=== PATIENT | male | born 1975 | race African-American/Black ===

== ENCOUNTER 2018-09-02 03:40 | Inpatient (IN) | payer MEDICAID ==
[~2018-09-02] VITALS: Ht 170.2 cm; Wt 60.8 kg
[2018-09-02] VITALS (8 sets, daily range): BP systolic 121–135; BP diastolic 69–80
[2018-09-02] MEDS ORDERED: HYDROXYUREA500 M1 PO (03:45)
[2018-09-02] MEDS ORDERED: FOLIC ACID1 MG ORAL (03:45)
[2018-09-02] MEDS ORDERED: DILAUDID 44 MG/1 M3 IJ (03:45)
[2018-09-02] MEDS ORDERED: DiphenhydrAMINE 50mg/ml Inj IVP ONE (04:00)
[2018-09-02] MEDS ORDERED: Morphine Sulfate 4mg/ml Inj (IV/IM USE ONLY) IVP ONE ×2 (04:00→05:00)
[2018-09-02 04:06] LABS: HEMATOCRIT 26.7 % (42.0-52.0); MEAN CORPUSCULAR VOLUME 84 FL (80-99); PLATELET COUNT 412 K/UL (150-450); RED BLOOD COUNT 3.18 M/UL (4.70-6.10); RED CELL DISTRIBUTION WIDTH 26.8 % (11.6-14.8); WHITE BLOOD COUNT 19.4 K/UL (4.8-10.8)
[2018-09-02 04:16] LABS: ANION GAP 10 mmol/L (5-15); BLOOD UREA NITROGEN 8 mg/dL (7-18); CALCIUM 8.8 MG/DL (8.5-10.1); CARBON DIOXIDE 24 MMOL/L (21-32); CHLORIDE 107 MMOL/L (98-107); CREATININE 0.7 MG/DL (0.55-1.30); SODIUM 141 MMOL/L (136-145)
[2018-09-02 04:18] LABS: INR 1.1 (0.9-1.1)
[2018-09-02 04:29] LABS: ALANINE AMINOTRANSFERASE 44 U/L (12-78); ALBUMIN 4.3 G/DL (3.4-5.0); ALKALINE PHOSPHATASE 100 U/L (46-116); ASPARTATE AMINO TRANSFERASE 35 U/L (15-37); BILIRUBIN,TOTAL 3.4 MG/DL (0.2-1.0)
--- NOTE | 2018-09-02 04:41 | Emergency Room Report ---
History of Present Illness General Chief Complaint: Pain Source: Patient Present Illness HPI Patient is a 42-year-old male who presented after increased back pain. Patient had recent onset of symptoms. He reports having increased sharp pain. Patient states that he had prior history of sickle cell disease. Taking hydroxyurea as well as. The patient reports being followed by hematology [facility]. Allergies: Coded Allergies: MORPHINE (Verified Allergy, Unknown, 09/02/18) Patient History Past Medical History: see triage record Reviewed Nursing Documentation: PMH: Agreed; PSxH: Agreed Nursing Documentation-PMH Past Medical History: No History, Except For Review of Systems All Other Systems: negative except mentioned in HPI Physical Exam Vital Signs Date Time Temp Pulse Resp B/P (MAP) Pulse Ox O2 Delivery O2 Flow Rate FiO2 09/02/18 03:39 98.4 87 16 128/71 100 Room Air Sp02 EP Interpretation: reviewed, normal General Appearance: normal inspection, well appearing, no apparent distress, alert, GCS 15 Head: atraumatic ENT: normal ENT inspection, hearing grossly normal, normal voice Neck: normal inspection, full range of motion, supple, no bony tend Respiratory: normal inspection, lungs clear, normal breath sounds, no respiratory distress, no retraction, no wheezing Cardiovascular #1: regular rate, rhythm, no edema Gastrointestinal: normal inspection, normal bowel sounds, non tender, soft, no guarding, no hernia Genitourinary: no CVA tenderness Musculoskeletal: normal inspection, back normal, normal range of motion Neurologic: normal inspection, alert, oriented x3, responsive, 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 Differential diagnosis included but was not limited to have sickle cell pain crisis, aplastic crisis, sequestration , osteomyelitis, acute chest syndrome among others. Because of complexity of patient's case laboratory testing and imaging studies were ordered.The patient was noted to have severe pain. The patient was given multiple IV pain medications as well as IV fluids. The patient was noted to have adequate hemoglobin as well as elevated white blood count.Dr. Angelito Dahl was contacted for inpatient management due to panel physician Last Vital Signs Date Time Temp Pulse Resp B/P (MAP) Pulse Ox O2 Delivery O2 Flow Rate FiO2 09/02/18 03:40 98.3 79 20 135/80 100 Room Air Status: improved Disposition: ADMITTED INPATIENT Condition: Stable Referrals: NON PHYSICIAN (PCP) Gamal Cheung MD Sep 02, 2018 04:41
[2018-09-02 04:44] LABS: BILIRUBIN,DIRECT 0.3 MG/DL (0.0-0.3)
[2018-09-02] MEDS ORDERED: Ketorolac 30mg Inj IV ONE ×2 (05:00)
[2018-09-02 05:41] LABS: BILIRUBIN, URINE NEGATIVE (NEGATIVE); GLUCOSE, URINE (UA) NEGATIVE (NEGATIVE); KETONES,URINE NEGATIVE (NEGATIVE); LEUKOCYTE ESTERASE ,URINE NEGATIVE (NEGATIVE); NITRITE,URINE NEGATIVE (NEGATIVE); PH,URINE 7 (4.5-8.0); PROTEIN,URINE NEGATIVE (NEGATIVE); UROBILINOGEN,URINE NORMAL MG/DL (0.0-1.0)
[2018-09-02 05:42] LABS: APPEARANCE,URINE CLEAR; COLOR,URINE YELLOW
--- NOTE | 2018-09-02 07:51 | Consultation ---
History of Present Illness General Chief Complaint: Pain Present Illness Allergies: Coded Allergies: MORPHINE (Verified Allergy, Unknown, 09/02/18) Medication History Scheduled Folic Acid* (Folic Acid*), 1 MG ORAL DAILY, (Reported) Miscellaneous Medications Hydromorphone HCl/Pf (Dilaudid 4 mg/ml Syringe), 4 MG IJ, (Reported) Hydroxyurea (Hydroxyurea), 500 MG PO, (Reported) Patient History Healthcare decision maker Resuscitation status Advanced Directive on File Physical Exam Last 24 Hour Vital Signs Date Time Temp Pulse Resp B/P (MAP) Pulse Ox O2 Delivery O2 Flow Rate FiO2 09/02/18 07:06 98.2 81 20 130/75 97 Room Air 09/02/18 07:04 98.2 81 20 130/75 97 Room Air 09/02/18 05:44 98.0 72 20 128/77 96 Room Air 09/02/18 03:40 98.3 79 20 135/80 100 Room Air 09/02/18 03:39 98.4 87 16 128/71 100 Room Air Laboratory Tests Test 09/02/18 03:55 09/02/18 04:50 White Blood Count 19.4 K/UL (4.8-10.8) H Red Blood Count 3.18 M/UL (4.70-6.10) L Hemoglobin 9.0 G/DL (14.2-18.0) L Hematocrit 26.7 % (42.0-52.0) L Mean Corpuscular Volume 84 FL (80-99) Mean Corpuscular Hemoglobin 28.3 PG (27.0-31.0) Mean Corpuscular Hemoglobin Concent 33.7 G/DL (32.0-36.0) Red Cell Distribution Width 26.8 % (11.6-14.8) H Platelet Count 412 K/UL (150-450) Mean Platelet Volume 6.6 FL (6.5-10.1) Neutrophils (%) (Auto) % (45.0-75.0) Lymphocytes (%) (Auto) % (20.0-45.0) Monocytes (%) (Auto) % (1.0-10.0) Eosinophils (%) (Auto) % (0.0-3.0) Basophils (%) (Auto) % (0.0-2.0) Reticulocyte Count 2.2 % (0.0-2.0) H Prothrombin Time 11.2 SEC (9.30-11.50) Prothromb Time International Ratio 1.1 (0.9-1.1) Activated Partial Thromboplast Time 19 SEC (23-33) L Sodium Level 141 MMOL/L (136-145) Potassium Level 4.0 MMOL/L (3.5-5.1) Chloride Level 107 MMOL/L (98-107) Carbon Dioxide Level 24 MMOL/L (21-32) Anion Gap 10 mmol/L (5-15) Blood Urea Nitrogen 8 mg/dL (7-18) Creatinine 0.7 MG/DL (0.55-1.30) Estimat Glomerular Filtration Rate > 60 mL/min (>60) Glucose Level 122 MG/DL (74-106) H Calcium Level 8.8 MG/DL (8.5-10.1) Total Bilirubin 3.4 MG/DL (0.2-1.0) H Direct Bilirubin 0.3 MG/DL (0.0-0.3) Aspartate Amino Transf (AST/SGOT) 35 U/L (15-37) Alanine Aminotransferase (ALT/SGPT) 44 U/L (12-78) Alkaline Phosphatase 100 U/L (46-116) Troponin I 0.007 ng/mL (0.000-0.056) Total Protein 8.7 G/DL (6.4-8.2) H Albumin 4.3 G/DL (3.4-5.0) Globulin 4.4 g/dL Albumin/Globulin Ratio 1.0 (1.0-2.7) Urine Color Yellow Urine Appearance Clear Urine pH 7 (4.5-8.0) Urine Specific [place] 1.005 (1.005-1.035) Urine Protein Negative (NEGATIVE) Urine Glucose (UA) Negative (NEGATIVE) Urine Ketones Negative (NEGATIVE) Urine Blood Negative (NEGATIVE) Urine Nitrite Negative (NEGATIVE) Urine Bilirubin Negative (NEGATIVE) Urine Urobilinogen Normal MG/DL (0.0-1.0) Urine Leukocyte Esterase Negative (NEGATIVE) Urine RBC 0 /HPF (0 - 0) Urine WBC 0 /HPF (0 - 0) Urine Squamous Epithelial Cells None /LPF (NONE/OCC) Urine Bacteria None /HPF (NONE) Urine Opiates Screen Positive (NEGATIVE) H Urine Barbiturates Screen Negative (NEGATIVE) Phencyclidine (PCP) Screen Negative (NEGATIVE) Urine Amphetamines Screen Negative (NEGATIVE) Urine Benzodiazepines Screen Negative (NEGATIVE) Urine Cocaine Screen Negative (NEGATIVE) Urine Marijuana (THC) Screen Positive (NEGATIVE) H Height (Feet): 5 Height (Inches): 7.00 Weight (Pounds): 155 Assessment/Plan Assessment/Plan Hematology Consultation REQ : Jody RFC: SS crisis DOS: 09/02/18 HPI Patient is a 42-year-old male who presented after increased back pain. Patient had recent onset of symptoms. He reports having increased sharp pain. Patient states that he had prior history of sickle cell disease. Taking hydroxyurea as well as. The patient reports being followed by hematology [facility]. Coded Allergies: morphine Past Medical History: see triage record Reviewed Nursing Documentation: PMH: Agreed; PSxH: Agreed Past Medical History: No History, Except For Review of Systems All Other Systems: negative except mentioned in HPI Physical Exam VS as per emr Sp02 EP Interpretation: reviewed, normal General Appearance: normal inspection, well appearing, no apparent distress, alert, GCS 15 Head: atraumatic ENT: normal ENT inspection, hearing grossly normal, normal voice Neck: normal inspection, full range of motion, supple, no bony tend Respiratory: normal inspection, lungs clear, normal breath sounds, no respiratory distress, no retraction, no wheezing Cardiovascular #1: regular rate, rhythm, no edema Gastrointestinal: normal inspection, normal bowel sounds Genitourinary: no CVA tenderness Musculoskeletal: normal inspection, back normal Neurologic: normal inspection, alert, oriented x3, responsive Psychiatric: normal inspection, judgement/insight normal, mood/affect normal Skin: normal inspection, normal color, no rash Imaging reviewed Assessment and Recs # SIckle cell crisis -- Patient presented for sickle cell pain. Differential diagnosis included but was not limited to have sickle cell pain crisis, aplastic crisis, sequestration, osteomyelitis, acute chest syndrome among others. Because of complexity of patient's case laboratory testing and imaging studies were ordered. --> bc first time here, obtain sickle cell screen --> obtain hgb electrophoresis --> pain manamgent as per pain team --> retic and ldh pending --> incentive maksim --> hydroxyurea continue --> [facility] f/u # Anemia of sickle cell disease --> obtain anemia eval # Hyperbili- likely related to sickle cell disease --> trend as needed, should improve # Leukocytosis likely elevated due to ss and stress reaction # Dehydration -- administer fluids Greatly appreciate consultation! Zackery Perez MD Sep 02, 2018 07:51
[2018-09-02] MEDS ORDERED: DiphenhydrAMINE 50mg/ml Inj IVP PRN (08:30)
[2018-09-02] MEDS ORDERED: Morphine Sulfate 2mg/ml Inj IVP PRN (08:30)
[2018-09-02 09:37] LABS: % IRON SATURATION 32 % (15-50); IRON 81 ug/dL (50-175); TOTAL IRON BINDING CAPACITY 254 ug/dL (250-450)
[2018-09-02 09:59] LABS: FERRITIN 1834 NG/ML (8-388)
[2018-09-02] MEDS ORDERED: Morphine Sulfate 4mg/ml Inj (IV/IM USE ONLY) IVP PRN (10:45)
--- NOTE | 2018-09-02 11:12 | Consultation ---
Consult Note Consult Note Patient is a 42-year-old male who presented after increased back pain. Patient had recent onset of symptoms. He reports having increased sharp pain. Patient states that he had prior history of sickle cell disease. Taking hydroxyurea as well as. The patient reports being followed by hematology [facility]. Allergies: MORPHINE (Verified Allergy, Unknown, 09/02/18) data reviewed patient seen Assessment/Plan sickle cell crisis hydrate per hematology Kapil Franklin MD Sep 02, 2018 11:12
[2018-09-02] MEDS: D5 1/2NS 1,000 ML IV SCH ×2 (11:46→23:46)
[2018-09-02] MEDS ORDERED: Morphine Sulfate 4mg/ml Inj (IV/IM USE ONLY) IVP SCH (12:30)
--- NOTE | 2018-09-02 13:01 | Diagnostic Imaging Report ---
Indication: Shortness of breath Technique: One view of the chest Comparison: none Findings: The lungs and pleural space are clear. The heart is enlarged. The bones are diffusely sclerotic Impression: Cardiomegaly No acute process Diffuse osteosclerosis, likely on the basis of metabolic abnormality such as sickle cell disease
[2018-09-02] MEDS: Hydroxyurea 500mg cap ORAL SCH (14:15)
[2018-09-02] MEDS: HYDROmorphone 1mg/ml Carpuject IVP PRN ×2 (16:23→20:23)
[2018-09-02] MEDS ORDERED: D5 1/2NS 1000ml IV ONE (16:45)
--- NOTE | 2018-09-02 18:25 | Consultation ---
History of Present Illness General Date patient seen: Sep 02, 2018 Chief Complaint: Present Illness Allergies: Coded Allergies: MORPHINE (Verified Allergy, Unknown, 09/02/18) Medication History Scheduled Folic Acid* (Folic Acid*), 1 MG ORAL DAILY, (Reported) Miscellaneous Medications Hydromorphone HCl/Pf (Dilaudid 4 mg/ml Syringe), 4 MG IJ, (Reported) Hydroxyurea (Hydroxyurea), 500 MG PO, (Reported) Patient History Healthcare decision maker Resuscitation status Full Code Advanced Directive on File No Physical Exam Last 24 Hour Vital Signs Date Time Temp Pulse Resp B/P (MAP) Pulse Ox O2 Delivery O2 Flow Rate FiO2 09/02/18 16:53 99.0 09/02/18 16:00 98.7 95 20 122/78 (93) 95 09/02/18 13:28 99.0 82 19 128/75 (92) 98 09/02/18 13:06 98.6 09/02/18 12:00 99.0 82 19 128/75 (92) 98 09/02/18 09:52 98.6 09/02/18 09:00 Room Air 09/02/18 08:15 98.6 92 19 130/76 (94) 96 09/02/18 08:12 Room Air 09/02/18 07:06 98.2 81 20 130/75 97 Room Air 09/02/18 07:04 98.2 81 20 130/75 97 Room Air 09/02/18 05:44 98.0 72 20 128/77 96 Room Air 09/02/18 03:40 98.3 79 20 135/80 100 Room Air 09/02/18 03:39 98.4 87 16 128/71 100 Room Air Intake and Output 09/01/18 09/02/18 19:00 07:00 # Voids 1 Laboratory Tests Test 09/02/18 03:55 09/02/18 04:50 White Blood Count 19.4 K/UL (4.8-10.8) H Red Blood Count 3.18 M/UL (4.70-6.10) L Hemoglobin 9.0 G/DL (14.2-18.0) L Hematocrit 26.7 % (42.0-52.0) L Mean Corpuscular Volume 84 FL (80-99) Mean Corpuscular Hemoglobin 28.3 PG (27.0-31.0) Mean Corpuscular Hemoglobin Concent 33.7 G/DL (32.0-36.0) Red Cell Distribution Width 26.8 % (11.6-14.8) H Platelet Count 412 K/UL (150-450) Mean Platelet Volume 6.6 FL (6.5-10.1) Neutrophils (%) (Auto) % (45.0-75.0) Lymphocytes (%) (Auto) % (20.0-45.0) Monocytes (%) (Auto) % (1.0-10.0) Eosinophils (%) (Auto) % (0.0-3.0) Basophils (%) (Auto) % (0.0-2.0) Reticulocyte Count 2.2 % (0.0-2.0) H Sickle Cell Screen Pending Hemoglobin A Pending Hemoglobin A2 Pending Hemoglobin C Pending Hemoglobin F () Pending Hemoglobin S Pending Variant Hemoglobin Pending Hemoglobin Electrophoresis Interp Pending Hemoglobin Interpretation Pending Hemoglobin Solubility Pending Prothrombin Time 11.2 SEC (9.30-11.50) Prothromb Time International Ratio 1.1 (0.9-1.1) Activated Partial Thromboplast Time 19 SEC (23-33) L Sodium Level 141 MMOL/L (136-145) Potassium Level 4.0 MMOL/L (3.5-5.1) Chloride Level 107 MMOL/L (98-107) Carbon Dioxide Level 24 MMOL/L (21-32) Anion Gap 10 mmol/L (5-15) Blood Urea Nitrogen 8 mg/dL (7-18) Creatinine 0.7 MG/DL (0.55-1.30) Estimat Glomerular Filtration Rate > 60 mL/min (>60) Glucose Level 122 MG/DL (74-106) H Calcium Level 8.8 MG/DL (8.5-10.1) Iron Level 81 ug/dL (50-175) Total Iron Binding Capacity 254 ug/dL (250-450) Percent Iron Saturation 32 % (15-50) Unsaturated Iron Binding 173 ug/dL (112-346) Ferritin 1834 NG/ML (8-388) H Total Bilirubin 3.4 MG/DL (0.2-1.0) H Direct Bilirubin 0.3 MG/DL (0.0-0.3) Aspartate Amino Transf (AST/SGOT) 35 U/L (15-37) Alanine Aminotransferase (ALT/SGPT) 44 U/L (12-78) Alkaline Phosphatase 100 U/L (46-116) Troponin I 0.007 ng/mL (0.000-0.056) Total Protein 8.7 G/DL (6.4-8.2) H Albumin 4.3 G/DL (3.4-5.0) Globulin 4.4 g/dL Albumin/Globulin Ratio 1.0 (1.0-2.7) Urine Color Yellow Urine Appearance Clear Urine pH 7 (4.5-8.0) Urine Specific [place] 1.005 (1.005-1.035) Urine Protein Negative (NEGATIVE) Urine Glucose (UA) Negative (NEGATIVE) Urine Ketones Negative (NEGATIVE) Urine Blood Negative (NEGATIVE) Urine Nitrite Negative (NEGATIVE) Urine Bilirubin Negative (NEGATIVE) Urine Urobilinogen Normal MG/DL (0.0-1.0) Urine Leukocyte Esterase Negative (NEGATIVE) Urine RBC 0 /HPF (0 - 0) Urine WBC 0 /HPF (0 - 0) Urine Squamous Epithelial Cells None /LPF (NONE/OCC) Urine Bacteria None /HPF (NONE) Urine Opiates Screen Positive (NEGATIVE) H Urine Barbiturates Screen Negative (NEGATIVE) Phencyclidine (PCP) Screen Negative (NEGATIVE) Urine Amphetamines Screen Negative (NEGATIVE) Urine Benzodiazepines Screen Negative (NEGATIVE) Urine Cocaine Screen Negative (NEGATIVE) Urine Marijuana (THC) Screen Positive (NEGATIVE) H Height (Feet): 5 Height (Inches): 7.00 Weight (Pounds): 134 Medications Current Medications Medications (Trade) Dose Ordered Sig/Christina Route PRN Reason Start Time Stop Time Status Last Admin Dose Admin Dextrose/Sodium Chloride 1,000 ml @ 75 mls/hr [id number] IV 09/02/18 11:45 10/02/18 11:44 09/02/18 11:46 Diphenhydramine HCl (Benadryl) 25 mg Q4H PRN IVP Itching 09/02/18 08:30 10/02/18 08:29 09/02/18 09:22 Folic Acid (Folate) 2 mg DAILY ORAL 09/03/18 09:00 10/02/18 08:59 Hydromorphone HCl (Dilaudid) 1 mg Q4H PRN IVP For Pain 09/02/18 15:00 09/09/18 14:59 09/02/18 16:23 Hydroxyurea (Hydrea) 500 mg DAILY ORAL 09/02/18 14:15 09/07/18 14:14 Assessment/Plan Assessment/Plan (1) Sickle cell disease (2) Sickle cell crisis (3) Intractable pain seen dictated Nathanael Sheridan Sep 02, 2018 18:25
[2018-09-02] MEDS ORDERED: Methocarbamol 500mg tab ORAL PRN (18:45)
[2018-09-02] MEDS: HYDROcodone/Acetamin 10/325 tab ORAL PRN (19:03)
--- NOTE | 2018-09-02 21:00 | Consultation ---
DATE OF CONSULTATION: 09/02/2018 INFECTIOUS DISEASE CONSULT: CONSULTING PHYSICIAN: Stuart Vora M.D. PRIMARY ATTENDING: Angelito Vera M.D. REASON FOR CONSULT: Leukocytosis. HISTORY OF PRESENT ILLNESS: The patient is a 42-year-old male admitted today because of back pain. The patient has a history of sickle cell disease on treatment with hydroxyurea. Had leukocytosis, but no fever. PAST MEDICAL HISTORY: Significant for sickle cell disease and anemia. ALLERGIES: Allergic to morphine. MEDICATIONS: Folic acid, morphine sulfate, diphenhydramine, and got a dose of ketorolac. SOCIAL HISTORY: Single. Denies alcohol, drug abuse, and smoking. REVIEW OF SYSTEMS: No chest pain. No fever. No chills. No coughing. No shortness of breath. No nausea. No vomiting. No problem in urination. PHYSICAL EXAMINATION: VITAL SIGNS: Temperature 98.6, pulse 92, and blood pressure 130/76. GENERAL APPEARANCE: No acute distress. Seems to be thin. HEAD AND NECK: [place] conjunctivae. HEART: S1-S2 regular. LUNGS: Clear. ABDOMEN: Soft and nontender. EXTREMITIES: Has no edema. LABORATORY DATA: Sodium 141, potassium 4, chloride 107, bicarbonate 24, BUN 8, creatinine 0.7, and glucose 122. Ferritin is 1834. WBC 19.4, hemoglobin 9, hematocrit 26.7, and platelets 412. Urine toxicology was positive for marijuana and opiates. UA was negative. Chest x-ray was done, report is pending. IMPRESSION: Leukocytosis, likely reactive to sickle cell crisis. The patient has anemia. RECOMMENDATION: Observe off antibiotic. We will follow up the chest x-ray. At the end of my exam, I thank Dr. Vera for involving me in the care of this patient. Stuart Vora M.D. DR: KIMMY JOB#: [id number] CC:
[2018-09-03] VITALS (7 sets, daily range): BP systolic 118–177; BP diastolic 68–78
[2018-09-03] MEDS: HYDROmorphone 1mg/ml Carpuject IVP PRN ×6 (00:23→21:22)
--- NOTE | 2018-09-03 02:45 | History and Physical Report ---
DATE OF ADMISSION: 09/02/2018 HISTORY OF PRESENT ILLNESS: The patient is admitted for sickle cell crisis. The patient has also leukocytosis and increased pain from sickle cell disease mainly in the back and both knees are hurting. The patient denies nausea, vomiting, or diarrhea. Does have some itching as well. Denies shortness of breath. Denies cough. PAST MEDICAL HISTORY: Sickle cell and history of gallstones. PAST SURGERY HISTORY: Cholecystectomy. ALLERGIES: Morphine. MEDICATION: Hydroxyurea and Dilaudid and folic acid. FAMILY HISTORY: Noncontributory. SOCIAL HISTORY: Denies history of smoking. Denies alcohol or illicit drugs. REVIEW OF SYSTEMS: HEENT: Denies headaches. RESPIRATORY: Denies shortness of breath. Denies cough. CARDIOVASCULAR: Denies chest pain. No orthopnea. GASTROINTESTINAL: Denies nausea, vomiting, or diarrhea. EXTREMITY: Reports back pain and bilateral knee pain. CENTRAL NERVOUS SYSTEM: No change in vision or speech pattern. PHYSICAL EXAMINATION: VITAL SIGNS: Temperature 99, pulse 83, and blood pressure 128/75. HEENT: PERRLA. NECK: Supple. No lymphadenopathy. CHEST: Clear to auscultation. CARDIOVASCULAR: Regular rate and rhythm. GASTROINTESTINAL: Soft, nontender, and nondistended. No organomegaly. EXTREMITIES: No edema. Reflexes are equal on both sides. Moves all four extremities. LABORATORY DATA: WBC of 19.4, hemoglobin 9, and platelets of 412,000. Sodium 141, potassium 4, BUN of 8, creatinine 0.7, and glucose of 122. Total bilirubin of 3.4. ASSESSMENT AND PLAN: Sickle cell crisis. The patient will need intravenous fluids and pain management. I have asked Dr. Riojas, Dr. Franklin, Dr. Stuart Vora, and Dr. Zackery Perez to see the patient for the leukocytosis as well as for the treatment of sickle cell crisis as well as for fluid management and pain control. Angelito Vera M.D. DR: BRIDGET JOB#: [id number] CC:
--- NOTE | 2018-09-03 03:00 | Consultation ---
DATE OF CONSULTATION: 09/02/2018 PAIN MANAGEMENT CONSULTATION CONSULTING PHYSICIAN: Lauryn Riojas M.D. REFERRING PHYSICIAN: Angelito Vera M.D. PHYSICIAN AVP: LINDA Boone. CHIEF COMPLAINT: Generalized body pain. HISTORY OF PRESENT ILLNESS: This is a 42-year-old male who is being seen on the Med/Surg floor of [facility] for initial pain management consultation. The patient is admitted under Dr. Vera due to sickle cell crisis and severe pain. He was started on morphine 2 mg IV every four hours with minimal relief, was increased to 4 mg with minimal relief and has been started on Dilaudid 1 mg IV every 4 hours as needed for severe pain , which he reports has helped to reduce his pain. We were consulted so that the patient would have adequate pain control while here in the hospital. PAST MEDICAL HISTORY: Sickle cell disease. PAST SURGICAL HISTORY: Gallbladder removal. SOCIAL HISTORY: Denies smoking tobacco, drinking alcohol, or drug abuse. ALLERGIES: No known drug allergies. MEDICATIONS: . REVIEW OF SYSTEMS: Denies rash, fever, chills, sweating, dizziness, drowsiness, blurred vision, sore throat, or change in weight. No shortness of breath or chest pain. No nausea, vomiting, diarrhea, or blood in the stool or urine. No bowel or bladder incontinence. No dysuria. He is complaining of generalized body pain. PHYSICAL EXAMINATION: GENERAL: Alert, awake, and oriented. VITAL SIGNS: Blood pressure 132/78, heart rate 95, oxygen saturation 95%, respirations 18, and temperature 98.6 degrees Fahrenheit. HEENT: PERRLA. NECK: Range of motion is full in all directions. No tenderness to paracervical muscles. No adenopathy. LUNGS: Decreased breath sounds bilaterally. HEART: Regular. ABDOMEN: Benign. BACK: Range of motion is decreased in flexion and extension. EXTREMITIES: Upper and lower extremities range of motion is decreased due to the patient's clinical condition. No cyanosis. No clubbing. No edema. Sensory is intact. Reflexes are not obtainable. No adenopathy. ASSESSMENT AND PLAN: This is a 42-year-old male with sickle cell disease, sickle cell crisis, and intractable pain. At this time, the patient has been seen by transcript clerk to rule out sickle cell disease. Started on Dilaudid 1 mg IV every 4 hours as needed for severe pain, [place] 10/325mg PO 1 tab Q4H as needed for moderate pain, and Robaxin 500 mg tablets every 8 hours as needed for muscle spasm. The patient was discussed with Dr. Riojas and Dr. Riojas concurred. Thank you very much for the courtesy of this consultation. Lauryn Riojas M.D. LINDA Lezama DR: SAULO JOB#: [id number] CC: DONALD
[2018-09-03] MEDS: HYDROcodone/Acetamin 10/325 tab ORAL PRN ×2 (06:50→20:04)
--- NOTE | 2018-09-03 06:55 | General Progress Note ---
Assessment/Plan Assessment/Plan # SIckle cell crisis -- Patient presented for sickle cell pain. Differential diagnosis included but was not limited to have sickle cell pain crisis, aplastic crisis, sequestration, osteomyelitis, acute chest syndrome among others. Because of complexity of patient's case laboratory testing and imaging studies were ordered. --> bc first time here, obtain sickle cell screen as well as electrophoresis of hgb --> pain manamgent as per pain team, currently pain better controlled --> retic and ldh pending (TREND) --> incentive spirometry --> outpatient Januvia for iron overload --> hydroxyurea continue as per home dose --> [facility] f/u once o/p # Anemia of sickle cell disease --> shows ferritin >1000, otherwise indices are wnl # Hyperbili- likely related to sickle cell disease --> trend as needed, should improve # Leukocytosis likely elevated due to ss and stress reaction --> off abx # Dehydration -- administer fluids Greatly appreciate consultation! Subjective Constitutional: Denies: no symptoms, chills, diaphoresis, fever, malaise, weakness, other HEENT: Denies: no symptoms, eye pain, blurred vision, tearing, double vision, ear pain, ear discharge, nose pain, nose congestion, throat pain, throat swelling, mouth pain, mouth swelling, other Cardiovascular: Denies: no symptoms, chest pain, edema, irregular heart rate, lightheadedness, palpitations, syncope, other Respiratory: Denies: no symptoms, cough, orthopnea, shortness of breath, SOB with excertion, SOB at rest, sputum, stridor, wheezing, other Gastrointestinal/Abdominal: Denies: no symptoms, abdomen distended, abdominal pain, black stools, tarry stools, blood in stool, constipated, diarrhea, difficulty swallowing, nausea, poor appetite, poor fluid intake, rectal bleeding , vomiting, other Genitourinary: Denies: no symptoms, burning, discharge, frequency, flank pain, hematuria, incontinence, pain, urgency, other Neurologic/Psychiatric: Denies: no symptoms, anxiety, depressed, emotional problems, headache, numbness, paresthesia, pre-existing deficit, seizure, tingling, tremors, weakness, other Endocrine: Denies: no symptoms, excessive sweating, flushing, intolerance to cold, intolerance to heat, increased hunger, increased thirst, increased urine, unexplained weight gain, unexplained weight loss, other Hematologic/Lymphatic: Denies: no symptoms, anemia, easy bleeding, easy bruising, other Allergies: Coded Allergies: MORPHINE (Verified Allergy, Unknown, 09/02/18) Subjective less pain this am, retic and ldh being checked, seen by pain management Objective Last 24 Hour Vital Signs Date Time Temp Pulse Resp B/P (MAP) Pulse Ox O2 Delivery O2 Flow Rate FiO2 09/03/18 04:00 99.0 78 18 125/69 (87) 97 09/03/18 00:00 98.9 81 19 119/68 (85) 95 09/02/18 21:00 Room Air 09/02/18 20:00 99.4 74 18 121/69 (86) 98 09/02/18 16:53 99.0 09/02/18 16:00 98.7 95 20 122/78 (93) 95 09/02/18 13:28 99.0 82 19 128/75 (92) 98 09/02/18 13:06 98.6 09/02/18 12:00 99.0 82 19 128/75 (92) 98 09/02/18 09:52 98.6 09/02/18 09:00 Room Air 09/02/18 08:15 98.6 92 19 130/76 (94) 96 09/02/18 08:12 Room Air 09/02/18 07:06 98.2 81 20 130/75 97 Room Air 09/02/18 07:04 98.2 81 20 130/75 97 Room Air Intake and Output 09/02/18 09/03/18 18:59 06:59 Intake Total 1975 ml Output Total 1850 ml Balance 125 ml Intake Oral 1600 ml IV Total 375 ml Output Urine Total 1850 ml # Voids 4 Height (Feet): 5 Height (Inches): 7.00 Weight (Pounds): 134 General Appearance: alert Cardiovascular: normal peripheral pulses Respiratory/Chest: lungs clear Abdomen: soft Extremities: non-tender Edema: 1+ Leg (L), 1+ Leg (R), 1+ Pedal (L), 1+ Pedal (R) Edema: mild edema Neurologic: alert Skin: normal pigmentation Zackery Perez MD Sep 03, 2018 06:55
[2018-09-03] MEDS: Hydroxyurea 500mg cap ORAL SCH (08:57)
--- NOTE | 2018-09-03 09:01 | General Progress Note ---
Assessment/Plan Assessment/Plan (1) Sickle cell disease (2) Sickle cell crisis (3) Intractable pain Patient to be continued on Max and Dilaudid. D/w Dr. Riojas and he concurred. Subjective Date patient seen: Sep 03, 2018 Time patient seen: 07:15 - am Allergies: Coded Allergies: MORPHINE (Verified Allergy, Unknown, 09/02/18) Subjective REVIEW OF SYSTEMS: Denies rash, fever, chills, sweating, dizziness, drowsiness, blurred vision, sore throat, or change in weight. No shortness of breath or chest pain. No nausea, vomiting, diarrhea, or blood in the stool or urine. No bowel or bladder incontinence. No dysuria. He is complaining of generalized body pain. SUBJECTIVE: Patient is in bed and shows no signs of pain or distress. He reports that the pain continues to be severe and is reduced on the Dilaudid and Max. He has no new complaints. Objective Last 24 Hour Vital Signs Date Time Temp Pulse Resp B/P (MAP) Pulse Ox O2 Delivery O2 Flow Rate FiO2 09/03/18 08:00 99.1 95 19 118/78 (91) 97 09/03/18 04:00 99.0 78 18 125/69 (87) 97 09/03/18 00:00 98.9 81 19 119/68 (85) 95 09/02/18 21:00 Room Air 09/02/18 20:00 99.4 74 18 121/69 (86) 98 09/02/18 16:53 99.0 09/02/18 16:00 98.7 95 20 122/78 (93) 95 09/02/18 13:28 99.0 82 19 128/75 (92) 98 09/02/18 13:06 98.6 09/02/18 12:00 99.0 82 19 128/75 (92) 98 09/02/18 09:52 98.6 Intake and Output 09/02/18 09/03/18 19:00 07:00 Intake Total 1975 ml 480 ml Output Total 1850 ml 1475 ml Balance 125 ml -995 ml Intake Oral 1600 ml 480 ml IV Total 375 ml Output Urine Total 1850 ml 1475 ml # Voids 4 Laboratory Tests 09/03/18 07:45: Reticulocyte Count [Pending], Lactate Dehydrogenase 556H Height (Feet): 5 Height (Inches): 7.00 Weight (Pounds): 134 Objective GENERAL: Alert, awake, and oriented. LUNGS: Decreased breath sounds bilaterally. HEART: Regular. ABDOMEN: Benign. EXTREMITIES: No cyanosis. No clubbing. No edema. NEURO: No changes. Nathanael Sheridan Sep 03, 2018 09:01
--- NOTE | 2018-09-03 10:22 | General Progress Note ---
Subjective Allergies: Coded Allergies: MORPHINE (Verified Allergy, Unknown, 09/02/18) Subjective pain in mutiple places sickle cell crisis pain mangement and needs iv fluids Objective Last 24 Hour Vital Signs Date Time Temp Pulse Resp B/P (MAP) Pulse Ox O2 Delivery O2 Flow Rate FiO2 09/03/18 09:34 99.1 09/03/18 08:00 99.1 95 19 118/78 (91) 97 09/03/18 04:00 99.0 78 18 125/69 (87) 97 09/03/18 00:00 98.9 81 19 119/68 (85) 95 09/02/18 21:00 Room Air 09/02/18 20:00 99.4 74 18 121/69 (86) 98 09/02/18 16:00 98.7 95 20 122/78 (93) 95 09/02/18 13:28 99.0 82 19 128/75 (92) 98 09/02/18 13:06 98.6 09/02/18 12:00 99.0 82 19 128/75 (92) 98 Intake and Output 09/02/18 09/03/18 19:00 07:00 Intake Total 1975 ml 480 ml Output Total 1850 ml 1475 ml Balance 125 ml -995 ml Intake Oral 1600 ml 480 ml IV Total 375 ml Output Urine Total 1850 ml 1475 ml # Voids 4 Laboratory Tests 09/03/18 07:45: Reticulocyte Count [Pending], Lactate Dehydrogenase 556H Height (Feet): 5 Height (Inches): 7.00 Weight (Pounds): 134 Angelito Vera MD Sep 03, 2018 10:22
--- NOTE | 2018-09-03 13:01 | Nephrology Progress Note ---
Assessment/Plan Problem List: (1) Sickle cell crisis (2) Dehydration Assessment sickle cell crisis dehydration Plan hydrate per hematology Subjective ROS Limited/Unobtainable: No Constitutional: Reports: malaise Objective Objective Last 24 Hour Vital Signs Date Time Temp Pulse Resp B/P (MAP) Pulse Ox O2 Delivery O2 Flow Rate FiO2 09/03/18 09:34 99.1 09/03/18 09:00 Room Air 09/03/18 08:00 99.1 95 19 118/78 (91) 97 09/03/18 04:00 99.0 78 18 125/69 (87) 97 09/03/18 00:00 98.9 81 19 119/68 (85) 95 09/02/18 21:00 Room Air 09/02/18 20:00 99.4 74 18 121/69 (86) 98 09/02/18 16:00 98.7 95 20 122/78 (93) 95 09/02/18 13:28 99.0 82 19 128/75 (92) 98 09/02/18 13:06 98.6 Intake and Output 09/02/18 09/03/18 19:00 07:00 Intake Total 1975 ml 480 ml Output Total 1850 ml 1475 ml Balance 125 ml -995 ml Intake Oral 1600 ml 480 ml IV Total 375 ml Output Urine Total 1850 ml 1475 ml # Voids 4 Laboratory Tests 09/03/18 07:45: Reticulocyte Count 14.6H, Lactate Dehydrogenase 556H Height (Feet): 5 Height (Inches): 7.00 Weight (Pounds): 134 General Appearance: no apparent distress Objective no change Kapil Franklin MD Sep 03, 2018 13:01
--- NOTE | 2018-09-03 13:37 | Infectious Diseases Prog Note ---
Assessment/Plan Assessment/Plan A; Leukocytosis Sickle cell crisis Anemia Osteosclerosis P; Observe off antibiotics f/u [facility] Subjective ROS Limited/Unobtainable: No Constitutional: Reports: other - malaise Respiratory: Reports: no symptoms Cardiovascular: Reports: no symptoms Gastrointestinal/Abdominal: Reports: no symptoms Genitourinary: Reports: no symptoms Musculoskeletal: Reports: pain, other - back & legs Allergies: Coded Allergies: MORPHINE (Verified Allergy, Unknown, 09/02/18) Objective Vital Signs Last 24 Hour Vital Signs Date Time Temp Pulse Resp B/P (MAP) Pulse Ox O2 Delivery O2 Flow Rate FiO2 09/03/18 12:00 98.9 93 18 120/77 (91) 98 09/03/18 09:34 99.1 09/03/18 09:00 Room Air 09/03/18 08:00 99.1 95 19 118/78 (91) 97 09/03/18 04:00 99.0 78 18 125/69 (87) 97 09/03/18 00:00 98.9 81 19 119/68 (85) 95 09/02/18 21:00 Room Air 09/02/18 20:00 99.4 74 18 121/69 (86) 98 09/02/18 16:00 98.7 95 20 122/78 (93) 95 Height (Feet): 5 Height (Inches): 7.00 Weight (Pounds): 134 General Appearance: no acute distress HEENT: mucous membranes moist Respiratory/Chest: lungs clear Cardiovascular: normal rate Abdomen: soft, non tender Extremities: no edema Neurologic/Psychiatric: alert, oriented x 3, responsive Laboratory Tests Test 09/03/18 07:45 Reticulocyte Count 14.6 % (0.0-2.0) H Lactate Dehydrogenase 556 U/L (81-234) H Current Medications Medications (Trade) Dose Ordered Sig/Christina Route PRN Reason Start Time Stop Time Status Last Admin Dose Admin Acetaminophen/ Hydrocodone Bitart ([place]line 10/325) 1 tab Q6H PRN ORAL severe breakthrough pain 09/02/18 18:45 09/09/18 18:44 09/03/18 06:50 Dextrose/Sodium Chloride 1,000 ml @ 75 mls/hr [id number] IV 09/02/18 11:45 10/02/18 11:44 09/02/18 23:46 Diphenhydramine HCl (Benadryl) 25 mg Q4H PRN IVP Itching 09/02/18 08:30 10/02/18 08:29 09/02/18 09:22 Folic Acid (Folate) 2 mg DAILY ORAL 09/03/18 09:00 10/02/18 08:59 09/03/18 09:03 Hydromorphone HCl (Dilaudid) 1 mg Q4H PRN IVP For Pain 09/02/18 15:00 09/09/18 14:59 09/03/18 13:12 Hydroxyurea (Hydrea) 500 mg DAILY ORAL 09/02/18 14:15 09/07/18 14:14 Methocarbamol (Robaxin) 500 mg Q8H PRN ORAL muscle spasm 09/02/18 18:45 10/02/18 18:44 Stuart Vora MD Sep 03, 2018 13:37
--- NOTE | 2018-09-03 14:56 | Cardiology Report ---
APPROVED REPORT EKG Measurement Heart [id number] Normal sinus rhythm Possible Left atrial enlargement Left ventricular hypertrophy Abnormal ECG
[2018-09-03] MEDS: D5 1/2NS 1,000 ML IV SCH (16:05)
[2018-09-04] VITALS: BP 121/80
[2018-09-04] MEDS: HYDROmorphone 1mg/ml Carpuject IVP PRN ×7 (01:48→22:56)
[2018-09-04 04:00] VITALS: BP 108/77
[2018-09-04] MEDS: D5 1/2NS 1,000 ML IV SCH ×2 (05:25→17:33)
[2018-09-04 08:28] VITALS: BP 103/71
[2018-09-04] MEDS: Hydroxyurea 500mg cap ORAL SCH (09:00)
--- NOTE | 2018-09-04 09:31 | General Progress Note ---
Assessment/Plan Assessment/Plan (1) Sickle cell disease (2) Sickle cell crisis (3) Intractable pain Patient to be discontinued off [place] and Dilaudid will be changed to Q3H PRN. We will start Percocet 10/325mg Q4h PRN moderate pain. D/w Dr. Riojas and he concurred. Subjective Date patient seen: Sep 04, 2018 Time patient seen: 07:15 - am Allergies: Coded Allergies: MORPHINE (Verified Allergy, Unknown, 09/02/18) Subjective REVIEW OF SYSTEMS: Denies rash, fever, chills, sweating, dizziness, drowsiness, blurred vision, sore throat, or change in weight. No shortness of breath or chest pain. No nausea, vomiting, diarrhea, or blood in the stool or urine. No bowel or bladder incontinence. No dysuria. He is complaining of generalized body pain. SUBJECTIVE: Patient continues to c/o severe pain and reports that the Dilaudid has stopped working within three hours of the getting it and the norco causes no relief. Objective Last 24 Hour Vital Signs Date Time Temp Pulse Resp B/P (MAP) Pulse Ox O2 Delivery O2 Flow Rate FiO2 09/04/18 08:28 100.4 89 18 103/71 (82) 94 09/04/18 06:24 99.3 09/04/18 04:00 99.3 86 18 108/77 (87) 96 09/04/18 00:00 98.0 98 18 121/80 (94) 95 09/03/18 21:00 Room Air 09/03/18 20:00 100.2 96 18 124/75 (91) 96 09/03/18 18:00 122/72 (89) 09/03/18 16:00 97.7 54 18 177/75 (109) 99 09/03/18 12:00 98.9 93 18 120/77 (91) 98 09/03/18 12:00 98.9 93 18 120/77 (91) 98 Intake and Output 09/03/18 09/04/18 18:59 06:59 Intake Total 2320 ml 900 ml Output Total 500 ml Balance 1820 ml 900 ml Intake Oral 1420 ml IV Total 900 ml 900 ml Output Urine Total 500 ml # Voids 7 Height (Feet): 5 Height (Inches): 7.00 Weight (Pounds): 134 Objective GENERAL: Alert, awake, and oriented. LUNGS: Decreased breath sounds bilaterally. HEART: Regular. ABDOMEN: Benign. EXTREMITIES: No cyanosis. No clubbing. No edema. NEURO: No changes. Nathanael Sheridan Sep 04, 2018 09:31
[2018-09-04 10:21] LABS: HEMATOCRIT 29.9 % (42.0-52.0); HEMOGLOBIN 9.9 G/DL (14.2-18.0); MEAN CORPUSCULAR VOLUME 84 FL (80-99); PLATELET COUNT 405 K/UL (150-450); RED BLOOD COUNT 3.58 M/UL (4.70-6.10); RED CELL DISTRIBUTION WIDTH 23.5 % (11.6-14.8); WHITE BLOOD COUNT 19.9 K/UL (4.8-10.8)
[2018-09-04 10:43] LABS: ALANINE AMINOTRANSFERASE 42 U/L (12-78); ALBUMIN/GLOBULIN RATIO 0.8 (1.0-2.7); ALKALINE PHOSPHATASE 112 U/L (46-116); ANION GAP 7 mmol/L (5-15); ASPARTATE AMINO TRANSFERASE 49 U/L (15-37); BILIRUBIN,TOTAL 5.7 MG/DL (0.2-1.0); BLOOD UREA NITROGEN 10 mg/dL (7-18); CALCIUM 9.2 MG/DL (8.5-10.1); CARBON DIOXIDE 30 MMOL/L (21-32); CHLORIDE 101 MMOL/L (98-107); CREATININE 0.6 MG/DL (0.55-1.30); PHOSPHORUS 3.8 MG/DL (2.5-4.9); POTASSIUM 4.2 MMOL/L (3.5-5.1); SODIUM 137 MMOL/L (136-145)
[2018-09-04 10:44] LABS: BILIRUBIN,DIRECT 0.5 MG/DL (0.0-0.3)
[2018-09-04 12:28] VITALS: BP 120/74
--- NOTE | 2018-09-04 13:18 | Infectious Diseases Prog Note ---
Assessment/Plan Assessment/Plan A; Leukocytosis & Fever likely SIRS Sickle cell crisis Anemia Osteosclerosis P; Observe off antibiotics Blood cultures if fever>101 f/u [facility] Subjective ROS Limited/Unobtainable: No Constitutional: Reports: fever, other - Low grade, malaise HEENT: Reports: no symptoms Respiratory: Reports: no symptoms Cardiovascular: Reports: no symptoms Gastrointestinal/Abdominal: Reports: no symptoms Genitourinary: Reports: no symptoms Musculoskeletal: Reports: pain, other - in back & legs Allergies: Coded Allergies: MORPHINE (Verified Allergy, Unknown, 09/02/18) Objective Vital Signs Last 24 Hour Vital Signs Date Time Temp Pulse Resp B/P (MAP) Pulse Ox O2 Delivery O2 Flow Rate FiO2 09/04/18 12:28 100.5 90 17 120/74 (89) 96 09/04/18 12:00 100.4 09/04/18 10:16 100.4 09/04/18 09:00 Room Air 09/04/18 08:28 100.4 89 18 103/71 (82) 94 09/04/18 06:24 99.3 09/04/18 04:00 99.3 86 18 108/77 (87) 96 09/04/18 00:00 98.0 98 18 121/80 (94) 95 09/03/18 21:00 Room Air 09/03/18 20:00 100.2 96 18 124/75 (91) 96 09/03/18 18:00 122/72 (89) 09/03/18 16:00 97.7 54 18 177/75 (109) 99 Height (Feet): 5 Height (Inches): 7.00 Weight (Pounds): 134 General Appearance: no acute distress HEENT: mucous membranes moist Respiratory/Chest: lungs clear Cardiovascular: normal rate Abdomen: soft, non tender Extremities: no edema Skin: ulcers, other - left ankle superficial Neurologic/Psychiatric: alert, responsive Laboratory Tests Test 09/04/18 09:50 09/04/18 09:58 White Blood Count 19.9 K/UL (4.8-10.8) H Red Blood Count 3.58 M/UL (4.70-6.10) L Hemoglobin 9.9 G/DL (14.2-18.0) L Hematocrit 29.9 % (42.0-52.0) L Mean Corpuscular Volume 84 FL (80-99) Mean Corpuscular Hemoglobin 27.6 PG (27.0-31.0) Mean Corpuscular Hemoglobin Concent 33.0 G/DL (32.0-36.0) Red Cell Distribution Width 23.5 % (11.6-14.8) H Platelet Count 405 K/UL (150-450) Mean Platelet Volume 6.5 FL (6.5-10.1) Neutrophils (%) (Auto) % (45.0-75.0) Lymphocytes (%) (Auto) % (20.0-45.0) Monocytes (%) (Auto) % (1.0-10.0) Eosinophils (%) (Auto) % (0.0-3.0) Basophils (%) (Auto) % (0.0-2.0) Differential Total Cells Counted 100 Neutrophils % (Manual) 75 % (45-75) Lymphocytes % (Manual) 13 % (20-45) L Monocytes % (Manual) 12 % (1-10) H Eosinophils % (Manual) 0 % (0-3) Basophils % (Manual) 0 % (0-2) Band Neutrophils 0 % (0-8) Nucleated Red Blood Cells 4 /100 WBC Platelet Estimate Adequate Platelet Morphology Normal Hypochromasia 2+ Anisocytosis 3+ Spherocytes 2+ Sodium Level 137 MMOL/L (136-145) Potassium Level 4.2 MMOL/L (3.5-5.1) Chloride Level 101 MMOL/L (98-107) Carbon Dioxide Level 30 MMOL/L (21-32) Anion Gap 7 mmol/L (5-15) Blood Urea Nitrogen 10 mg/dL (7-18) Creatinine 0.6 MG/DL (0.55-1.30) Estimat Glomerular Filtration Rate > 60 mL/min (>60) Glucose Level 95 MG/DL (74-106) Calcium Level 9.2 MG/DL (8.5-10.1) Phosphorus Level 3.8 MG/DL (2.5-4.9) Magnesium Level 2.1 MG/DL (1.8-2.4) Total Bilirubin 5.7 MG/DL (0.2-1.0) H Direct Bilirubin 0.5 MG/DL (0.0-0.3) H Aspartate Amino Transf (AST/SGOT) 49 U/L (15-37) H Alanine Aminotransferase (ALT/SGPT) 42 U/L (12-78) Alkaline Phosphatase 112 U/L (46-116) Total Protein 8.8 G/DL (6.4-8.2) H Albumin 4.0 G/DL (3.4-5.0) Globulin 4.8 g/dL Albumin/Globulin Ratio 0.8 (1.0-2.7) L Reticulocyte Count 10.9 % (0.0-2.0) H Lactate Dehydrogenase 741 U/L (81-234) H Current Medications Medications (Trade) Dose Ordered Sig/Christina Route PRN Reason Start Time Stop Time Status Last Admin Dose Admin Dextrose/Sodium Chloride 1,000 ml @ 75 mls/hr [id number] IV 09/02/18 11:45 10/02/18 11:44 09/04/18 05:25 Diphenhydramine HCl (Benadryl) 25 mg Q4H PRN IVP Itching 09/02/18 08:30 10/02/18 08:29 09/02/18 09:22 Folic Acid (Folate) 2 mg DAILY ORAL 09/03/18 09:00 10/02/18 08:59 09/04/18 09:58 Hydromorphone HCl (Dilaudid) 1 mg Q3H PRN IVP severe pain 09/04/18 09:30 09/09/18 14:59 09/04/18 12:48 Hydroxyurea (Hydrea) 500 mg DAILY ORAL 09/02/18 14:15 09/07/18 14:14 Methocarbamol (Robaxin) 500 mg Q8H PRN ORAL muscle spasm 09/02/18 18:45 10/02/18 18:44 Oxycodone/ Acetaminophen (Percocet 10/325) 1 tab Q4H PRN ORAL moderate pain 09/04/18 09:30 09/11/18 09:29 09/04/18 11:30 Stuart Vora MD Sep 04, 2018 13:18
--- NOTE | 2018-09-04 13:56 | General Progress Note ---
Assessment/Plan Status: stable Assessment/Plan # SIckle cell crisis -- Patient presented for sickle cell pain. Differential diagnosis included but was not limited to have sickle cell pain crisis, aplastic crisis, sequestration, osteomyelitis, acute chest syndrome among others. Because of complexity of patient's case laboratory testing and imaging studies were ordered. --> bc first time here, obtain sickle cell screen as well as electrophoresis of hgb --> pain manamgent as per pain team, currently pain better controlled --> retic elevated at 10.9 and ldh elevated at 741(TREND) --> incentive spirometry --> outpatient Januvia for iron overload --> hydroxyurea continue as per home dose --> [facility] f/u once o/p # Anemia of sickle cell disease --> shows ferritin >1000, otherwise indices are wnl # Hyperbili- likely related to sickle cell disease --> trend as needed, should improve # Leukocytosis likely elevated due to ss and stress reaction --> Monitor and trend wbc for improvement --> off abx # Dehydration -- administer fluids --> Improved Greatly appreciate consultation! Subjective Date patient seen: Sep 04, 2018 Hematologic/Lymphatic: Reports: anemia Allergies: Coded Allergies: MORPHINE (Verified Allergy, Unknown, 09/02/18) All Systems: reviewed and negative except above Subjective Pt awake and alert. No acute events. Pt c/o pain. H/H stable. Objective Last 24 Hour Vital Signs Date Time Temp Pulse Resp B/P (MAP) Pulse Ox O2 Delivery O2 Flow Rate FiO2 09/04/18 12:28 100.5 90 17 120/74 (89) 96 09/04/18 12:00 100.4 09/04/18 10:16 100.4 09/04/18 09:00 Room Air 09/04/18 08:28 100.4 89 18 103/71 (82) 94 09/04/18 06:24 99.3 09/04/18 04:00 99.3 86 18 108/77 (87) 96 09/04/18 00:00 98.0 98 18 121/80 (94) 95 09/03/18 21:00 Room Air 09/03/18 20:00 100.2 96 18 124/75 (91) 96 09/03/18 18:00 122/72 (89) 09/03/18 16:00 97.7 54 18 177/75 (109) 99 Intake and Output 09/03/18 09/04/18 19:00 07:00 Intake Total 2320 ml 825 ml Output Total 500 ml Balance 1820 ml 825 ml Intake Oral 1420 ml IV Total 900 ml 825 ml Output Urine Total 500 ml # Voids 7 Laboratory Tests 09/04/18 09:50: White Blood Count 19.9H, Red Blood Count 3.58L, Hemoglobin 9.9L, Hematocrit 29.9L, Mean Corpuscular Volume 84, Mean Corpuscular Hemoglobin 27.6, Mean Corpuscular Hemoglobin Concent 33.0, Red Cell Distribution Width 23.5H, Platelet Count 405, Mean Platelet Volume 6.5, Neutrophils (%) (Auto) , Lymphocytes (%) (Auto) , Monocytes (%) (Auto) , Eosinophils (%) (Auto) , Basophils (%) (Auto) , Differential Total Cells Counted 100, Neutrophils % ( Manual) 75, Lymphocytes % (Manual) 13L, Monocytes % (Manual) 12H, Eosinophils % (Manual) 0, Basophils % (Manual) 0, Band Neutrophils 0, Nucleated Red Blood Cells 4, Platelet Estimate Adequate, Platelet Morphology Normal, Hypochromasia 2 +, Anisocytosis 3+, Spherocytes 2+, Sodium Level 137, Potassium Level 4.2, Chloride Level 101, Carbon Dioxide Level 30, Anion Gap 7, Blood Urea Nitrogen 10 , Creatinine 0.6, Estimat Glomerular Filtration Rate > 60, Glucose Level 95, Calcium Level 9.2, Phosphorus Level 3.8, Magnesium Level 2.1, Total Bilirubin 5.7H, Direct Bilirubin 0.5H, Aspartate Amino Transf (AST/SGOT) 49H, Alanine Aminotransferase (ALT/SGPT) 42, Alkaline Phosphatase 112, Total Protein 8.8H, Albumin 4.0, Globulin 4.8, Albumin/Globulin Ratio 0.8L 09/04/18 09:58: Reticulocyte Count 10.9H, Lactate Dehydrogenase 741H Height (Feet): 5 Height (Inches): 7.00 Weight (Pounds): 134 Zackery Perez MD Sep 04, 2018 13:56
--- NOTE | 2018-09-04 15:37 | Nephrology Progress Note ---
Assessment/Plan Problem List: (1) Sickle cell crisis (2) Dehydration Assessment sickle cell crisis dehydration Plan hydrate per hematology Subjective ROS Limited/Unobtainable: No Constitutional: Reports: malaise Objective Objective Last 24 Hour Vital Signs Date Time Temp Pulse Resp B/P (MAP) Pulse Ox O2 Delivery O2 Flow Rate FiO2 09/04/18 13:18 100.5 09/04/18 12:28 100.5 90 17 120/74 (89) 96 09/04/18 12:00 100.4 09/04/18 09:00 Room Air 09/04/18 08:28 100.4 89 18 103/71 (82) 94 09/04/18 06:24 99.3 09/04/18 04:00 99.3 86 18 108/77 (87) 96 09/04/18 00:00 98.0 98 18 121/80 (94) 95 09/03/18 21:00 Room Air 09/03/18 20:00 100.2 96 18 124/75 (91) 96 09/03/18 18:00 122/72 (89) 09/03/18 16:00 97.7 54 18 177/75 (109) 99 Intake and Output 09/03/18 09/04/18 19:00 07:00 Intake Total 2320 ml 825 ml Output Total 500 ml Balance 1820 ml 825 ml Intake Oral 1420 ml IV Total 900 ml 825 ml Output Urine Total 500 ml # Voids 7 Laboratory Tests 09/04/18 09:50: White Blood Count 19.9H, Red Blood Count 3.58L, Hemoglobin 9.9L, Hematocrit 29.9L, Mean Corpuscular Volume 84, Mean Corpuscular Hemoglobin 27.6, Mean Corpuscular Hemoglobin Concent 33.0, Red Cell Distribution Width 23.5H, Platelet Count 405, Mean Platelet Volume 6.5, Neutrophils (%) (Auto) , Lymphocytes (%) (Auto) , Monocytes (%) (Auto) , Eosinophils (%) (Auto) , Basophils (%) (Auto) , Differential Total Cells Counted 100, Neutrophils % ( Manual) 75, Lymphocytes % (Manual) 13L, Monocytes % (Manual) 12H, Eosinophils % (Manual) 0, Basophils % (Manual) 0, Band Neutrophils 0, Nucleated Red Blood Cells 4, Platelet Estimate Adequate, Platelet Morphology Normal, Hypochromasia 2 +, Anisocytosis 3+, Spherocytes 2+, Sodium Level 137, Potassium Level 4.2, Chloride Level 101, Carbon Dioxide Level 30, Anion Gap 7, Blood Urea Nitrogen 10 , Creatinine 0.6, Estimat Glomerular Filtration Rate > 60, Glucose Level 95, Calcium Level 9.2, Phosphorus Level 3.8, Magnesium Level 2.1, Total Bilirubin 5.7H, Direct Bilirubin 0.5H, Aspartate Amino Transf (AST/SGOT) 49H, Alanine Aminotransferase (ALT/SGPT) 42, Alkaline Phosphatase 112, Total Protein 8.8H, Albumin 4.0, Globulin 4.8, Albumin/Globulin Ratio 0.8L 09/04/18 09:58: Reticulocyte Count 10.9H, Lactate Dehydrogenase 741H Height (Feet): 5 Height (Inches): 7.00 Weight (Pounds): 134 General Appearance: no apparent distress Objective no change Kapil Franklin MD Sep 04, 2018 15:37
[2018-09-04 16:36] VITALS: BP 117/78
[2018-09-04 20:00] VITALS: BP 127/74
[2018-09-05] VITALS: BP 116/71
[2018-09-05] MEDS: HYDROmorphone 1mg/ml Carpuject IVP PRN ×8 (03:29→21:21)
[2018-09-05 04:00] VITALS: BP 119/76
[2018-09-05] MEDS: D5 1/2NS 1,000 ML IV SCH ×2 (06:43→20:59)
[2018-09-05 08:00] VITALS: BP 139/98
[2018-09-05] MEDS: Hydroxyurea 500mg cap ORAL SCH ×2 (08:53→09:00)
[2018-09-05] MEDS ORDERED: D5 1/2NS 1000ml IV ONE ×2 (10:10→15:27)
[2018-09-05 12:00] VITALS: BP 124/73
--- NOTE | 2018-09-05 12:11 | Nephrology Progress Note ---
Assessment/Plan Problem List: (1) Sickle cell crisis (2) Dehydration Assessment sickle cell crisis dehydration Plan hydrate per hematology Subjective ROS Limited/Unobtainable: No Objective Objective Last 24 Hour Vital Signs Date Time Temp Pulse Resp B/P (MAP) Pulse Ox O2 Delivery O2 Flow Rate FiO2 09/05/18 09:00 Room Air 09/05/18 08:00 99.0 101 18 139/98 (112) 99 09/05/18 04:00 99.4 83 18 119/76 (90) 99 09/05/18 00:00 99.1 78 18 116/71 (86) 96 09/04/18 21:00 Room Air 09/04/18 20:00 100.6 101 18 127/74 (91) 95 09/04/18 19:24 100.6 09/04/18 18:03 100.6 09/04/18 16:36 100.6 89 17 117/78 (91) 97 09/04/18 12:28 100.5 90 17 120/74 (89) 96 Intake and Output 09/04/18 09/05/18 18:59 06:59 Intake Total 1920 ml 1020 ml Output Total 400 ml 1000 ml Balance 1520 ml 20 ml Intake Oral 1020 ml 120 ml IV Total 900 ml 900 ml Output Urine Total 400 ml 1000 ml # Voids 2 Height (Feet): 5 Height (Inches): 7.00 Weight (Pounds): 134 General Appearance: no apparent distress Objective no change Kapil Franklin MD Sep 05, 2018 12:11
--- NOTE | 2018-09-05 15:03 | General Progress Note ---
Assessment/Plan Problem List: (1) Dehydration ICD Codes: E86.0 - Dehydration SNOMED: 20096732 (2) Sickle cell crisis ICD Codes: D57.00 - Hb-SS disease with crisis, unspecified SNOMED: 658636148 Status: progressing Assessment/Plan sickle cell crisis dehydration afebrile pain is improving needs fluids anemia Subjective Allergies: Coded Allergies: MORPHINE (Verified Allergy, Unknown, 09/02/18) Subjective pain in mutiple places sickle cell crisis pain mangement and needs iv fluids Objective Last 24 Hour Vital Signs Date Time Temp Pulse Resp B/P (MAP) Pulse Ox O2 Delivery O2 Flow Rate FiO2 09/05/18 12:00 100.2 96 18 124/73 (90) 99 09/05/18 09:00 Room Air 09/05/18 08:00 99.0 101 18 139/98 (112) 99 09/05/18 04:00 99.4 83 18 119/76 (90) 99 09/05/18 00:00 99.1 78 18 116/71 (86) 96 09/04/18 21:00 Room Air 09/04/18 20:00 100.6 101 18 127/74 (91) 95 09/04/18 19:24 100.6 09/04/18 18:03 100.6 09/04/18 16:36 100.6 89 17 117/78 (91) 97 Intake and Output 09/04/18 09/05/18 19:00 07:00 Intake Total 1920 ml 945 ml Output Total 400 ml 1000 ml Balance 1520 ml -55 ml Intake Oral 1020 ml 120 ml IV Total 900 ml 825 ml Output Urine Total 400 ml 1000 ml # Voids 2 Height (Feet): 5 Height (Inches): 7.00 Weight (Pounds): 134 Respiratory/Chest: lungs clear Abdomen: soft Angelito Vera MD Sep 05, 2018 15:03
[2018-09-05 16:00] VITALS: BP 133/73
[2018-09-05 20:00] VITALS: BP 104/74
[2018-09-06] VITALS: BP 116/68
[2018-09-06] MEDS: HYDROmorphone 1mg/ml Carpuject IVP PRN ×8 (00:20→21:13)
[2018-09-06 04:43] VITALS: BP 105/69
[2018-09-06 08:00] VITALS: BP 148/79
[2018-09-06] MEDS: Hydroxyurea 500mg cap ORAL SCH (08:42)
--- NOTE | 2018-09-06 09:24 | General Progress Note ---
Assessment/Plan Assessment/Plan # SIckle cell crisis -- Patient presented for sickle cell pain. Differential ddx included but was not limited to have sickle cell pain crisis, aplastic crisis, sequestration, osteomyelitis, acute chest syndrome among others. Because of complexity of patient's case laboratory testing and imaging studies were ordered. --> bc first time here, obtain sickle cell screen as well as electrophoresis of hgb --> pain management as per pain team, currently pain better controlled --> retic elevated at 10.9 and ldh elevated at 741 (TREND) --> incentive spirometry --> outpatient Januvia for iron overload --> hydroxyurea continue as per home dose --> [facility] f/u once o/p # Anemia of sickle cell disease --> shows ferritin >1000, otherwise indices are wnl # Hyperbilirubinemia - likely related to sickle cell disease --> trend as needed, should improve # Leukocytosis likely elevated due to ss and stress reaction --> Monitor and trend wbc for improvement --> off abx # Dehydration -- administer fluids/ivf --> Has improved Greatly appreciate consultation! Subjective Constitutional: Denies: no symptoms, chills, diaphoresis, fever, malaise, weakness, other HEENT: Denies: no symptoms, eye pain, blurred vision, tearing, double vision, ear pain, ear discharge, nose pain, nose congestion, throat pain, throat swelling, mouth pain, mouth swelling, other Cardiovascular: Denies: no symptoms, chest pain, edema, irregular heart rate, lightheadedness, palpitations, syncope, other Respiratory: Denies: no symptoms, cough, orthopnea, shortness of breath, SOB with excertion, SOB at rest, sputum, stridor, wheezing, other Gastrointestinal/Abdominal: Denies: no symptoms, abdomen distended, abdominal pain, black stools, tarry stools, blood in stool, constipated, diarrhea, difficulty swallowing, nausea, poor appetite, poor fluid intake, rectal bleeding , vomiting, other Genitourinary: Denies: no symptoms, burning, discharge, frequency, flank pain, hematuria, incontinence, pain, urgency, other Neurologic/Psychiatric: Denies: no symptoms, anxiety, depressed, emotional problems, headache, numbness, paresthesia, pre-existing deficit, seizure, tingling, tremors, weakness, other Endocrine: Denies: no symptoms, excessive sweating, flushing, intolerance to cold, intolerance to heat, increased hunger, increased thirst, increased urine, unexplained weight gain, unexplained weight loss, other Hematologic/Lymphatic: Denies: no symptoms, anemia, easy bleeding, easy bruising, other Allergies: Coded Allergies: MORPHINE (Verified Allergy, Unknown, 09/02/18) Subjective Pt awake and alert. No acute events. Pt c/o pain. H/H stable. No bleeding noted. Objective Last 24 Hour Vital Signs Date Time Temp Pulse Resp B/P (MAP) Pulse Ox O2 Delivery O2 Flow Rate FiO2 09/06/18 08:19 Room Air 09/06/18 04:43 99.0 75 18 105/69 (81) 96 09/06/18 00:00 100.0 93 18 116/68 (84) 98 09/05/18 21:00 Room Air 09/05/18 20:00 100.0 91 17 104/74 (84) 96 09/05/18 16:00 99.7 97 18 133/73 (93) 99 09/05/18 12:00 100.2 96 18 124/73 (90) 99 Intake and Output 09/05/18 09/06/18 19:00 07:00 Intake Total 75 ml 1025 ml Output Total 2450 ml Balance 75 ml -1425 ml Intake Oral 200 ml IV Total 75 ml 825 ml Output Urine Total 2450 ml Height (Feet): 5 Height (Inches): 7.00 Weight (Pounds): 134 General Appearance: alert EENT: TMs normal Neck: supple Cardiovascular: normal rate Abdomen: no mass Genitourinary/Rectal: heme negative stool Edema: mild edema Neurologic: oriented x 3 Skin: cyanotic Zackery Perez MD Sep 06, 2018 09:24
[2018-09-06] MEDS: D5 1/2NS 1,000 ML IV SCH ×2 (09:29→22:30)
--- NOTE | 2018-09-06 11:05 | Infectious Diseases Prog Note ---
Assessment/Plan Assessment/Plan A; Leukocytosis & Fever likely SIRS Sickle cell crisis Anemia Osteosclerosis P; Observe off antibiotics Blood cultures if fever>101 f/u [facility] Subjective ROS Limited/Unobtainable: No Constitutional: Reports: fever, other - low grade Respiratory: Reports: no symptoms Cardiovascular: Reports: no symptoms Gastrointestinal/Abdominal: Reports: no symptoms Musculoskeletal: Reports: pain Allergies: Coded Allergies: MORPHINE (Verified Allergy, Unknown, 09/02/18) Objective Vital Signs Last 24 Hour Vital Signs Date Time Temp Pulse Resp B/P (MAP) Pulse Ox O2 Delivery O2 Flow Rate FiO2 09/06/18 08:19 Room Air 09/06/18 08:00 98.4 59 19 148/79 (102) 97 09/06/18 04:43 99.0 75 18 105/69 (81) 96 09/06/18 00:00 100.0 93 18 116/68 (84) 98 09/05/18 21:00 Room Air 09/05/18 20:00 100.0 91 17 104/74 (84) 96 09/05/18 16:00 99.7 97 18 133/73 (93) 99 09/05/18 12:00 100.2 96 18 124/73 (90) 99 Height (Feet): 5 Height (Inches): 7.00 Weight (Pounds): 134 General Appearance: no acute distress HEENT: mucous membranes moist Respiratory/Chest: lungs clear Cardiovascular: normal rate, systolic murmur Abdomen: soft, non tender Extremities: no edema Skin: ulcers, other - superficial ankle Neurologic/Psychiatric: alert, oriented x 3, responsive Current Medications Medications (Trade) Dose Ordered Sig/Christina Route PRN Reason Start Time Stop Time Status Last Admin Dose Admin Dextrose/Sodium Chloride 1,000 ml @ 75 mls/hr [id number] IV 09/02/18 11:45 10/02/18 11:44 09/06/18 09:29 Diphenhydramine HCl (Benadryl) 25 mg Q4H PRN IVP Itching 09/02/18 08:30 10/02/18 08:29 09/02/18 09:22 Folic Acid (Folate) 2 mg DAILY ORAL 09/03/18 09:00 10/02/18 08:59 09/06/18 08:41 Hydromorphone HCl (Dilaudid) 1 mg Q3H PRN IVP severe pain 09/04/18 09:30 09/09/18 14:59 09/06/18 09:25 Hydroxyurea (Hydrea) 500 mg DAILY ORAL 09/02/18 14:15 09/07/18 14:14 Methocarbamol (Robaxin) 500 mg Q8H PRN ORAL muscle spasm 09/02/18 18:45 10/02/18 18:44 Oxycodone/ Acetaminophen (Percocet 10/325) 1 tab Q4H PRN ORAL moderate pain 09/04/18 09:30 09/11/18 09:29 09/05/18 01:37 Stuart Vora MD Sep 06, 2018 11:05
[2018-09-06 12:00] VITALS: BP 137/81
--- NOTE | 2018-09-06 12:49 | General Progress Note ---
Assessment/Plan Problem List: (1) Dehydration ICD Codes: E86.0 - Dehydration SNOMED: 89852503 (2) Sickle cell crisis ICD Codes: D57.00 - Hb-SS disease with crisis, unspecified SNOMED: 056526599 Status: progressing Assessment/Plan sickle cell crisis is improving dehydration afebrile dc planning Subjective Respiratory: Reports: no symptoms Gastrointestinal/Abdominal: Reports: no symptoms Allergies: Coded Allergies: MORPHINE (Verified Allergy, Unknown, 09/02/18) Subjective pain in mutiple places is improving sickle cell crisis Objective Last 24 Hour Vital Signs Date Time Temp Pulse Resp B/P (MAP) Pulse Ox O2 Delivery O2 Flow Rate FiO2 09/06/18 09:55 99.0 09/06/18 08:19 Room Air 09/06/18 08:00 98.4 59 19 148/79 (102) 97 09/06/18 04:43 99.0 75 18 105/69 (81) 96 09/06/18 00:00 100.0 93 18 116/68 (84) 98 09/05/18 21:00 Room Air 09/05/18 20:00 100.0 91 17 104/74 (84) 96 09/05/18 16:00 99.7 97 18 133/73 (93) 99 Intake and Output 09/05/18 09/06/18 18:59 06:59 Intake Total 1100 ml Output Total 2450 ml Balance -1350 ml Intake Oral 200 ml IV Total 900 ml Output Urine Total 2450 ml Height (Feet): 5 Height (Inches): 7.00 Weight (Pounds): 134 Neck: supple Cardiovascular: normal rate Respiratory/Chest: lungs clear Angelito Vera MD Sep 06, 2018 12:49
--- NOTE | 2018-09-06 13:32 | General Progress Note ---
Assessment/Plan Assessment/Plan (1) Sickle cell disease (2) Sickle cell crisis (3) Intractable pain Patient to be continue on Dilaudid and Percocet. D/w Dr. Riojas and he concurred. Subjective Date patient seen: Sep 06, 2018 Time patient seen: 11:45 - am Allergies: Coded Allergies: MORPHINE (Verified Allergy, Unknown, 09/02/18) Subjective REVIEW OF SYSTEMS: Denies rash, fever, chills, sweating, dizziness, drowsiness, blurred vision, sore throat, or change in weight. No shortness of breath or chest pain. No nausea, vomiting, diarrhea, or blood in the stool or urine. No bowel or bladder incontinence. No dysuria. He is complaining of generalized body pain. SUBJECTIVE: Patient is in bed and reports that his pain has been lessened and tolerated on the Dilaudid and Percocet. He has no new complaints at this time. Objective Last 24 Hour Vital Signs Date Time Temp Pulse Resp B/P (MAP) Pulse Ox O2 Delivery O2 Flow Rate FiO2 09/06/18 13:09 99.0 09/06/18 12:00 98.8 60 19 137/81 (99) 98 09/06/18 08:19 Room Air 09/06/18 08:00 98.4 59 19 148/79 (102) 97 09/06/18 04:43 99.0 75 18 105/69 (81) 96 09/06/18 00:00 100.0 93 18 116/68 (84) 98 09/05/18 21:00 Room Air 09/05/18 20:00 100.0 91 17 104/74 (84) 96 09/05/18 16:00 99.7 97 18 133/73 (93) 99 Intake and Output 09/05/18 09/06/18 18:59 06:59 Intake Total 1100 ml Output Total 2450 ml Balance -1350 ml Intake Oral 200 ml IV Total 900 ml Output Urine Total 2450 ml Height (Feet): 5 Height (Inches): 7.00 Weight (Pounds): 134 Objective GENERAL: Alert, awake, and oriented. LUNGS: Decreased breath sounds bilaterally. HEART: Regular. ABDOMEN: Benign. EXTREMITIES: No cyanosis. No clubbing. No edema. NEURO: No changes. Nathanael Sheridan Sep 06, 2018 13:32
--- NOTE | 2018-09-06 14:15 | Nephrology Progress Note ---
Assessment/Plan Problem List: (1) Sickle cell crisis (2) Dehydration Assessment sickle cell crisis dehydration Plan hydrate per hematology Subjective ROS Limited/Unobtainable: No Objective Objective Last 24 Hour Vital Signs Date Time Temp Pulse Resp B/P (MAP) Pulse Ox O2 Delivery O2 Flow Rate FiO2 09/06/18 13:09 99.0 09/06/18 12:00 98.8 60 19 137/81 (99) 98 09/06/18 08:19 Room Air 09/06/18 08:00 98.4 59 19 148/79 (102) 97 09/06/18 04:43 99.0 75 18 105/69 (81) 96 09/06/18 00:00 100.0 93 18 116/68 (84) 98 09/05/18 21:00 Room Air 09/05/18 20:00 100.0 91 17 104/74 (84) 96 09/05/18 16:00 99.7 97 18 133/73 (93) 99 Intake and Output 09/05/18 09/06/18 18:59 06:59 Intake Total 1100 ml Output Total 2450 ml Balance -1350 ml Intake Oral 200 ml IV Total 900 ml Output Urine Total 2450 ml Height (Feet): 5 Height (Inches): 7.00 Weight (Pounds): 134 General Appearance: no apparent distress Objective no change Kapil Franklin MD Sep 06, 2018 14:15
[2018-09-06] MEDS ORDERED: D5 1/2NS 1000ml IV ONE (15:46)
[2018-09-06 16:00] VITALS: BP 151/83
[2018-09-06 20:00] VITALS: BP 122/69
[2018-09-07] VITALS: BP 114/72
[2018-09-07] MEDS: HYDROmorphone 1mg/ml Carpuject IVP PRN ×3 (00:05→06:08)
[2018-09-07 04:00] VITALS: BP 118/71
[2018-09-07 08:00] VITALS: BP 109/65
--- NOTE | 2018-09-07 08:41 | General Progress Note ---
Assessment/Plan Assessment/Plan (1) Sickle cell disease (2) Sickle cell crisis (3) Intractable pain Patient to be continue on Dilaudid and Percocet. An Rx for Tramadol 50mg PO 1 tab Q6-8h 20 tabs was sent to patients pharmacy of choice. D/w Dr. Riojas and he concurred. Subjective Date patient seen: Sep 07, 2018 Time patient seen: 07:15 - am Allergies: Coded Allergies: MORPHINE (Verified Allergy, Unknown, 09/02/18) Subjective REVIEW OF SYSTEMS: Denies rash, fever, chills, sweating, dizziness, drowsiness, blurred vision, sore throat, or change in weight. No shortness of breath or chest pain. No nausea, vomiting, diarrhea, or blood in the stool or urine. No bowel or bladder incontinence. No dysuria. He is complaining of generalized body pain. SUBJECTIVE: Patient is in bed no signs of pain or distress. Looking forward to being discharged home later today. Objective Last 24 Hour Vital Signs Date Time Temp Pulse Resp B/P (MAP) Pulse Ox O2 Delivery O2 Flow Rate FiO2 09/07/18 04:00 99.0 75 17 118/71 (87) 100 09/07/18 00:00 99.7 81 17 114/72 (86) 97 09/06/18 21:00 Room Air 09/06/18 20:00 99.8 89 18 122/69 (86) 98 09/06/18 18:42 98.0 09/06/18 16:00 98.0 76 18 151/83 (105) 96 09/06/18 12:00 98.8 60 19 137/81 (99) 98 Intake and Output 09/06/18 09/07/18 19:00 07:00 Intake Total 1570.0 ml 1025 ml Output Total 1200 ml 1100 ml Balance 370.0 ml -75 ml Intake Oral 670 ml 200 ml IV Total 900.0 ml 825 ml Output Urine Total 1200 ml 1100 ml # Voids 2 Height (Feet): 5 Height (Inches): 7.00 Weight (Pounds): 134 Objective GENERAL: Alert, awake, and oriented. LUNGS: Decreased breath sounds bilaterally. HEART: Regular. ABDOMEN: Benign. EXTREMITIES: No cyanosis. No clubbing. No edema. NEURO: No changes. Nathanael Sheridan Sep 07, 2018 08:41
[2018-09-07] MEDS: Hydroxyurea 500mg cap ORAL SCH (09:43)
[2018-09-07] MEDS ORDERED: D5 1/2NS 1000ml IV ONE (11:01)
[2018-09-07] MEDS: D5 1/2NS 1,000 ML IV SCH (11:45)
[2018-09-07 12:00] VITALS: BP 111/82
--- NOTE | 2018-09-07 12:31 | Nephrology Progress Note ---
Assessment/Plan Problem List: (1) Sickle cell crisis (2) Dehydration Assessment sickle cell crisis dehydration Plan hydrate per hematology Subjective ROS Limited/Unobtainable: No Objective Objective Last 24 Hour Vital Signs Date Time Temp Pulse Resp B/P (MAP) Pulse Ox O2 Delivery O2 Flow Rate FiO2 09/07/18 09:59 99.3 09/07/18 08:00 99.3 77 20 109/65 (80) 100 09/07/18 04:00 99.0 75 17 118/71 (87) 100 09/07/18 00:00 99.7 81 17 114/72 (86) 97 09/06/18 21:00 Room Air 09/06/18 20:00 99.8 89 18 122/69 (86) 98 09/06/18 18:42 98.0 09/06/18 16:00 98.0 76 18 151/83 (105) 96 Intake and Output 09/06/18 09/07/18 19:00 07:00 Intake Total 1570.0 ml 1025 ml Output Total 1200 ml 1100 ml Balance 370.0 ml -75 ml Intake Oral 670 ml 200 ml IV Total 900.0 ml 825 ml Output Urine Total 1200 ml 1100 ml # Voids 2 Height (Feet): 5 Height (Inches): 7.00 Weight (Pounds): 134 General Appearance: no apparent distress Objective no change Kapil Franklin MD Sep 07, 2018 12:31
--- NOTE | 2018-09-07 18:51 | General Progress Note ---
Assessment/Plan Assessment/Plan # SIckle cell crisis -- Patient presented for sickle cell pain. Differential ddx included but was not limited to have sickle cell pain crisis, aplastic crisis, sequestration, osteomyelitis, acute chest syndrome among others. Because of complexity of patient's case laboratory testing and imaging studies were ordered. --> bc first time here, obtain sickle cell screen as well as electrophoresis of hgb --> pain management as per pain team, currently pain better controlled --> retic elevated at 10.9 and ldh elevated at 741 --> incentive spirometry --> outpatient Januvia for iron overload --> hydroxyurea continue as per home dose --> [facility] f/u once o/p # Anemia of sickle cell disease --> shows ferritin >1000, otherwise indices are wnl --> anemia panel has been reviewed # Hyperbilirubinemia - likely related to sickle cell disease --> trend as needed, should improve # Leukocytosis likely elevated due to ss and stress reaction --> Monitor and trend wbc for improvement --> off abx # Dehydration -- administer fluids/ivf --> Has improved Greatly appreciate consultation! Subjective Constitutional: Denies: no symptoms, chills, diaphoresis, fever, malaise, weakness, other HEENT: Denies: no symptoms, eye pain, blurred vision, tearing, double vision, ear pain, ear discharge, nose pain, nose congestion, throat pain, throat swelling, mouth pain, mouth swelling, other Cardiovascular: Denies: no symptoms, chest pain, edema, irregular heart rate, lightheadedness, palpitations, syncope, other Respiratory: Denies: no symptoms, cough, orthopnea, shortness of breath, SOB with excertion, SOB at rest, sputum, stridor, wheezing, other Gastrointestinal/Abdominal: Denies: no symptoms, abdomen distended, abdominal pain, black stools, tarry stools, blood in stool, constipated, diarrhea, difficulty swallowing, nausea, poor appetite, poor fluid intake, rectal bleeding , vomiting, other Genitourinary: Denies: no symptoms, burning, discharge, frequency, flank pain, hematuria, incontinence, pain, urgency, other Neurologic/Psychiatric: Denies: no symptoms, anxiety, depressed, emotional problems, headache, numbness, paresthesia, pre-existing deficit, seizure, tingling, tremors, weakness, other Endocrine: Denies: no symptoms, excessive sweating, flushing, intolerance to cold, intolerance to heat, increased hunger, increased thirst, increased urine, unexplained weight gain, unexplained weight loss, other Hematologic/Lymphatic: Denies: no symptoms, anemia, easy bleeding, easy bruising, other Allergies: Coded Allergies: MORPHINE (Verified Allergy, Unknown, 09/02/18) Subjective Awake and alert. No acute events. Pt c/o pain. H/H stable. No bleeding noted. Objective Last 24 Hour Vital Signs Date Time Temp Pulse Resp B/P (MAP) Pulse Ox O2 Delivery O2 Flow Rate FiO2 09/07/18 12:00 99.1 90 20 111/82 (92) 99 09/07/18 09:59 99.3 09/07/18 09:00 Room Air 09/07/18 08:00 99.3 77 20 109/65 (80) 100 09/07/18 04:00 99.0 75 17 118/71 (87) 100 09/07/18 00:00 99.7 81 17 114/72 (86) 97 09/06/18 21:00 Room Air 09/06/18 20:00 99.8 89 18 122/69 (86) 98 Intake and Output 09/06/18 09/07/18 18:59 06:59 Intake Total 1495.0 ml 1100 ml Output Total 1200 ml 1100 ml Balance 295.0 ml 0 ml Intake Oral 670 ml 200 ml IV Total 825.0 ml 900 ml Output Urine Total 1200 ml 1100 ml # Voids 2 Height (Feet): 5 Height (Inches): 7.00 Weight (Pounds): 134 General Appearance: alert EENT: TMs normal Neck: supple Cardiovascular: regular rhythm Respiratory/Chest: lungs clear Abdomen: soft Edema: 1+ Leg (L), 1+ Leg (R) Edema: mild edema Neurologic: alert Skin: warm/dry Zakcery Perez MD Sep 07, 2018 18:51
--- NOTE | 2018-09-08 12:05 | Discharge Summary ---
Discharge Summary Discharge Summary _ DATE OF ADMISSION: 09/02/2018 DATE OF DISCHARGE: 09/07/2018 DISCHARGED BY: REASON FOR ADMISSION: 41 years old male with past medical history of sickle cell disease presented with a complaint of back pain and generalized body pain. Vital gns are stable. Laboratory workup revealed leukocytosis WBC 19.4, hemoglobin 9.0 hematocrit 23.7. Stable electrolytes and renal parameters. Total bilirubin 3.4. Troponin negative. Chest X-ray revealed no acute cardiopulmonary pathology. It showed evidence of cardiomegaly and diffuse osteosclerosis, likely on the basis of metabolic abnormality such as sickle cell disease. Patient was admitted for sickle cell crisis CONSULTANTS: ID specialist Dr. Heller supervising producer Dr. Franklin pollution control chemist/oncologist Dr. Perez pain specialist Dr. Riojas HOSPITAL COURSE: Patient was admitted to medical surgical floor. Patient WAS started on generous IV hydration. Supplemental oxygen provided as needed to keep pulse oximetry above 92%. Incentive spirometry was encouraged while at the bed. Patient was continued on hydroxyurea and folic acid. [employer] closely followed. Sickle cell screen was highly positive for hemoglobin S . Reticulocyte count elevated 14.6, LDH elevated 741. Hyperbilirubinemia was likely related to sickle cell disease. Patient follows-up with [facility] hematology as outpatient. Ferritin level 1834. Patient was recommended outpatient Jadenu for management of iron overload. Leukocytosis and low grade fever were likely secondary to stress reaction / sickle cell crisis . Per ID specialist recommendations, patient was monitored off antibiotic. Low grade fevers resolved. Infectious disease specialist recommended blood culture only if it fever above 101. Pain management was provided as per pain specialist recommendations. Prescription upon discharge provided for Tramadol. Patient to follow-up with outpatient pollution control chemist provider for further management , including pain management at [facility]. Supportive care provided. Bowel regimen instituted. Patient was stabilized and ready for discharge home with outpatient follow-up with pollution control chemist. FINAL DIAGNOSES: Sickle cell crisis Anemia of sickle cell disease Dehydration Hyperbilirubinemia, likely related to sickle cell disease Osteosclerosis Leukocytosis and fever, likely SIRS DISCHARGE MEDICATIONS: See Medication Reconciliation list. DISCHARGE INSTRUCTIONS: Patient was discharged home Follow up with primary care provider in one week. I have been assigned to dictate discharge summary for this account. I was not involved in the patient's management. Henna Chery NP Sep 08, 2018 12:04
== END 2018-09-07 13:40 | disposition home or self-care (01) | DRG 662 ==
LOC: EDBD 03:40 → EMR 04:00 → 3E 05:35 → EDBEDREQ 07:47
DX: D57.00 Hb-SS disease with crisis, unspecified (principal); R65.10 Systemic inflammatory response syndrome (SIRS) of non-infectious origin without acute organ dysfunction; E80.6 Other disorders of bilirubin metabolism; E86.0 Dehydration; M85.80 Other specified disorders of bone density and structure, unspecified site; Z88.6 Allergy status to analgesic agent; Z90.49 Acquired absence of other specified parts of digestive tract
CPT/HCPCS: 36415; 71045; 80053; 80307; 81001; 82248; 82728; 83020; 83540; 83550; 83615; 83735; 84100; 84484; 85007; 85025; 85044; 85610; 85660; 85730; 86850; 86900; 86901; 93005; 96361; 96365; 96375; 96376; 99285

== ENCOUNTER 2019-06-09 23:26 | Inpatient (IN) | payer MEDICAID ==
[~2019-06-09] VITALS: Ht 175.3 cm; Wt 59.1 kg
[~2019-06-09 23:26] MED LIST: DILAUDID 44 MG/1 M3 IJ; FOLIC ACID1 MG ORAL; HYDROXYUREA500 M1 PO
--- NOTE | 2019-06-09 23:35 | NUR ---
ED Nurse Note: pt derek luna via nicanor. c/o pain due to sickle cell anemia. pt states he ran out of his dilaudid at home. pt is ambulatory. alert x4. VSS
[2019-06-09 23:36] VITALS: BP 116/70
--- NOTE | 2019-06-09 23:47 | NUR ---
ED Nurse Note: urine and blood sample sent down to lab
--- NOTE | 2019-06-09 23:54 | Emergency Room Report ---
History of Present Illness General Chief Complaint: Pain Source: Patient Present Illness HPI Disclaimer: Please note that this report is being documented using DRAGON technology. This can lead to erroneous entry secondary to incorrect interpretation by the dictating instrument. HPI: This a 43-year-old male with a history of sickle cell disease, SS type, following at [facility] presenting for evaluation of pain and fatigue. States fatigue symptoms began over the past 4 days however he began to experience acute pain in his upper thighs, hips, back and chest approximately 9 PM this evening. This is a typical presentation for sickle cell pain crisis. He is taking folic acid and hydroxyurea. He is using Dilaudid for control of pain at home but ran out 4 days ago. Denies any fall or injury. Denies cough or significant shortness of breath. Denies fevers, chills, dysuria, vomiting or diarrhea. PMH: Sickle cell SS type PSH: Cholecystectomy Allergies: Morphine Social Hx: Denies drugs, tobacco or alcohol abuse Allergies: Coded Allergies: MORPHINE (Verified Allergy, Unknown, 09/02/18) Nursing Documentation-PMH Hx Cardiac Problems: No - sickle cell crisis Hx Gastrointestinal Problems: No Hx Neurological Problems: No Review of Systems All Other Systems: negative except mentioned in HPI Physical Exam Vital Signs Date Time Temp Pulse Resp B/P (MAP) Pulse Ox O2 Delivery O2 Flow Rate FiO2 06/09/19 23:29 98.6 88 16 112/71 (85) 98 Room Air General: Awake and alert, appears fatigued, HEENT: NC/AT. EOMI. Chest Wall: Diffusely tender to palpation. No crepitus, no deformity Cardiovascular: RRR. S1 and S2 normal. No murmur appreciated Resp: Normal work of breathing. No cough, wheezing or crackles appreciated Abdomen: Abdomen is soft, nondistended. Nontender Skin: Intact. No abrasions, laceration or rash over the exposed skin MSK: Tender to palpation over most muscle groups in major joints. No obvious deformity. Moving all extremities. Neuro: Awake and alert. Mentating appropriately. Medical Decision Making Diagnostic Impression: Primary Impression: UTI (urinary tract infection) Additional Impressions: Sickle cell anemia Sickle cell pain crisis ER Course This a 43-year-old male with a history of sickle cell SS type presenting for evaluation of fatigue of 4 days duration as well as acute pain consistent with previous pain crises. We will start IV hydration and provide pain medication for the patient. Lab work including reticulocyte count and chest x-ray are ordered. Disposition depending on patient's improvement and lab results. He has required transfusion in the past but none recently according to patient Laboratory Tests Test 06/09/19 23:40 06/09/19 23:42 06/09/19 23:45 White Blood Count 17.3 K/UL (4.8-10.8) H Red Blood Count 2.66 M/UL (4.70-6.10) L Hemoglobin 8.2 G/DL (14.2-18.0) L Hematocrit 23.2 % (42.0-52.0) L Mean Corpuscular Volume 87 FL (80-99) Mean Corpuscular Hemoglobin 30.6 PG (27.0-31.0) Mean Corpuscular Hemoglobin Concent 35.3 G/DL (32.0-36.0) Red Cell Distribution Width 22.8 % (11.6-14.8) H Platelet Count 383 K/UL (150-450) Mean Platelet Volume 5.3 FL (6.5-10.1) L Neutrophils (%) (Auto) 54.8 % (45.0-75.0) Lymphocytes (%) (Auto) 38.3 % (20.0-45.0) Monocytes (%) (Auto) 5.9 % (1.0-10.0) Eosinophils (%) (Auto) 0.1 % (0.0-3.0) Basophils (%) (Auto) 0.8 % (0.0-2.0) Reticulocyte Count 1.9 % (0.5-2.0) Sodium Level 141 MMOL/L (136-145) Potassium Level 4.1 MMOL/L (3.5-5.1) Chloride Level 107 MMOL/L (98-107) Carbon Dioxide Level 25 MMOL/L (21-32) Anion Gap 9 mmol/L (5-15) Blood Urea Nitrogen 15 mg/dL (7-18) Creatinine 0.8 MG/DL (0.55-1.30) Estimate Glomerular Filtration Rate > 60 mL/min (>60) Glucose Level 120 MG/DL (74-106) H Calcium Level 8.7 MG/DL (8.5-10.1) Phosphorus Level 3.3 MG/DL (2.5-4.9) Magnesium Level 2.0 MG/DL (1.8-2.4) Total Bilirubin 4.8 MG/DL (0.2-1.0) H Direct Bilirubin 0.4 MG/DL (0.0-0.3) H Aspartate Amino Transferase (AST) 50 U/L (15-37) H Alanine Aminotransferase (ALT) 49 U/L (12-78) Alkaline Phosphatase 94 U/L (46-116) Total Protein 8.0 G/DL (6.4-8.2) Albumin 4.4 G/DL (3.4-5.0) Globulin 3.6 g/dL Albumin/Globulin Ratio 1.2 (1.0-2.7) Troponin I 0.000 ng/mL (0.000-0.056) Urine Color Yellow Urine Appearance Clear Urine pH 5 (4.5-8.0) Urine Specific [place] 1.010 (1.005-1.035) Urine Protein 2+ (NEGATIVE) H Urine Glucose (UA) Negative (NEGATIVE) Urine Ketones Negative (NEGATIVE) Urine Blood 2+ (NEGATIVE) H Urine Nitrite Negative (NEGATIVE) Urine Bilirubin Negative (NEGATIVE) Urine Urobilinogen 8 MG/DL (0.0-1.0) H Urine Leukocyte Esterase 3+ (NEGATIVE) H Urine RBC 5-10 /HPF (0 - 0) H Urine WBC 30-40 /HPF (0 - 0) H Urine Squamous Epithelial Cells Moderate /LPF (NONE/OCC) H Urine Bacteria Few /HPF (NONE) Urine Opiates Screen Negative (NEGATIVE) Urine Barbiturates Screen Negative (NEGATIVE) Phencyclidine (PCP) Screen Negative (NEGATIVE) Urine Amphetamines Screen Negative (NEGATIVE) Urine Benzodiazepines Screen Negative (NEGATIVE) Urine Cocaine Screen Negative (NEGATIVE) Urine Marijuana (THC) Screen Positive (NEGATIVE) H Chest X-Ray Diagnostic Results Chest X-Ray Diagnostic Results : # of Views/Limited/Complete: 1 View Indication: Chest Pain EP Interpretation: Yes PA Xray: Interpretation reviewed Interpretation: no consolidation, no effusion, no pneumothorax Impression: No acute disease Electronically Signed by: Electronically signed by Dr. Albert Magallanes Reevaluation Time: 03:42 Last Vital Signs Date Time Temp Pulse Resp B/P (MAP) Pulse Ox O2 Delivery O2 Flow Rate FiO2 06/09/19 23:36 98.4 80 18 116/70 98 Room Air Reevaluation Impression Labs show a normal reticulocyte count that the patient is anemic with a hemoglobin around 8. No indication for acute transfusion at this time. He appears to have a urinary tract infection was treated with ceftriaxone. He was given IV fluids, Dilaudid but continues to complain of significant pain in his joints and back consistent with his prior pain crisis. Will admit to the hospital for further management of pain crisis and urinary tract infection Disposition: ADMITTED INPATIENT Condition: Serious Scripts Nitrofurantoin Monohyd/M-Cryst (Nitrofurantoin [place]-Mcr 100 mg) 100 Mg Capsule 100 MG ORAL BID for 7 Days, #14 CAP Prov: Albert Magallanes MD 06/10/19 Albert Magallanes MD Jun 09, 2019 23:54
[2019-06-09 23:58] LABS: APPEARANCE,URINE CLEAR; BILIRUBIN, URINE NEGATIVE (NEGATIVE); GLUCOSE, URINE (UA) NEGATIVE (NEGATIVE); KETONES,URINE NEGATIVE (NEGATIVE); LEUKOCYTE ESTERASE ,URINE 3+ (NEGATIVE); NITRITE,URINE NEGATIVE (NEGATIVE); PH,URINE 5 (4.5-8.0); PROTEIN,URINE 2+ (NEGATIVE); UROBILINOGEN,URINE 8 MG/DL (0.0-1.0)
[2019-06-09 23:58] LABS: BASOPHILS % (AUTO) 0.8 % (0.0-2.0); EOSINOPHILS % (AUTO) 0.1 % (0.0-3.0); HEMATOCRIT 23.2 % (42.0-52.0); HEMOGLOBIN 8.2 G/DL (14.2-18.0); LYMPHOCYTES % (AUTO) 38.3 % (20.0-45.0); MEAN CORPUSCULAR VOLUME 87 FL (80-99); MONOCYTES % (AUTO) 5.9 % (1.0-10.0); NEUTROPHILS % (AUTO) 54.8 % (45.0-75.0); PLATELET COUNT 383 K/UL (150-450); RED BLOOD COUNT 2.66 M/UL (4.70-6.10); RED CELL DISTRIBUTION WIDTH 22.8 % (11.6-14.8); WHITE BLOOD COUNT 17.3 K/UL (4.8-10.8)
[2019-06-10] VITALS (7 sets, daily range): BP systolic 99–136; BP diastolic 57–70
[2019-06-10 00:11] LABS: ANION GAP 9 mmol/L (5-15); BLOOD UREA NITROGEN 15 mg/dL (7-18); CALCIUM 8.7 MG/DL (8.5-10.1); CARBON DIOXIDE 25 MMOL/L (21-32); CHLORIDE 107 MMOL/L (98-107); CREATININE 0.8 MG/DL (0.55-1.30); POTASSIUM 4.1 MMOL/L (3.5-5.1); SODIUM 141 MMOL/L (136-145)
[2019-06-10 00:17] LABS: COLOR,URINE YELLOW
[2019-06-10 00:28] LABS: ALANINE AMINOTRANSFERASE 49 U/L (12-78); ALBUMIN 4.4 G/DL (3.4-5.0); ALBUMIN/GLOBULIN RATIO 1.2 (1.0-2.7); ALKALINE PHOSPHATASE 94 U/L (46-116); ASPARTATE AMINO TRANSFERASE 50 U/L (15-37); BILIRUBIN,TOTAL 4.8 MG/DL (0.2-1.0); PHOSPHORUS 3.3 MG/DL (2.5-4.9)
[2019-06-10 00:45] LABS: BILIRUBIN,DIRECT 0.4 MG/DL (0.0-0.3)
[2019-06-10] MEDS ORDERED: HYDROmorphone 1mg/ml Carpuject ONE (01:35)
[2019-06-10] MEDS ORDERED: Hydromorphone 0.5mg/0.5ml inj IVP ONE ×3 (01:45→02:00)
--- NOTE | 2019-06-10 02:08 | NUR ---
ED Nurse Note: pt is in bed, VSS
[2019-06-10] MEDS ORDERED: HYDROmorphone 1mg/ml Carpuject IVP ONE ×2 (02:15→03:15)
[2019-06-10] MEDS ORDERED: MACROBID100 MG ORAL (02:30)
[2019-06-10] MEDS ORDERED: cefTRIAXone 1 GM in NS 55 ML IVPB ONE (03:00)
--- NOTE | 2019-06-10 04:40 | NUR ---
ED Nurse Note: pt was brought up to room 404 MS via gurney in stable condition. IV site remain to right AC and is intact. Report given to TITUS Marcus. belonging list signed off.
--- NOTE | 2019-06-10 05:00 | NUR ---
NURSE NOTES: RECEIVED REPORT FROM TITUS DIAZ. PT WAS SAFELY TRANSFERRED TO UNIT VIA GURNEY TO ROOM 405-2. REVIEWED AND SIGNED BELONGING LIST WITH PT. PT IS AWAKE, AAOX4, ON ROOM AIR, C/O 10/10 GENERALIZED PAIN. ORIENTED PT TO UNIT, BED IS LOCKED AND LOW, BED ALARMS ACTIVE, SIDE RAILS UP X2 AND CALL LIGHT WITHIN REACH. WILL CONTINUE TO MONITOR.
--- NOTE | 2019-06-10 05:20 | NUR ---
NURSE NOTES: RN CONTACTED DR. PORTER AND LEFT 2 VOICEMAIL. WAITING FOR CALL BACK. WILL FOLLOW UP WITH ADMISSION ORDERS.
[2019-06-10] MEDS ORDERED: HYDROmorphone 1mg/ml Carpuject IVP SCH (06:30)
--- NOTE | 2019-06-10 06:30 | NUR ---
NURSE NOTES: RECEIVED ADMISSION ORDERS FROM DR. PORTER AND ALSO LEFT MESSAGE TO DR. MEDINA CONSULT FOR PAIN. WILL CONTINUE TO MONITOR AND FOLLOW UP WITH THE PLAN OF CARE.
--- NOTE | 2019-06-10 07:23 | NUR ---
HAND-OFF: Report given to TITUS MEJÍA and RADHA FLORES RN.
--- NOTE | 2019-06-10 07:28 | NUR ---
NURSE NOTES: Received report from TITUS Marcus. Pt in bed, awake, talkative, complaining of pain, one time dose of pain medication given by TITUS Marcus. Discussed plan of care with pt, and pending evaluation by Dr. Riojas for pain medications, bed in lowest position, call light within reach, pt is A/Ox4, ambulatory, eating breakfast.
[2019-06-10 07:55] LABS: HEMATOCRIT 21.8 % (42.0-52.0); HEMOGLOBIN 7.8 G/DL (14.2-18.0); MEAN CORPUSCULAR VOLUME 86 FL (80-99); PLATELET COUNT 356 K/UL (150-450); RED BLOOD COUNT 2.54 M/UL (4.70-6.10); RED CELL DISTRIBUTION WIDTH 22.6 % (11.6-14.8); WHITE BLOOD COUNT 12.3 K/UL (4.8-10.8)
--- NOTE | 2019-06-10 09:05 | NUR ---
NURSE NOTES: Spoke with Dr. Perez about hgb 7.8, hct 21.8, no orders given. MD will review chart
[2019-06-10 09:34] LABS: ANION GAP 7 mmol/L (5-15); BLOOD UREA NITROGEN 7 mg/dL (7-18); CALCIUM 8.3 MG/DL (8.5-10.1); CARBON DIOXIDE 26 MMOL/L (21-32); CHLORIDE 108 MMOL/L (98-107); CREATININE 0.6 MG/DL (0.55-1.30); SODIUM 141 MMOL/L (136-145)
--- NOTE | 2019-06-10 09:54 | General Progress Note ---
Assessment/Plan Assessment/Plan: (1) Sickle cell disease (2) Sickle cell crisis (3) Intractable pain Patient to be started on Dilaudid 1mg IV Q4H PRN severe pain and Percocet 5/325mg PO 1 tab Q6H PRN Moderate pain D/w Dr. Riojas and he concurred. Subjective Date patient seen: Jun 10, 2019 Time patient seen: 09:00 - am Allergies: Coded Allergies: MORPHINE (Verified Allergy, Unknown, 09/02/18) Subjective REVIEW OF SYSTEMS: Denies rash, fever, chills, sweating, dizziness, drowsiness, blurred vision, sore throat, or change in weight. No shortness of breath or chest pain. No nausea, vomiting, diarrhea, or blood in the stool or urine. No bowel or bladder incontinence. No dysuria. He is complaining of generalized body pain. SUBJECTIVE: Patient is a known patient from prior admission and has been found to be in sickle cell crisis and is c/o severe pain. Was given Dilaudid in the ER and it relieved his pain. We were consulted so patient has adequate pain control while here in the hospital. Objective Last 24 Hour Vital Signs Date Time Temp Pulse Resp B/P (MAP) Pulse Ox O2 Delivery O2 Flow Rate FiO2 06/10/19 08:00 97.5 60 19 102/60 (74) 94 06/10/19 07:40 Room Air 06/10/19 05:52 97.8 87 18 109/70 (83) 99 06/10/19 05:32 Room Air 06/10/19 04:40 98.1 84 16 118/69 99 Room Air 06/10/19 03:41 98.4 06/10/19 02:03 98.4 73 16 120/70 99 Room Air 06/09/19 23:36 98.4 80 18 116/70 98 Room Air 06/09/19 23:29 98.6 88 16 112/71 (85) 98 Room Air Intake and Output 06/09/19 06/10/19 19:00 07:00 Intake Total 3295 ml Balance 3295 ml Intake Oral 240 ml IV Total 3055 ml # Voids 3 Laboratory Tests 06/09/19 23:40: White Blood Count 17.3H, Red Blood Count 2.66L, Hemoglobin 8.2L, Hematocrit 23.2L, Mean Corpuscular Volume 87, Mean Corpuscular Hemoglobin 30.6, Mean Corpuscular Hemoglobin Concent 35.3, Red Cell Distribution Width 22.8H, Platelet Count 383, Mean Platelet Volume 5.3L, Neutrophils (%) (Auto) 54.8, Lymphocytes (%) (Auto) 38.3, Monocytes (%) (Auto) 5.9, Eosinophils (%) (Auto) 0.1, Basophils (%) (Auto) 0.8, Reticulocyte Count 1.9, Sodium Level 141, Potassium Level 4.1, Chloride Level 107, Carbon Dioxide Level 25, Anion Gap 9, Blood Urea Nitrogen 15, Creatinine 0.8, Estimat Glomerular Filtration Rate > 60 , Glucose Level 120H, Calcium Level 8.7, Phosphorus Level 3.3, Magnesium Level 2.0, Total Bilirubin 4.8H, Direct Bilirubin 0.4H, Aspartate Amino Transf (AST/ SGOT) 50H, Alanine Aminotransferase (ALT/SGPT) 49, Alkaline Phosphatase 94, Total Protein 8.0, Albumin 4.4, Globulin 3.6, Albumin/Globulin Ratio 1.2 06/09/19 23:42: Troponin I 0.000 06/09/19 23:45: Urine Color Yellow, Urine Appearance Clear, Urine pH 5, Urine Specific [place] 1.010, Urine Protein 2+H, Urine Glucose (UA) Negative, Urine Ketones Negative, Urine Blood 2+H, Urine Nitrite Negative, Urine Bilirubin Negative, Urine Urobilinogen 8H, Urine Leukocyte Esterase 3+H, Urine RBC 5-10H, Urine WBC 30-40H , Urine Squamous Epithelial Cells ModerateH, Urine Bacteria Few, Urine Opiates Screen Negative, Urine Barbiturates Screen Negative, Phencyclidine (PCP) Screen Negative, Urine Amphetamines Screen Negative, Urine Benzodiazepines Screen Negative, Urine Cocaine Screen Negative, Urine Marijuana (THC) Screen PositiveH 06/10/19 07:35: White Blood Count 12.3H, Red Blood Count 2.54L, Hemoglobin 7.8L, Hematocrit 21.8L, Mean Corpuscular Volume 86, Mean Corpuscular Hemoglobin 30.8, Mean Corpuscular Hemoglobin Concent 35.7, Red Cell Distribution Width 22.6H, Platelet Count 356, Mean Platelet Volume 5.7L, Neutrophils (%) (Auto) , Lymphocytes (%) (Auto) , Monocytes (%) (Auto) , Eosinophils (%) (Auto) , Basophils (%) (Auto) , Sodium Level 141, Potassium Level 4.0, Chloride Level 108H, Carbon Dioxide Level 26, Anion Gap 7, Blood Urea Nitrogen 7, Creatinine 0.6, Estimat Glomerular Filtration Rate > 60, Glucose Level 78, Calcium Level 8.3L, Differential Total Cells Counted 100, Neutrophils % (Manual) 65, Lymphocytes % (Manual) 23, Monocytes % (Manual) 12H, Eosinophils % (Manual) 0, Basophils % (Manual) 0, Band Neutrophils 0, Nucleated Red Blood Cells 8, Platelet Estimate Adequate, Platelet Morphology Normal, Polychromasia 2+, Hypochromasia 1+, Anisocytosis 3+, Sickle Cells 2+H Height (Feet): 5 Height (Inches): 9.00 Weight (Pounds): 130 Objective GENERAL: Alert, awake, and oriented. LUNGS: Decreased breath sounds bilaterally. HEART: S1 S2 Regular. ABDOMEN: Benign. EXTREMITIES: No cyanosis. No clubbing. No edema. NEURO: No Focal defects. Nathanael Sheridan Jun 10, 2019 09:54
[2019-06-10] MEDS: HYDROmorphone 1mg/ml Carpuject IVP PRN ×4 (10:12→21:48)
--- NOTE | 2019-06-10 11:12 | Diagnostic Imaging Report ---
Indication: Dyspnea Comparison: 09/02/2018 A single view chest radiograph was obtained. Findings: Pulmonary vascular congestion suspected, mild in degree. The heart is mildly enlarged. Bones are osteopenic. IMPRESSION: Suspected mild pulmonary vascular congestion
--- NOTE | 2019-06-10 11:23 | NUR ---
*-* INSURANCE *-* ALL AVAILABLE CLINICALS HAVE BEEN FAXED TO: [employer] FAX CLINICALS TO [phone]
--- NOTE | 2019-06-10 14:34 | Consultation ---
History of Present Illness General Chief Complaint: Pain Present Illness Allergies: Coded Allergies: MORPHINE (Verified Allergy, Unknown, 09/02/18) Medication History Scheduled Folic Acid* (Folic Acid*), 1 MG ORAL DAILY, (Reported) Nitrofurantoin Monohyd/M-Cryst (Nitrofurantoin [place]-Mcr 100 mg), 100 MG ORAL BID Miscellaneous Medications Hydromorphone HCl/Pf (Dilaudid 4 mg/ml Syringe), 4 MG IJ, (Reported) Hydroxyurea (Hydroxyurea), 500 MG PO, (Reported) Patient History Healthcare decision maker Resuscitation status Full Code Advanced Directive on File Physical Exam Last 24 Hour Vital Signs Date Time Temp Pulse Resp B/P (MAP) Pulse Ox O2 Delivery O2 Flow Rate FiO2 06/10/19 12:00 98.9 57 19 101/57 (72) 93 06/10/19 08:00 97.5 60 19 102/60 (74) 94 06/10/19 07:40 Room Air 06/10/19 05:52 97.8 87 18 109/70 (83) 99 06/10/19 05:32 Room Air 06/10/19 04:40 98.1 84 16 118/69 99 Room Air 06/10/19 03:41 98.4 06/10/19 02:03 98.4 73 16 120/70 99 Room Air 06/09/19 23:36 98.4 80 18 116/70 98 Room Air 06/09/19 23:29 98.6 88 16 112/71 (85) 98 Room Air Intake and Output 06/09/19 06/10/19 19:00 07:00 Intake Total 3295 ml Balance 3295 ml Intake Oral 240 ml IV Total 3055 ml # Voids 3 Laboratory Tests Test 06/09/19 23:40 06/09/19 23:42 06/09/19 23:45 06/10/19 07:35 White Blood Count 17.3 K/UL (4.8-10.8) H 12.3 K/UL (4.8-10.8) H Red Blood Count 2.66 M/UL (4.70-6.10) L 2.54 M/UL (4.70-6.10) L Hemoglobin 8.2 G/DL (14.2-18.0) L 7.8 G/DL (14.2-18.0) L Hematocrit 23.2 % (42.0-52.0) L 21.8 % (42.0-52.0) L Mean Corpuscular Volume 87 FL (80-99) 86 FL (80-99) Mean Corpuscular Hemoglobin 30.6 PG (27.0-31.0) 30.8 PG (27.0-31.0) Mean Corpuscular Hemoglobin Concent 35.3 G/DL (32.0-36.0) 35.7 G/DL (32.0-36.0) Red Cell Distribution Width 22.8 % (11.6-14.8) H 22.6 % (11.6-14.8) H Platelet Count 383 K/UL (150-450) 356 K/UL (150-450) Mean Platelet Volume 5.3 FL (6.5-10.1) L 5.7 FL (6.5-10.1) L Neutrophils (%) (Auto) 54.8 % (45.0-75.0) % (45.0-75.0) Lymphocytes (%) (Auto) 38.3 % (20.0-45.0) % (20.0-45.0) Monocytes (%) (Auto) 5.9 % (1.0-10.0) % (1.0-10.0) Eosinophils (%) (Auto) 0.1 % (0.0-3.0) % (0.0-3.0) Basophils (%) (Auto) 0.8 % (0.0-2.0) % (0.0-2.0) Reticulocyte Count 1.9 % (0.5-2.0) Sodium Level 141 MMOL/L (136-145) 141 MMOL/L (136-145) Potassium Level 4.1 MMOL/L (3.5-5.1) 4.0 MMOL/L (3.5-5.1) Chloride Level 107 MMOL/L (98-107) 108 MMOL/L (98-107) H Carbon Dioxide Level 25 MMOL/L (21-32) 26 MMOL/L (21-32) Anion Gap 9 mmol/L (5-15) 7 mmol/L (5-15) Blood Urea Nitrogen 15 mg/dL (7-18) 7 mg/dL (7-18) Creatinine 0.8 MG/DL (0.55-1.30) 0.6 MG/DL (0.55-1.30) Estimat Glomerular Filtration Rate > 60 mL/min (>60) > 60 mL/min (>60) Glucose Level 120 MG/DL (74-106) H 78 MG/DL (74-106) Calcium Level 8.7 MG/DL (8.5-10.1) 8.3 MG/DL (8.5-10.1) L Phosphorus Level 3.3 MG/DL (2.5-4.9) Magnesium Level 2.0 MG/DL (1.8-2.4) Total Bilirubin 4.8 MG/DL (0.2-1.0) H Direct Bilirubin 0.4 MG/DL (0.0-0.3) H Aspartate Amino Transf (AST/SGOT) 50 U/L (15-37) H Alanine Aminotransferase (ALT/SGPT) 49 U/L (12-78) Alkaline Phosphatase 94 U/L (46-116) Total Protein 8.0 G/DL (6.4-8.2) Albumin 4.4 G/DL (3.4-5.0) Globulin 3.6 g/dL Albumin/Globulin Ratio 1.2 (1.0-2.7) Troponin I 0.000 ng/mL (0.000-0.056) Urine Color Yellow Urine Appearance Clear Urine pH 5 (4.5-8.0) Urine Specific [place] 1.010 (1.005-1.035) Urine Protein 2+ (NEGATIVE) H Urine Glucose (UA) Negative (NEGATIVE) Urine Ketones Negative (NEGATIVE) Urine Blood 2+ (NEGATIVE) H Urine Nitrite Negative (NEGATIVE) Urine Bilirubin Negative (NEGATIVE) Urine Urobilinogen 8 MG/DL (0.0-1.0) H Urine Leukocyte Esterase 3+ (NEGATIVE) H Urine RBC 5-10 /HPF (0 - 0) H Urine WBC 30-40 /HPF (0 - 0) H Urine Squamous Epithelial Cells Moderate /LPF (NONE/OCC) H Urine Bacteria Few /HPF (NONE) Urine Opiates Screen Negative (NEGATIVE) Urine Barbiturates Screen Negative (NEGATIVE) Phencyclidine (PCP) Screen Negative (NEGATIVE) Urine Amphetamines Screen Negative (NEGATIVE) Urine Benzodiazepines Screen Negative (NEGATIVE) Urine Cocaine Screen Negative (NEGATIVE) Urine Marijuana (THC) Screen Positive (NEGATIVE) H Differential Total Cells Counted 100 Neutrophils % (Manual) 65 % (45-75) Lymphocytes % (Manual) 23 % (20-45) Monocytes % (Manual) 12 % (1-10) H Eosinophils % (Manual) 0 % (0-3) Basophils % (Manual) 0 % (0-2) Band Neutrophils 0 % (0-8) Nucleated Red Blood Cells 8 /100 WBC Platelet Estimate Adequate Platelet Morphology Normal Polychromasia 2+ Hypochromasia 1+ Anisocytosis 3+ Sickle Cells 2+ H Height (Feet): 5 Height (Inches): 9.00 Weight (Pounds): 130 Medications Current Medications Medications (Trade) Dose Ordered Sig/Christina Route PRN Reason Start Time Stop Time Status Last Admin Dose Admin Acetaminophen (Tylenol) 650 mg Q4H PRN ORAL Mild Pain/Temp > 100.5 06/10/19 06:15 07/10/19 06:14 Ceftriaxone Sodium 1 gm/ Dextrose 55 ml @ 110 mls/hr DAILY IVPB 06/11/19 09:00 06/18/19 08:59 Hydromorphone HCl (Dilaudid) 1 mg Q4H PRN IVP Severe Pain (Pain Scale 7-10) 06/10/19 09:45 06/17/19 09:44 06/10/19 14:01 Oxycodone/ Acetaminophen (Percocet 5-325) 1 tab Q6H PRN ORAL Moderate Pain (Pain Scale 4-6) 06/10/19 09:45 06/17/19 09:44 Sodium Chloride 1,000 ml @ 80 mls/hr [id number] IV 06/10/19 07:00 07/10/19 06:59 06/10/19 06:22 Assessment/Plan Assessment/Plan: Hematology Consultation REJovon GRANDA: Jody RFC: SS crisis DOS: 06/10/19 HPI Patient is a 43-year-old male who presented after increased back pain. I saw him back in 2018 with a similar presentation. Patient had recent onset of symptoms. He reports having increased sharp pain. Patient states that he had prior history of sickle cell disease. Taking hydroxyurea as well as. The patient reports being followed by hematology [facility]. retic is pending at this time. Coded Allergies: morphine Past Medical History: see triage record Reviewed Nursing Documentation: PMH: Agreed; PSxH: Agreed Past Medical History: No History, Except For Review of Systems All Other Systems: negative except mentioned in HPI Physical Exam VS reviewed, normal Gen: normal inspection, well appearing, no apparent distress ENT: normal ENT inspection, hearing grossly normal, normal voice Pulm: normal inspection, lungs clear, normal breath sounds, no respiratory distress, no retraction, no wheezing CV: regular rate, rhythm, no edema GI: normal inspection, normal bowel sounds : no CVA tenderness MSK: normal inspection, back normal Neuro: normal inspection, alert, oriented x3, responsive Labs: noted Imaging reviewed Assessment and Recs # SIckle cell crisis, 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 - Patient presented for sickle cell pain/crisis last eval in 2017, is on hydroxyurea, and folic acid --> hgb electrophoresis showed SS homozygous back in 2018 --> pain manamgent as per pain team --> retic and ldh pending --> incentive maksim --> hydroxyurea continue --> [facility] f/u # Anemia of sickle cell disease --> trend as needed --> hgb goal >7 --> some hemolysis is noted # Hyperbili- likely related to sickle cell disease --> trend as needed, should improve # Leukocytosis likely elevated due to ss and stress reaction # Dehydration -- administer fluids # Dvt ppx ambulation The timing of this note does not necessarily reflect the time of the patient was seen. Greatly appreciate consultation. Zackery Perez MD Jun 10, 2019 14:34
--- NOTE | 2019-06-10 14:56 | NUR ---
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 98.6 HR 88 RR 16 B/P 112/71 WBC 17.3 AST 50 UA+ PROETIN, RBC,WBC, LEUKOCYTE ESTERASE,UROBILINOGEN,BLOOD URINE TOX+ THC CXR= VASCULAR CONGESTION IS: IV BOLUS NS X 2 LITERS ROCEPHIN IV DILAUDID IV ADMITTED TO MED/SURG @ 9400 MED/SURG STATUS DCP RETURN HOME
[2019-06-10] MEDS: oxyCODONE HCL/Acetaminophen 5/325mg ORAL PRN (15:22)
--- NOTE | 2019-06-10 19:32 | NUR ---
HAND-OFF: Report given to TITUS Hebert.
--- NOTE | 2019-06-10 19:44 | NUR ---
NURSE NOTES: Patient in bed, awake, alert and verbally responsive. Able to make needs known. Respiration is even and unlabored. NO complaint of pain or discomfort noted. Skin is warm and dry to touch. Abdomen is soft and non distended. IV site noted, intact. Call light is at bedside. Bed in low andl locked position. Provided safe environment. Will continue plan of care.
--- NOTE | 2019-06-10 20:00 | History and Physical Report ---
DATE OF ADMISSION: 06/10/2019 HISTORY OF PRESENT ILLNESS: The patient basically comes in with sickle cell crisis and pain, complains of pains in multiple sites and also for possible urinary tract infection. The patient also has a history of sickle cell. The patient also is weak. The patient's pain was constant in upper thighs, hips, back, chest for about a day. The patient is also on hydroxyurea and folic acid and is also using Dilaudid for pain control. Denies cold symptoms. Denies fever, chills. The patient admitted for sickle cell anemia crisis as well as possible urinary tract infection PAST MEDICAL HISTORY: Sickle cell. PAST SURGICAL HISTORY: Cholecystectomy. MEDICATIONS: He takes at home are folic acid, hydroxyurea, Dilaudid. ALLERGIES: To morphine. FAMILY HISTORY: Does have history of sickle cell. SOCIAL HISTORY: The patient basically denies history of drug or alcohol abuse. REVIEW OF SYSTEMS: HEENT: Denies headaches. RESPIRATORY: Denies shortness of breath. Denies cough. CARDIOVASCULAR: Does have chest pain. Denies orthopnea. GASTROINTESTINAL: Denies abdominal pain. Denies nausea or vomiting. EXTREMITIES: Reports generalized pain especially in the upper thighs and back and chest pain as well as hip. CENTRAL NERVOUS SYSTEM: Denies change in speech pattern. PHYSICAL EXAMINATION: VITAL SIGNS: Temperature is 98.1, pulse is 84, and blood pressure is 118/69. HEENT: PERRLA. NECK: Supple. No lymphadenopathy. CHEST: Clear to auscultation. CARDIOVASCULAR: Regular rate and rhythm. No murmurs or extra sounds. GASTROINTESTINAL: Soft, nontender. No organomegaly. Positive bowel sounds. EXTREMITIES: No edema. NEUROLOGIC: Reflexes equal on both sides. Moves all four extremities. Cranial nerves intact. Motor strength is intact. LABORATORY DATA: WBC of 17.3, hemoglobin of 8.2, platelets 383. Sodium 141, potassium 4.1, BUN of 15, creatinine 0.8, and glucose of 110. Urine shows possible urinary tract infection. ASSESSMENT AND PLAN: Sickle cell crisis and pain, anemia as well as leukocytosis, UTI, as well as patient is going to need hydration and IV fluids and for those reasons, I have consulted Dr. Stuart Vora, Dr. Zackery Perez, as well as Dr. Franklin. Ali Bryan Vera DR: Tyler JOB#: [id number] CC:
--- NOTE | 2019-06-10 21:52 | NUR ---
NURSE NOTES: Patient complained of back pain, scale 9/10. Given PRn pain medication as ordered. Will reassess. Call light is at bedside. Will continue plan of care.
--- NOTE | 2019-06-10 23:00 | Consultation ---
DATE OF CONSULTATION: 06/10/2019 INFECTIOUS DISEASE CONSULTATION CONSULTING PHYSICIAN: Stuart Vora M.D. PRIMARY ATTENDING PHYSICIAN: Angelito Vera M.D. REASON FOR CONSULT: Pyuria and UTI. HISTORY OF PRESENT ILLNESS: This is a 43-year-old male, admitted today from home complaining of generalized body pain. The patient has a history of sickle cell disease and almost every month has a sickle cell attack, usually go to the [facility]. The patient had leukocytosis and pyuria. PAST MEDICAL HISTORY: Sickle cell disease and anemia. PAST SURGICAL HISTORY: Has history of cholecystectomy. MEDICATIONS: Getting hydromorphone, Percocet, sodium chloride. Got a dose of ceftriaxone. Getting Tylenol. ALLERGIES: Allergic to morphine. SOCIAL HISTORY: Single. Denies smoking and alcohol abuse. Uses marijuana. REVIEW OF SYSTEMS: No fever. No chills. No chest pain. No coughing. Has back pain. No problem passing urine. PHYSICAL EXAMINATION: VITAL SIGNS: Temperature 98.5, pulse 57, and blood pressure 110/57. GENERAL APPEARANCE: Seems to be thin. HEAD AND NECK: [place] conjunctiva. HEART: Normal rate. LUNGS: Clear. ABDOMEN: Soft and nontender. EXTREMITY: No edema. NEUROLOGIC: Awake, alert, and oriented x3. LABORATORY AND DIAGNOSTIC DATA: WBC's coming down from 17.3 at the time of admission to 12.3, hemoglobin 7.8, hematocrit 21.8, and platelets is 356,000. UA showed wbc of 30 to 40, leukocyte esterase 2+, and blood 2+. Urine toxicology was positive for THC. IMPRESSION: 1. Pyuria, may have UTI. 2. Sickle cell crisis. 3. Anemia. RECOMMENDATIONS: We will follow up the urine culture and continue ceftriaxone. If culture remains negative, we will stop antibiotic. At the end of my exam, I thank Dr. Vera for involving me in the care of this patient. Stuart Vora M.D. DR: ALIRIO JOB#: [id number] CC: DONALD
[2019-06-11] MEDS: HYDROmorphone 1mg/ml Carpuject IVP PRN ×5 (01:46→20:23)
[2019-06-11 04:00] VITALS: BP 100/52
--- NOTE | 2019-06-11 05:43 | NUR ---
NURSE NOTES: Patient complained of generalized pain, given PRN pain medication as ordered. Patient is alert x 4 .Call light is at bedside. Will continue plan of care.
--- NOTE | 2019-06-11 07:27 | NUR ---
HAND-OFF: Report given to TITUS Chairez.
--- NOTE | 2019-06-11 07:35 | NUR ---
NURSE NOTES: Patient is stable condition, alert and oriented. Complaining of 6/10 pain on back. RN informed patient she will administer after reports are finished. Pt verbalized understanding. IV site patent and intact, fluids running. Call light placed within reach, will continue to monitor.
[2019-06-11 08:00] VITALS: BP 106/61
[2019-06-11] MEDS: cefTRIAXone 1 GM in D5W 55 ML IVPB SCH (08:39)
[2019-06-11] MEDS: oxyCODONE HCL/Acetaminophen 5/325mg ORAL PRN ×2 (08:42→17:59)
--- NOTE | 2019-06-11 09:00 | General Progress Note ---
Assessment/Plan Assessment/Plan: (1) Sickle cell disease (2) Sickle cell crisis (3) Intractable pain Patient to be continued on Dilaudid and Percocet. D/w Dr. Riojas and he concurred. Subjective Date patient seen: Jun 11, 2019 Time patient seen: 07:45 - am Allergies: Coded Allergies: MORPHINE (Verified Allergy, Unknown, 09/02/18) Subjective REVIEW OF SYSTEMS: Denies rash, fever, chills, sweating, dizziness, drowsiness, blurred vision, sore throat, or change in weight. No shortness of breath or chest pain. No nausea, vomiting, diarrhea, or blood in the stool or urine. No bowel or bladder incontinence. No dysuria. He is complaining of generalized body pain. SUBJECTIVE: Patient has been in pain which he says is severe however reports that the pain has been tolerated to a moderate level on the 5 Dilaudid and 2 Percocet he has taken in the last 24hrs. He has no new complaints at this time. Objective Last 24 Hour Vital Signs Date Time Temp Pulse Resp B/P (MAP) Pulse Ox O2 Delivery O2 Flow Rate FiO2 06/11/19 08:00 97.7 58 19 106/61 (76) 97 06/11/19 04:00 97.6 53 18 100/52 (68) 97 06/10/19 23:55 98.9 61 18 136/59 (84) 98 06/10/19 20:48 Room Air 06/10/19 20:00 97.7 51 18 114/62 (79) 96 06/10/19 16:00 97.8 59 19 99/60 (73) 93 06/10/19 12:00 98.9 57 19 101/57 (72) 93 Intake and Output 06/10/19 06/11/19 19:00 07:00 Intake Total 820 ml 880 ml Output Total 3115 ml 3100 ml Balance -2295 ml -2220 ml Intake Oral 740 ml IV Total 80 ml 880 ml Output Urine Total 3115 ml 3100 ml # Voids 4 Height (Feet): 5 Height (Inches): 9.00 Weight (Pounds): 130 Objective GENERAL: Alert, awake, and oriented. LUNGS: Decreased breath sounds bilaterally. HEART: S1 S2 Regular. ABDOMEN: Benign. EXTREMITIES: No cyanosis. No clubbing. No edema. NEURO: No Focal defects. Nathanael Sheridan Jun 11, 2019 09:00
--- NOTE | 2019-06-11 11:44 | Hematology/Onc Progress Note ---
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 - Patient presented for sickle cell pain/crisis last eval in 2018, is on hydroxyurea, and folic acid --> hgb electrophoresis showed SS homozygous back in 2018 --> pain manamgent as per pain team --> retic and ldh pending --> incentive maksim --> hydroxyurea continue --> [facility] f/u # Anemia of sickle cell disease --> trend as needed --> hgb goal >7 --> some hemolysis is noted # Hyperbili- likely related to sickle cell disease --> trend as needed, should improve # Leukocytosis likely elevated due to ss and stress reaction # Dehydration -- administer fluids # Dvt ppx ambulation The timing of this note does not necessarily reflect the time of the patient was seen. Greatly appreciate consultation. Subjective Hematologic/Lymphatic: Reports: anemia Allergies: Coded Allergies: MORPHINE (Verified Allergy, Unknown, 09/02/18) All Systems: reviewed and negative except above Subjective 06/11: awake and alert, no acute events, c/o gen pain, on ceftriaxone Objective Objective Current Medications Medications (Trade) Dose Ordered Sig/Christina Route PRN Reason Start Time Stop Time Status Last Admin Dose Admin Acetaminophen (Tylenol) 650 mg Q4H PRN ORAL Mild Pain/Temp > 100.5 06/10/19 06:15 07/10/19 06:14 Ceftriaxone Sodium 1 gm/ Dextrose 55 ml @ 110 mls/hr DAILY IVPB 06/11/19 09:00 06/18/19 08:59 06/11/19 08:39 Hydromorphone HCl (Dilaudid) 1 mg Q4H PRN IVP Severe Pain (Pain Scale 7-10) 06/10/19 09:45 06/17/19 09:44 06/11/19 10:41 Oxycodone/ Acetaminophen (Percocet 5-325) 1 tab Q6H PRN ORAL Moderate Pain (Pain Scale 4-6) 06/10/19 09:45 06/17/19 09:44 06/11/19 08:42 Sodium Chloride 1,000 ml @ 80 mls/hr [id number] IV 06/10/19 07:00 07/10/19 06:59 06/11/19 05:30 Last 24 Hour Vital Signs Date Time Temp Pulse Resp B/P (MAP) Pulse Ox O2 Delivery O2 Flow Rate FiO2 06/11/19 09:00 Room Air 06/11/19 08:00 97.7 58 19 106/61 (76) 97 06/11/19 04:00 97.6 53 18 100/52 (68) 97 06/10/19 23:55 98.9 61 18 136/59 (84) 98 06/10/19 20:48 Room Air 06/10/19 20:00 97.7 51 18 114/62 (79) 96 06/10/19 16:00 97.8 59 19 99/60 (73) 93 06/10/19 12:00 98.9 57 19 101/57 (72) 93 06/10/19 08:00 97.5 60 19 102/60 (74) 94 06/10/19 07:40 Room Air 06/10/19 05:52 97.8 87 18 109/70 (83) 99 06/10/19 05:32 Room Air 06/10/19 04:40 98.1 84 16 118/69 99 Room Air 06/10/19 03:41 98.4 06/10/19 02:03 98.4 73 16 120/70 99 Room Air 06/09/19 23:36 98.4 80 18 116/70 98 Room Air 06/09/19 23:29 98.6 88 16 112/71 (85) 98 Room Air Intake and Output 06/10/19 06/11/19 19:00 07:00 Intake Total 820 ml 880 ml Output Total 3115 ml 3100 ml Balance -2295 ml -2220 ml Intake Oral 740 ml IV Total 80 ml 880 ml Output Urine Total 3115 ml 3100 ml # Voids 4 Labs Test 06/09/19 23:40 06/09/19 23:42 06/09/19 23:45 06/10/19 07:35 White Blood Count 17.3 K/UL (4.8-10.8) 12.3 K/UL (4.8-10.8) Red Blood Count 2.66 M/UL (4.70-6.10) 2.54 M/UL (4.70-6.10) Hemoglobin 8.2 G/DL (14.2-18.0) 7.8 G/DL (14.2-18.0) Hematocrit 23.2 % (42.0-52.0) 21.8 % (42.0-52.0) Mean Corpuscular Volume 87 FL (80-99) 86 FL (80-99) Mean Corpuscular Hemoglobin 30.6 PG (27.0-31.0) 30.8 PG (27.0-31.0) Mean Corpuscular Hemoglobin Concent 35.3 G/DL (32.0-36.0) 35.7 G/DL (32.0-36.0) Red Cell Distribution Width 22.8 % (11.6-14.8) 22.6 % (11.6-14.8) Platelet Count 383 K/UL (150-450) 356 K/UL (150-450) Mean Platelet Volume 5.3 FL (6.5-10.1) 5.7 FL (6.5-10.1) Neutrophils (%) (Auto) 54.8 % (45.0-75.0) % (45.0-75.0) Lymphocytes (%) (Auto) 38.3 % (20.0-45.0) % (20.0-45.0) Monocytes (%) (Auto) 5.9 % (1.0-10.0) % (1.0-10.0) Eosinophils (%) (Auto) 0.1 % (0.0-3.0) % (0.0-3.0) Basophils (%) (Auto) 0.8 % (0.0-2.0) % (0.0-2.0) Reticulocyte Count 1.9 % (0.5-2.0) Sodium Level 141 MMOL/L (136-145) 141 MMOL/L (136-145) Potassium Level 4.1 MMOL/L (3.5-5.1) 4.0 MMOL/L (3.5-5.1) Chloride Level 107 MMOL/L (98-107) 108 MMOL/L (98-107) Carbon Dioxide Level 25 MMOL/L (21-32) 26 MMOL/L (21-32) Anion Gap 9 mmol/L (5-15) 7 mmol/L (5-15) Blood Urea Nitrogen 15 mg/dL (7-18) 7 mg/dL (7-18) Creatinine 0.8 MG/DL (0.55-1.30) 0.6 MG/DL (0.55-1.30) Estimat Glomerular Filtration Rate > 60 mL/min (>60) > 60 mL/min (>60) Glucose Level 120 MG/DL (74-106) 78 MG/DL (74-106) Calcium Level 8.7 MG/DL (8.5-10.1) 8.3 MG/DL (8.5-10.1) Phosphorus Level 3.3 MG/DL (2.5-4.9) Magnesium Level 2.0 MG/DL (1.8-2.4) Total Bilirubin 4.8 MG/DL (0.2-1.0) Direct Bilirubin 0.4 MG/DL (0.0-0.3) Aspartate Amino Transf (AST/SGOT) 50 U/L (15-37) Alanine Aminotransferase (ALT/SGPT) 49 U/L (12-78) Alkaline Phosphatase 94 U/L (46-116) Total Protein 8.0 G/DL (6.4-8.2) Albumin 4.4 G/DL (3.4-5.0) Globulin 3.6 g/dL Albumin/Globulin Ratio 1.2 (1.0-2.7) Troponin I 0.000 ng/mL (0.000-0.056) Urine Color Yellow Urine Appearance Clear Urine pH 5 (4.5-8.0) Urine Specific [place] 1.010 (1.005-1.035) Urine Protein 2+ (NEGATIVE) Urine Glucose (UA) Negative (NEGATIVE) Urine Ketones Negative (NEGATIVE) Urine Blood 2+ (NEGATIVE) Urine Nitrite Negative (NEGATIVE) Urine Bilirubin Negative (NEGATIVE) Urine Urobilinogen 8 MG/DL (0.0-1.0) Urine Leukocyte Esterase 3+ (NEGATIVE) Urine RBC 5-10 /HPF (0 - 0) Urine WBC 30-40 /HPF (0 - 0) Urine Squamous Epithelial Cells Moderate /LPF (NONE/OCC) Urine Bacteria Few /HPF (NONE) Urine Opiates Screen Negative (NEGATIVE) Urine Barbiturates Screen Negative (NEGATIVE) Phencyclidine (PCP) Screen Negative (NEGATIVE) Urine Amphetamines Screen Negative (NEGATIVE) Urine Benzodiazepines Screen Negative (NEGATIVE) Urine Cocaine Screen Negative (NEGATIVE) Urine Marijuana (THC) Screen Positive (NEGATIVE) Differential Total Cells Counted 100 Neutrophils % (Manual) 65 % (45-75) Lymphocytes % (Manual) 23 % (20-45) Monocytes % (Manual) 12 % (1-10) Eosinophils % (Manual) 0 % (0-3) Basophils % (Manual) 0 % (0-2) Band Neutrophils 0 % (0-8) Nucleated Red Blood Cells 8 /100 WBC Platelet Estimate Adequate Platelet Morphology Normal Polychromasia 2+ Hypochromasia 1+ Anisocytosis 3+ Sickle Cells 2+ Micro Microbiology Date/Time Source Procedure Growth Status 06/10/19 16:15 Urine,Clean Catch Urine Culture - Preliminary Resulted Height (Feet): 5 Height (Inches): 9.00 Weight (Pounds): 130 Objective Physical Exam VS reviewed, normal Gen: normal inspection, well appearing, no apparent distress ENT: normal ENT inspection, hearing grossly normal, normal voice Pulm: normal inspection, lungs clear, normal breath sounds, no respiratory distress, no retraction, no wheezing CV: regular rate, rhythm, no edema GI: normal inspection, normal bowel sounds : no CVA tenderness MSK: normal inspection, back normal Neuro: normal inspection, alert, oriented x3, responsive Zackery Perez MD Jun 11, 2019 11:44
[2019-06-11 12:00] VITALS: BP 105/60
--- NOTE | 2019-06-11 12:20 | Infectious Diseases Prog Note ---
Assessment/Plan Assessment/Plan IMPRESSION: 1. Pyuria, may have UTI. 2. Sickle cell crisis. 3. Anemia. RECOMMENDATIONS: Continue Rocephin X 1day Subjective ROS Limited/Unobtainable: No Constitutional: Reports: no symptoms Respiratory: Reports: no symptoms Gastrointestinal/Abdominal: Reports: no symptoms Genitourinary: Reports: no symptoms Musculoskeletal: Reports: pain, other - in back & knees Allergies: Coded Allergies: MORPHINE (Verified Allergy, Unknown, 09/02/18) Objective Vital Signs Last 24 Hour Vital Signs Date Time Temp Pulse Resp B/P (MAP) Pulse Ox O2 Delivery O2 Flow Rate FiO2 06/11/19 09:00 Room Air 06/11/19 08:00 97.7 58 19 106/61 (76) 97 06/11/19 04:00 97.6 53 18 100/52 (68) 97 06/10/19 23:55 98.9 61 18 136/59 (84) 98 06/10/19 20:48 Room Air 06/10/19 20:00 97.7 51 18 114/62 (79) 96 06/10/19 16:00 97.8 59 19 99/60 (73) 93 Height (Feet): 5 Height (Inches): 9.00 Weight (Pounds): 130 HEENT: mucous membranes moist Respiratory/Chest: normal breath sounds Cardiovascular: bradycardia Abdomen: soft, non tender Extremities: no edema Neurologic/Psychiatric: alert, oriented x 3, responsive Microbiology Date/Time Source Procedure Growth Status 06/10/19 16:15 Urine,Clean Catch Urine Culture - Preliminary Resulted 06/09/19 23:45 Urine,Clean Catch Urine Culture - Preliminary NO GROWTH AFTER 24 HOURS Resulted Current Medications Medications (Trade) Dose Ordered Sig/Christina Route PRN Reason Start Time Stop Time Status Last Admin Dose Admin Acetaminophen (Tylenol) 650 mg Q4H PRN ORAL Mild Pain/Temp > 100.5 06/10/19 06:15 07/10/19 06:14 Ceftriaxone Sodium 1 gm/ Dextrose 55 ml @ 110 mls/hr DAILY IVPB 06/11/19 09:00 06/18/19 08:59 06/11/19 08:39 Hydromorphone HCl (Dilaudid) 1 mg Q4H PRN IVP Severe Pain (Pain Scale 7-10) 06/10/19 09:45 06/17/19 09:44 06/11/19 10:41 Oxycodone/ Acetaminophen (Percocet 5-325) 1 tab Q6H PRN ORAL Moderate Pain (Pain Scale 4-6) 06/10/19 09:45 06/17/19 09:44 06/11/19 08:42 Sodium Chloride 1,000 ml @ 80 mls/hr [id number] IV 06/10/19 07:00 07/10/19 06:59 06/11/19 05:30 Stuart Vora MD Jun 11, 2019 12:20
--- NOTE | 2019-06-11 13:35 | NUR ---
*-* INSURANCE *-* UPDATED CLINICALS HAVE BEEN FAXED TO: [employer] FAX CLINICALS TO [phone]
[2019-06-11] MEDS ORDERED: 1/2 NS 1000ml IV ONE (14:52)
--- NOTE | 2019-06-11 14:52 | NUR ---
STRATEGIC PLANNING MANAGERCAREER COORDINATOR SI; SICKLE CELL CRISIS UTI T. 98.7 HR 53 RR 19 B/P 105/60 IS: [id number] IV IVF NS@ 80ML/HR DILAUDID IV STEP DOWN STATUS
[2019-06-11 16:00] VITALS: BP 122/55
--- NOTE | 2019-06-11 19:47 | NUR ---
HAND-OFF: Report given to Erika QURESHI.
[2019-06-11 20:00] VITALS: BP 119/70
--- NOTE | 2019-06-11 20:00 | NUR ---
NURSE NOTES: Pt alert in bed with IV fluids running, requesting pain medication, no signs of distress, able to make needs known, call light within reach, will continue to monitor.
--- NOTE | 2019-06-11 21:14 | General Progress Note ---
Assessment/Plan Problem List: (1) Sickle cell crisis ICD Codes: D57.00 - Hb-SS disease with crisis, unspecified SNOMED: 207373946 (2) Dehydration ICD Codes: E86.0 - Dehydration SNOMED: 29969283 (3) Sickle cell pain crisis ICD Codes: D57.00 - Hb-SS disease with crisis, unspecified SNOMED: 236887321 (4) Sickle cell anemia ICD Codes: D57.1 - Sickle-cell disease without crisis SNOMED: 736206195 Status: progressing Assessment/Plan: afebrile sickle cell crisis worsening generalized pain h/h stable afebrile uti dehydration Subjective ROS Limited/Unobtainable: Yes Allergies: Coded Allergies: MORPHINE (Verified Allergy, Unknown, 09/02/18) Objective Last 24 Hour Vital Signs Date Time Temp Pulse Resp B/P (MAP) Pulse Ox O2 Delivery O2 Flow Rate FiO2 06/11/19 16:00 98.2 60 19 122/55 (77) 93 06/11/19 12:00 98.7 53 19 105/60 (75) 94 06/11/19 09:00 Room Air 06/11/19 08:00 97.7 58 19 106/61 (76) 97 06/11/19 04:00 97.6 53 18 100/52 (68) 97 06/10/19 23:55 98.9 61 18 136/59 (84) 98 Intake and Output 06/10/19 06/11/19 19:00 07:00 Intake Total 820 ml 880 ml Output Total 3115 ml 3100 ml Balance -2295 ml -2220 ml Intake Oral 740 ml IV Total 80 ml 880 ml Output Urine Total 3115 ml 3100 ml # Voids 4 Height (Feet): 5 Height (Inches): 9.00 Weight (Pounds): 130 Cardiovascular: regular rhythm Respiratory/Chest: lungs clear Abdomen: soft Angelito Vera MD Jun 11, 2019 21:14
[2019-06-12] VITALS: BP 105/62
[2019-06-12] MEDS: HYDROmorphone 1mg/ml Carpuject IVP PRN ×6 (00:29→19:02)
[2019-06-12 04:00] VITALS: BP 106/69
--- NOTE | 2019-06-12 07:07 | NUR ---
HAND-OFF: Report given to TITUS Chairez..
--- NOTE | 2019-06-12 07:23 | NUR ---
NURSE NOTES: Patient received in stable condition, resting in bed. Denies SOB. Patient informed pain medication is due in an hour. Patient verbalized understanding and stated he can wait. IV fluids running. Urinal by the bedside. Bed locked in lowest position, call light placed within reach. Will continue to monitor.
[2019-06-12 08:00] VITALS: BP 102/63
[2019-06-12] MEDS: cefTRIAXone 1 GM in D5W 55 ML IVPB SCH (08:39)
[2019-06-12] MEDS: oxyCODONE HCL/Acetaminophen 5/325mg ORAL PRN (10:52)
[2019-06-12 12:00] VITALS: BP 131/68
[2019-06-12 12:30] LABS: HEMATOCRIT 25.2 % (42.0-52.0); MEAN CORPUSCULAR VOLUME 89 FL (80-99); PLATELET COUNT 401 K/UL (150-450); RED BLOOD COUNT 2.83 M/UL (4.70-6.10); RED CELL DISTRIBUTION WIDTH 25.6 % (11.6-14.8)
--- NOTE | 2019-06-12 12:41 | Hematology/Onc Progress Note ---
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 - Patient presented for sickle cell pain/crisis last eval in 2018, is on hydroxyurea, and folic acid --> hgb electrophoresis showed SS homozygous back in 2018 --> pain manamgent as per pain team --> retic and ldh pending --> incentive maksim --> hydroxyurea continue --> [facility] f/u --> hgb 7.8-->9 --> ferritin is 1834--> indicating iron overload, likely will need future chelation rx # Anemia of sickle cell disease --> trend as needed --> hgb goal >7 --> some hemolysis is noted # Hyperbili- likely related to sickle cell disease --> trend as needed, should improve # Leukocytosis likely elevated due to ss and stress reaction # Dehydration -- administer fluids # Dvt ppx ambulation The timing of this note does not necessarily reflect the time of the patient was seen. Greatly appreciate consultation. Subjective Constitutional: Denies: no symptoms, chills, fever, malaise, weakness, other HEENT: Denies: no symptoms, eye pain, blurred vision, tearing, double vision, ear pain, ear discharge, nose pain, nose congestion, throat pain, throat swelling, mouth pain, mouth swelling, other Cardiovascular: Denies: no symptoms, chest pain, edema, irregular heart rate, lightheadedness, palpitations, syncope, other Respiratory: Denies: no symptoms, cough, shortness of breath, SOB with excertion, SOB at rest, sputum, wheezing, other Gastrointestinal/Abdominal: Denies: no symptoms, abdomen distended, abdominal pain, black stools, tarry stools, blood in stool, constipated, diarrhea, difficulty swallowing, nausea, poor appetite, poor fluid intake, rectal bleeding , vomiting, other Genitourinary: Denies: no symptoms, burning, discharge, frequency, flank pain, hematuria, incontinence, pain, urgency, other Neurologic/Psychiatric: Denies: no symptoms, anxiety, depressed, emotional problems, headache, numbness, paresthesia, pre-existing deficit, seizure, tingling, tremors, weakness, other Endocrine: Denies: no symptoms, excessive sweating, flushing, intolerance to cold, intolerance to heat, increased hunger, increased thirst, increased urine, unexplained weight gain, unexplained weight loss, other Hematologic/Lymphatic: Denies: no symptoms, anemia, easy bleeding, easy bruising, adenopathy, other Allergies: Coded Allergies: MORPHINE (Verified Allergy, Unknown, 09/02/18) Subjective 06/11: awake and alert, no acute events, c/o gen pain, on ceftriaxone 06/12: hgb stable 9, no changes, on pain meds Objective Objective Current Medications Medications (Trade) Dose Ordered Sig/Christina Route PRN Reason Start Time Stop Time Status Last Admin Dose Admin Acetaminophen (Tylenol) 650 mg Q4H PRN ORAL Mild Pain/Temp > 100.5 06/10/19 06:15 07/10/19 06:14 Hydromorphone HCl (Dilaudid) 1 mg Q4H PRN IVP Severe Pain (Pain Scale 7-10) 06/10/19 09:45 06/17/19 09:44 06/12/19 08:39 Oxycodone/ Acetaminophen (Percocet 5-325) 1 tab Q6H PRN ORAL Moderate Pain (Pain Scale 4-6) 06/10/19 09:45 06/17/19 09:44 06/12/19 10:52 Sodium Chloride 1,000 ml @ 80 mls/hr [id number] IV 06/10/19 07:00 07/10/19 06:59 06/12/19 00:34 Last 24 Hour Vital Signs Date Time Temp Pulse Resp B/P (MAP) Pulse Ox O2 Delivery O2 Flow Rate FiO2 06/12/19 09:00 Room Air 06/12/19 08:00 97.7 71 23 102/63 (76) 96 06/12/19 04:00 96.8 66 18 106/69 (81) 96 06/12/19 00:00 97.0 68 19 105/62 (76) 98 06/11/19 21:00 Room Air 06/11/19 20:00 97.2 76 18 119/70 (86) 98 06/11/19 16:00 98.2 60 19 122/55 (77) 93 06/11/19 12:00 98.7 53 19 105/60 (75) 94 06/11/19 09:00 Room Air 06/11/19 08:00 97.7 58 19 106/61 (76) 97 06/11/19 04:00 97.6 53 18 100/52 (68) 97 06/10/19 23:55 98.9 61 18 136/59 (84) 98 06/10/19 20:48 Room Air 06/10/19 20:00 97.7 51 18 114/62 (79) 96 06/10/19 16:00 97.8 59 19 99/60 (73) 93 Intake and Output 06/11/19 06/12/19 19:00 07:00 Intake Total 800 ml 2040 ml Output Total 2500 ml 2500 ml Balance -1700 ml -460 ml Intake Oral 720 ml 240 ml IV Total 80 ml 1800 ml Output Urine Total 2500 ml 2500 ml # Voids 4 Labs Test 06/09/19 23:40 06/09/19 23:42 06/09/19 23:45 06/10/19 07:35 White Blood Count 17.3 K/UL (4.8-10.8) 12.3 K/UL (4.8-10.8) Red Blood Count 2.66 M/UL (4.70-6.10) 2.54 M/UL (4.70-6.10) Hemoglobin 8.2 G/DL (14.2-18.0) 7.8 G/DL (14.2-18.0) Hematocrit 23.2 % (42.0-52.0) 21.8 % (42.0-52.0) Mean Corpuscular Volume 87 FL (80-99) 86 FL (80-99) Mean Corpuscular Hemoglobin 30.6 PG (27.0-31.0) 30.8 PG (27.0-31.0) Mean Corpuscular Hemoglobin Concent 35.3 G/DL (32.0-36.0) 35.7 G/DL (32.0-36.0) Red Cell Distribution Width 22.8 % (11.6-14.8) 22.6 % (11.6-14.8) Platelet Count 383 K/UL (150-450) 356 K/UL (150-450) Mean Platelet Volume 5.3 FL (6.5-10.1) 5.7 FL (6.5-10.1) Neutrophils (%) (Auto) 54.8 % (45.0-75.0) % (45.0-75.0) Lymphocytes (%) (Auto) 38.3 % (20.0-45.0) % (20.0-45.0) Monocytes (%) (Auto) 5.9 % (1.0-10.0) % (1.0-10.0) Eosinophils (%) (Auto) 0.1 % (0.0-3.0) % (0.0-3.0) Basophils (%) (Auto) 0.8 % (0.0-2.0) % (0.0-2.0) Reticulocyte Count 1.9 % (0.5-2.0) Sodium Level 141 MMOL/L (136-145) 141 MMOL/L (136-145) Potassium Level 4.1 MMOL/L (3.5-5.1) 4.0 MMOL/L (3.5-5.1) Chloride Level 107 MMOL/L (98-107) 108 MMOL/L (98-107) Carbon Dioxide Level 25 MMOL/L (21-32) 26 MMOL/L (21-32) Anion Gap 9 mmol/L (5-15) 7 mmol/L (5-15) Blood Urea Nitrogen 15 mg/dL (7-18) 7 mg/dL (7-18) Creatinine 0.8 MG/DL (0.55-1.30) 0.6 MG/DL (0.55-1.30) Estimat Glomerular Filtration Rate > 60 mL/min (>60) > 60 mL/min (>60) Glucose Level 120 MG/DL (74-106) 78 MG/DL (74-106) Calcium Level 8.7 MG/DL (8.5-10.1) 8.3 MG/DL (8.5-10.1) Phosphorus Level 3.3 MG/DL (2.5-4.9) Magnesium Level 2.0 MG/DL (1.8-2.4) Total Bilirubin 4.8 MG/DL (0.2-1.0) Direct Bilirubin 0.4 MG/DL (0.0-0.3) Aspartate Amino Transf (AST/SGOT) 50 U/L (15-37) Alanine Aminotransferase (ALT/SGPT) 49 U/L (12-78) Alkaline Phosphatase 94 U/L (46-116) Total Protein 8.0 G/DL (6.4-8.2) Albumin 4.4 G/DL (3.4-5.0) Globulin 3.6 g/dL Albumin/Globulin Ratio 1.2 (1.0-2.7) Troponin I 0.000 ng/mL (0.000-0.056) Urine Color Yellow Urine Appearance Clear Urine pH 5 (4.5-8.0) Urine Specific [place] 1.010 (1.005-1.035) Urine Protein 2+ (NEGATIVE) Urine Glucose (UA) Negative (NEGATIVE) Urine Ketones Negative (NEGATIVE) Urine Blood 2+ (NEGATIVE) Urine Nitrite Negative (NEGATIVE) Urine Bilirubin Negative (NEGATIVE) Urine Urobilinogen 8 MG/DL (0.0-1.0) Urine Leukocyte Esterase 3+ (NEGATIVE) Urine RBC 5-10 /HPF (0 - 0) Urine WBC 30-40 /HPF (0 - 0) Urine Squamous Epithelial Cells Moderate /LPF (NONE/OCC) Urine Bacteria Few /HPF (NONE) Urine Opiates Screen Negative (NEGATIVE) Urine Barbiturates Screen Negative (NEGATIVE) Phencyclidine (PCP) Screen Negative (NEGATIVE) Urine Amphetamines Screen Negative (NEGATIVE) Urine Benzodiazepines Screen Negative (NEGATIVE) Urine Cocaine Screen Negative (NEGATIVE) Urine Marijuana (THC) Screen Positive (NEGATIVE) Differential Total Cells Counted 100 Neutrophils % (Manual) 65 % (45-75) Lymphocytes % (Manual) 23 % (20-45) Monocytes % (Manual) 12 % (1-10) Eosinophils % (Manual) 0 % (0-3) Basophils % (Manual) 0 % (0-2) Band Neutrophils 0 % (0-8) Nucleated Red Blood Cells 8 /100 WBC Platelet Estimate Adequate Platelet Morphology Normal Polychromasia 2+ Hypochromasia 1+ Anisocytosis 3+ Sickle Cells 2+ Test 06/12/19 12:15 White Blood Count 10.0 K/UL (4.8-10.8) Red Blood Count 2.83 M/UL (4.70-6.10) Hemoglobin 9.0 G/DL (14.2-18.0) Hematocrit 25.2 % (42.0-52.0) Mean Corpuscular Volume 89 FL (80-99) Mean Corpuscular Hemoglobin 32.0 PG (27.0-31.0) Mean Corpuscular Hemoglobin Concent 35.9 G/DL (32.0-36.0) Red Cell Distribution Width 25.6 % (11.6-14.8) Platelet Count 401 K/UL (150-450) Mean Platelet Volume 6.1 FL (6.5-10.1) Neutrophils (%) (Auto) % (45.0-75.0) Lymphocytes (%) (Auto) % (20.0-45.0) Monocytes (%) (Auto) % (1.0-10.0) Eosinophils (%) (Auto) % (0.0-3.0) Basophils (%) (Auto) % (0.0-2.0) Height (Feet): 5 Height (Inches): 9.00 Weight (Pounds): 130 Objective Physical Exam VS reviewed, normal Gen: normal inspection, well appearing, no apparent distress ENT: normal ENT inspection, hearing grossly normal, normal voice Pulm: normal inspection, lungs clear, normal breath sounds, no respiratory distress, no retraction, no wheezing CV: regular rate, rhythm, no edema GI: normal inspection, normal bowel sounds : no CVA tenderness MSK: normal inspection, back normal Neuro: normal inspection, alert, oriented x3 Zackery Perez MD Jun 12, 2019 12:41
[2019-06-12 16:00] VITALS: BP 151/87
[2019-06-12] MEDS ORDERED: NS 275ml ONE (16:40)
[2019-06-12] MEDS ORDERED: D5NS 1000ml IV ONE (16:40)
--- NOTE | 2019-06-12 16:44 | General Progress Note ---
Assessment/Plan Problem List: (1) Sickle cell crisis ICD Codes: D57.00 - Hb-SS disease with crisis, unspecified SNOMED: 414238173 (2) Dehydration ICD Codes: E86.0 - Dehydration SNOMED: 97510659 (3) Sickle cell pain crisis ICD Codes: D57.00 - Hb-SS disease with crisis, unspecified SNOMED: 474299585 (4) Sickle cell anemia ICD Codes: D57.1 - Sickle-cell disease without crisis SNOMED: 024949548 Status: progressing Assessment/Plan: afebrile sickle cell crisis still in generalized pain stronger pain med per dr og uti dehydration Subjective ROS Limited/Unobtainable: Yes Allergies: Coded Allergies: MORPHINE (Verified Allergy, Unknown, 09/02/18) Objective Last 24 Hour Vital Signs Date Time Temp Pulse Resp B/P (MAP) Pulse Ox O2 Delivery O2 Flow Rate FiO2 06/12/19 12:00 97.7 53 21 131/68 (89) 95 06/12/19 09:00 Room Air 06/12/19 08:00 97.7 71 23 102/63 (76) 96 06/12/19 04:00 96.8 66 18 106/69 (81) 96 06/12/19 00:00 97.0 68 19 105/62 (76) 98 06/11/19 21:00 Room Air 06/11/19 20:00 97.2 76 18 119/70 (86) 98 Intake and Output 06/11/19 06/12/19 19:00 07:00 Intake Total 800 ml 2040 ml Output Total 2500 ml 2500 ml Balance -1700 ml -460 ml Intake Oral 720 ml 240 ml IV Total 80 ml 1800 ml Output Urine Total 2500 ml 2500 ml # Voids 4 Laboratory Tests 06/12/19 12:15: White Blood Count 10.0, Red Blood Count 2.83L, Hemoglobin 9.0L, Hematocrit 25.2L , Mean Corpuscular Volume 89, Mean Corpuscular Hemoglobin 32.0H, Mean Corpuscular Hemoglobin Concent 35.9, Red Cell Distribution Width 25.6H, Platelet Count 401, Mean Platelet Volume 6.1L, Neutrophils (%) (Auto) , Lymphocytes (%) (Auto) , Monocytes (%) (Auto) , Eosinophils (%) (Auto) , Basophils (%) (Auto) , Differential Total Cells Counted 100, Neutrophils % ( Manual) 63, Lymphocytes % (Manual) 31, Monocytes % (Manual) 6, Eosinophils % ( Manual) 0, Basophils % (Manual) 0, Band Neutrophils 0, Nucleated Red Blood Cells 12, Platelet Estimate Adequate, Platelet Morphology Normal, Polychromasia 3+, Hypochromasia 1+, Anisocytosis 3+, Sickle Cells 1+H Height (Feet): 5 Height (Inches): 9.00 Weight (Pounds): 130 Cardiovascular: normal rate Respiratory/Chest: lungs clear Abdomen: soft Angelito Vera MD Jun 12, 2019 16:44
--- NOTE | 2019-06-12 19:05 | NUR ---
HAND-OFF: Report given to Erika QURESHI.
--- NOTE | 2019-06-12 19:15 | NUR ---
NURSE NOTES: Pt received in bed awake, received pain medication dilaudid, able to make needs known, call light within reach, will continue to monitor.
[2019-06-12 20:00] VITALS: BP 134/86
--- NOTE | 2019-06-12 20:50 | NUR ---
NURSE NOTES: MD Sheridan ordered Dilaudid 1.5mg q 3hrs and Percocet 10-325 q 4hrs.
[2019-06-12] MEDS: Hydroxyurea 500mg cap ORAL SCH (21:20)
[2019-06-13] VITALS: BP 125/81
[2019-06-13 04:00] VITALS: BP 115/75
--- NOTE | 2019-06-13 07:20 | NUR ---
HAND-OFF: Report given to [TITUS Wisdom].
[2019-06-13 08:00] VITALS: BP 125/73
--- NOTE | 2019-06-13 08:05 | NUR ---
NURSE NOTES: received pt in bed, with complaint of sharp pain 10/10 at his back. Given pain medication as ordered PRN. NATASHA IV access, receives IVF 1/2 NS @ 100cc/hr. Bed locked at the lowest position possible, call light within easy reach, siderails up x2. SCD's on patient's leg for DVT prophylaxis. Will continue to monitor patient and follow up with the plan of care.
--- NOTE | 2019-06-13 11:41 | General Progress Note ---
Assessment/Plan Assessment/Plan: (1) Sickle cell disease (2) Sickle cell crisis (3) Intractable pain Patient to be continued on Dilaudid and Percocet. We will start Neurontin 300mg PO 1 tab TID. D/w Dr. Riojas and he concurred. Subjective Date patient seen: Jun 13, 2019 Time patient seen: 11:30 - am Allergies: Coded Allergies: MORPHINE (Verified Allergy, Unknown, 09/02/18) Subjective REVIEW OF SYSTEMS: Denies rash, fever, chills, sweating, dizziness, drowsiness, blurred vision, sore throat, or change in weight. No shortness of breath or chest pain. No nausea, vomiting, diarrhea, or blood in the stool or urine. No bowel or bladder incontinence. No dysuria. He is complaining of generalized body pain. SUBJECTIVE: Patient is c/o pain and it has been severe, due to this the Dilaudid was changed to 1.5mg IV Q3H PRN and Percocet was changed to 10/325mg PO 1 tab Q4H PRN. D/w him about Neurontin he seems to understand. Objective Last 24 Hour Vital Signs Date Time Temp Pulse Resp B/P (MAP) Pulse Ox O2 Delivery O2 Flow Rate FiO2 06/13/19 09:00 Room Air 06/13/19 08:24 98.9 06/13/19 08:00 99.3 100 21 125/73 (90) 94 06/13/19 04:00 98.9 85 21 115/75 (88) 91 06/13/19 00:00 98.8 92 21 125/81 (96) 93 06/12/19 21:00 Room Air 06/12/19 20:00 99.1 81 20 134/86 (102) 96 06/12/19 16:00 98.7 82 20 151/87 (108) 96 06/12/19 12:00 97.7 53 21 131/68 (89) 95 Intake and Output 06/12/19 06/13/19 18:59 06:59 Intake Total 1500 ml 1000 ml Output Total 2600 ml 1690 ml Balance -1100 ml -690 ml Intake Oral 1500 ml 500 ml IV Total 500 ml Output Urine Total 2600 ml 1690 ml Laboratory Tests 06/12/19 12:15: White Blood Count 10.0, Red Blood Count 2.83L, Hemoglobin 9.0L, Hematocrit 25.2L , Mean Corpuscular Volume 89, Mean Corpuscular Hemoglobin 32.0H, Mean Corpuscular Hemoglobin Concent 35.9, Red Cell Distribution Width 25.6H, Platelet Count 401, Mean Platelet Volume 6.1L, Neutrophils (%) (Auto) , Lymphocytes (%) (Auto) , Monocytes (%) (Auto) , Eosinophils (%) (Auto) , Basophils (%) (Auto) , Differential Total Cells Counted 100, Neutrophils % ( Manual) 63, Lymphocytes % (Manual) 31, Monocytes % (Manual) 6, Eosinophils % ( Manual) 0, Basophils % (Manual) 0, Band Neutrophils 0, Nucleated Red Blood Cells 12, Platelet Estimate Adequate, Platelet Morphology Normal, Polychromasia 3+, Hypochromasia 1+, Anisocytosis 3+, Sickle Cells 1+H Height (Feet): 5 Height (Inches): 9.00 Weight (Pounds): 130 Objective GENERAL: Alert, awake, and oriented. LUNGS: Decreased breath sounds bilaterally. HEART: S1 S2 Regular. ABDOMEN: Benign. EXTREMITIES: No cyanosis. No clubbing. No edema. NEURO: No Focal defects. Nathanael Sheridan Jun 13, 2019 11:41
--- NOTE | 2019-06-13 11:42 | Infectious Diseases Prog Note ---
Assessment/Plan Assessment/Plan IMPRESSION: 1. Pyuria, may have UTI, treated 2. Sickle cell crisis. 3. Anemia. RECOMMENDATIONS: Observe off antibiotic Subjective ROS Limited/Unobtainable: No Constitutional: Reports: no symptoms Respiratory: Reports: no symptoms Cardiovascular: Reports: no symptoms Gastrointestinal/Abdominal: Reports: no symptoms Genitourinary: Reports: no symptoms Musculoskeletal: Reports: pain Allergies: Coded Allergies: MORPHINE (Verified Allergy, Unknown, 09/02/18) Objective Vital Signs Last 24 Hour Vital Signs Date Time Temp Pulse Resp B/P (MAP) Pulse Ox O2 Delivery O2 Flow Rate FiO2 06/13/19 09:00 Room Air 06/13/19 08:24 98.9 06/13/19 08:00 99.3 100 21 125/73 (90) 94 06/13/19 04:00 98.9 85 21 115/75 (88) 91 06/13/19 00:00 98.8 92 21 125/81 (96) 93 06/12/19 21:00 Room Air 06/12/19 20:00 99.1 81 20 134/86 (102) 96 06/12/19 16:00 98.7 82 20 151/87 (108) 96 06/12/19 12:00 97.7 53 21 131/68 (89) 95 Height (Feet): 5 Height (Inches): 9.00 Weight (Pounds): 130 General Appearance: no acute distress HEENT: mucous membranes moist Respiratory/Chest: lungs clear Cardiovascular: normal rate Abdomen: soft, non tender Extremities: no edema Neurologic/Psychiatric: alert, oriented x 3, responsive Musculoskeletal: atrophy Microbiology Date/Time Source Procedure Growth Status 06/10/19 16:15 Urine,Clean Catch Urine Culture - Final NO GROWTH AFTER 48 HOURS Complete Laboratory Tests Test 06/12/19 12:15 White Blood Count 10.0 K/UL (4.8-10.8) Red Blood Count 2.83 M/UL (4.70-6.10) L Hemoglobin 9.0 G/DL (14.2-18.0) L Hematocrit 25.2 % (42.0-52.0) L Mean Corpuscular Volume 89 FL (80-99) Mean Corpuscular Hemoglobin 32.0 PG (27.0-31.0) H Mean Corpuscular Hemoglobin Concent 35.9 G/DL (32.0-36.0) Red Cell Distribution Width 25.6 % (11.6-14.8) H Platelet Count 401 K/UL (150-450) Mean Platelet Volume 6.1 FL (6.5-10.1) L Neutrophils (%) (Auto) % (45.0-75.0) Lymphocytes (%) (Auto) % (20.0-45.0) Monocytes (%) (Auto) % (1.0-10.0) Eosinophils (%) (Auto) % (0.0-3.0) Basophils (%) (Auto) % (0.0-2.0) Differential Total Cells Counted 100 Neutrophils % (Manual) 63 % (45-75) Lymphocytes % (Manual) 31 % (20-45) Monocytes % (Manual) 6 % (1-10) Eosinophils % (Manual) 0 % (0-3) Basophils % (Manual) 0 % (0-2) Band Neutrophils 0 % (0-8) Nucleated Red Blood Cells 12 /100 WBC Platelet Estimate Adequate Platelet Morphology Normal Polychromasia 3+ Hypochromasia 1+ Anisocytosis 3+ Sickle Cells 1+ H Current Medications Medications (Trade) Dose Ordered Sig/Christina Route PRN Reason Start Time Stop Time Status Last Admin Dose Admin Acetaminophen (Tylenol) 650 mg Q4H PRN ORAL Mild Pain/Temp > 100.5 06/10/19 06:15 07/10/19 06:14 Hydromorphone HCl (Dilaudid) 1.5 mg Q3H PRN IVP severe pain(7-10) 06/12/19 21:01 06/19/19 21:00 06/13/19 10:59 Hydroxyurea (Hydrea) 500 mg DAILY@2100 ORAL 06/12/19 21:00 06/17/19 20:59 06/12/19 21:20 Oxycodone/ Acetaminophen (Percocet 10/325) 1 tab Q4H PRN ORAL moderate breakthrough pain 06/12/19 21:00 06/19/19 20:59 06/12/19 21:22 Sodium Chloride 1,000 ml @ 100 mls/hr Q10H IV 06/12/19 18:43 07/12/19 18:42 06/13/19 10:59 Stuart Vora MD Jun 13, 2019 11:42
[2019-06-13 12:00] VITALS: BP 155/87
[2019-06-13] MEDS ORDERED: 1/2 NS 1000ml IV ONE (15:51)
[2019-06-13 16:00] VITALS: BP 153/80
--- NOTE | 2019-06-13 17:55 | NUR ---
NURSE NOTES: left message to dr William Vora regarding T 100.5, HR 102, sat 89-93% in RA.
--- NOTE | 2019-06-13 19:25 | NUR ---
HAND-OFF: Report given to TITUS Taylor.
[2019-06-13 20:00] VITALS: BP 134/81
[2019-06-13] MEDS: Hydroxyurea 500mg cap ORAL SCH (20:00)
--- NOTE | 2019-06-13 20:46 | NUR ---
NURSE NOTES: Patient in bed, awake, alert and verbally responsive. Complained of pain 10/10, given PRN pain medication as ordered. Also patient was given tylenol for fever. Will reassess. Skin is intact, warm and dry to touch. Abdomen is soft and non distended. Bowel sounds noted. IV site noted, IV fluid is infusing as ordered. Respiration is even and unlabored. Call light is at bedside. Will continue plan of care.
--- NOTE | 2019-06-13 21:15 | General Progress Note ---
Assessment/Plan Problem List: (1) Sickle cell crisis ICD Codes: D57.00 - Hb-SS disease with crisis, unspecified SNOMED: 539586426 (2) Dehydration ICD Codes: E86.0 - Dehydration SNOMED: 79514438 (3) Sickle cell pain crisis ICD Codes: D57.00 - Hb-SS disease with crisis, unspecified SNOMED: 736389271 (4) Sickle cell anemia ICD Codes: D57.1 - Sickle-cell disease without crisis SNOMED: 199270504 Status: progressing Assessment/Plan: sickle cell crisis pain is improving afebrile stronger pain med per dr og uti dehydration Subjective ROS Limited/Unobtainable: Yes Allergies: Coded Allergies: MORPHINE (Verified Allergy, Unknown, 09/02/18) Objective Last 24 Hour Vital Signs Date Time Temp Pulse Resp B/P (MAP) Pulse Ox O2 Delivery O2 Flow Rate FiO2 06/13/19 20:48 Room Air 06/13/19 20:35 99.8 06/13/19 20:00 100.2 100 19 134/81 (98) 96 06/13/19 17:30 100.5 06/13/19 16:00 100.5 102 17 153/80 (104) 93 06/13/19 13:32 98.9 06/13/19 12:00 99.1 101 22 155/87 (109) 89 06/13/19 09:00 Room Air 06/13/19 08:00 99.3 100 21 125/73 (90) 94 06/13/19 04:00 98.9 85 21 115/75 (88) 91 06/13/19 00:00 98.8 92 21 125/81 (96) 93 Intake and Output 06/12/19 06/13/19 19:00 07:00 Intake Total 1500 ml 1000 ml Output Total 2600 ml 1690 ml Balance -1100 ml -690 ml Intake Oral 1500 ml 500 ml IV Total 500 ml Output Urine Total 2600 ml 1690 ml Height (Feet): 5 Height (Inches): 9.00 Weight (Pounds): 130 Cardiovascular: normal rate Respiratory/Chest: lungs clear Angelito Vera MD Jun 13, 2019 21:15
[2019-06-14] VITALS: BP 137/78
--- NOTE | 2019-06-14 01:58 | NUR ---
NURSE NOTES: Complained of pain scale 10/10, given PRN pain medication as ordered.
[2019-06-14 04:00] VITALS: BP 128/83
--- NOTE | 2019-06-14 06:59 | NUR ---
HAND-OFF: Report given to TITUS Wisdom.
--- NOTE | 2019-06-14 07:52 | NUR ---
NURSE NOTES: received pt in bed, with complaint of sharp pain at his back, nurse assured pt she will given pain medication at due time as ordered PRN. NATASHA IV access, receives IVF 1/2 NS @ 100cc/hr. Bed locked at the lowest position possible, call light within easy reach, siderails up x2. SCD's on patient's leg for DVT prophylaxis. Will continue to monitor patient and follow up with the plan of care.
[2019-06-14 08:00] VITALS: BP 127/82
--- NOTE | 2019-06-14 08:24 | General Progress Note ---
Assessment/Plan Assessment/Plan: (1) Sickle cell disease (2) Sickle cell crisis (3) Intractable pain Patient to be continued on Neurontin, Dilaudid and Percocet. D/w Dr. Riojas and he concurred. Subjective Date patient seen: Jun 14, 2019 Time patient seen: 08:00 - am Allergies: Coded Allergies: MORPHINE (Verified Allergy, Unknown, 09/02/18) Subjective REVIEW OF SYSTEMS: Denies rash, fever, chills, sweating, dizziness, drowsiness, blurred vision, sore throat, or change in weight. No shortness of breath or chest pain. No nausea, vomiting, diarrhea, or blood in the stool or urine. No bowel or bladder incontinence. No dysuria. He is complaining of generalized body pain. SUBJECTIVE: Patient is in bed and pain has been tolerated on the Dilaudid 8 doses and Percocet 1 dose. He has no new complaints at this time. Objective Last 24 Hour Vital Signs Date Time Temp Pulse Resp B/P (MAP) Pulse Ox O2 Delivery O2 Flow Rate FiO2 06/14/19 04:00 97.5 100 18 128/83 (98) 98 06/14/19 00:00 97.1 91 19 137/78 (97) 98 06/13/19 20:48 Room Air 06/13/19 20:35 99.8 06/13/19 20:00 100.2 100 19 134/81 (98) 96 06/13/19 17:30 100.5 06/13/19 16:00 100.5 102 17 153/80 (104) 93 06/13/19 13:32 98.9 06/13/19 12:00 99.1 101 22 155/87 (109) 89 06/13/19 09:00 Room Air Intake and Output 06/13/19 06/14/19 19:00 07:00 Intake Total 820 ml 2820 ml Output Total 1000 ml 1250 ml Balance -180 ml 1570 ml Intake Oral 720 ml 720 ml IV Total 100 ml 2100 ml Output Urine Total 1000 ml 1250 ml # Voids 4 Height (Feet): 5 Height (Inches): 9.00 Weight (Pounds): 130 Objective GENERAL: Alert, awake, and oriented. LUNGS: Decreased breath sounds bilaterally. HEART: S1 S2 Regular. ABDOMEN: Benign. EXTREMITIES: No cyanosis. No clubbing. No edema. NEURO: No changes. Nathanael Sheridan Jun 14, 2019 08:24
--- NOTE | 2019-06-14 09:23 | Hematology/Onc Progress Note ---
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 - Patient presented for sickle cell pain/crisis last eval in 2018, is on hydroxyurea, and folic acid --> hgb electrophoresis showed SS homozygous back in 2018 --> pain manamgent as per pain team --> retic and ldh pending --> incentive maksim --> hydroxyurea continue ( apparently at this time refusing ) --> [facility] f/u outpatient --> hgb 7.8-->9 --> ferritin is 1834--> indicating iron overload, likely will need future chelation rx # Anemia of sickle cell disease --> trend as needed --> hgb goal >7 --> some hemolysis is noted # Hyperbili- likely related to sickle cell disease --> trend as needed, should improve # Leukocytosis likely elevated due to ss and stress reaction # Dehydration -- administer fluids # Dvt ppx ambulation The timing of this note does not necessarily reflect the time of the patient was seen. Greatly appreciate consultation. Subjective Constitutional: Denies: no symptoms, chills, fever, malaise, weakness, other HEENT: Denies: no symptoms, eye pain, blurred vision, tearing, double vision, ear pain, ear discharge, nose pain, nose congestion, throat pain, throat swelling, mouth pain, mouth swelling, other Cardiovascular: Denies: no symptoms, chest pain, edema, irregular heart rate, lightheadedness, palpitations, syncope, other Respiratory: Denies: no symptoms, cough, shortness of breath, SOB with excertion, SOB at rest, sputum, wheezing, other Genitourinary: Denies: no symptoms, burning, discharge, frequency, flank pain, hematuria, incontinence, pain, urgency, other Allergies: Coded Allergies: MORPHINE (Verified Allergy, Unknown, 09/02/18) Subjective 06/11: awake and alert, no acute events, c/o gen pain, on ceftriaxone 06/12: hgb stable 9, no changes, on pain meds 06/14: back pain noted, with scds, no f/c, no bleeding Objective Objective Current Medications Medications (Trade) Dose Ordered Sig/Christina Route PRN Reason Start Time Stop Time Status Last Admin Dose Admin Acetaminophen (Tylenol) 650 mg Q4H PRN ORAL Mild Pain/Temp > 100.5 06/10/19 06:15 07/10/19 06:14 06/13/19 20:05 Gabapentin (Neurontin) 300 mg THREE TIMES A DAY ORAL 06/13/19 13:00 07/13/19 12:59 06/14/19 08:01 Hydromorphone HCl (Dilaudid) 1.5 mg Q3H PRN IVP severe pain(7-10) 06/12/19 21:01 06/19/19 21:00 06/14/19 08:01 Hydroxyurea (Hydrea) 500 mg DAILY@2100 ORAL 06/12/19 21:00 06/17/19 20:59 06/13/19 20:00 Oxycodone/ Acetaminophen (Percocet 10325) 1 tab Q4H PRN ORAL moderate breakthrough pain 06/12/19 21:00 06/19/19 20:59 06/13/19 13:02 Sodium Chloride 1,000 ml @ 100 mls/hr Q10H IV 06/12/19 18:43 07/12/19 18:42 06/14/19 08:06 Last 24 Hour Vital Signs Date Time Temp Pulse Resp B/P (MAP) Pulse Ox O2 Delivery O2 Flow Rate FiO2 06/14/19 08:31 97.5 06/14/19 08:00 99.0 109 19 127/82 (97) 95 06/14/19 04:00 97.5 100 18 128/83 (98) 98 06/14/19 00:00 97.1 91 19 137/78 (97) 98 06/13/19 20:48 Room Air 06/13/19 20:35 99.8 06/13/19 20:00 100.2 100 19 134/81 (98) 96 06/13/19 16:00 100.5 102 17 153/80 (104) 93 06/13/19 13:32 98.9 06/13/19 12:00 99.1 101 22 155/87 (109) 89 06/13/19 09:00 Room Air 06/13/19 08:00 99.3 100 21 125/73 (90) 94 06/13/19 04:00 98.9 85 21 115/75 (88) 91 06/13/19 00:00 98.8 92 21 125/81 (96) 93 06/12/19 21:00 Room Air 06/12/19 20:00 99.1 81 20 134/86 (102) 96 06/12/19 16:00 98.7 82 20 151/87 (108) 96 06/12/19 12:00 97.7 53 21 131/68 (89) 95 Intake and Output 06/13/19 06/14/19 19:00 07:00 Intake Total 820 ml 2820 ml Output Total 1000 ml 1250 ml Balance -180 ml 1570 ml Intake Oral 720 ml 720 ml IV Total 100 ml 2100 ml Output Urine Total 1000 ml 1250 ml # Voids 4 Labs Test 06/12/19 12:15 White Blood Count 10.0 K/UL (4.8-10.8) Red Blood Count 2.83 M/UL (4.70-6.10) Hemoglobin 9.0 G/DL (14.2-18.0) Hematocrit 25.2 % (42.0-52.0) Mean Corpuscular Volume 89 FL (80-99) Mean Corpuscular Hemoglobin 32.0 PG (27.0-31.0) Mean Corpuscular Hemoglobin Concent 35.9 G/DL (32.0-36.0) Red Cell Distribution Width 25.6 % (11.6-14.8) Platelet Count 401 K/UL (150-450) Mean Platelet Volume 6.1 FL (6.5-10.1) Neutrophils (%) (Auto) % (45.0-75.0) Lymphocytes (%) (Auto) % (20.0-45.0) Monocytes (%) (Auto) % (1.0-10.0) Eosinophils (%) (Auto) % (0.0-3.0) Basophils (%) (Auto) % (0.0-2.0) Differential Total Cells Counted 100 Neutrophils % (Manual) 63 % (45-75) Lymphocytes % (Manual) 31 % (20-45) Monocytes % (Manual) 6 % (1-10) Eosinophils % (Manual) 0 % (0-3) Basophils % (Manual) 0 % (0-2) Band Neutrophils 0 % (0-8) Nucleated Red Blood Cells 12 /100 WBC Platelet Estimate Adequate Platelet Morphology Normal Polychromasia 3+ Hypochromasia 1+ Anisocytosis 3+ Sickle Cells 1+ Height (Feet): 5 Height (Inches): 9.00 Weight (Pounds): 130 Objective Physical Exam VS reviewed, normal Gen: normal inspection, well appearing, no apparent distress ENT: normal ENT inspection, hearing grossly normal, normal voice Pulm: normal inspection, lungs clear, normal breath sounds, no respiratory distress, no retraction, no wheezing CV: regular rate, rhythm, no edema GI: normal inspection, normal bowel sounds : no CVA tenderness MSK: normal inspection, back normal Neuro: normal inspection, alert, oriented x3 Zackery Perez MD Jun 14, 2019 09:23
--- NOTE | 2019-06-14 11:46 | NUR ---
*-* INSURANCE *-* ALL AVAILABLE CLINICALS AD REVIEW HAVE BEEN FAXED TO: [employer] FAX CLINICALS TO [phone]
[2019-06-14 12:00] VITALS: BP 128/86
--- NOTE | 2019-06-14 14:05 | Infectious Diseases Prog Note ---
Assessment/Plan Assessment/Plan IMPRESSION: 1. Pyuria, may have UTI, treated 2. Sickle cell crisis. 3. Anemia. RECOMMENDATIONS: Observe off antibiotic Subjective ROS Limited/Unobtainable: No Respiratory: Reports: no symptoms Gastrointestinal/Abdominal: Reports: no symptoms Genitourinary: Reports: no symptoms Musculoskeletal: Reports: pain Allergies: Coded Allergies: MORPHINE (Verified Allergy, Unknown, 09/02/18) Objective Vital Signs Last 24 Hour Vital Signs Date Time Temp Pulse Resp B/P (MAP) Pulse Ox O2 Delivery O2 Flow Rate FiO2 06/14/19 11:40 97.5 06/14/19 08:00 99.0 109 19 127/82 (97) 95 06/14/19 04:00 97.5 100 18 128/83 (98) 98 06/14/19 00:00 97.1 91 19 137/78 (97) 98 06/13/19 20:48 Room Air 06/13/19 20:35 99.8 06/13/19 20:00 100.2 100 19 134/81 (98) 96 06/13/19 16:00 100.5 102 17 153/80 (104) 93 Height (Feet): 5 Height (Inches): 9.00 Weight (Pounds): 130 General Appearance: no acute distress HEENT: mucous membranes moist Respiratory/Chest: lungs clear Cardiovascular: normal rate Abdomen: soft, non tender Extremities: no edema Neurologic/Psychiatric: alert, oriented x 3, responsive Musculoskeletal: atrophy Current Medications Medications (Trade) Dose Ordered Sig/Christina Route PRN Reason Start Time Stop Time Status Last Admin Dose Admin Acetaminophen (Tylenol) 650 mg Q4H PRN ORAL Mild Pain/Temp > 100.5 06/10/19 06:15 07/10/19 06:14 06/13/19 20:05 Gabapentin (Neurontin) 300 mg THREE TIMES A DAY ORAL 06/13/19 13:00 07/13/19 12:59 06/14/19 13:55 Hydromorphone HCl (Dilaudid) 1.5 mg Q3H PRN IVP severe pain(7-10) 06/12/19 21:01 06/19/19 21:00 06/14/19 11:10 Hydroxyurea (Hydrea) 500 mg DAILY@2100 ORAL 06/12/19 21:00 06/17/19 20:59 06/13/19 20:00 Oxycodone/ Acetaminophen (Percocet 10/325) 1 tab Q4H PRN ORAL moderate breakthrough pain 06/12/19 21:00 06/19/19 20:59 06/13/19 13:02 Sodium Chloride 1,000 ml @ 100 mls/hr Q10H IV 06/12/19 18:43 07/12/19 18:42 06/14/19 08:06 Stuart Vora MD Jun 14, 2019 14:05
[2019-06-14 16:00] VITALS: BP 121/83
--- NOTE | 2019-06-14 19:25 | NUR ---
HAND-OFF: Report given to TITUS Taylor.
[2019-06-14 20:00] VITALS: BP 128/86
[2019-06-14] MEDS: Hydroxyurea 500mg cap ORAL SCH (20:32)
--- NOTE | 2019-06-14 20:37 | NUR ---
NURSE NOTES: Patient in bed, awake, alert able to make needs known. Respiration is even and unlabored. Complained of pain 10/10, was given PRN pain medication. Abdomen is soft and non distended. Skin is warm and dry to touch. Kept clean and comfortable. IV site noted, iv fluid is infusing as ordered. Call light is at bedside. Will continue plan of care.
--- NOTE | 2019-06-14 21:34 | General Progress Note ---
Assessment/Plan Problem List: (1) Sickle cell crisis ICD Codes: D57.00 - Hb-SS disease with crisis, unspecified SNOMED: 285577037 (2) Dehydration ICD Codes: E86.0 - Dehydration SNOMED: 67735483 (3) Sickle cell pain crisis ICD Codes: D57.00 - Hb-SS disease with crisis, unspecified SNOMED: 829350186 (4) Sickle cell anemia ICD Codes: D57.1 - Sickle-cell disease without crisis SNOMED: 789122789 Status: progressing Assessment/Plan: sickle cell crisis pain is improving anemia needs iv hydration stronger pain med per dr og uti dehydration Subjective ROS Limited/Unobtainable: Yes Allergies: Coded Allergies: MORPHINE (Verified Allergy, Unknown, 09/02/18) Objective Last 24 Hour Vital Signs Date Time Temp Pulse Resp B/P (MAP) Pulse Ox O2 Delivery O2 Flow Rate FiO2 06/14/19 20:48 Room Air 06/14/19 20:00 100.9 103 22 128/86 (100) 100 06/14/19 17:54 100.3 06/14/19 16:00 100.3 114 21 121/83 (96) 96 06/14/19 12:00 98.9 89 19 128/86 (100) 96 06/14/19 09:00 Room Air 06/14/19 08:00 99.0 109 19 127/82 (97) 95 06/14/19 04:00 97.5 100 18 128/83 (98) 98 06/14/19 00:00 97.1 91 19 137/78 (97) 98 Intake and Output 06/13/19 06/14/19 19:00 07:00 Intake Total 1820 ml 2820 ml Output Total 1000 ml 1250 ml Balance 820 ml 1570 ml Intake Oral 720 ml 720 ml IV Total 1100 ml 2100 ml Output Urine Total 1000 ml 1250 ml # Voids 4 Laboratory Tests 06/14/19 20:20: Urine Color [Pending], Urine Appearance [Pending], Urine pH [Pending], Urine Specific [place] [Pending], Urine Protein [Pending], Urine Glucose (UA) [Pending ], Urine Ketones [Pending], Urine Blood [Pending], Urine Nitrite [Pending], Urine Bilirubin [Pending], Urine Urobilinogen [Pending], Urine Leukocyte Esterase [Pending] Height (Feet): 5 Height (Inches): 9.00 Weight (Pounds): 130 EENT: PERRL/EOMI Cardiovascular: normal rate Abdomen: non tender Angelito Vera MD Jun 14, 2019 21:34
[2019-06-14 21:56] LABS: APPEARANCE,URINE CLEAR; BILIRUBIN, URINE NEGATIVE (NEGATIVE); GLUCOSE, URINE (UA) NEGATIVE (NEGATIVE); KETONES,URINE NEGATIVE (NEGATIVE); LEUKOCYTE ESTERASE ,URINE NEGATIVE (NEGATIVE); NITRITE,URINE NEGATIVE (NEGATIVE); PH,URINE 6.5 (4.5-8.0); PROTEIN,URINE NEGATIVE (NEGATIVE); UROBILINOGEN,URINE 1 MG/DL (0.0-1.0)
[2019-06-14 21:57] LABS: COLOR,URINE YELLOW
--- NOTE | 2019-06-14 23:32 | NUR ---
NURSE NOTES: Complained of pain generalized pain, given PRN pain medication as ordered. Call light is at bedside. Will reassess patient. Kept clean and comfortable. Will continue plan of care.
[2019-06-15] VITALS: BP 132/75
--- NOTE | 2019-06-15 02:32 | NUR ---
NURSE NOTES: Patient complained of generalized pain, given PRN pain medication with scale of 10/10. Will reassess. Call light is at bedside. Patient is alert x 4
[2019-06-15 04:00] VITALS: BP 120/80
--- NOTE | 2019-06-15 06:02 | Hematology/Onc Progress Note ---
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 - Patient presented for sickle cell pain/crisis last eval in 2018, is on hydroxyurea, and folic acid --> hgb electrophoresis showed SS homozygous back in 2018 --> pain management as per pain team --> retic is 1.9 --> incentive maksim --> hydroxyurea continue ( apparently at this time refusing ) --> [facility] f/u outpatient --> hgb 7.8-->9 --> ferritin is 1834--> indicating iron overload, likely will need future chelation rx # Anemia of sickle cell disease --> trend as needed --> hgb goal >7 --> some hemolysis is noted --> hgb trend 7.8-->9 # Hyperbili- likely related to sickle cell disease --> trend as needed, should improve # Leukocytosis likely elevated due to ss and stress reaction # Dehydration -- administer fluids # Dvt ppx ambulation The timing of this note does not necessarily reflect the time of the patient was seen. Greatly appreciate consultation. Subjective Constitutional: Denies: no symptoms, chills, fever, malaise, weakness, other HEENT: Denies: no symptoms, eye pain, blurred vision, tearing, double vision, ear pain, ear discharge, nose pain, nose congestion, throat pain, throat swelling, mouth pain, mouth swelling, other Cardiovascular: Denies: no symptoms, chest pain, edema, irregular heart rate, lightheadedness, palpitations, syncope, other Respiratory: Denies: no symptoms, cough, shortness of breath, SOB with excertion, SOB at rest, sputum, wheezing, other Gastrointestinal/Abdominal: Denies: no symptoms, abdomen distended, abdominal pain, black stools, tarry stools, blood in stool, constipated, diarrhea, difficulty swallowing, nausea, poor appetite, poor fluid intake, rectal bleeding , vomiting, other Genitourinary: Denies: no symptoms, burning, discharge, frequency, flank pain, hematuria, incontinence, pain, urgency, other Neurologic/Psychiatric: Denies: no symptoms, anxiety, depressed, emotional problems, headache, numbness, paresthesia, pre-existing deficit, seizure, tingling, tremors, weakness, other Allergies: Coded Allergies: MORPHINE (Verified Allergy, Unknown, 09/02/18) Subjective 06/11: awake and alert, no acute events, c/o gen pain, on ceftriaxone 06/12: hgb stable 9, no changes, on pain meds 06/14: back pain noted, with scds, no f/c, no bleeding 06/15: complaining of generalized pain, 10/10 total, no bleeding Objective Objective Current Medications Medications (Trade) Dose Ordered Sig/Christina Route PRN Reason Start Time Stop Time Status Last Admin Dose Admin Acetaminophen (Tylenol) 650 mg Q4H PRN ORAL Mild Pain/Temp > 100.5 06/10/19 06:15 07/10/19 06:14 06/13/19 20:05 Gabapentin (Neurontin) 300 mg THREE TIMES A DAY ORAL 06/13/19 13:00 07/13/19 12:59 06/14/19 17:23 Hydromorphone HCl (Dilaudid) 1.5 mg Q3H PRN IVP severe pain(7-10) 06/12/19 21:01 06/19/19 21:00 06/15/19 05:28 Hydroxyurea (Hydrea) 500 mg DAILY@2100 ORAL 06/12/19 21:00 06/17/19 20:59 06/14/19 20:32 Oxycodone/ Acetaminophen (Percocet 10/325) 1 tab Q4H PRN ORAL moderate breakthrough pain 06/12/19 21:00 06/19/19 20:59 06/14/19 19:49 Sodium Chloride 1,000 ml @ 100 mls/hr Q10H IV 06/12/19 18:43 07/12/19 18:42 06/14/19 23:29 Last 24 Hour Vital Signs Date Time Temp Pulse Resp B/P (MAP) Pulse Ox O2 Delivery O2 Flow Rate FiO2 06/15/19 04:00 99.6 100 20 120/80 (93) 94 06/15/19 00:00 99.3 105 20 132/75 (94) 98 06/14/19 20:48 Room Air 06/14/19 20:00 100.9 103 22 128/86 (100) 100 06/14/19 17:54 100.3 06/14/19 16:00 100.3 114 21 121/83 (96) 96 06/14/19 12:00 98.9 89 19 128/86 (100) 96 06/14/19 09:00 Room Air 06/14/19 08:00 99.0 109 19 127/82 (97) 95 06/14/19 04:00 97.5 100 18 128/83 (98) 98 06/14/19 00:00 97.1 91 19 137/78 (97) 98 06/13/19 20:48 Room Air 06/13/19 20:35 99.8 06/13/19 20:00 100.2 100 19 134/81 (98) 96 06/13/19 16:00 100.5 102 17 153/80 (104) 93 06/13/19 13:32 98.9 06/13/19 12:00 99.1 101 22 155/87 (109) 89 06/13/19 09:00 Room Air 06/13/19 08:00 99.3 100 21 125/73 (90) 94 Intake and Output 06/14/19 06/15/19 19:00 07:00 Intake Total 1900 ml 1100 ml Output Total 1000 ml Balance 1900 ml 100 ml Intake Oral 500 ml IV Total 1100 ml 600 ml Other 800 ml Output Urine Total 1000 ml Labs Test 06/12/19 12:15 06/14/19 20:20 White Blood Count 10.0 K/UL (4.8-10.8) Red Blood Count 2.83 M/UL (4.70-6.10) Hemoglobin 9.0 G/DL (14.2-18.0) Hematocrit 25.2 % (42.0-52.0) Mean Corpuscular Volume 89 FL (80-99) Mean Corpuscular Hemoglobin 32.0 PG (27.0-31.0) Mean Corpuscular Hemoglobin Concent 35.9 G/DL (32.0-36.0) Red Cell Distribution Width 25.6 % (11.6-14.8) Platelet Count 401 K/UL (150-450) Mean Platelet Volume 6.1 FL (6.5-10.1) Neutrophils (%) (Auto) % (45.0-75.0) Lymphocytes (%) (Auto) % (20.0-45.0) Monocytes (%) (Auto) % (1.0-10.0) Eosinophils (%) (Auto) % (0.0-3.0) Basophils (%) (Auto) % (0.0-2.0) Differential Total Cells Counted 100 Neutrophils % (Manual) 63 % (45-75) Lymphocytes % (Manual) 31 % (20-45) Monocytes % (Manual) 6 % (1-10) Eosinophils % (Manual) 0 % (0-3) Basophils % (Manual) 0 % (0-2) Band Neutrophils 0 % (0-8) Nucleated Red Blood Cells 12 /100 WBC Platelet Estimate Adequate Platelet Morphology Normal Polychromasia 3+ Hypochromasia 1+ Anisocytosis 3+ Sickle Cells 1+ Urine Color Yellow Urine Appearance Clear Urine pH 6.5 (4.5-8.0) Urine Specific [place] 1.005 (1.005-1.035) Urine Protein Negative (NEGATIVE) Urine Glucose (UA) Negative (NEGATIVE) Urine Ketones Negative (NEGATIVE) Urine Blood Negative (NEGATIVE) Urine Nitrite Negative (NEGATIVE) Urine Bilirubin Negative (NEGATIVE) Urine Urobilinogen 1 MG/DL (0.0-1.0) Urine Leukocyte Esterase Negative (NEGATIVE) Height (Feet): 5 Height (Inches): 9.00 Weight (Pounds): 130 Objective Physical Exam VS reviewed, normal Gen: normal inspection, well appearing, no apparent distress ENT: normal ENT inspection, hearing grossly normal, normal voice Pulm: normal inspection, lungs clear, normal breath sounds, no respiratory distress, no retraction, no wheezing CV: regular rate, rhythm, no edema GI: normal inspection, normal bowel sounds : no CVA tenderness MSK: normal inspection, back normal Neuro: normal inspection, alert, oriented x3 Zackery Perez MD Jun 15, 2019 06:02
--- NOTE | 2019-06-15 07:12 | NUR ---
HAND-OFF: Report given to Malou Lugo.
[2019-06-15 08:00] VITALS: BP 130/60
--- NOTE | 2019-06-15 08:18 | NUR ---
NURSE NOTES: Patient is asleep. No s/s of distress, IVF is infusing at 100ml/hr. Bed is locked, in lowest position, and call light is within reach. Will continue to monitor.
--- NOTE | 2019-06-15 08:36 | General Progress Note ---
Assessment/Plan Assessment/Plan: (1) Sickle cell disease (2) Sickle cell crisis (3) Intractable pain Patient to be continued on Neurontin, Dilaudid and Percocet. D/w Dr. Riojas and he concurred. Subjective Date patient seen: Jun 15, 2019 Time patient seen: 08:00 - am Allergies: Coded Allergies: MORPHINE (Verified Allergy, Unknown, 09/02/18) Subjective REVIEW OF SYSTEMS: Denies rash, fever, chills, sweating, dizziness, drowsiness, blurred vision, sore throat, or change in weight. No shortness of breath or chest pain. No nausea, vomiting, diarrhea, or blood in the stool or urine. No bowel or bladder incontinence. No dysuria. He is complaining of generalized body pain. SUBJECTIVE: Patient continues to c/o pain however reports that the pain has reduced with the Dilaudid 7 doses Percocet 1 dose in the last 24hrs. He has no new complaints at this time. Objective Last 24 Hour Vital Signs Date Time Temp Pulse Resp B/P (MAP) Pulse Ox O2 Delivery O2 Flow Rate FiO2 06/15/19 04:00 99.6 100 20 120/80 (93) 94 06/15/19 00:00 99.3 105 20 132/75 (94) 98 06/14/19 20:48 Room Air 06/14/19 20:00 100.9 103 22 128/86 (100) 100 06/14/19 17:54 100.3 06/14/19 16:00 100.3 114 21 121/83 (96) 96 06/14/19 12:00 98.9 89 19 128/86 (100) 96 06/14/19 09:00 Room Air Intake and Output 06/14/19 06/15/19 19:00 07:00 Intake Total 1900 ml 1700 ml Output Total 2200 ml Balance 1900 ml -500 ml Intake Oral 700 ml IV Total 1100 ml 1000 ml Other 800 ml Output Urine Total 2200 ml # Voids 4 Laboratory Tests 06/14/19 20:20: Urine Color Yellow, Urine Appearance Clear, Urine pH 6.5, Urine Specific [place] 1.005, Urine Protein Negative, Urine Glucose (UA) Negative, Urine Ketones Negative, Urine Blood Negative, Urine Nitrite Negative, Urine Bilirubin Negative, Urine Urobilinogen 1H, Urine Leukocyte Esterase Negative 06/15/19 08:03: White Blood Count [Pending], Red Blood Count [Pending], Hemoglobin [Pending], Hematocrit [Pending], Mean Corpuscular Volume [Pending], Mean Corpuscular Hemoglobin [Pending], Mean Corpuscular Hemoglobin Concent [Pending], Red Cell Distribution Width [Pending], Platelet Count [Pending], Mean Platelet Volume [ Pending], Neutrophils (%) (Auto) [Pending], Lymphocytes (%) (Auto) [Pending], Monocytes (%) (Auto) [Pending], Eosinophils (%) (Auto) [Pending], Basophils (%) (Auto) [Pending] Height (Feet): 5 Height (Inches): 9.00 Weight (Pounds): 130 Objective GENERAL: Alert, awake, and oriented. LUNGS: Decreased breath sounds bilaterally. HEART: S1 S2 Regular. ABDOMEN: Benign. EXTREMITIES: No cyanosis. No clubbing. No edema. NEURO: No changes. Nathanael Sheridan Jun 15, 2019 08:36
[2019-06-15 08:42] LABS: HEMATOCRIT 23.5 % (42.0-52.0); HEMOGLOBIN 7.9 G/DL (14.2-18.0); MEAN CORPUSCULAR VOLUME 89 FL (80-99); PLATELET COUNT 384 K/UL (150-450); RED BLOOD COUNT 2.65 M/UL (4.70-6.10); RED CELL DISTRIBUTION WIDTH 22.2 % (11.6-14.8); WHITE BLOOD COUNT 18.4 K/UL (4.8-10.8)
--- NOTE | 2019-06-15 11:54 | Infectious Diseases Prog Note ---
Assessment/Plan Assessment/Plan IMPRESSION: 1. Pyuria, may have UTI, treated 2. Sickle cell crisis. 3. Anemia 4. SIRS/Sepsis RECOMMENDATIONS: Observe off antibiotic Repeat CXR Will f/u cultures Subjective ROS Limited/Unobtainable: Yes Constitutional: Reports: fever, other - Egyi=143.9 Allergies: Coded Allergies: MORPHINE (Verified Allergy, Unknown, 09/02/18) Objective Vital Signs Last 24 Hour Vital Signs Date Time Temp Pulse Resp B/P (MAP) Pulse Ox O2 Delivery O2 Flow Rate FiO2 06/15/19 08:00 98.2 76 18 130/60 (83) 95 06/15/19 08:00 Room Air 06/15/19 04:00 99.6 100 20 120/80 (93) 94 06/15/19 00:00 99.3 105 20 132/75 (94) 98 06/14/19 20:48 Room Air 06/14/19 20:00 100.9 103 22 128/86 (100) 100 06/14/19 17:54 100.3 06/14/19 16:00 100.3 114 21 121/83 (96) 96 06/14/19 12:00 98.9 89 19 128/86 (100) 96 Height (Feet): 5 Height (Inches): 9.00 Weight (Pounds): 130 General Appearance: no acute distress HEENT: mucous membranes moist Respiratory/Chest: lungs clear Cardiovascular: normal rate Abdomen: soft, non tender Extremities: no edema Neurologic/Psychiatric: other - sleeping Laboratory Tests Test 06/14/19 20:20 06/15/19 08:03 Urine Color Yellow Urine Appearance Clear Urine pH 6.5 (4.5-8.0) Urine Specific [place] 1.005 (1.005-1.035) Urine Protein Negative (NEGATIVE) Urine Glucose (UA) Negative (NEGATIVE) Urine Ketones Negative (NEGATIVE) Urine Blood Negative (NEGATIVE) Urine Nitrite Negative (NEGATIVE) Urine Bilirubin Negative (NEGATIVE) Urine Urobilinogen 1 MG/DL (0.0-1.0) H Urine Leukocyte Esterase Negative (NEGATIVE) White Blood Count 18.4 K/UL (4.8-10.8) H Red Blood Count 2.65 M/UL (4.70-6.10) L Hemoglobin 7.9 G/DL (14.2-18.0) L Hematocrit 23.5 % (42.0-52.0) L Mean Corpuscular Volume 89 FL (80-99) Mean Corpuscular Hemoglobin 30.0 PG (27.0-31.0) Mean Corpuscular Hemoglobin Concent 33.8 G/DL (32.0-36.0) Red Cell Distribution Width 22.2 % (11.6-14.8) H Platelet Count 384 K/UL (150-450) Mean Platelet Volume 5.8 FL (6.5-10.1) L Neutrophils (%) (Auto) % (45.0-75.0) Lymphocytes (%) (Auto) % (20.0-45.0) Monocytes (%) (Auto) % (1.0-10.0) Eosinophils (%) (Auto) % (0.0-3.0) Basophils (%) (Auto) % (0.0-2.0) Differential Total Cells Counted 100 Neutrophils % (Manual) 74 % (45-75) Lymphocytes % (Manual) 19 % (20-45) L Monocytes % (Manual) 7 % (1-10) Eosinophils % (Manual) 0 % (0-3) Basophils % (Manual) 0 % (0-2) Band Neutrophils 0 % (0-8) Nucleated Red Blood Cells 5 /100 WBC Platelet Estimate Adequate Platelet Morphology Normal Hypochromasia 1+ Anisocytosis 2+ Target Cells 1+ Ovalocytes 1+ Current Medications Medications (Trade) Dose Ordered Sig/Christina Route PRN Reason Start Time Stop Time Status Last Admin Dose Admin Acetaminophen (Tylenol) 650 mg Q4H PRN ORAL Mild Pain/Temp > 100.5 06/10/19 06:15 07/10/19 06:14 06/13/19 20:05 Gabapentin (Neurontin) 300 mg THREE TIMES A DAY ORAL 06/13/19 13:00 07/13/19 12:59 06/15/19 08:29 Hydromorphone HCl (Dilaudid) 1.5 mg Q3H PRN IVP severe pain(7-10) 06/12/19 21:01 06/19/19 21:00 06/15/19 11:31 Hydroxyurea (Hydrea) 500 mg DAILY@2100 ORAL 06/12/19 21:00 06/17/19 20:59 06/14/19 20:32 Oxycodone/ Acetaminophen (Percocet 10/325) 1 tab Q4H PRN ORAL moderate breakthrough pain 06/12/19 21:00 06/19/19 20:59 06/14/19 19:49 Sodium Chloride 1,000 ml @ 100 mls/hr Q10H IV 06/12/19 18:43 07/12/19 18:42 06/14/19 23:29 Stuart Vora MD Jun 15, 2019 11:54
[2019-06-15 12:00] VITALS: BP 126/77
--- NOTE | 2019-06-15 14:05 | Diagnostic Imaging Report ---
Indication: Dyspnea Comparison: 06/10/2019 A single view chest radiograph was obtained. Findings: Pulmonary vascular congestion may be present given prominent central vessels and some prominence of the interstitium of the lungs. This is questionable. Correlate clinically. The heart is normal in size. Lung volumes are low. The bones are diffusely abnormal with mixed sclerotic/osteopenic regions, prominent trabecula, and dense vertebral endplates. IMPRESSION: Query mild pulmonary vascular congestion. Renal osteodystrophy
--- NOTE | 2019-06-15 14:52 | NUR ---
NURSE NOTES: Order for 1 unit PRBC noted. Patient having elevated temperature 100.1. Tylenol PRN given. Patient still has elevated temperature. Cooling measures initiated, removed extra covers and provided tepid bath. Dr. Perez notified. Per physician, hold blood transfusion until temperature decreases. New order received.
[2019-06-15 16:00] VITALS: BP 124/76
--- NOTE | 2019-06-15 19:35 | NUR ---
NURSE NOTES: Report received from TITUS Lugo. Patient a/a/o x 4 and breathing unlabored without distress, discomfort, or sob on room air. IV site noted on the NATASHA 20g running fluid as ordered. Bed placed at the lowest with brake on and siderails up for safety. Call light placed within reach. Will continue to monitor and provide care as ordered.
--- NOTE | 2019-06-15 19:42 | NUR ---
NURSE NOTES: Patient experiencing temperature of 100.8 after 2nd dose of tylenol given at 1825. Dr. Perez informed and made aware. No new orders given at this time. Will continue to monitor.
--- NOTE | 2019-06-15 19:50 | NUR ---
NURSE NOTES: Unable to administer PRBC. Patient has elevated temperature. Per Dr. Perez, hold transfusion until temperature stable. Endorsed to oncoming RN.
--- NOTE | 2019-06-15 19:51 | NUR ---
HAND-OFF: Report given to TITUS Lanier.
[2019-06-15 20:00] VITALS: BP 120/66
--- NOTE | 2019-06-15 20:00 | NUR ---
NURSE NOTES: Confirmed with Dr. Perez to hold the blood transfusion until patient's temperature decreases below 99 F.
[2019-06-15] MEDS: Hydroxyurea 500mg cap ORAL SCH (20:38)
--- NOTE | 2019-06-15 21:04 | General Progress Note ---
Assessment/Plan Problem List: (1) Sickle cell crisis ICD Codes: D57.00 - Hb-SS disease with crisis, unspecified SNOMED: 405327246 (2) Dehydration ICD Codes: E86.0 - Dehydration SNOMED: 62733532 (3) Sickle cell pain crisis ICD Codes: D57.00 - Hb-SS disease with crisis, unspecified SNOMED: 983387055 (4) Sickle cell anemia ICD Codes: D57.1 - Sickle-cell disease without crisis SNOMED: 831003181 Status: progressing Assessment/Plan: sickle cell crisis still anemic dc if cleared by dr alegria afebrile stronger pain med per dr lenka monroy dehydratio Subjective ROS Limited/Unobtainable: Yes Allergies: Coded Allergies: MORPHINE (Verified Allergy, Unknown, 09/02/18) Objective Last 24 Hour Vital Signs Date Time Temp Pulse Resp B/P (MAP) Pulse Ox O2 Delivery O2 Flow Rate FiO2 06/15/19 20:00 100.4 106 24 120/66 (84) 94 06/15/19 18:55 100.3 06/15/19 16:00 99.7 100 18 124/76 (92) 96 06/15/19 12:00 100.1 109 18 126/77 (93) 94 06/15/19 08:00 98.2 76 18 130/60 (83) 95 06/15/19 08:00 Room Air 06/15/19 04:00 99.6 100 20 120/80 (93) 94 06/15/19 00:00 99.3 105 20 132/75 (94) 98 Intake and Output 06/14/19 06/15/19 18:59 06:59 Intake Total 1900 ml 1700 ml Output Total 2200 ml Balance 1900 ml -500 ml Intake Oral 700 ml IV Total 1100 ml 1000 ml Other 800 ml Output Urine Total 2200 ml # Voids 4 Laboratory Tests 06/15/19 08:03: White Blood Count 18.4H, Red Blood Count 2.65L, Hemoglobin 7.9L, Hematocrit 23.5L, Mean Corpuscular Volume 89, Mean Corpuscular Hemoglobin 30.0, Mean Corpuscular Hemoglobin Concent 33.8, Red Cell Distribution Width 22.2H, Platelet Count 384, Mean Platelet Volume 5.8L, Neutrophils (%) (Auto) , Lymphocytes (%) (Auto) , Monocytes (%) (Auto) , Eosinophils (%) (Auto) , Basophils (%) (Auto) , Differential Total Cells Counted 100, Neutrophils % ( Manual) 74, Lymphocytes % (Manual) 19L, Monocytes % (Manual) 7, Eosinophils % ( Manual) 0, Basophils % (Manual) 0, Band Neutrophils 0, Nucleated Red Blood Cells 5, Platelet Estimate Adequate, Platelet Morphology Normal, Hypochromasia 1 +, Anisocytosis 2+, Target Cells 1+, Ovalocytes 1+ Height (Feet): 5 Height (Inches): 9.00 Weight (Pounds): 130 Neck: supple Cardiovascular: normal rate Respiratory/Chest: lungs clear Abdomen: soft Angelito Vera MD Jun 15, 2019 21:04
--- NOTE | 2019-06-15 22:39 | NUR ---
NURSE NOTES: Patient temperature reading 100.2 at this time. Patient feels asymptomatic. Patient refused taking another dose of Tylenol at this time and would like to hold the medication until next dose of PRN Dilaudid due. Cooling measures continuously applied. Will continue to monitor and provide care as ordered.
--- NOTE | 2019-06-15 23:42 | NUR ---
NURSE NOTES: Noted decrease in patient's temperature to 99.9. Will continue to provide cooling measures and encourage fluid intake.
[2019-06-16] VITALS: BP 128/77
--- NOTE | 2019-06-16 01:30 | NUR ---
NURSE NOTES: patient temperature reading 100.4. Cooling measure provided. Tylenol has parameter of greater than 100.5. Will continue to monitor.
--- NOTE | 2019-06-16 02:45 | NUR ---
NURSE NOTES: Patient temperature reading 101.7. Given PRN tylenol and given new ice pack, cooler room temperature, cup of ice chips, and encouraged fluid intake. Will continue to monitor.
[2019-06-16 04:00] VITALS: BP 105/68
--- NOTE | 2019-06-16 04:25 | NUR ---
NURSE NOTES: Patient temperature reading 99.9. Provided new ice pack, ice cheaps, and iced water. Will continue to monitor.
--- NOTE | 2019-06-16 05:45 | NUR ---
NURSE NOTES: Patient refused labs at this time. Patient explained reason for lab draw. Patient still refused at this time. Laboratory person suggested to come back later during the day and patient verbally agreed to lab draw later during the day.
--- NOTE | 2019-06-16 06:44 | NUR ---
NURSE NOTES: Rechecked three times consecutively within 15 minutes. Temperature reading 100.0 orally. Rechecked and read 99.0 orally. Rechecked again and read 98.8 orally again. Informed charge nurse regarding the decrease in temperature. Advised to endorse to AM RN to check stabilized temperature before the blood transfusion.
--- NOTE | 2019-06-16 07:45 | NUR ---
HAND-OFF: Report given to TITUS Ortega.
--- NOTE | 2019-06-16 07:51 | NUR ---
NURSE NOTES: Patient awake, alert x4, on room air, no sing of distress and shortness of breath; no sing of chest pain; IV Left-Upper Arm 20G 1/2NS running 100cc; Urinal within reach; side rails up x2, breaks engaged, bed at lowest position; will keep monitoring; will given pain medication as needed and as scheduled; will keep monitoring.
--- NOTE | 2019-06-16 07:54 | NUR ---
NURSE NOTES: There is active blood transfusion order, patient's temperature was high, the transfusion was on hold till patient's temperature is less than 99. Will keep monitoring.
[2019-06-16 08:00] VITALS: BP 125/65
--- NOTE | 2019-06-16 08:39 | General Progress Note ---
Assessment/Plan Assessment/Plan: (1) Sickle cell disease (2) Sickle cell crisis (3) Intractable pain Patient to be continued on Neurontin, Dilaudid and Percocet. D/w Dr. Riojas and he concurred. Subjective Date patient seen: Jun 16, 2019 Time patient seen: 07:30 - am Allergies: Coded Allergies: MORPHINE (Verified Allergy, Unknown, 09/02/18) Subjective REVIEW OF SYSTEMS: Denies rash, fever, chills, sweating, dizziness, drowsiness, blurred vision, sore throat, or change in weight. No shortness of breath or chest pain. No nausea, vomiting, diarrhea, or blood in the stool or urine. He is complaining of generalized body pain. SUBJECTIVE: Patient reports that he is doing better and pain has been reduced. He is using the Dilaudid and Percocet as needed. Was advised to continue therapy and he has no new complaints at this time. Objective Last 24 Hour Vital Signs Date Time Temp Pulse Resp B/P (MAP) Pulse Ox O2 Delivery O2 Flow Rate FiO2 06/16/19 08:00 97.8 74 17 125/65 (85) 96 06/16/19 04:00 99.9 99 20 105/68 (80) 94 06/16/19 03:08 100.0 06/16/19 00:00 99.4 100 20 128/77 (94) 96 06/15/19 21:00 Room Air 06/15/19 20:00 100.4 106 24 120/66 (84) 94 06/15/19 16:00 99.7 100 18 124/76 (92) 96 06/15/19 12:00 100.1 109 18 126/77 (93) 94 Intake and Output 06/15/19 06/16/19 19:00 07:00 Intake Total 850 ml 1000 ml Output Total 1600 ml 800 ml Balance -750 ml 200 ml Intake Oral 850 ml IV Total 1000 ml Output Urine Total 1600 ml 800 ml # Voids 2 Height (Feet): 5 Height (Inches): 9.00 Weight (Pounds): 130 Objective GENERAL: Alert, awake, and oriented. LUNGS: Decreased breath sounds bilaterally. HEART: S1 S2 Regular. ABDOMEN: Benign. EXTREMITIES: No cyanosis. No clubbing. No edema. NEURO: No changes. Nathanael Sheridan Jun 16, 2019 08:38
--- NOTE | 2019-06-16 09:08 | Hematology/Onc Progress Note ---
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 - Patient presented for sickle cell pain/crisis last eval in 2018, is on hydroxyurea, and folic acid --> hgb electrophoresis showed SS homozygous back in 2018 --> pain management as per pain team --> retic is 1.9 --> incentive maksim --> hydroxyurea continue ( apparently at this time refusing ) --> [facility] f/u outpatient --> hgb 7.8-->9 --> ferritin is 1834--> indicating iron overload, likely will need future chelation rx # Anemia of sickle cell disease --> trend as needed --> hgb goal >7 --> some hemolysis is noted --> hgb trend 7.8-->9 --> 06/16 blood tx on hold due to elevated temp # Hyperbili- likely related to sickle cell disease --> trend as needed, should improve # Leukocytosis likely elevated due to ss and stress reaction # Dehydration -- administer fluids # Dvt ppx ambulation The timing of this note does not necessarily reflect the time of the patient was seen. Greatly appreciate consultation. Subjective Allergies: Coded Allergies: MORPHINE (Verified Allergy, Unknown, 09/02/18) Subjective 06/11: awake and alert, no acute events, c/o gen pain, on ceftriaxone 06/12: hgb stable 9, no changes, on pain meds 06/14: back pain noted, with scds, no f/c, no bleeding 06/15: complaining of generalized pain, 10/10 total, no bleeding 925: awake and alert, refused am labs, blood tx on hold due to elevated temp, Objective Objective Current Medications Medications (Trade) Dose Ordered Sig/Christina Route PRN Reason Start Time Stop Time Status Last Admin Dose Admin Acetaminophen (Tylenol) 650 mg ONCE PRN ORAL medicate before bld transfusio 06/15/19 18:16 06/16/19 23:59 Acetaminophen (Tylenol) 650 mg Q4H PRN ORAL Mild Pain/Temp > 100.5 06/10/19 06:15 07/10/19 06:14 06/16/19 02:38 Diphenhydramine HCl (Benadryl) 25 mg ONCE PRN ORAL before blood transfusion 06/15/19 18:17 06/16/19 23:59 Gabapentin (Neurontin) 300 mg THREE TIMES A DAY ORAL 06/13/19 13:00 07/13/19 12:59 06/16/19 08:39 Hydromorphone HCl (Dilaudid) 1.5 mg Q3H PRN IVP severe pain(7-10) 06/12/19 21:01 06/19/19 21:00 06/16/19 08:43 Hydroxyurea (Hydrea) 500 mg DAILY@2100 ORAL 06/12/19 21:00 06/17/19 20:59 06/15/19 20:38 Oxycodone/ Acetaminophen (Percocet 10/325) 1 tab Q4H PRN ORAL moderate breakthrough pain 06/12/19 21:00 06/19/19 20:59 06/14/19 19:49 Sodium Chloride 1,000 ml @ 100 mls/hr Q10H IV 06/12/19 18:43 07/12/19 18:42 06/15/19 23:45 Last 24 Hour Vital Signs Date Time Temp Pulse Resp B/P (MAP) Pulse Ox O2 Delivery O2 Flow Rate FiO2 06/16/19 08:00 97.8 74 17 125/65 (85) 96 06/16/19 04:00 99.9 99 20 105/68 (80) 94 06/16/19 03:08 100.0 06/16/19 00:00 99.4 100 20 128/77 (94) 96 06/15/19 21:00 Room Air 06/15/19 20:00 100.4 106 24 120/66 (84) 94 06/15/19 16:00 99.7 100 18 124/76 (92) 96 06/15/19 12:00 100.1 109 18 126/77 (93) 94 06/15/19 08:00 98.2 76 18 130/60 (83) 95 06/15/19 08:00 Room Air 06/15/19 04:00 99.6 100 20 120/80 (93) 94 06/15/19 00:00 99.3 105 20 132/75 (94) 98 06/14/19 20:48 Room Air 06/14/19 20:00 100.9 103 22 128/86 (100) 100 06/14/19 17:54 100.3 06/14/19 16:00 100.3 114 21 121/83 (96) 96 06/14/19 12:00 98.9 89 19 128/86 (100) 96 Intake and Output 06/15/19 06/16/19 19:00 07:00 Intake Total 850 ml 1000 ml Output Total 1600 ml 800 ml Balance -750 ml 200 ml Intake Oral 850 ml IV Total 1000 ml Output Urine Total 1600 ml 800 ml # Voids 2 Labs Test 06/14/19 20:20 06/15/19 08:03 Urine Color Yellow Urine Appearance Clear Urine pH 6.5 (4.5-8.0) Urine Specific [place] 1.005 (1.005-1.035) Urine Protein Negative (NEGATIVE) Urine Glucose (UA) Negative (NEGATIVE) Urine Ketones Negative (NEGATIVE) Urine Blood Negative (NEGATIVE) Urine Nitrite Negative (NEGATIVE) Urine Bilirubin Negative (NEGATIVE) Urine Urobilinogen 1 MG/DL (0.0-1.0) Urine Leukocyte Esterase Negative (NEGATIVE) White Blood Count 18.4 K/UL (4.8-10.8) Red Blood Count 2.65 M/UL (4.70-6.10) Hemoglobin 7.9 G/DL (14.2-18.0) Hematocrit 23.5 % (42.0-52.0) Mean Corpuscular Volume 89 FL (80-99) Mean Corpuscular Hemoglobin 30.0 PG (27.0-31.0) Mean Corpuscular Hemoglobin Concent 33.8 G/DL (32.0-36.0) Red Cell Distribution Width 22.2 % (11.6-14.8) Platelet Count 384 K/UL (150-450) Mean Platelet Volume 5.8 FL (6.5-10.1) Neutrophils (%) (Auto) % (45.0-75.0) Lymphocytes (%) (Auto) % (20.0-45.0) Monocytes (%) (Auto) % (1.0-10.0) Eosinophils (%) (Auto) % (0.0-3.0) Basophils (%) (Auto) % (0.0-2.0) Differential Total Cells Counted 100 Neutrophils % (Manual) 74 % (45-75) Lymphocytes % (Manual) 19 % (20-45) Monocytes % (Manual) 7 % (1-10) Eosinophils % (Manual) 0 % (0-3) Basophils % (Manual) 0 % (0-2) Band Neutrophils 0 % (0-8) Nucleated Red Blood Cells 5 /100 WBC Platelet Estimate Adequate Platelet Morphology Normal Hypochromasia 1+ Anisocytosis 2+ Target Cells 1+ Ovalocytes 1+ Height (Feet): 5 Height (Inches): 9.00 Weight (Pounds): 130 Objective Physical Exam VS reviewed, normal Gen: normal inspection, well appearing, no apparent distress ENT: normal ENT inspection, hearing grossly normal, normal voice Pulm: normal inspection, lungs clear, normal breath sounds, no respiratory distress, no retraction, no wheezing CV: regular rate, rhythm, no edema GI: normal inspection, normal bowel sounds : no CVA tenderness MSK: normal inspection, back normal Neuro: normal inspection, alert, oriented x3 Zackery Perez MD Jun 16, 2019 09:07
--- NOTE | 2019-06-16 11:57 | General Progress Note ---
Assessment/Plan Problem List: (1) Sickle cell crisis ICD Codes: D57.00 - Hb-SS disease with crisis, unspecified SNOMED: 412367963 (2) Dehydration ICD Codes: E86.0 - Dehydration SNOMED: 73255027 (3) Sickle cell pain crisis ICD Codes: D57.00 - Hb-SS disease with crisis, unspecified SNOMED: 912063374 (4) Sickle cell anemia ICD Codes: D57.1 - Sickle-cell disease without crisis SNOMED: 660114084 Status: progressing Assessment/Plan: sickle cell crisis improving anemia chronic dc if cleared by dr alegria Subjective ROS Limited/Unobtainable: Yes Allergies: Coded Allergies: MORPHINE (Verified Allergy, Unknown, 09/02/18) Subjective generalized pain Objective Last 24 Hour Vital Signs Date Time Temp Pulse Resp B/P (MAP) Pulse Ox O2 Delivery O2 Flow Rate FiO2 06/16/19 09:14 97.8 06/16/19 09:00 Room Air 06/16/19 08:00 97.8 74 17 125/65 (85) 96 06/16/19 04:00 99.9 99 20 105/68 (80) 94 06/16/19 03:08 100.0 06/16/19 00:00 99.4 100 20 128/77 (94) 96 06/15/19 21:00 Room Air 06/15/19 20:00 100.4 106 24 120/66 (84) 94 06/15/19 16:00 99.7 100 18 124/76 (92) 96 06/15/19 12:00 100.1 109 18 126/77 (93) 94 Intake and Output 06/15/19 06/16/19 19:00 07:00 Intake Total 850 ml 1100 ml Output Total 1600 ml 800 ml Balance -750 ml 300 ml Intake Oral 850 ml IV Total 1100 ml Output Urine Total 1600 ml 800 ml # Voids 2 Height (Feet): 5 Height (Inches): 9.00 Weight (Pounds): 130 Cardiovascular: normal rate Respiratory/Chest: lungs clear Abdomen: soft Angelito Vera MD Jun 16, 2019 11:57
--- NOTE | 2019-06-16 12:14 | Infectious Diseases Prog Note ---
Assessment/Plan Assessment/Plan IMPRESSION: 1. Pyuria, may have UTI, treated 2. Sickle cell crisis. 3. Anemia 4. SIRS/Sepsis RECOMMENDATIONS: Observe off antibiotic f/u CBC Will f/u cultures Subjective ROS Limited/Unobtainable: No Constitutional: Reports: no symptoms Respiratory: Reports: no symptoms Cardiovascular: Reports: no symptoms Gastrointestinal/Abdominal: Reports: no symptoms Genitourinary: Reports: no symptoms Musculoskeletal: Reports: pain Allergies: Coded Allergies: MORPHINE (Verified Allergy, Unknown, 09/02/18) Objective Vital Signs Last 24 Hour Vital Signs Date Time Temp Pulse Resp B/P (MAP) Pulse Ox O2 Delivery O2 Flow Rate FiO2 06/16/19 09:14 97.8 06/16/19 09:00 Room Air 06/16/19 08:00 97.8 74 17 125/65 (85) 96 06/16/19 04:00 99.9 99 20 105/68 (80) 94 06/16/19 03:08 100.0 06/16/19 00:00 99.4 100 20 128/77 (94) 96 06/15/19 21:00 Room Air 06/15/19 20:00 100.4 106 24 120/66 (84) 94 06/15/19 16:00 99.7 100 18 124/76 (92) 96 Height (Feet): 5 Height (Inches): 9.00 Weight (Pounds): 130 General Appearance: no acute distress HEENT: mucous membranes moist Respiratory/Chest: lungs clear Cardiovascular: normal rate Abdomen: soft, non tender Extremities: no edema Neurologic/Psychiatric: alert, oriented x 3, responsive Microbiology Date/Time Source Procedure Growth Status 06/14/19 19:45 Blood Blood Culture - Preliminary NO GROWTH AFTER 24 HOURS Resulted 06/14/19 20:20 Urine,Clean Catch Urine Culture - Preliminary NO GROWTH Resulted Current Medications Medications (Trade) Dose Ordered Sig/Christina Route PRN Reason Start Time Stop Time Status Last Admin Dose Admin Acetaminophen (Tylenol) 650 mg ONCE PRN ORAL medicate before bld transfusio 06/15/19 18:16 06/16/19 23:59 Acetaminophen (Tylenol) 650 mg Q4H PRN ORAL Mild Pain/Temp > 100.5 06/10/19 06:15 07/10/19 06:14 06/16/19 02:38 Diphenhydramine HCl (Benadryl) 25 mg ONCE PRN ORAL before blood transfusion 06/15/19 18:17 06/16/19 23:59 Gabapentin (Neurontin) 300 mg THREE TIMES A DAY ORAL 06/13/19 13:00 07/13/19 12:59 06/16/19 11:56 Hydromorphone HCl (Dilaudid) 1.5 mg Q3H PRN IVP severe pain(7-10) 06/12/19 21:01 06/19/19 21:00 06/16/19 11:59 Hydroxyurea (Hydrea) 500 mg DAILY@2100 ORAL 06/12/19 21:00 06/17/19 20:59 06/15/19 20:38 Oxycodone/ Acetaminophen (Percocet 10/325) 1 tab Q4H PRN ORAL moderate breakthrough pain 06/12/19 21:00 06/19/19 20:59 06/14/19 19:49 Sodium Chloride 1,000 ml @ 100 mls/hr Q10H IV 06/12/19 18:43 07/12/19 18:42 06/16/19 11:25 Stuart Vora MD Jun 16, 2019 12:14
[2019-06-16] MEDS ORDERED: 1/2 NS 1000ml IV ONE (15:10)
--- NOTE | 2019-06-16 16:06 | NUR ---
*-* INSURANCE *-* ALL AVAILABLE CLINICALS AD REVIEW HAVE BEEN FAXED TO: [employer] FAX CLINICALS TO [phone]
--- NOTE | 2019-06-16 16:45 | NUR ---
NURSE NOTES: Patient discharged around 1530, left the floor by wheelchair accompanied by primary nurse; IV and name tag removed; belonging list signed by patient and primary nurse; printed material given to patient; patient teaching given when to seek medical help. patient was stable upon discharge.
--- NOTE | 2019-06-17 08:15 | Discharge Summary ---
Discharge Summary Discharge Summary _ DATE OF ADMISSION: 06/10/2019 DATE OF DISCHARGE: 06/16/2019 DISCHARGED BY: Dr. Vera REASON FOR ADMISSION: 43 years old male with past medical history of sickle cell disease, homozygous SS , following at [facility], presented due to generalized pain and fatigue. Symptoms started 4 days ago but became progressively worse. Patient experienced acute pain in his upper thighs, hips, back and chest from the last night. This was a typical presentation for patient when he is in crisis. Patient was taken hydroxyurea and folic acid as prescribed. He denied any fall or injury. He denied cough , shortness of breath. No fever, no chills. No dysuria. No vomiting , no diarrhea. Upon evaluation patient was afebrile . Vital signs were stable. Laboratory work-up revealed leukocytosis WBC 17.3, hemoglobin 8.2, hematocrit 43.2 , MCV 87. Reticulocyte count normal . Platelet count 383. Stable electrolytes and renal parameters. Glucose 120. Total bilirubin 4.8, direct bilirubin 0.4 . AST 50 ,ALT 49 . Troponin negative . Urinalysis revealed +2 protein, +3 leukocyte esterase, pyuria and few bacteria. Urine toxicology screen was positive for marijuana. Chest x-ray revealed no acute cardiopulmonary pathology. Patient received IV fluids , empiric ceftriaxone for possible urinary tract infection, analgesia and admitted for further management. CONSULTANTS: ID specialist Dr. Heller chief controller tower/oncologist Dr. Perez pain specialist Dr. Riojas HOSPITAL COURSE: Patient admitted to medical surgical floor. Patient started on IV fluids and empiric antibiotic . Pain management provided as per pain specialist. Ob/Gyn closely followed./ Folic acid and hydroxyurea continued. In 2018 his hemoglobin electrophoresis showed homozygous SS trait. Hemoglobin and hematocrit were closely monitored with goal to keep hemoglobin above 7. Peripheral smear revealed some evidence of hemolysis. Hyperbilirubinemia was likely related to sickle disease. Urine culture was negative. Blood cultures were negative. Pulse oximetry was stable on room air. Incentive spirometry encouraged while in the bed. Patient did have intermittent fevers, which resolved. ID specialist followed. Patient received treatment for possible UTI . ID specialist recommended to keep patient off antibiotics and observe closely. Patient clinically stabilized. Pain was controlled. Hemoglobin and hematocrit remained stable. No need for transfusion. Prior to discharge hemoglobin 7.9 hematocrit 23.5. Patient was stable for discharge home with outpatient follow-up At [facility]. FINAL DIAGNOSES: Sickle cell crisis Anemia of sickle cell disease Sickle cell disease with SS homozygous Hyperbilirubinemia, likely related to sickle cell disease Leukocytosis Pyuria, possible UTI, s/p treatment Dehydration DISCHARGE MEDICATIONS: See Medication Reconciliation list. DISCHARGE INSTRUCTIONS: Patient was discharged home . Follow up with primary care provider in one week. I have been assigned to dictate discharge summary for this account. I was not involved in the patient's management. Henna Chery NP Jun 17, 2019 08:15
== END 2019-06-16 15:11 | disposition home or self-care (01) | DRG 662 ==
LOC: EDBD 23:26 → EMR 23:59 → 4E 06-10 04:07 → EDBEDREQ 06-10 04:16
DX: D57.00 Hb-SS disease with crisis, unspecified (principal); E86.0 Dehydration; N39.0 Urinary tract infection, site not specified; Z88.6 Allergy status to analgesic agent; E80.6 Other disorders of bilirubin metabolism; Z90.49 Acquired absence of other specified parts of digestive tract
CPT/HCPCS: 36415; 71045; 80048; 80053; 80307; 81003; 82248; 83735; 84100; 84484; 85007; 85025; 85044; 86850; 86900; 86901; 86920; 87040; 87086; 96361; 96365; 96375; 96376; 99285

== ENCOUNTER 2019-11-01 01:28 | Emergency (ER) | payer SELFPAY ==
[~2019-11-01] VITALS: Ht 175.3 cm; Wt 61.2 kg
[~2019-11-01 01:28] MED LIST changes: +MACROBID100 MG ORAL
[2019-11-01 01:35] VITALS: BP 122/66
--- NOTE | 2019-11-01 01:35 | NUR ---
ED Nurse Note: Pt brought in by RA home c/o generaluize pain due to sickle cell crisis. Reports pain in abdomen and joints, /. Not in any distress. VSS.
[2019-11-01] MEDS ORDERED: HYDROmorphone 1mg/ml Carpuject ONE (01:41)
--- NOTE | 2019-11-01 01:44 | Emergency Room Report ---
History of Present Illness General Chief Complaint: Pain Source: Patient Present Illness HPI This a 44-year-old male who has a history of sickle cell, SS. He presents with chief complaint of sickle cell crisis. He said this been ongoing for couple days. He has diffuse body pain. He has abdominal pain. 10 out of 10. Has nausea but no vomiting. This is typical for him. No fever chills but known diarrhea. No trauma. He said that he is out of his pain medication. He said he normally get Dilaudid. He said he gets these crisis once a month. Last time was a month ago. He said he has not been anywhere for over a month. He normally lives in [place] but he said he visit his cousin in [place]. He said he took the bus here from [place]. Allergies: Coded Allergies: MORPHINE (Verified Allergy, Unknown, 09/02/18) Patient History Past Medical History: see triage record, old chart reviewed Past Surgical History: other Pertinent Family History: none Social History: Denies: smoking Immunizations: other Reviewed Nursing Documentation: PMH: Agreed; PSxH: Agreed Nursing Documentation-PMH Hx Cardiac Problems: No - sickle cell crisis Hx Cancer: No Hx Gastrointestinal Problems: No Hx Neurological Problems: No Review of Systems Eye: Denies: eye pain, blurred vision ENT: Denies: ear pain, nose congestion, throat swelling Respiratory: Denies: cough, shortness of breath Cardiovascular: Denies: chest pain, palpitations Gastrointestinal: Reports: abdominal pain; Denies: diarrhea, nausea, vomiting Musculoskeletal: Reports: back pain; Denies: joint pain Skin: Denies: rash Neurological: Denies: headache, numbness Endocrine: Denies: increased thirst, increased urine Hematologic/Lymphatic: Denies: easy bruising All Other Systems: negative except mentioned in HPI Physical Exam Vital Signs Date Time Temp Pulse Resp B/P (MAP) Pulse Ox O2 Delivery O2 Flow Rate FiO2 11/01/19 01:29 98.1 96 12 122/66 (84) 97 Room Air Vitals normal Sp02 EP Interpretation: reviewed, normal General Appearance: well appearing, no apparent distress, alert Head: normocephalic, atraumatic Eyes: bilateral eye PERRL, bilateral eye EOMI ENT: hearing grossly normal, normal pharynx Neck: full range of motion, supple, no meningismus Respiratory: chest non-tender, lungs clear, normal breath sounds Cardiovascular #1: regular rate, rhythm, no murmur Gastrointestinal: normal bowel sounds, non tender, no mass, no organomegaly, no bruit, non-distended Musculoskeletal: back normal, normal range of motion, gait/station normal, other - With IV orta on his arms. He said this was from a month ago. Psychiatric: mood/affect normal Medical Decision Making Diagnostic Impression: Primary Impression: Sickle cell crisis Additional Impression: Drug-seeking behavior ER Course Patient presents with sickle cell crisis. On the [facility] system, he has prescription from several doctors. There is no one particular doctor or pain management prescribing his medication. He said he has not been to the hospital over a month. His IV orta appear to be recent. I called [facility] ER. They said that he was just discharged from the emergency room a couple days ago. His history is incongruent with my findings. Last Vital Signs Date Time Temp Pulse Resp B/P (MAP) Pulse Ox O2 Delivery O2 Flow Rate FiO2 11/01/19 01:29 98.1 96 12 122/66 (84) 97 Room Air Status: improved Disposition: HOME, SELF-CARE Condition: Stable Additional Instructions: Follow-up with your doctor for refill on your pain medication. Return if symptoms worsen. Arturo Hameed MD Nov 01, 2019 01:44
[2019-11-01] MEDS ORDERED: HYDROmorphone 1mg/ml Carpuject IM ONE (01:45)
[2019-11-01 01:54] VITALS: BP 122/66
--- NOTE | 2019-11-01 01:54 | NUR ---
ED Nurse Note: Pt cleared by ERMD for discharge. DC instructions was given and explained to pt and verbalized understanding of teachings. All medical deviecs such as ID band removed. Pt is AAO x4, ambulatory and left with all personal belongings. Pt will take the bus going home.
== END 2019-11-01 01:45 | disposition home or self-care (01) ==
LOC: EDBD 01:28 → EDUNIT# 01:28 → EMR 01:41
DX: D57.00 Hb-SS disease with crisis, unspecified (principal); Z76.5 Malingerer [conscious simulation]; Z88.5 Allergy status to narcotic agent
CPT/HCPCS: 96372; 99283; J1170

== ENCOUNTER 2020-02-05 02:00 | Inpatient (IN) | payer SELFPAY ==
[~2020-02-05] VITALS: Ht 175.3 cm; Wt 59.0 kg
[2020-02-05] VITALS (7 sets, daily range): BP systolic 103–125; BP diastolic 59–84
--- NOTE | 2020-02-05 02:00 | NUR ---
ED Nurse Note: PT BROUGHT IN BY 95 FROM HOME C/O GENERALIZED BODYACHE FROM SICKLECELL WITH ONSET EARLIER TODAY. PER PATIENT, HE WAS TESTED FOR COVID [address] [facility] 1 WK AGO. VSS, NAD, NO COUGH OR FEVER. ERMD AT BEDSIDE
[2020-02-05] MEDS ORDERED: HYDROmorphone 1mg/ml Carpuject IVP ONE ×2 (02:30→04:00)
--- NOTE | 2020-02-05 02:30 | NUR ---
ED Nurse Note: BLOOD AND URINE COLLECTED AND SENT TO LAB
--- NOTE | 2020-02-05 03:12 | Emergency Room Report ---
History of Present Illness General Chief Complaint: Pain Source: Patient Present Illness HPI 44-year-old male presents the ED for evaluation of pain. Started yesterday. Brought in by EMS from home. History of sickle cell. States he is having a "crisis". Pain is a 10 out of 10, dull, nonradiating. Denies chest pain or shortness of breath. Denies fevers or chills. States he has been compliant with his hydroxyurea and folic acid but run out of pain meds. No other aggravating relieving factors. Denies any other associated symptoms Allergies: Coded Allergies: MORPHINE (Verified Allergy, Unknown, 09/02/18) COVID-19 Screening Contact w/high risk pt: No Recent Travel to affected area: No Experienced COVID-19 symptoms?: No COVID-19 Testing performed DIRECTOR OF SOCIAL MEDIA MARKETING: No Patient History Past Medical History: none Past Surgical History: none Pertinent Family History: none Social History: Denies: smoking, alcohol use, drug use Immunizations: UTD Reviewed Nursing Documentation: PMH: Agreed; PSxH: Agreed Nursing Documentation-PMH Past Medical History: No History, Except For Hx Cancer: No Hx Gastrointestinal Problems: No Hx Neurological Problems: No Review of Systems All Other Systems: negative except mentioned in HPI Physical Exam Vital Signs Date Time Temp Pulse Resp B/P (MAP) Pulse Ox O2 Delivery O2 Flow Rate FiO2 02/05/20 01:55 98.4 85 16 119/77 (91) 99 Room Air Sp02 EP Interpretation: reviewed, normal General Appearance: no apparent distress, alert, GCS 15, non-toxic Head: normocephalic, atraumatic Eyes: bilateral eye normal inspection, bilateral eye PERRL ENT: hearing grossly normal, normal pharynx, no angioedema, normal voice Neck: full range of motion, supple/symm/no masses Respiratory: chest non-tender, lungs clear, normal breath sounds, speaking full sentences Cardiovascular #1: regular rate, rhythm, no edema Cardiovascular #2: 2+ carotid (R), 2+ carotid (L), 2+ radial (R), 2+ radial (L) , 2+ dorsalis pedis (R), 2+ dorsalis pedis (L) Gastrointestinal: normal bowel sounds, non tender, soft, non-distended, no guarding, no rebound Rectal: deferred Genitourinary: normal inspection, no CVA tenderness Musculoskeletal: back normal, normal range of motion, gait/station normal, non- tender Neurologic: alert, motor strength/tone normal, oriented x3, sensory intact, responsive, speech normal Psychiatric: judgement/insight normal, memory normal, mood/affect normal, no suicidal/homicidal ideation Reflexes: 3+ bicep (R), 3+ bicep (L), 3+ tricep (R), 3+ tricep (L), 3+ knee (R) , 3+ knee (L) Lymphatic: no adenopathy Medical Decision Making Diagnostic Impression: Primary Impression: Sickle cell crisis ER Course Hospital Course 44-year-old M presents ED complaining of generalized body pain, h/o sickle cell Differential diagnoses include: DE/unstable angina, sickle cell crisis, sepsis, UTI, pneumonia Clinical course Patient placed on stretcher. on manager cardiac cath. After initial history and physical I ordered labs, IVFs, pain medications labs reviewed- WBC 15.9, Hb/Hct 9.8/27.1, electrolyes ok, LFTs elevated. retic count and LDH elevated Patient continues to have pain. given additonal medications and IVFs Case discussed with Dr. Vora and he agreed to accept the patient to his service for further care and support I. I feel this is a highly complex case requiring extensive working including EKG/Rhythm strip, Xray/CT/US, Blood/urine lab work, repeat exams while in ED, and administration of strong opiates/narcotics for pain control, admission to hospital or close patient follow up. Diagnosis - sickle cell crisis admitted to floor in serious condition Labs Test 02/05/20 02:20 White Blood Count 15.9 K/UL (4.8-10.8) Red Blood Count 3.10 M/UL (4.70-6.10) Hemoglobin 9.8 G/DL (14.2-18.0) Hematocrit 27.1 % (42.0-52.0) Mean Corpuscular Volume 88 FL (80-99) Mean Corpuscular Hemoglobin 31.6 PG (27.0-31.0) Mean Corpuscular Hemoglobin Concent 36.0 G/DL (32.0-36.0) Red Cell Distribution Width 25.4 % (11.6-14.8) Platelet Count 401 K/UL (150-450) Mean Platelet Volume 4.8 FL (6.5-10.1) Neutrophils (%) (Auto) 54.6 % (45.0-75.0) Lymphocytes (%) (Auto) 39.6 % (20.0-45.0) Monocytes (%) (Auto) 4.8 % (1.0-10.0) Eosinophils (%) (Auto) 0.1 % (0.0-3.0) Basophils (%) (Auto) 1.0 % (0.0-2.0) Reticulocyte Count 9.3 % (0.5-2.0) Prothrombin Time 12.0 SEC (9.30-11.50) Prothromb Time International Ratio 1.1 (0.9-1.1) Activated Partial Thromboplast Time 24 SEC (23-33) Sodium Level 137 MMOL/L (136-145) Potassium Level 3.9 MMOL/L (3.5-5.1) Chloride Level 101 MMOL/L (98-107) Carbon Dioxide Level 24 MMOL/L (21-32) Anion Gap 12 mmol/L (5-15) Blood Urea Nitrogen 12 mg/dL (7-18) Creatinine 0.8 MG/DL (0.55-1.30) Estimat Glomerular Filtration Rate > 60 mL/min (>60) Glucose Level 107 MG/DL (74-106) Calcium Level 8.8 MG/DL (8.5-10.1) Total Bilirubin 3.1 MG/DL (0.2-1.0) Direct Bilirubin 0.5 MG/DL (0.0-0.3) Aspartate Amino Transf (AST/SGOT) 38 U/L (15-37) Alanine Aminotransferase (ALT/SGPT) 72 U/L (12-78) Alkaline Phosphatase 131 U/L (46-116) Lactate Dehydrogenase 515 U/L (81-234) Total Protein 8.2 G/DL (6.4-8.2) Albumin 4.5 G/DL (3.4-5.0) Globulin 3.7 g/dL Albumin/Globulin Ratio 1.2 (1.0-2.7) Last Vital Signs Date Time Temp Pulse Resp B/P (MAP) Pulse Ox O2 Delivery O2 Flow Rate FiO2 02/05/20 03:07 98.4 02/05/20 01:55 85 16 119/77 (91) 99 Room Air Status: improved Disposition: ADMITTED INPATIENT Condition: Serious Referrals: NOT CHOSEN IPA/,REFERRING (PCP) Byron Wiggins MD February 05, 2020 03:12
[2020-02-05 03:14] LABS: EOSINOPHILS % (AUTO) 0.1 % (0.0-3.0); HEMATOCRIT 27.1 % (42.0-52.0); HEMOGLOBIN 9.8 G/DL (14.2-18.0); LYMPHOCYTES % (AUTO) 39.6 % (20.0-45.0); MEAN CORPUSCULAR VOLUME 88 FL (80-99); MONOCYTES % (AUTO) 4.8 % (1.0-10.0); NEUTROPHILS % (AUTO) 54.6 % (45.0-75.0); PLATELET COUNT 401 K/UL (150-450); RED CELL DISTRIBUTION WIDTH 25.4 % (11.6-14.8); WHITE BLOOD COUNT 15.9 K/UL (4.8-10.8)
[2020-02-05 03:23] LABS: ANION GAP 12 mmol/L (5-15); BLOOD UREA NITROGEN 12 mg/dL (7-18); CALCIUM 8.8 MG/DL (8.5-10.1); CARBON DIOXIDE 24 MMOL/L (21-32); CHLORIDE 101 MMOL/L (98-107); CREATININE 0.8 MG/DL (0.55-1.30); INR 1.1 (0.9-1.1); POTASSIUM 3.9 MMOL/L (3.5-5.1); SODIUM 137 MMOL/L (136-145)
[2020-02-05 03:34] LABS: ALANINE AMINOTRANSFERASE 72 U/L (12-78); ALBUMIN 4.5 G/DL (3.4-5.0); ALBUMIN/GLOBULIN RATIO 1.2 (1.0-2.7); ALKALINE PHOSPHATASE 131 U/L (46-116); ASPARTATE AMINO TRANSFERASE 38 U/L (15-37); BILIRUBIN,TOTAL 3.1 MG/DL (0.2-1.0)
[2020-02-05 03:39] LABS: BILIRUBIN,DIRECT 0.5 MG/DL (0.0-0.3)
[2020-02-05] MEDS ORDERED: Milk of Magnesia 30ml Ud ORAL PRN (05:15)
[2020-02-05] MEDS ORDERED: Zolpidem 5mg tab ORAL PRN (05:15)
[2020-02-05] MEDS ORDERED: HYDROmorphone 1mg/ml Carpuject IVP PRN (05:15)
--- NOTE | 2020-02-05 05:58 | NUR ---
ED Nurse Note: gave report to Angela QURESHI.
--- NOTE | 2020-02-05 06:00 | NUR ---
TRANSFER TO FLOOR: Patient transferred to [facility] via [facility] in stable condition as ordered, per Dr. Vora . Report given to Angela QURESHI. Belongings sent with patient.
--- NOTE | 2020-02-05 06:10 | NUR ---
NURSE NOTES: Patient received in room 312-2, came in via gurney. VS taken and stable. Patient complains of pain. IV saline lock in RAC. Patient alert and oriented. Provided call light and encouraged to call as needed. Bed in low position, locked, side rails up x2. Will start IV fluids per MD order.
[2020-02-05] MEDS: D5 1/2NS 1,000 ML IV SCH ×2 (06:31→17:43)
--- NOTE | 2020-02-05 07:30 | NUR ---
HAND-OFF: Report given to TITUS Tang.
--- NOTE | 2020-02-05 08:37 | NUR ---
NURSE NOTES: Received report from Alisha QURESHI. Patient is awake and oriented, no acute distress noted, reporting generalized pain rated 9/10, patient educated on schedule for pain medication and verbalized agreement. RAC IV removed d/t catheter not threaded in all the way, new IV started in LFA 22g, IVF running per order. Patient updated on plan of care for the day. Side rails upx2, bed low and locked, call light within reach.
[2020-02-05] MEDS ORDERED: Hydroxyurea 500mg cap ORAL SCH (09:00)
--- NOTE | 2020-02-05 13:50 | History & Physical ---
History and Physical History & Physicial dictated [id number] Heber Vora MD February 05, 2020 13:49
--- NOTE | 2020-02-05 18:56 | NUR ---
HAND-OFF: Report given to Na QURESHI.
--- NOTE | 2020-02-05 20:18 | NUR ---
NURSE NOTES: Received patient in bed, awake, alert, oriented x 4, on room air, able to make his needs known, IV site is clean dry and intact, no acute distress noted. Call light is within reach, bed is lowered, locked, alarm is on, will continue to monitor for comfort and safety.
[2020-02-06] VITALS: BP 119/74
--- NOTE | 2020-02-06 01:29 | History and Physical Report ---
DATE OF ADMISSION: 02/05/2020 CHIEF COMPLAINT: Generalized body aches. HISTORY OF PRESENT ILLNESS: This is a 44-year-old male with a history of sickle cell disease. He came to the emergency room for 1-day history of pain in his upper back and chest, which is typical for his sickle cell crisis. The patient was admitted for further care. PAST MEDICAL HISTORY: No history of heart problems or kidney disease, anemia from sickle cell. MEDICATIONS: Reviewed in the EMR. SOCIAL HISTORY: No history of smoking or alcohol abuse. The patient lives with cousin, used to consume weed, but he stopped doing it. ALLERGIES: No known drug allergies. REVIEW OF SYSTEMS: As above. PHYSICAL EXAMINATION: GENERAL: The patient is a 44-year-old male, in no acute distress. VITAL SIGNS: Blood pressure is 125/84, pulse is 74, temperature 98.2, respirations 19. HEENT: Pale conjunctivae. Anicteric sclerae. NECK: Supple. LUNGS: Clear to auscultation. HEART: S1 and S2 without murmurs or rubs. ABDOMEN: Soft and nontender. EXTREMITIES: No cyanosis or edema. LABORATORY FINDINGS: The CBC shows , hematocrit is 27.1, hemoglobin is 9.8, and platelets 401,000. The chemistry panel shows serum sodium 137, potassium 3.9, chloride 101, CO2 24, BUN 12, creatinine 0.8, glucose is 107, and total bilirubin is 3.1. ASSESSMENT: This is a 44-year-old male who was admitted with sickle cell crisis. PLAN: The patient will be hydrated with IV fluids. Pain medication will be prescribed. We will continue the patient's hydroxyurea. Case was discussed in detail with the patient and also with the RN. Heber Vora M.D. DR: Nelli JOB#: [id number] CC: DONALD
[2020-02-06 04:00] VITALS: BP 127/74
[2020-02-06] MEDS: D5 1/2NS 1,000 ML IV SCH ×3 (04:00→21:40)
--- NOTE | 2020-02-06 07:31 | NUR ---
HAND-OFF: Report given to Kitty QURESHI.
--- NOTE | 2020-02-06 07:45 | NUR ---
NURSE NOTES: Received report from Na QURESHI. Patient is awake and oriented, in no apparent distress, reporting back pain rated 8/10, medicated per order. IVF running per order. Patient updated on plan of care/pain management. Side rails upx2, bed low and locked, call light within reach.
[2020-02-06 08:00] VITALS: BP 121/69
[2020-02-06] MEDS: Hydroxyurea 500mg cap ORAL SCH (08:35)
[2020-02-06 12:00] VITALS: BP 108/61
--- NOTE | 2020-02-06 13:46 | General Progress Note ---
Assessment/Plan Problem List: (1) Sickle cell anemia ICD Codes: D57.1 - Sickle-cell disease without crisis SNOMED: 925537410 (2) Sickle cell crisis ICD Codes: D57.00 - Hb-SS disease with crisis, unspecified SNOMED: 473556037 (3) Dehydration ICD Codes: E86.0 - Dehydration SNOMED: 95214341 Assessment/Plan: IVF pain meds out of bed Subjective Allergies: Coded Allergies: MORPHINE (Verified Allergy, Unknown, 09/02/18) Subjective feels better Objective Last 24 Hour Vital Signs Date Time Temp Pulse Resp B/P (MAP) Pulse Ox O2 Delivery O2 Flow Rate FiO2 02/06/20 12:00 98.3 69 18 108/61 (77) 94 02/06/20 09:00 Room Air 02/06/20 08:00 98.1 72 18 121/69 (86) 94 02/06/20 04:57 98.7 02/06/20 04:00 98.0 74 18 127/74 (91) 98 02/06/20 00:00 98.7 76 18 119/74 (89) 98 02/05/20 21:00 Room Air 02/05/20 20:00 99.2 59 18 112/64 (80) 98 02/05/20 16:00 98.0 80 18 116/67 (83) 94 Intake and Output 02/05/20 02/06/20 19:00 07:00 Intake Total 1400 ml 100 ml Output Total 500 ml Balance 1400 ml -400 ml Intake Oral 400 ml IV Total 1000 ml 100 ml Output Urine Total 500 ml # Voids 2 Height (Feet): 5 Height (Inches): 9.00 Weight (Pounds): 130 Cardiovascular: normal rate Respiratory/Chest: lungs clear Edema: no edema noted Generalized Heber Vora MD February 06, 2020 13:46
[2020-02-06 16:00] VITALS: BP 115/67
--- NOTE | 2020-02-06 19:56 | NUR ---
HAND-OFF: Report given to Rosana QURESHI.
[2020-02-06 20:00] VITALS: BP 104/61
--- NOTE | 2020-02-06 20:15 | NUR ---
NURSE NOTES: Received report from Vidya RN, pt stable with no s/o of distress on RA, IVF on LT fore arm 22G patent asymptomatic , pt c/o of pain 03/31 will give medication as ordered , bed in low locked position, call light with in reach , will continue with plan of care
[2020-02-07] VITALS: BP 108/71
[2020-02-07 04:00] VITALS: BP 110/58
--- NOTE | 2020-02-07 07:55 | NUR ---
HAND-OFF: Report given to Carolyn RN, pt stable
[2020-02-07 08:00] VITALS: BP 101/60
--- NOTE | 2020-02-07 08:05 | NUR ---
NURSE NOTES: pt is AOx4 complaining of pain. Iv site is intact and patent. Pt is not on cardiac or respiratory distress at this moment. Call light within reach, bed is locked and in lowest position. Side rails up x2. Will continue to monitor pt
[2020-02-07] MEDS: Hydroxyurea 500mg cap ORAL SCH (08:43)
[2020-02-07] MEDS: D5 1/2NS 1,000 ML IV SCH ×2 (10:07→23:15)
--- NOTE | 2020-02-07 13:18 | NUR ---
DISCHARGE PLANNING: SPOKE TO PATIENT AT BEDSIDE PATIENT INSURANCE IS PENDING PATIENT WILL F/U AGAIN AFTER DISHCARGE PATIENT STATES HE HAS A [facility] LOCATION FOR DISCHARGE ~CM ASK DR VELEZ FOR DC ORDER TODAY DR. VELEZ STATED NOT READY FOR DC TODAY CM WILL F/U IN AM
--- NOTE | 2020-02-07 14:23 | General Progress Note ---
Assessment/Plan Problem List: (1) Sickle cell anemia ICD Codes: D57.1 - Sickle-cell disease without crisis SNOMED: 053485223 (2) Sickle cell crisis ICD Codes: D57.00 - Hb-SS disease with crisis, unspecified SNOMED: 033408833 (3) Dehydration ICD Codes: E86.0 - Dehydration SNOMED: 85614226 Assessment/Plan: IVF pain meds Discussed with CM Subjective Allergies: Coded Allergies: MORPHINE (Verified Allergy, Unknown, 09/02/18) Subjective more pain today Objective Last 24 Hour Vital Signs Date Time Temp Pulse Resp B/P (MAP) Pulse Ox O2 Delivery O2 Flow Rate FiO2 02/07/20 04:00 98.4 76 18 110/58 (75) 93 02/07/20 00:00 98.8 93 17 108/71 (83) 93 02/06/20 21:00 Room Air 02/06/20 20:00 98.6 82 17 104/61 (75) 92 02/06/20 16:00 97.8 67 16 115/67 (83) 94 Intake and Output 02/06/20 02/07/20 19:00 07:00 Intake Total 1800 ml 300 ml Balance 1800 ml 300 ml Intake Oral 700 ml 300 ml IV Total 1100 ml # Voids 7 Height (Feet): 5 Height (Inches): 9.00 Weight (Pounds): 130 Cardiovascular: normal rate Respiratory/Chest: lungs clear Edema: no edema noted Heber Pablo MD February 07, 2020 14:23
[2020-02-07 16:00] VITALS: BP 112/71
--- NOTE | 2020-02-07 19:30 | NUR ---
NURSE NOTES: Received report from Carolyn RN, pt stable with no s/o of distress on RA, IVF on LT fore arm 22G patent asymptomatic , pt c/o of pain 01/29 will give medication as ordered , bed in low locked position, call light with in reach , will continue with plan of care
--- NOTE | 2020-02-07 19:44 | NUR ---
HAND-OFF: Report given to Rosana/TITUS, pt in stable condition, endorsed plan of care.
[2020-02-07 20:00] VITALS: BP 110/66
[2020-02-08] VITALS: BP 110/67
[2020-02-08 04:00] VITALS: BP 112/64
[2020-02-08] MEDS: D5 1/2NS 1,000 ML IV SCH ×2 (06:00→16:00)
--- NOTE | 2020-02-08 07:20 | NUR ---
HAND-OFF: Report given to chang QURESHI pt stable.
--- NOTE | 2020-02-08 07:55 | NUR ---
NURSE NOTES: Pt in bed, pt complaining of pain 05/01, will medicate pt. Pt is not under any kind of cardiac or respiratory distress at this time. bed in lowest position and locked. Call light within reach, bed side rails up x2. Will continue to monitor.
[2020-02-08 08:26] VITALS: BP 96/56
[2020-02-08] MEDS: Hydroxyurea 500mg cap ORAL SCH (08:53)
[2020-02-08 12:00] VITALS: BP 108/64
--- NOTE | 2020-02-08 15:15 | NUR ---
NURSE NOTES: pt in stable condition, no complains of pain shortness of breath or cardiac distress was reported before DC. discharged via taxi. IV was discontinued. Dario Mahajan was notified of pt DC. pt was educated on keeping hydrated and staying stress free. Discharged paperwork was reviewed with pt. Pt Understands he needs to make follow up appt. within 1 wk of DC. Reviewed home medications with pt. Pt verbalized understanding and will go to primary physician for more pain medications.
--- NOTE | 2020-02-08 16:45 | NUR ---
NURSE NOTES: ok for pt to eat regular food once pt is DC home.
--- NOTE | 2020-02-10 11:09 | Discharge Summary ---
Discharge Summary Discharge Summary _ DATE OF ADMISSION: 02/05/2020 DATE OF DISCHARGE: 02/08/2020 DISCHARGED BY: Dr. Heber Vora REASON FOR ADMISSION: 44 years old male with past medical history of sickle cell disease ,presented for evaluation of generalized pain for 1 day. Pain reported as dull, nonradiating, 10 out of 10. He denied chest pain and shortness of breath. He denied fever or chills. Patient ran out of his pain medication. Upon evaluation patient was afebrile . Pulse oximetry was stable on room air. Laboratory work-up revealed leukocytosis WBC 15.9, hemoglobin 9.8 hematocrit 27.1 . Stable electrolytes and renal parameters. Glucose 107. AST 38, ALT 72. LDH 515. Reticulocyte 9.3. In emergency department patient received IV fluids, analgesic and admitted for further management. HOSPITAL COURSE: Patient admitted to medical surgical floor. Patient received IV fluids. Analgesic provided as needed. Supplemental oxygen provided to keep pulse oximetry above 92%. Patient was continued with Hydrea and folic acid. Patient remained afebrile. Supportive care provided. Patient clinically stabilized and was ready for discharge home. FINAL DIAGNOSES: Sickle cell crisis Sickle cell anemia Dehydration DISCHARGE MEDICATIONS: See Medication Reconciliation list. DISCHARGE INSTRUCTIONS: Patient was discharged home. Patient to follow-up with rare/endangered species specialist in 1 to 2 weeks. I have been assigned to dictate discharge summary for this account. I was not involved in the patient's management. Henna Chery NP February 10, 2020 11:09
--- NOTE | 2020-02-10 17:02 | NUR ---
CASE MANAGEMENT: INITIAL REVIEW 44YR OLD MALE BIBA FROM HOME CC: PAIN SI:SICKLE CELL CRISIS 98.4 16 119/77 99% ON RA WBC 15.9 H/H 9.8/27.1 T.SARITA 3.1 D. SARITA 0.5 AST 38 ALKP 131 LLDH 515 PT 12.0 IS: IVF NS BOLUS X2 IV DILAUDID X2 \: [facility] DCP: HOME WHEN STABLE CASE MANAGEMENT: REVIEW 02/06/20 SI:SICKLE CELL CRISIS 98.1 72 18 121/69 94% ON RA IS: HYDREA PO QD FOLATE PO QD PEPCID PO QD IV D5@ 100ML/HR \: [facility] UN[facility] DCP: HOME WHEN STABLE CASE MANAGEMENT: REVIEW 02/07/20 SI:SICKLE CELL CRISIS 98.5 75 20 101/60 92% ON RA IS: HYDREA PO QD FOLATE PO QD PEPCID PO QD IV D5@ 100ML/HR \: [facility] UN[facility] DCP: HOME WHEN STABLE PLAN: DC IN AM
== END 2020-02-08 16:55 | disposition home or self-care (01) | DRG 812 ==
LOC: EDBD 02:00 → EMR 02:40 → 3E 04:22 → EDBEDREQ 05:59
DX: D57.00 Hb-SS disease with crisis, unspecified (principal); E86.0 Dehydration
CPT/HCPCS: 36415; 80053; 82248; 83615; 85025; 85044; 85610; 85730; 86850; 86900; 86901; 96361; 96374; 96376; 99285

== ENCOUNTER 2020-06-28 23:16 | Inpatient (IN) | payer MEDICAID ==
[~2020-06-28] VITALS: Ht 175.3 cm; Wt 125.0 kg
--- NOTE | 2020-06-28 23:35 | NUR ---
ED Nurse Note: Recieved pt BRYANNA from [facility] with c/o severe generalized pain from sickle cell crisis, pt states pain more in lower back / sacryl area also, pain x 3 days and out if his home meds for 1 week, pt takes 4mg dilaudid pills at home, also c/o nausea, denies fevers, abd pain, diarrhea, sob, chest pain, or any othr compaints or discomforts, pt erich has not been in hospital since december but has ekg and IV markings on extremities which appear new, pt gowned and IV line placed, pt is hard stick, took 3 tries, labs sent, will resume care and medicate pt as ordered with close, continuous monitoring. pt is moaning and groaning in pain with tears.
--- NOTE | 2020-06-28 23:36 | Emergency Room Report ---
History of Present Illness General Chief Complaint: Pain Present Illness HPI 44-year-old male with history of sickle cell anemia here with generalized pain. Patient says that he feels pain in his back, knees, elbows and in his chest. Patient says that the symptoms are similar to his usual sickle cell pain crises. Patient says that the pain started about 1 hour prior to coming to the emergency department. He takes folic acid and hydroxyurea but claims to have run out of at home pain medication. Pain is dull in nature, located diffusely throughout his body. Chest pain is also dull in nature. Denies headaches, vision changes, fevers, chills, palpitations, cough, dysuria. 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 Nursing Documentation-PMH Hx Cancer: No Hx Gastrointestinal Problems: No Hx Neurological Problems: No Review of Systems All Other Systems: negative except mentioned in HPI Physical Exam Vital Signs Date Time Temp Pulse Resp B/P (MAP) Pulse Ox O2 Delivery O2 Flow Rate FiO2 06/28/20 23:19 98.1 75 18 118/73 (88) 99 Room Air Sp02 EP Interpretation: reviewed, normal General Appearance: alert, GCS 15, non-toxic, mild distress, other - Appears generally uncomfortable Head: normocephalic, atraumatic Eyes: bilateral eye normal inspection, bilateral eye PERRL ENT: hearing grossly normal, normal pharynx, no angioedema, normal voice Neck: full range of motion, supple/symm/no masses Respiratory: chest non-tender, lungs clear, normal breath sounds, speaking full sentences Cardiovascular #1: regular rate, rhythm, no edema Cardiovascular #2: 2+ carotid (R), 2+ carotid (L), 2+ radial (R), 2+ radial (L), 2+ dorsalis pedis (R), 2+ dorsalis pedis (L) Gastrointestinal: normal bowel sounds, non tender, soft, non-distended, no guarding, no rebound Rectal: deferred Genitourinary: normal inspection, no CVA tenderness Musculoskeletal: back normal, normal range of motion, gait/station normal, tender - Pain on palpation and range of motion of the bilateral elbows and knees and lower back Neurologic: alert, motor strength/tone normal, oriented x3, sensory intact, responsive, speech normal Psychiatric: judgement/insight normal, memory normal, mood/affect normal, no suicidal/homicidal ideation Lymphatic: no adenopathy Medical Decision Making Diagnostic Impression: Primary Impression: Sickle cell crisis Additional Impressions: UTI (urinary tract infection) Sickle cell anemia ER Course EKG: NSR, no ischemia, intervals WNL. No ectopy Rhythm strip: patient monitored for arrhythmias - no malignant dysrhythmias, runs of PVCs, nor pauses noted Laboratory Tests Test 06/28/20 23:45 06/29/20 00:50 White Blood Count 12.4 K/UL (4.8-10.8) H Red Blood Count 2.81 M/UL (4.70-6.10) L Hemoglobin 9.9 G/DL (14.2-18.0) L Hematocrit 26.8 % (42.0-52.0) L Mean Corpuscular Volume 95 FL (80-99) Mean Corpuscular Hemoglobin 35.1 PG (27.0-31.0) H Mean Corpuscular Hemoglobin Concent 36.8 G/DL (32.0-36.0) H Red Cell Distribution Width 21.5 % (11.6-14.8) H Platelet Count 282 K/UL (150-450) Mean Platelet Volume 5.4 FL (6.5-10.1) L Neutrophils (%) (Auto) % (45.0-75.0) Lymphocytes (%) (Auto) % (20.0-45.0) Monocytes (%) (Auto) % (1.0-10.0) Eosinophils (%) (Auto) % (0.0-3.0) Basophils (%) (Auto) % (0.0-2.0) Reticulocyte Count 0.9 % (0.5-2.0) Sodium Level 140 MMOL/L (136-145) Potassium Level 4.6 MMOL/L (3.5-5.1) Chloride Level 103 MMOL/L (98-107) Carbon Dioxide Level 22 MMOL/L (21-32) Anion Gap 15 mmol/L (5-15) Blood Urea Nitrogen 14 mg/dL (7-18) Creatinine 0.6 MG/DL (0.55-1.30) Estimated Glomerular Filtration Rate > 60 mL/min (>60) Glucose Level 107 MG/DL (74-106) H Calcium Level 9.0 MG/DL (8.5-10.1) Total Bilirubin 4.3 MG/DL (0.2-1.0) H Direct Bilirubin 0.2 MG/DL (0.0-0.3) Aspartate Amino Transferase (AST) 52 U/L (15-37) H Alanine Aminotransferase (ALT) 19 U/L (12-78) Alkaline Phosphatase 85 U/L (46-116) Total Protein 8.3 G/DL (6.4-8.2) H Albumin 4.5 G/DL (3.4-5.0) Globulin 3.8 g/dL Albumin/Globulin Ratio 1.2 (1.0-2.7) Urine Color Yellow Urine Appearance Clear Urine pH 6 (4.5-8.0) Urine Specific [place] 1.010 (1.005-1.035) Urine Protein 1+ (NEGATIVE) H Urine Glucose (UA) Negative (NEGATIVE) Urine Ketones Negative (NEGATIVE) Urine Blood 1+ (NEGATIVE) H Urine Nitrite Negative (NEGATIVE) Urine Bilirubin Negative (NEGATIVE) Urine Urobilinogen 1 MG/DL (0.0-1.0) H Urine Leukocyte Esterase 1+ (NEGATIVE) H Urine RBC 0-2 /HPF (0 - 0) H Urine WBC 0-2 /HPF (0 - 0) Urine Squamous Epithelial Cells None /LPF (NONE/OCC) Urine Bacteria None /HPF (NONE) Microbiology Date/Time Source Procedure Growth Status 06/29/20 00:35 Nasopharynx SARS-CoV-2 RdRp Gene Assay - Final Complete Chest x-ray: No infiltrate/effusion. Mediastinum within normal limits 44-year-old male with history of sickle cell anemia here with chest pain, diffuse body pain. Patient says "this feels like my usual sickle cell crises." Patient was hemodynamically stable and neurovascularly intact throughout his stay in the emergency department. Chest x-ray was unremarkable and did not show any evidence of acute chest syndrome. He had a stable hemoglobin of 9.9 which is near his baseline. Reticulocyte percentage 0.9. He required multiple doses of IV pain medications including a total of 4 mg of Dilaudid, 30 mg of Toradol, 50 mg of Benadryl IV. Despite this the patient still complaining of pain. Urinalysis showed some evidence of urinary tract infection including leukocyte esterase. Patient was started on ceftriaxone in the emergency department. Admitted to [facility] in stable condition for intractable sickle cell pain. Last Vital Signs Date Time Temp Pulse Resp B/P (MAP) Pulse Ox O2 Delivery O2 Flow Rate FiO2 06/28/20 23:19 98.1 75 18 118/73 (88) 99 Room Air Scripts Hydrocodone Bit/Acetaminophen 5-325* ([place] 5-325 TABLET*) 1 Each Tablet 1 TAB ORAL Q4H PRN for For Pain, #10 TAB Prov: Devon Ortez M.D. 06/29/20 Cephalexin* (KEFLEX*) 500 Mg Capsule 500 MG ORAL EVERY 12 HOURS, #14 CAP 0 Refills Prov: Devon Ortez M.D. 06/29/20 Referrals: NON PHYSICIAN (PCP) Devon Ortez M.D. Jun 28, 2020 23:36
[2020-06-28] MEDS ORDERED: DiphenhydrAMINE 50mg/ml Inj ONE (23:59)
[2020-06-29] VITALS (9 sets, daily range): BP systolic 96–155; BP diastolic 67–97
[2020-06-29 00:13] LABS: HEMATOCRIT 26.8 % (42.0-52.0); HEMOGLOBIN 9.9 G/DL (14.2-18.0); MEAN CORPUSCULAR VOLUME 95 FL (80-99); PLATELET COUNT 282 K/UL (150-450); RED BLOOD COUNT 2.81 M/UL (4.70-6.10); RED CELL DISTRIBUTION WIDTH 21.5 % (11.6-14.8); WHITE BLOOD COUNT 12.4 K/UL (4.8-10.8)
[2020-06-29 00:23] LABS: ANION GAP 15 mmol/L (5-15); BLOOD UREA NITROGEN 14 mg/dL (7-18); CARBON DIOXIDE 22 MMOL/L (21-32); CHLORIDE 103 MMOL/L (98-107); CREATININE 0.6 MG/DL (0.55-1.30); POTASSIUM 4.6 MMOL/L (3.5-5.1); SODIUM 140 MMOL/L (136-145)
[2020-06-29 00:33] LABS: ALANINE AMINOTRANSFERASE 19 U/L (12-78); ALBUMIN 4.5 G/DL (3.4-5.0); ALBUMIN/GLOBULIN RATIO 1.2 (1.0-2.7); ALKALINE PHOSPHATASE 85 U/L (46-116); ASPARTATE AMINO TRANSFERASE 52 U/L (15-37); BILIRUBIN,TOTAL 4.3 MG/DL (0.2-1.0)
[2020-06-29] MEDS ORDERED: HYDROmorphone 1mg/ml Carpuject IVP ONE ×2 (01:00→02:00)
[2020-06-29 01:06] LABS: BILIRUBIN,DIRECT 0.2 MG/DL (0.0-0.3)
[2020-06-29 01:19] LABS: APPEARANCE,URINE CLEAR; BILIRUBIN, URINE NEGATIVE (NEGATIVE); GLUCOSE, URINE (UA) NEGATIVE (NEGATIVE); KETONES,URINE NEGATIVE (NEGATIVE); LEUKOCYTE ESTERASE ,URINE 1+ (NEGATIVE); NITRITE,URINE NEGATIVE (NEGATIVE); PH,URINE 6 (4.5-8.0); PROTEIN,URINE 1+ (NEGATIVE); UROBILINOGEN,URINE 1 MG/DL (0.0-1.0)
[2020-06-29 01:21] LABS: COLOR,URINE YELLOW
[2020-06-29] MEDS ORDERED: CEPHALEXIN500 MG ORAL (01:45)
[2020-06-29] MEDS ORDERED: NORCO 5-325 TA1 EAC1 ORAL (01:46)
[2020-06-29] MEDS ORDERED: DiphenhydrAMINE 50mg/ml Inj IVP ONE ×2 (02:00)
--- NOTE | 2020-06-29 02:15 | NUR ---
ED Nurse Note: Meds given for pain slightly effective, pt states they dont last long, pt asking for more pain meds, given as ordered, will monitor for effectiveness, v/s stable, no sob or labored breathing, pt in room cryng due to pain, no chest pain, pt just states he is very un-comfortable, MD aware, preparing pt for admission.
[2020-06-29] MEDS ORDERED: cefTRIAXone 1 GM in NS 55 ML IVPB ONE (03:30)
[2020-06-29] MEDS ORDERED: Ketorolac 30mg Inj IV ONE (03:30)
--- NOTE | 2020-06-29 03:30 | NUR ---
ED Nurse Note: Pt continues to rest n bed, when pt ses staf he begins to moan and groan and yel out "please help me", pt IV site patent, pt constantly asking for dilaudid, stating we are not giving him enough, aware, receved or john for toradol and rocephin, pt now has room for admission, report called to floor nurse TITUS Delatorre, pt had all belongings and iist completed, pt denies hospital admission for past 30 days, v/s stavle, no cp, sob or labored brathing, pt being taken to floor bed via gurney with rn, noted during pt transport and IV antibiotics infusing, no s/s of adverse reaction noted.
[2020-06-29] MEDS ORDERED: DiphenhydrAMINE 50mg/ml Inj IVP PRN (04:45)
[2020-06-29] MEDS ORDERED: HYDROcodone/Acetamin 5/325 tab ORAL PRN (04:45)
--- NOTE | 2020-06-29 07:19 | NUR ---
HAND-OFF: Report given to Tanesha Godinez RN.
--- NOTE | 2020-06-29 07:41 | NUR ---
NURSE NOTES: Report received from Becca QURESHI. Patient seen on rounds, asleep but easily rousable, not in distress, nurse reports patient received Dilaudid IV 2mg for pain recently with relief of symptoms. PIV on left hand running NS @ 75ml/hr. Patient is continent and able to use bedside urinal. Bed low and locked, siderails up x2, call light placed within reach and instructed to call nurse for assistance. Will continue to monitor.
[2020-06-29] MEDS: Hydroxyurea 500mg cap ORAL SCH (08:11)
--- NOTE | 2020-06-29 08:23 | NUR ---
CASE MANAGEMENT: REVIEW 44 YEAR OLD MALE PRESENTED TO ED FROM HOME CC: PAIN 07/01 SI: SICKLE CELL CRISIS . SICKLE CELL ANEMIA T 98.1 HR 75 RR 18 BP 118/73 SAT 99% ROOM AIR WBC 12.4 H/H 9.9/26.8 IS: CEFTRIAXONE IV X1 TORADOL IV X1 BENADRYL IV X1 DILAUDID IV X1 NS IVF BOLUS X1 PATIENT ADMITTED TO MED/SURG UNIT 06/29/2020 DCP: PATIENT IS FROM HOME
[2020-06-29] MEDS ORDERED: Naloxone 0.4mg/ml Inj IVP PRN (09:30)
[2020-06-29] MEDS ORDERED: Methocarbamol 500mg tab ORAL PRN (09:30)
[2020-06-29] MEDS ORDERED: HYDROcodone/Acetamin 10/325 tab ORAL PRN (09:30)
--- NOTE | 2020-06-29 09:31 | Consultation ---
History of Present Illness General Date patient seen: Jun 29, 2020 Chief Complaint: Present Illness Allergies: Coded Allergies: MORPHINE (Verified Allergy, Unknown, 09/02/18) Medication History Scheduled Cephalexin* (Keflex*), 500 MG ORAL EVERY 12 HOURS Folic Acid* (Folic Acid*), 1 MG ORAL DAILY, (Reported) Hydroxyurea (Hydroxyurea), 500 MG PO DAILY, (Reported) Scheduled PRN Hydrocodone Bit/Acetaminophen 5-325* ([place] 5-325 Tablet*), 1 TAB ORAL Q4H PRN for For Pain Patient History Healthcare decision maker Resuscitation status Advanced Directive on File Physical Exam Last 24 Hour Vital Signs Date Time Temp Pulse Resp B/P (MAP) Pulse Ox O2 Delivery O2 Flow Rate FiO2 06/29/20 06:23 98.0 06/29/20 04:06 98.0 74 20 96/67 (77) 94 06/29/20 04:05 Room Air 06/29/20 03:45 98.5 78 18 118/68 96 Room Air 06/29/20 03:45 98.0 06/29/20 02:30 98.5 78 18 118/68 96 Room Air 06/29/20 01:38 98.5 06/29/20 01:38 98.5 06/29/20 01:16 98.5 06/29/20 01:00 98.1 84 22 119/70 97 Room Air 06/28/20 23:19 98.1 75 18 118/73 (88) 99 Room Air Intake and Output 06/28/20 06/29/20 18:59 06:59 Intake Total 75 ml Output Total 700 ml Balance -625 ml Intake IV Total 75 ml Output Urine Total 700 ml # Voids 2 Laboratory Tests Test 06/28/20 23:45 06/29/20 00:50 White Blood Count 12.4 K/UL (4.8-10.8) H Red Blood Count 2.81 M/UL (4.70-6.10) L Hemoglobin 9.9 G/DL (14.2-18.0) L Hematocrit 26.8 % (42.0-52.0) L Mean Corpuscular Volume 95 FL (80-99) Mean Corpuscular Hemoglobin 35.1 PG (27.0-31.0) H Mean Corpuscular Hemoglobin Concent 36.8 G/DL (32.0-36.0) H Red Cell Distribution Width 21.5 % (11.6-14.8) H Platelet Count 282 K/UL (150-450) Mean Platelet Volume 5.4 FL (6.5-10.1) L Neutrophils (%) (Auto) % (45.0-75.0) Lymphocytes (%) (Auto) % (20.0-45.0) Monocytes (%) (Auto) % (1.0-10.0) Eosinophils (%) (Auto) % (0.0-3.0) Basophils (%) (Auto) % (0.0-2.0) Reticulocyte Count 0.9 % (0.5-2.0) Sodium Level 140 MMOL/L (136-145) Potassium Level 4.6 MMOL/L (3.5-5.1) Chloride Level 103 MMOL/L (98-107) Carbon Dioxide Level 22 MMOL/L (21-32) Anion Gap 15 mmol/L (5-15) Blood Urea Nitrogen 14 mg/dL (7-18) Creatinine 0.6 MG/DL (0.55-1.30) Estimat Glomerular Filtration Rate > 60 mL/min (>60) Glucose Level 107 MG/DL (74-106) H Calcium Level 9.0 MG/DL (8.5-10.1) Total Bilirubin 4.3 MG/DL (0.2-1.0) H Direct Bilirubin 0.2 MG/DL (0.0-0.3) Aspartate Amino Transf (AST/SGOT) 52 U/L (15-37) H Alanine Aminotransferase (ALT/SGPT) 19 U/L (12-78) Alkaline Phosphatase 85 U/L (46-116) Total Protein 8.3 G/DL (6.4-8.2) H Albumin 4.5 G/DL (3.4-5.0) Globulin 3.8 g/dL Albumin/Globulin Ratio 1.2 (1.0-2.7) Urine Color Yellow Urine Appearance Clear Urine pH 6 (4.5-8.0) Urine Specific [place] 1.010 (1.005-1.035) Urine Protein 1+ (NEGATIVE) H Urine Glucose (UA) Negative (NEGATIVE) Urine Ketones Negative (NEGATIVE) Urine Blood 1+ (NEGATIVE) H Urine Nitrite Negative (NEGATIVE) Urine Bilirubin Negative (NEGATIVE) Urine Urobilinogen 1 MG/DL (0.0-1.0) H Urine Leukocyte Esterase 1+ (NEGATIVE) H Urine RBC 0-2 /HPF (0 - 0) H Urine WBC 0-2 /HPF (0 - 0) Urine Squamous Epithelial Cells None /LPF (NONE/OCC) Urine Bacteria None /HPF (NONE) Microbiology Date/Time Source Procedure Growth Status 06/29/20 00:35 Nasopharynx SARS-CoV-2 RdRp Gene Assay - Final Complete Height (Feet): 5 Height (Inches): 9.00 Weight (Pounds): 129 Medications Current Medications Medications (Trade) Dose Ordered Sig/Christina Route PRN Reason Start Time Stop Time Status Last Admin Dose Admin Acetaminophen (Tylenol) 650 mg Q6H PRN ORAL For Headache 06/29/20 04:45 07/29/20 04:44 Acetaminophen/ Hydrocodone Bitart ([place] 5/325) 1 tab Q6H PRN ORAL For Pain 06/29/20 04:45 07/06/20 04:44 06/29/20 08:18 Ceftriaxone Sodium 1 gm/ Dextrose 55 ml @ 110 mls/hr Q24H IVPB 06/30/20 08:00 07/07/20 07:59 Diphenhydramine HCl (Benadryl) 25 mg Q6H PRN IVP Itching 06/29/20 04:45 07/29/20 04:44 Folic Acid (Folate) 1 mg DAILY ORAL 06/29/20 09:00 07/29/20 08:59 06/29/20 08:11 Hydromorphone HCl (Dilaudid) 2 mg Q3H PRN IVP Severe Pain (Pain Scale 7-10) 06/29/20 09:00 07/06/20 08:59 06/29/20 09:02 Hydroxyurea (Hydrea) 500 mg DAILY ORAL 06/29/20 09:00 07/04/20 08:59 06/29/20 08:11 Ondansetron HCl (Zofran) 4 mg Q4H PRN IVP Nausea & Vomiting 06/29/20 04:45 07/29/20 04:44 Sodium Chloride 1,000 ml @ 75 mls/hr [id number] IV 06/29/20 04:45 07/29/20 04:44 06/29/20 04:58 Assessment/Plan Assessment/Plan: (1) Sickle cell disease (2) Sickle cell crisis (3) Intractable pain seen dictated Nathanael Sheridan Jun 29, 2020 09:31
--- NOTE | 2020-06-29 11:45 | Consultation ---
DATE OF CONSULTATION: 06/29/2020 PAIN MANAGEMENT CONSULTATION CONSULTING PHYSICIAN: Lauryn Riojas M.D. REFERRING PHYSICIAN: Jose Abarca MD. PHYSICIAN ADMITTING INTERVIEWER: Tequila Lezama CHIEF COMPLAINT: Generalized body pain. HISTORY OF PRESENT ILLNESS: The patient is a 44-year-old male, who is being seen on the medical surgical floor of [facility] for comprehensive pain management consultation. The patient is a known patient from previous hospitalization, now admitted under the care of Dr. Abarca due to sickle cell crisis, having severe generalized body pain, started on Dilaudid 2 mg IV every three hours as needed for severe pain and [place] 5/325 mg every six hours as needed for pain with minimal pain relief. Due to this, we were consulted so the patient would have adequate pain control while here in hospital. REVIEW OF SYSTEMS: Denies rash, fever, chills, sweating, dizziness, drowsiness, blurred vision, sore throat or change in weight. No shortness of breath or chest pain. No nausea, vomiting, diarrhea, blood in the stool or urine. No dysuria. PHYSICAL EXAMINATION: GENERAL: Alert, awake, and oriented. VITAL SIGNS: Blood pressure 148/67, heart rate is 75, oxygen saturation 94%, respiratory rate 20, and temperature 98 degrees Fahrenheit. LUNGS: Decreased breath sounds bilaterally. HEART: S1 and S2, regular. ABDOMEN: Soft, nontender. EXTREMITIES: No cyanosis. No clubbing. No edema. NEUROLOGICAL: No focal deficit. ASSESSMENT AND PLAN: This is a 44-year-old male with sickle cell disease, sickle cell crisis, intractable pain. The patient will be continued on Dilaudid. [place] will be increased to 10 mg tablet every four hours as needed for moderate breakthrough pain. We will start Neurontin 300 mg tablet three times a day and Robaxin 500 mg tablet every 8 hours as needed for muscle spasm. Parameters will be set to hold opioids for oversedation or lethargy or systolic blood pressure below 90 or diastolic blood pressure below 60, or respiratory rate below 12, or oxygen saturation 94%, or heart rate below 69. The patient was discussed with Dr. Riojas and Dr. Riojas concurred. We will follow the patient. Thank you very much for the courtesy of this consultation. Lauryn Riojas M.D. LINDA Lezama DR: ALLAN JOB#: [id number] CC: DONALD
--- NOTE | 2020-06-29 14:00 | History & Physical ---
History of Present Illness General Reason for Hospitalization: Pain Present Illness HPI 44 y/o male w/ hx sickle cell anemia presents with pain he feels typical of acute crisis. pain in multiple areas. ran out of meds a week ago . Also noted with possible UTI in ED and started on antibiotics. Allergies: Coded Allergies: MORPHINE (Verified Allergy, Unknown, 09/02/18) COVID-19 Screening Contact w/high risk pt: No Recent Travel to affected area: No Experienced COVID-19 symptoms?: No Medication History Scheduled Cephalexin* (Keflex*), 500 MG ORAL EVERY 12 HOURS Folic Acid* (Folic Acid*), 1 MG ORAL DAILY, (Reported) Hydroxyurea (Hydroxyurea), 500 MG PO DAILY, (Reported) Scheduled PRN Hydrocodone Bit/Acetaminophen 5-325* (Taberg 5-325 Tablet*), 1 TAB ORAL Q4H PRN for For Pain Patient History Healthcare decision maker Resuscitation status Advanced Directive on File Review of Systems Review of Symptoms General ROS: no weight loss or fever Psychological ROS: no depression or mood changes, no memory loss Ophthalmic ROS: no visual changes or eye irritation ENT ROS: no nasal congestion, hearing loss, dizziness Allergy and Immunology ROS: no allergic symptoms or urticaria Hematological and Lymphatic ROS: no swollen glands, unusual bleeding or bruising Endocrine ROS: no polyuria, polydipsia, weight changes, temperature intolerance Respiratory ROS: no cough, shortness of breath, or wheezing Cardiovascular ROS: no chest pain or dyspnea on exertion Gastrointestinal ROS: denies abdominal pain, bright red blood in stool. Musculoskeletal ROS: no myalgias or arthralgias Neurological ROS: no TIA or stroke symptoms Dermatological ROS: no new or changing skin lesions, rashes or pruritis Physical Exam Physical Exam General appearance: alert, cooperative, no distress, appears stated age Head: Normocephalic, without obvious abnormality, atraumatic Eyes: conjunctivae/corneas clear. PERRL, EOM's intact. Fundi benign Throat: Lips, mucosa, and tongue normal. Teeth and gums normal Neck: supple, symmetrical, trachea midline, no adenopathy, thyroid: not enlarged, symmetric, no tenderness/mass/nodules, no carotid bruit and no JVD Lungs: clear to auscultation bilaterally Heart: regular rate and rhythm, S1, S2 normal, no murmur, click, rub or gallop Abdomen: soft, non-tender. Bowel sounds normal. No masses, no organomegaly Extremities: extremities normal, atraumatic, no cyanosis or edema Pulses: 2+ and symmetric Skin: Skin color, texture, turgor normal. No rashes or lesions Neurologic: Grossly normal Last 24 Hour Vital Signs Date Time Temp Pulse Resp B/P (MAP) Pulse Ox O2 Delivery O2 Flow Rate FiO2 06/29/20 09:00 Room Air 06/29/20 08:00 98.2 85 20 141/97 (112) 94 06/29/20 06:23 98.0 06/29/20 04:06 98.0 74 20 96/67 (77) 94 06/29/20 04:05 Room Air 06/29/20 03:45 98.5 78 18 118/68 96 Room Air 06/29/20 03:45 98.0 06/29/20 02:30 98.5 78 18 118/68 96 Room Air 06/29/20 01:38 98.5 06/29/20 01:38 98.5 06/29/20 01:16 98.5 06/29/20 01:00 98.1 84 22 119/70 97 Room Air 06/28/20 23:19 98.1 75 18 118/73 (88) 99 Room Air Intake and Output 06/28/20 06/29/20 19:00 07:00 Intake Total 150 ml Output Total 700 ml Balance -550 ml Intake IV Total 150 ml Output Urine Total 700 ml # Voids 2 Laboratory Tests Test 06/28/20 23:45 06/29/20 00:50 White Blood Count 12.4 K/UL (4.8-10.8) H Red Blood Count 2.81 M/UL (4.70-6.10) L Hemoglobin 9.9 G/DL (14.2-18.0) L Hematocrit 26.8 % (42.0-52.0) L Mean Corpuscular Volume 95 FL (80-99) Mean Corpuscular Hemoglobin 35.1 PG (27.0-31.0) H Mean Corpuscular Hemoglobin Concent 36.8 G/DL (32.0-36.0) H Red Cell Distribution Width 21.5 % (11.6-14.8) H Platelet Count 282 K/UL (150-450) Mean Platelet Volume 5.4 FL (6.5-10.1) L Neutrophils (%) (Auto) % (45.0-75.0) Lymphocytes (%) (Auto) % (20.0-45.0) Monocytes (%) (Auto) % (1.0-10.0) Eosinophils (%) (Auto) % (0.0-3.0) Basophils (%) (Auto) % (0.0-2.0) Reticulocyte Count 0.9 % (0.5-2.0) Sodium Level 140 MMOL/L (136-145) Potassium Level 4.6 MMOL/L (3.5-5.1) Chloride Level 103 MMOL/L (98-107) Carbon Dioxide Level 22 MMOL/L (21-32) Anion Gap 15 mmol/L (5-15) Blood Urea Nitrogen 14 mg/dL (7-18) Creatinine 0.6 MG/DL (0.55-1.30) Estimat Glomerular Filtration Rate > 60 mL/min (>60) Glucose Level 107 MG/DL (74-106) H Calcium Level 9.0 MG/DL (8.5-10.1) Total Bilirubin 4.3 MG/DL (0.2-1.0) H Direct Bilirubin 0.2 MG/DL (0.0-0.3) Aspartate Amino Transf (AST/SGOT) 52 U/L (15-37) H Alanine Aminotransferase (ALT/SGPT) 19 U/L (12-78) Alkaline Phosphatase 85 U/L (46-116) Total Protein 8.3 G/DL (6.4-8.2) H Albumin 4.5 G/DL (3.4-5.0) Globulin 3.8 g/dL Albumin/Globulin Ratio 1.2 (1.0-2.7) Urine Color Yellow Urine Appearance Clear Urine pH 6 (4.5-8.0) Urine Specific [place] 1.010 (1.005-1.035) Urine Protein 1+ (NEGATIVE) H Urine Glucose (UA) Negative (NEGATIVE) Urine Ketones Negative (NEGATIVE) Urine Blood 1+ (NEGATIVE) H Urine Nitrite Negative (NEGATIVE) Urine Bilirubin Negative (NEGATIVE) Urine Urobilinogen 1 MG/DL (0.0-1.0) H Urine Leukocyte Esterase 1+ (NEGATIVE) H Urine RBC 0-2 /HPF (0 - 0) H Urine WBC 0-2 /HPF (0 - 0) Urine Squamous Epithelial Cells None /LPF (NONE/OCC) Urine Bacteria None /HPF (NONE) Microbiology Date/Time Source Procedure Growth Status 06/29/20 00:35 Nasopharynx SARS-CoV-2 RdRp Gene Assay - Final Complete Height (Feet): 5 Height (Inches): 9.00 Weight (Pounds): 129 Medications Current Medications Medications (Trade) Dose Ordered Sig/Christina Route PRN Reason Start Time Stop Time Status Last Admin Dose Admin Acetaminophen (Tylenol) 650 mg Q6H PRN ORAL For Headache 06/29/20 04:45 07/29/20 04:44 Acetaminophen/ Hydrocodone Bitart (Taberg 10) 1 tab Q4H PRN ORAL Moderate Breakthru Pain (5-7) 06/29/20 09:30 07/06/20 09:29 Ceftriaxone Sodium 1 gm/ Dextrose 55 ml @ 110 mls/hr Q24H IVPB 06/30/20 08:00 07/07/20 07:59 Diphenhydramine HCl (Benadryl) 25 mg Q6H PRN IVP Itching 06/29/20 04:45 07/29/20 04:44 Folic Acid (Folate) 1 mg DAILY ORAL 06/29/20 09:00 07/29/20 08:59 06/29/20 08:11 Gabapentin (Neurontin) 300 mg THREE TIMES A DAY ORAL 06/29/20 10:00 07/29/20 09:59 06/29/20 12:03 Hydromorphone HCl (Dilaudid) 2 mg Q3H PRN IVP Severe Pain (Pain Scale 7-10) 06/29/20 09:00 07/06/20 08:59 06/29/20 11:55 Hydroxyurea (Hydrea) 500 mg DAILY ORAL 06/29/20 09:00 07/04/20 08:59 06/29/20 08:11 Methocarbamol (Robaxin) 500 mg Q8H PRN ORAL muscle spasm 06/29/20 09:30 07/29/20 09:29 Naloxone HCl (Narcan) 0.2 mg Q2M PRN IVP RR<8min 06/29/20 09:30 09/27/20 09:29 Ondansetron HCl (Zofran) 4 mg Q4H PRN IVP Nausea & Vomiting 06/29/20 04:45 07/29/20 04:44 Sodium Chloride 1,000 ml @ 75 mls/hr [id number] IV 06/29/20 04:45 07/29/20 04:44 06/29/20 04:58 Assessment/Plan Assessment/Plan: Assessment: * sickle cell crisis * possible UTI Plan: * pain control * IVf * pain consult * Heme consult * ceftriaxone for UTI for now, f/u cultures * ppx: heparin SC [facility] Hospital declaration INPATIENT level of care is warranted for this patient because patient is a 89 year old with who presents with suspicion of . I have a high level of concern because . Patient is at high risk for . Plan of care/treatment include . Patient care is expected to be greater than 2 midnights. OBSERVATION level of care is warranted for this patient. Patient is a 89 year old with who presents with . Patient will be admitted for 1 midnight, but if additional night(s) is/are necessary, patient will be converted to inpatient status for the entire hospitalization Disposition: Once the patient is stable to leave the hospital, I anticipate the patient will likely be discharged to the following environment: Estimated discharge date: I spent 70 minutes on this patient's case, and minutes was dedicated to counseling and/or care coordination. MIPS (Merit-based Incentive Payment System) Applicable CPT: 25892, 12684 CHECK ALL THAT ARE MET: Measure #5 (CHF): All ages. Prescribe [place]NA/ARB upon discharge for patients with left ventricular systolic dysfunction. If not, the reason is clearly documented in the medical chart. Measure #8 (CHF): All ages. Prescribe a beta dianna upon discharge for patients with left ventricular systolic dysfunction. If not, the reason is clearly documented in the medical chart. Measure #47 Advance care plan or surrogate decision maker documented in the medical record. Measure #130 The provider has documented, updated, or reviewed the patients current medication list and has documented it in the patients note. Measure #374 (All): Send report to referring provider. Measure #407(Sepsis due to MSSA bacteremia): Age 18+ Patient treated with a be ta-lactam antibiotic (Nafcillin, Oxacillin or Cefazolin) as definitive therapy. MEDICAL COMPLEXITY High complexity medical decision making (need 2/3 categories) Problem - need 4 points Acute/new problem with new plan for workup (4 points, 1 max) Acute/new problem without additional workup (3 points, 1 max) Unstable chronic problem actively being managed (2 point each, 2 max) Stable chronic problem actively being managed (1 point each, 2 max) Self-limited/transient process (constipation, muscle ache, etc) (1 point each, 2 max) Data - need 4 points Reviewed labs/imaging studies (1 points, 2 max) Independent review of imaging (EKG, xrays, etc) (2 points, 2 max) Discussed case with consult/other MD/RN (2 points, 2 max) High Risk - qualify if have one of the following: Severe exacerbation of acute problem, acute mental status change, IV narcotics, monitoring drug levels (vancomycin, INR, tacrolimus etc) Jose Abarca MD Jun 29, 2020 14:00
[2020-06-29] MEDS: Heparin 5000 units/ml inj SUBQ SCH ×2 (14:31→20:55)
--- NOTE | 2020-06-29 15:58 | Diagnostic Imaging Report ---
Indication: Chest pain Technique: One view of the chest Comparison: 06/15/2019 Findings: The heart is upper limits normal in size. The lungs and pleural spaces are clear. The bones are diffusely osteosclerotic. There is mild upper thoracic scoliotic deformity. There are cholecystectomy clips Impression: No acute process Diffuse bony sclerosis, also previously reported
--- NOTE | 2020-06-29 19:26 | NUR ---
NURSE HAND-OFF: Important Events on Shift: IV reinserted on left upper arm; Dr. Perez new consult Patient Status: Stable Diet: Regular Pending Orders: CBC in AM Pending Results/Labs: Hemoglobin electropheresis Pending MD notification: None Latest Vital Signs: Temperature 99.3 , Pulse 95 , B/P 133 /80 , Respiratory Rate 20 , O2 SAT 95 , Room Air, O2 Flow Rate . Vital Sign Comment: Latest Grubbs Fall Score: 35 Fall Risk: Medium Risk Safety Measures: Call light Within Reach, Bed Alarm Zone 2, Side Rails Side Rails x2, Bed position Low and Locked. Fall Precautions: Patient Fall Education Report given to Becca QURESHI.
--- NOTE | 2020-06-29 19:34 | NUR ---
NURSE NOTES: Received patient awake, alert, verbal, resting in bed, watching television.
[2020-06-30 04:00] VITALS: BP 139/71
[2020-06-30 06:04] LABS: BASOPHILS % (AUTO) 3.9 % (0.0-2.0); HEMATOCRIT 28.4 % (42.0-52.0); HEMOGLOBIN 10.3 G/DL (14.2-18.0); LYMPHOCYTES % (AUTO) 22.1 % (20.0-45.0); MEAN CORPUSCULAR VOLUME 96 FL (80-99); MONOCYTES % (AUTO) 7.7 % (1.0-10.0); NEUTROPHILS % (AUTO) 66.3 % (45.0-75.0); PLATELET COUNT 276 K/UL (150-450); RED BLOOD COUNT 2.96 M/UL (4.70-6.10); RED CELL DISTRIBUTION WIDTH 22.5 % (11.6-14.8)
--- NOTE | 2020-06-30 07:00 | NUR ---
HAND-OFF: Report given to TITUS Stokes.
--- NOTE | 2020-06-30 07:03 | NUR ---
NURSE NOTES: Report received from Becca QURESHI. Patient seen on rounds, asleep but easily rousable, not in distress, nurse reports patient received Dilaudid IV 2mg for pain with relief of symptoms. PIV on left upper arm running NS @ 75ml/hr. Patient is continent and able to use bedside urinal. AM labs drawn. Bed low and locked, siderails up x2, call light placed within reach and instructed to call nurse for assistance. Will continue to monitor.
[2020-06-30 08:00] VITALS: BP 111/76
--- NOTE | 2020-06-30 08:22 | Pulmonology Progress Note ---
Henna Chery PHOTOGRAPHS CURATOR 06/30/20 0822: Subjective Allergies: Coded Allergies: MORPHINE (Verified Allergy, Unknown, 09/02/18) Subjective mild leukocytosis, afebrile pain generalized, controlled with analgesics Objective Last 24 Hour Vital Signs Date Time Temp Pulse Resp B/P (MAP) Pulse Ox O2 Delivery O2 Flow Rate FiO2 06/30/20 07:06 98.8 06/30/20 04:05 98.8 06/30/20 04:00 98.2 84 20 139/71 (93) 92 06/30/20 00:53 98.8 06/29/20 23:52 98.8 88 20 133/81 (98) 93 06/29/20 21:29 99.7 06/29/20 20:24 Room Air 06/29/20 20:03 99.7 90 22 146/80 (102) 93 06/29/20 18:16 99.3 06/29/20 16:00 99.3 95 20 133/80 (97) 95 06/29/20 12:00 98.2 85 20 127/81 (96) 94 06/29/20 09:00 Room Air Intake and Output 06/29/20 06/30/20 19:00 07:00 Intake Total 500 ml 1260 ml Output Total 660 ml Balance -160 ml 1260 ml Intake Oral 500 ml IV Total 860 ml Other 400 ml Output Urine Total 660 ml # Voids 8 General Appearance: no acute distress HEENT: normocephalic, atraumatic, anicteric, mucous membranes moist Respiratory: lungs clear, no respiratory distress, no accessory muscle use Cardiovascular: normal rate Abdomen: soft, non tender Extremities: no edema, pedal pulses normal Neurologic: no motor/sensory deficits, alert Musculoskeletal: normal muscle bulk Microbiology Date/Time Source Procedure Growth Status 06/29/20 00:35 Nasopharynx SARS-CoV-2 RdRp Gene Assay - Final Complete Laboratory Tests 06/29/20 17:15: Hemoglobin A [Pending], Hemoglobin A2 [Pending], Hemoglobin C [Pending], Hemoglobin F () [Pending], Hemoglobin S [Pending], Variant Hemoglobin [Pending], Hemoglobin Electrophoresis Interp [Pending], Hemoglobin Interpretation [Pending], Hemoglobin Solubility [Pending] 06/30/20 05:14: White Blood Count 13.0H, Red Blood Count 2.96L, Hemoglobin 10.3L, Hematocrit 28.4L, Mean Corpuscular Volume 96, Mean Corpuscular Hemoglobin 34.8H, Mean Corpuscular Hemoglobin Concent 36.3H, Red Cell Distribution Width 22.5H, Platelet Count 276, Mean Platelet Volume 5.9L, Neutrophils (%) (Auto) 66.3, Lymphocytes (%) (Auto) 22.1, Monocytes (%) (Auto) 7.7, Eosinophils (%) (Auto) 0.0, Basophils (%) (Auto) 3.9H Current Medications Medications (Trade) Dose Ordered Sig/Christina Route PRN Reason Start Time Stop Time Status Last Admin Dose Admin Acetaminophen (Tylenol) 650 mg Q6H PRN ORAL For Headache 06/29/20 04:45 07/29/20 04:44 Acetaminophen/ Hydrocodone Bitart ([place] ) 1 tab Q4H PRN ORAL Moderate Breakthru Pain (5-7) 06/29/20 09:30 07/06/20 09:29 Ceftriaxone Sodium 1 gm/ Dextrose 55 ml @ 110 mls/hr Q24H IVPB 06/30/20 08:00 07/07/20 07:59 Diphenhydramine HCl (Benadryl) 25 mg Q6H PRN IVP Itching 06/29/20 04:45 07/29/20 04:44 Folic Acid (Folate) 1 mg DAILY ORAL 06/29/20 09:00 07/29/20 08:59 06/29/20 08:11 Gabapentin (Neurontin) 300 mg THREE TIMES A DAY ORAL 06/29/20 10:00 07/29/20 09:59 06/29/20 17:46 Heparin Sodium (Porcine) (Heparin 5000 units/ml) 5,000 units EVERY 12 HOURS SUBQ 06/29/20 14:15 08/13/20 14:14 06/29/20 20:55 Hydromorphone HCl (Dilaudid) 2 mg Q3H PRN IVP Severe Pain (Pain Scale 7-10) 06/29/20 09:00 07/06/20 08:59 06/30/20 06:36 Hydroxyurea (Hydrea) 500 mg DAILY ORAL 06/29/20 09:00 07/04/20 08:59 06/29/20 08:11 Methocarbamol (Robaxin) 500 mg Q8H PRN ORAL muscle spasm 06/29/20 09:30 07/29/20 09:29 Naloxone HCl (Narcan) 0.2 mg Q2M PRN IVP RR<8min 06/29/20 09:30 09/27/20 09:29 Ondansetron HCl (Zofran) 4 mg Q4H PRN IVP Nausea & Vomiting 06/29/20 04:45 07/29/20 04:44 Sodium Chloride 1,000 ml @ 75 mls/hr [id number] IV 06/29/20 04:45 07/29/20 04:44 06/30/20 06:37 Assessment/Plan Assessment/Plan ASSESSMENT sickle cell crisis anemia of sickle cell disease leukocytosis dehydration possible UTI PLAN OF CARE MS floor generous IVF hydration O2 prn titrate to keep sat > 92% pain control per pain specialist recs heme consult trend LDH - 967 ceftriaxone for UTI for now, f/u cultures ppx: heparin SC case discussed and evaluated by supervising physician Jose bAarca MD 06/30/20 1416: Subjective Allergies: Coded Allergies: MORPHINE (Verified Allergy, Unknown, 09/02/18) Assessment/Plan Assessment/Plan Patient seen and examined with PHOTOGRAPHS CURATOR and the above formulated assessment and plan. Henna Chery NP Jun 30, 2020 08:22 Jose Abarca MD Jun 30, 2020 14:16
--- NOTE | 2020-06-30 08:32 | Consultation ---
History of Present Illness General Chief Complaint: Pain Present Illness Allergies: Coded Allergies: MORPHINE (Verified Allergy, Unknown, 09/02/18) Medication History Scheduled Cephalexin* (Keflex*), 500 MG ORAL EVERY 12 HOURS Folic Acid* (Folic Acid*), 1 MG ORAL DAILY, (Reported) Hydroxyurea (Hydroxyurea), 500 MG PO DAILY, (Reported) Scheduled PRN Hydrocodone Bit/Acetaminophen 5-325* (Zoar 5-325 Tablet*), 1 TAB ORAL Q4H PRN for For Pain Patient History Healthcare decision maker Resuscitation status Advanced Directive on File Physical Exam Last 24 Hour Vital Signs Date Time Temp Pulse Resp B/P (MAP) Pulse Ox O2 Delivery O2 Flow Rate FiO2 06/30/20 07:06 98.8 06/30/20 04:05 98.8 06/30/20 04:00 98.2 84 20 139/71 (93) 92 06/30/20 00:53 98.8 06/29/20 23:52 98.8 88 20 133/81 (98) 93 06/29/20 21:29 99.7 06/29/20 20:24 Room Air 06/29/20 20:03 99.7 90 22 146/80 (102) 93 06/29/20 18:16 99.3 06/29/20 16:00 99.3 95 20 133/80 (97) 95 06/29/20 12:00 98.2 85 20 127/81 (96) 94 06/29/20 09:00 Room Air Intake and Output 06/29/20 06/30/20 19:00 07:00 Intake Total 500 ml 1260 ml Output Total 660 ml Balance -160 ml 1260 ml Intake Oral 500 ml IV Total 860 ml Other 400 ml Output Urine Total 660 ml # Voids 8 Laboratory Tests Test 06/29/20 17:15 06/30/20 05:14 Hemoglobin A Pending Hemoglobin A2 Pending Hemoglobin C Pending Hemoglobin F () Pending Hemoglobin S Pending Variant Hemoglobin Pending Hemoglobin Electrophoresis Interp Pending Hemoglobin Interpretation Pending Hemoglobin Solubility Pending White Blood Count 13.0 K/UL (4.8-10.8) H Red Blood Count 2.96 M/UL (4.70-6.10) L Hemoglobin 10.3 G/DL (14.2-18.0) L Hematocrit 28.4 % (42.0-52.0) L Mean Corpuscular Volume 96 FL (80-99) Mean Corpuscular Hemoglobin 34.8 PG (27.0-31.0) H Mean Corpuscular Hemoglobin Concent 36.3 G/DL (32.0-36.0) H Red Cell Distribution Width 22.5 % (11.6-14.8) H Platelet Count 276 K/UL (150-450) Mean Platelet Volume 5.9 FL (6.5-10.1) L Neutrophils (%) (Auto) 66.3 % (45.0-75.0) Lymphocytes (%) (Auto) 22.1 % (20.0-45.0) Monocytes (%) (Auto) 7.7 % (1.0-10.0) Eosinophils (%) (Auto) 0.0 % (0.0-3.0) Basophils (%) (Auto) 3.9 % (0.0-2.0) H Height (Feet): 5 Height (Inches): 9.00 Weight (Pounds): 129 Medications Current Medications Medications (Trade) Dose Ordered Sig/Christina Route PRN Reason Start Time Stop Time Status Last Admin Dose Admin Acetaminophen (Tylenol) 650 mg Q6H PRN ORAL For Headache 06/29/20 04:45 07/29/20 04:44 Acetaminophen/ Hydrocodone Bitart (Zoar 10/325) 1 tab Q4H PRN ORAL Moderate Breakthru Pain (5-7) 06/29/20 09:30 07/06/20 09:29 Ceftriaxone Sodium 1 gm/ Dextrose 55 ml @ 110 mls/hr Q24H IVPB 06/30/20 08:00 07/07/20 07:59 Diphenhydramine HCl (Benadryl) 25 mg Q6H PRN IVP Itching 06/29/20 04:45 07/29/20 04:44 Folic Acid (Folate) 1 mg DAILY ORAL 06/29/20 09:00 07/29/20 08:59 06/29/20 08:11 Gabapentin (Neurontin) 300 mg THREE TIMES A DAY ORAL 06/29/20 10:00 07/29/20 09:59 06/29/20 17:46 Heparin Sodium (Porcine) (Heparin 5000 units/ml) 5,000 units EVERY 12 HOURS SUBQ 06/29/20 14:15 08/13/20 14:14 06/29/20 20:55 Hydromorphone HCl (Dilaudid) 2 mg Q3H PRN IVP Severe Pain (Pain Scale 7-10) 06/29/20 09:00 07/06/20 08:59 06/30/20 06:36 Hydroxyurea (Hydrea) 500 mg DAILY ORAL 06/29/20 09:00 07/04/20 08:59 06/29/20 08:11 Methocarbamol (Robaxin) 500 mg Q8H PRN ORAL muscle spasm 06/29/20 09:30 07/29/20 09:29 Naloxone HCl (Narcan) 0.2 mg Q2M PRN IVP RR<8min 06/29/20 09:30 09/27/20 09:29 Ondansetron HCl (Zofran) 4 mg Q4H PRN IVP Nausea & Vomiting 06/29/20 04:45 07/29/20 04:44 Sodium Chloride 1,000 ml @ 75 mls/hr [id number] IV 06/29/20 04:45 07/29/20 04:44 06/30/20 06:37 Assessment/Plan Assessment/Plan: Hematology Consultation REQ MD: Callie Abarca RFC: SS crisis DOS: 06/30/2020 HPI 44 year-old male who presented after increased back pain. I saw him back in 2018 with a similar presentation. Patient had recent onset of symptoms. He reports having increased sharp pain. Patient states that he had prior history of sickle cell disease. Taking hydroxyurea as well as. The patient reports being followed by hematology [facility]. rhgb remains low at this time, retic has been ordered, have reviewed prior crisis episodes and I have seen him back in 2019. Coded Allergies: morphine Past Medical History: see triage record Reviewed Nursing Documentation: PMH: Agreed; PSxH: Agreed Past Medical History: No History, Except For Review of Systems All Other Systems: negative except mentioned in HPI Physical Exam VS reviewed, normal Gen: normal inspection, well appearing, no apparent distress ENT: normal ENT inspection, hearing grossly normal, normal voice Pulm: normal inspection, lungs clear, normal breath sounds, no respiratory distress, no retraction, no wheezing CV: regular rate, rhythm, no edema GI: normal inspection, normal bowel sounds : no CVA tenderness MSK: normal inspection, back normal Neuro: normal inspection, alert, oriented x3, responsive Labs: noted Imaging: noted Assessment and Recs # SIckle cell crisis, 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 - Patient presented for sickle cell pain/crisis last eval in 2017, is on hydroxyurea, and folic acid --> hgb electrophoresis showed SS homozygous back in 2018 --> pain management as per pain team --> retic is 1.9 --> incentive maksim --> hydroxyurea continuem, and folic acid as outpatient --> MLK jr f/u as outpatient --> hgb 7.8-->9-->10.3 --> baseline hgb outside of crisis approx 9-10 range though he himself does not recall --> ferritin is 1834--> indicating iron overload, likely will need future c helation rx # Anemia of sickle cell disease --> trend as needed --> hgb goal >7 --> some hemolysis is noted --> 06/16 blood tx on hold due to elevated temp # Hyperbili- likely related to sickle cell disease --> trend as needed, should improve # Leukocytosis possible uti # Dehydration -- administer fluids # Dvt ppx ambulation/hep sq The timing of this note does not necessarily reflect the time of the patient was seen. Greatly appreciate consultation. Zackery Perez MD Jun 30, 2020 08:32
[2020-06-30] MEDS: cefTRIAXone 1 GM in D5W 55 ML IVPB SCH (08:51)
[2020-06-30] MEDS: Heparin 5000 units/ml inj SUBQ SCH ×2 (08:53→21:06)
[2020-06-30] MEDS: Hydroxyurea 500mg cap ORAL SCH (08:53)
--- NOTE | 2020-06-30 10:31 | NUR ---
RD ASSESSMENT & RECOMMENDATIONS SEE CARE ACTIVITY FOR COMPLETE ASSESSMENT DAILY ESTIMATED NEEDS: Needs based on Underweight, wasting 58.6kg 30-35 kcals/kg 5312-7513 total kcals 1-1.5 g protein/kg 59-88 g total protein 25-35ml/kcal mL/kg 4769-4077 total fluid mLs NUTRITION DIAGNOSIS: Increased kcal and pro needs r/t underweight status as evidenced by pt is 81% of [place] Body Weight, w/ BL LE severe wasting. CURRENT DIET: Regular PO DIET RECOMMENDATIONS: Regular diet ADDITIONAL RECOMMENDATIONS: 1) add Ensure TID w/ meals (350 kcal/20g pro each) 2) Snacks in b.w meals 3) Obtain standing weights as able
--- NOTE | 2020-06-30 11:11 | General Progress Note ---
Subjective Date patient seen: Jun 30, 2020 Time patient seen: 09:45 - am Genitourinary: Reports: incontinence Allergies: Coded Allergies: MORPHINE (Verified Allergy, Unknown, 09/02/18) Subjective REVIEW OF SYSTEMS: Denies rash, fever, chills, sweating, dizziness, drowsiness, blurred vision, sore throat or change in weight. No shortness of breath or chest pain. No nausea, vomiting, diarrhea, blood in the stool or urine. No dysuria. HISTORY OF PRESENT ILLNESS: The patient is a 44-year-old male, who is being seen on the medical surgical floor of [facility]. Patient is in bed and showing no signs of pain or distress. Pain has been at a moderate level tolerated on the Dilaudid using 9 doses in the last 24hrs. No new complaints at this time. Objective Last 24 Hour Vital Signs Date Time Temp Pulse Resp B/P (MAP) Pulse Ox O2 Delivery O2 Flow Rate FiO2 06/30/20 09:00 Room Air 06/30/20 08:00 99.5 90 20 111/76 (88) 98 06/30/20 07:06 98.8 06/30/20 04:05 98.8 06/30/20 04:00 98.2 84 20 139/71 (93) 92 06/30/20 00:53 98.8 06/29/20 23:52 98.8 88 20 133/81 (98) 93 06/29/20 21:29 99.7 06/29/20 20:24 Room Air 06/29/20 20:03 99.7 90 22 146/80 (102) 93 06/29/20 18:16 99.3 06/29/20 16:00 99.3 95 20 133/80 (97) 95 06/29/20 12:00 98.2 85 20 127/81 (96) 94 Intake and Output 06/29/20 06/30/20 19:00 07:00 Intake Total 500 ml 1260 ml Output Total 660 ml Balance -160 ml 1260 ml Intake Oral 500 ml IV Total 860 ml Other 400 ml Output Urine Total 660 ml # Voids 8 Laboratory Tests 06/29/20 17:15: Hemoglobin A [Pending], Hemoglobin A2 [Pending], Hemoglobin C [Pending], Hemoglobin F () [Pending], Hemoglobin S [Pending], Variant Hemoglobin [Pending], Hemoglobin Electrophoresis Interp [Pending], Hemoglobin Interpretation [Pending], Hemoglobin Solubility [Pending] 06/30/20 05:14: White Blood Count 13.0H, Red Blood Count 2.96L, Hemoglobin 10.3L, Hematocrit 28.4L, Mean Corpuscular Volume 96, Mean Corpuscular Hemoglobin 34.8H, Mean Corpuscular Hemoglobin Concent 36.3H, Red Cell Distribution Width 22.5H, Platelet Count 276, Mean Platelet Volume 5.9L, Neutrophils (%) (Auto) 66.3, Lymphocytes (%) (Auto) 22.1, Monocytes (%) (Auto) 7.7, Eosinophils (%) (Auto) 0.0, Basophils (%) (Auto) 3.9H, Reticulocyte Count [Pending] 06/30/20 08:50: Lactate Dehydrogenase 967H Height (Feet): 5 Height (Inches): 9.00 Weight (Pounds): 129 Objective PHYSICAL EXAMINATION: GENERAL: Alert, awake, and oriented. LUNGS: Decreased breath sounds bilaterally. HEART: S1 and S2, regular. ABDOMEN: Soft, nontender. EXTREMITIES: No cyanosis. No clubbing. No edema. NEUROLOGICAL: No changes. Assessment/Plan Assessment/Plan: (1) Sickle cell disease (2) Sickle cell crisis (3) Intractable pain Patient to be continued on Dilaudid and [place]. D/w Dr. Riojas and he concurred. Nathanael Sheridan Jun 30, 2020 11:11
[2020-06-30 12:00] VITALS: BP 115/80
--- NOTE | 2020-06-30 15:15 | NUR ---
CASE MANAGEMENT:REVIEW SI;SICKLE CELL CRISIS. SICKLE CELL ANEMIA. 99.7 94 20 139/71 92% ON RA WBC 13.0 H/H 10.3/28.4 LDH 967 IS;ROCEPHIN IV Q24 HEPARIN SUBQ Q12 DILAUDID IV Q3 HYDREA PO QD IVF NS @ 75 ML/HR MED SURG STATUS DCP;FROM HOME
[2020-06-30 16:00] VITALS: BP 139/75
[2020-06-30 18:00] VITALS: BP 139/75
--- NOTE | 2020-06-30 19:25 | NUR ---
NURSE HAND-OFF: Important Events on Shift: No adverse events noted Patient Status: Stable Diet: Regular Pending Orders: None Pending Results/Labs:CBC in AM Pending MD notification: None Latest Vital Signs: Temperature 100.0 , Pulse 81 , B/P 139 /75 , Respiratory Rate 20 , O2 SAT 100 , Room Air, O2 Flow Rate . Vital Sign Comment: Latest Grubbs Fall Score: 35 Fall Risk: Medium Risk Safety Measures: Call light Within Reach, Bed Alarm Zone 2, Side Rails Side Rails x2, Bed position Low and Locked. Fall Precautions: Patient Fall Education Report given to Jose L QURESHI.
--- NOTE | 2020-06-30 19:36 | NUR ---
NURSE NOTES: Patient awake in bed, alert and oriented x 4, no complaint at this time, on room air, no SOB noted. IV access on the left upper arm. Instructed to use call light for assistance. Bed in lowest, lock engaged and alarm on. Will continue to monitor.
[2020-06-30 20:00] VITALS: BP 119/76
--- NOTE | 2020-06-30 22:50 | NUR ---
NURSE NOTES: Received report from Vandana to continue plan of care. AAO x 4, on NC 2L. Pain meds will be given as ordered. No acute distress noted. Bed locked, lowest position, alarm on, side rails up, call light within reach. Will continue to monitor.
--- NOTE | 2020-06-30 23:04 | NUR ---
HAND-OFF: Report given to TITUS Xavier.
[2020-07-01] VITALS: BP 110/90
[2020-07-01 04:00] VITALS: BP 118/71
--- NOTE | 2020-07-01 06:32 | NUR ---
NURSE HAND-OFF: Important Events on Shift:Pain management Patient Status: stable Diet: Reg Pending Orders: N Pending Results/Labs:AM labs Pending MD notification:N Latest Vital Signs: Temperature 98.6 , Pulse 90 , B/P 118 /71 , Respiratory Rate 20 , O2 SAT 92 , Room Air, O2 Flow Rate . Vital Sign Comment: [] Latest Grubbs Fall Score: 35 Fall Risk: Medium Risk Safety Measures: Call light Within Reach, Bed Alarm Zone 2, Side Rails Side Rails x2, Bed position Low and Locked. Fall Precautions: Patient Fall Education Addendum: 07/01/20 at 0740 by ISSA DYER RN RN HAND-OFF: Report given to
--- NOTE | 2020-07-01 07:34 | NUR ---
NURSE NOTES: Report received from TITUS Wagner. Patient in bed, awake, alert and oriented x 4, no SOB, be din lowest position with alarm on and break engaged, on 02 via NC at 2 L/min, denies any pain or discomfort at this time, IV present on left shoulder, will continue to monitor and proceed with plan of care, call light within reach.
[2020-07-01 07:41] LABS: BASOPHILS % (AUTO) 3.1 % (0.0-2.0); EOSINOPHILS % (AUTO) 0.1 % (0.0-3.0); HEMATOCRIT 25.6 % (42.0-52.0); HEMOGLOBIN 9.2 G/DL (14.2-18.0); MEAN CORPUSCULAR VOLUME 95 FL (80-99); MONOCYTES % (AUTO) 10.6 % (1.0-10.0); NEUTROPHILS % (AUTO) 73.2 % (45.0-75.0); PLATELET COUNT 266 K/UL (150-450); RED BLOOD COUNT 2.68 M/UL (4.70-6.10); RED CELL DISTRIBUTION WIDTH 20.6 % (11.6-14.8); WHITE BLOOD COUNT 11.2 K/UL (4.8-10.8)
[2020-07-01 08:00] VITALS: BP 133/82
[2020-07-01] MEDS: Hydroxyurea 500mg cap ORAL SCH (08:06)
[2020-07-01] MEDS: cefTRIAXone 1 GM in D5W 55 ML IVPB SCH (08:07)
[2020-07-01] MEDS: Heparin 5000 units/ml inj SUBQ SCH ×2 (08:08→21:31)
--- NOTE | 2020-07-01 08:13 | Hematology/Onc Progress Note ---
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 - Patient presented for sickle cell pain/crisis last eval in 2018, is on hydroxyurea, and folic acid --> hgb electrophoresis showed SS homozygous back in 2018 --> pain management as per pain team --> retic is 1.9 --> incentive maksim --> hydroxyurea continuem, and folic acid as outpatient --> MLK jr f/u as outpatient --> hgb 7.8-->9-->10.3--> 9.2 --> baseline hgb outside of crisis approx 9-10 range though he himself does not recall --> ferritin is 1834--> indicating iron overload, likely will need future chelation rx # Anemia of sickle cell disease --> trend as needed --> hgb goal >7 --> some hemolysis is noted --> 06/16 blood tx on hold due to elevated temp # Hyperbili- likely related to sickle cell disease --> trend as needed, should improve # Leukocytosis possible uti --> wbc 11.2--> # Dehydration -- administer fluids # Dvt ppx ambulation/hep sq The timing of this note does not necessarily reflect the time of the patient was seen. Greatly appreciate consultation. Subjective Allergies: Coded Allergies: MORPHINE (Verified Allergy, Unknown, 09/02/18) Subjective Subjective: 07/01: labs reviewed hgb is stale. Objective Objective Current Medications Medications (Trade) Dose Ordered Sig/Christina Route PRN Reason Start Time Stop Time Status Last Admin Dose Admin Acetaminophen (Tylenol) 650 mg Q6H PRN ORAL For Headache 06/29/20 04:45 07/29/20 04:44 07/01/20 00:26 Acetaminophen/ Hydrocodone Bitart ([place] 10/325) 1 tab Q4H PRN ORAL Moderate Breakthru Pain (5-7) 06/29/20 09:30 07/06/20 09:29 Ceftriaxone Sodium 1 gm/ Dextrose 55 ml @ 110 mls/hr Q24H IVPB 06/30/20 08:00 07/07/20 07:59 07/01/20 08:07 Diphenhydramine HCl (Benadryl) 25 mg Q6H PRN IVP Itching 06/29/20 04:45 07/29/20 04:44 Folic Acid (Folate) 1 mg DAILY ORAL 06/29/20 09:00 07/29/20 08:59 07/01/20 08:06 Gabapentin (Neurontin) 300 mg THREE TIMES A DAY ORAL 06/29/20 10:00 07/29/20 09:59 07/01/20 08:06 Heparin Sodium (Porcine) (Heparin 5000 units/ml) 5,000 units EVERY 12 HOURS SUBQ 06/29/20 14:15 08/13/20 14:14 07/01/20 08:08 Hydromorphone HCl (Dilaudid) 2 mg Q3H PRN IVP Severe Pain (Pain Scale 7-10) 06/29/20 09:00 07/06/20 08:59 07/01/20 06:27 Hydroxyurea (Hydrea) 500 mg DAILY ORAL 06/29/20 09:00 07/04/20 08:59 07/01/20 08:06 Methocarbamol (Robaxin) 500 mg Q8H PRN ORAL muscle spasm 06/29/20 09:30 07/29/20 09:29 Naloxone HCl (Narcan) 0.2 mg Q2M PRN IVP RR<8min 06/29/20 09:30 09/27/20 09:29 Ondansetron HCl (Zofran) 4 mg Q4H PRN IVP Nausea & Vomiting 06/29/20 04:45 07/29/20 04:44 Sodium Chloride 1,000 ml @ 75 mls/hr [id number] IV 06/29/20 04:45 07/29/20 04:44 06/30/20 20:55 Last 24 Hour Vital Signs Date Time Temp Pulse Resp B/P (MAP) Pulse Ox O2 Delivery O2 Flow Rate FiO2 07/01/20 04:00 98.6 90 20 118/71 (87) 92 07/01/20 00:56 98.2 07/01/20 00:00 100.2 103 18 110/90 (97) 98 06/30/20 21:00 Room Air 06/30/20 20:00 98.4 89 18 119/76 (90) 100 06/30/20 18:00 99.5 81 20 139/75 (96) 100 06/30/20 16:00 100.0 81 20 139/75 (96) 100 06/30/20 12:00 99.0 94 20 115/80 (92) 98 06/30/20 09:00 Room Air 06/30/20 08:00 99.5 90 20 111/76 (88) 98 06/30/20 07:06 98.8 06/30/20 04:05 98.8 06/30/20 04:00 98.2 84 20 139/71 (93) 92 06/30/20 00:53 98.8 06/29/20 23:52 98.8 88 20 133/81 (98) 93 06/29/20 21:29 99.7 06/29/20 20:24 Room Air 06/29/20 20:03 99.7 90 22 146/80 (102) 93 06/29/20 18:16 99.3 06/29/20 16:00 99.3 95 20 133/80 (97) 95 06/29/20 12:00 98.2 85 20 127/81 (96) 94 06/29/20 09:00 Room Air Intake and Output 06/30/20 07/01/20 19:00 07:00 Intake Total 1600 ml 525 ml Output Total 1800 ml 1400 ml Balance -200 ml -875 ml Intake Oral 720 ml IV Total 880 ml 525 ml Output Urine Total 1800 ml 1400 ml Labs Test 06/28/20 23:45 06/29/20 00:50 06/29/20 17:15 06/30/20 05:14 White Blood Count 12.4 K/UL (4.8-10.8) 13.0 K/UL (4.8-10.8) Red Blood Count 2.81 M/UL (4.70-6.10) 2.96 M/UL (4.70-6.10) Hemoglobin 9.9 G/DL (14.2-18.0) 10.3 G/DL (14.2-18.0) Hematocrit 26.8 % (42.0-52.0) 28.4 % (42.0-52.0) Mean Corpuscular Volume 95 FL (80-99) 96 FL (80-99) Mean Corpuscular Hemoglobin 35.1 PG (27.0-31.0) 34.8 PG (27.0-31.0) Mean Corpuscular Hemoglobin Concent 36.8 G/DL (32.0-36.0) 36.3 G/DL (32.0-36.0) Red Cell Distribution Width 21.5 % (11.6-14.8) 22.5 % (11.6-14.8) Platelet Count 282 K/UL (150-450) 276 K/UL (150-450) Mean Platelet Volume 5.4 FL (6.5-10.1) 5.9 FL (6.5-10.1) Neutrophils (%) (Auto) % (45.0-75.0) 66.3 % (45.0-75.0) Lymphocytes (%) (Auto) % (20.0-45.0) 22.1 % (20.0-45.0) Monocytes (%) (Auto) % (1.0-10.0) 7.7 % (1.0-10.0) Eosinophils (%) (Auto) % (0.0-3.0) 0.0 % (0.0-3.0) Basophils (%) (Auto) % (0.0-2.0) 3.9 % (0.0-2.0) Reticulocyte Count 0.9 % (0.5-2.0) 6.2 % (0.5-2.0) Sodium Level 140 MMOL/L (136-145) Potassium Level 4.6 MMOL/L (3.5-5.1) Chloride Level 103 MMOL/L (98-107) Carbon Dioxide Level 22 MMOL/L (21-32) Anion Gap 15 mmol/L (5-15) Blood Urea Nitrogen 14 mg/dL (7-18) Creatinine 0.6 MG/DL (0.55-1.30) Estimat Glomerular Filtration Rate > 60 mL/min (>60) Glucose Level 107 MG/DL (74-106) Calcium Level 9.0 MG/DL (8.5-10.1) Total Bilirubin 4.3 MG/DL (0.2-1.0) Direct Bilirubin 0.2 MG/DL (0.0-0.3) Aspartate Amino Transf (AST/SGOT) 52 U/L (15-37) Alanine Aminotransferase (ALT/SGPT) 19 U/L (12-78) Alkaline Phosphatase 85 U/L (46-116) Total Protein 8.3 G/DL (6.4-8.2) Albumin 4.5 G/DL (3.4-5.0) Globulin 3.8 g/dL Albumin/Globulin Ratio 1.2 (1.0-2.7) Urine Color Yellow Urine Appearance Clear Urine pH 6 (4.5-8.0) Urine Specific [place] 1.010 (1.005-1.035) Urine Protein 1+ (NEGATIVE) Urine Glucose (UA) Negative (NEGATIVE) Urine Ketones Negative (NEGATIVE) Urine Blood 1+ (NEGATIVE) Urine Nitrite Negative (NEGATIVE) Urine Bilirubin Negative (NEGATIVE) Urine Urobilinogen 1 MG/DL (0.0-1.0) Urine Leukocyte Esterase 1+ (NEGATIVE) Urine RBC 0-2 /HPF (0 - 0) Urine WBC 0-2 /HPF (0 - 0) Urine Squamous Epithelial Cells None /LPF (NONE/OCC) Urine Bacteria None /HPF (NONE) Test 06/30/20 08:50 07/01/20 06:35 Lactate Dehydrogenase 967 U/L (81-234) White Blood Count 11.2 K/UL (4.8-10.8) Red Blood Count 2.68 M/UL (4.70-6.10) Hemoglobin 9.2 G/DL (14.2-18.0) Hematocrit 25.6 % (42.0-52.0) Mean Corpuscular Volume 95 FL (80-99) Mean Corpuscular Hemoglobin 34.2 PG (27.0-31.0) Mean Corpuscular Hemoglobin Concent 35.8 G/DL (32.0-36.0) Red Cell Distribution Width 20.6 % (11.6-14.8) Platelet Count 266 K/UL (150-450) Mean Platelet Volume 5.9 FL (6.5-10.1) Neutrophils (%) (Auto) 73.2 % (45.0-75.0) Lymphocytes (%) (Auto) 13.0 % (20.0-45.0) Monocytes (%) (Auto) 10.6 % (1.0-10.0) Eosinophils (%) (Auto) 0.1 % (0.0-3.0) Basophils (%) (Auto) 3.1 % (0.0-2.0) Height (Feet): 5 Height (Inches): 9.00 Weight (Pounds): 129 Objective Physical Exam VS reviewed, normal Gen: normal inspection, well appearing, no apparent distress ENT: normal ENT inspection, hearing grossly normal, normal voice Pulm: normal inspection, lungs clear, normal breath sounds, no respiratory distress, no retraction, no wheezing CV: regular rate, rhythm, no edema GI: normal inspection, normal bowel sounds : no CVA tenderness MSK: normal inspection, back normal Neuro: normal inspection, alert, oriented x3, responsive Kiara Woodruff NP Jul 01, 2020 08:13
--- NOTE | 2020-07-01 10:22 | Pulmonology Progress Note ---
Henna Chery LOCK SETTER 07/01/20 1022: Subjective Allergies: Coded Allergies: MORPHINE (Verified Allergy, Unknown, 09/02/18) Subjective mild leukocytosis, afebrile pain generalized, persists controlled with analgesics HH at baseline Objective Last 24 Hour Vital Signs Date Time Temp Pulse Resp B/P (MAP) Pulse Ox O2 Delivery O2 Flow Rate FiO2 07/01/20 09:55 98.8 07/01/20 09:00 Room Air 07/01/20 08:00 98.8 88 20 133/82 (99) 95 07/01/20 04:00 98.6 90 20 118/71 (87) 92 07/01/20 00:56 98.2 07/01/20 00:00 100.2 103 18 110/90 (97) 98 06/30/20 21:00 Room Air 06/30/20 20:00 98.4 89 18 119/76 (90) 100 06/30/20 18:00 99.5 81 20 139/75 (96) 100 06/30/20 16:00 100.0 81 20 139/75 (96) 100 06/30/20 12:00 99.0 94 20 115/80 (92) 98 Intake and Output 06/30/20 07/01/20 19:00 07:00 Intake Total 1600 ml 525 ml Output Total 1800 ml 1400 ml Balance -200 ml -875 ml Intake Oral 720 ml IV Total 880 ml 525 ml Output Urine Total 1800 ml 1400 ml General Appearance: no acute distress HEENT: normocephalic, atraumatic, anicteric, mucous membranes moist Respiratory: lungs clear, no respiratory distress, no accessory muscle use Cardiovascular: normal rate Abdomen: soft, non tender Extremities: no edema, pedal pulses normal Neurologic: no motor/sensory deficits, alert Musculoskeletal: normal muscle bulk Microbiology Date/Time Source Procedure Growth Status 06/29/20 00:35 Nasopharynx SARS-CoV-2 RdRp Gene Assay - Final Complete Laboratory Tests 07/01/20 06:35: White Blood Count 11.2H, Red Blood Count 2.68L, Hemoglobin 9.2L, Hematocrit 25.6L, Mean Corpuscular Volume 95, Mean Corpuscular Hemoglobin 34.2H, Mean Corpuscular Hemoglobin Concent 35.8, Red Cell Distribution Width 20.6H, Platelet Count 266, Mean Platelet Volume 5.9L, Neutrophils (%) (Auto) 73.2, Lymphocytes (%) (Auto) 13.0L, Monocytes (%) (Auto) 10.6H, Eosinophils (%) (Auto) 0.1, Basophils (%) (Auto) 3.1H Current Medications Medications (Trade) Dose Ordered Sig/Christina Route PRN Reason Start Time Stop Time Status Last Admin Dose Admin Acetaminophen (Tylenol) 650 mg Q6H PRN ORAL For Headache 06/29/20 04:45 07/29/20 04:44 07/01/20 00:26 Acetaminophen/ Hydrocodone Bitart ([place] ) 1 tab Q4H PRN ORAL Moderate Breakthru Pain (5-7) 06/29/20 09:30 07/06/20 09:29 Ceftriaxone Sodium 1 gm/ Dextrose 55 ml @ 110 mls/hr Q24H IVPB 06/30/20 08:00 07/07/20 07:59 07/01/20 08:07 Diphenhydramine HCl (Benadryl) 25 mg Q6H PRN IVP Itching 06/29/20 04:45 07/29/20 04:44 Folic Acid (Folate) 1 mg DAILY ORAL 06/29/20 09:00 07/29/20 08:59 07/01/20 08:06 Gabapentin (Neurontin) 300 mg THREE TIMES A DAY ORAL 06/29/20 10:00 07/29/20 09:59 07/01/20 08:06 Heparin Sodium (Porcine) (Heparin 5000 units/ml) 5,000 units EVERY 12 HOURS SUBQ 06/29/20 14:15 08/13/20 14:14 07/01/20 08:08 Hydromorphone HCl (Dilaudid) 2 mg Q3H PRN IVP Severe Pain (Pain Scale 7-10) 06/29/20 09:00 07/06/20 08:59 07/01/20 09:25 Hydroxyurea (Hydrea) 500 mg DAILY ORAL 06/29/20 09:00 07/04/20 08:59 07/01/20 08:06 Methocarbamol (Robaxin) 500 mg Q8H PRN ORAL muscle spasm 06/29/20 09:30 07/29/20 09:29 Naloxone HCl (Narcan) 0.2 mg Q2M PRN IVP RR<8min 06/29/20 09:30 09/27/20 09:29 Ondansetron HCl (Zofran) 4 mg Q4H PRN IVP Nausea & Vomiting 06/29/20 04:45 07/29/20 04:44 Sodium Chloride 1,000 ml @ 75 mls/hr [id number] IV 06/29/20 04:45 07/29/20 04:44 07/01/20 09:24 Assessment/Plan Assessment/Plan ASSESSMENT sickle cell crisis anemia of sickle cell disease leukocytosis dehydration possible UTI -ruled out PLAN OF CARE MS floor generous IVF hydration O2 prn titrate to keep sat > 92% pain control per pain specialist recs trend LDH -967 continue folic acid and Hydrea heme eval appreciated per heme patient has a homozygous trait ppx: heparin SC dc ceftriaxone , UA w/out evidence of UTI case discussed and evaluated by supervising physician Jose Abarca MD 07/01/20 1250: Subjective Allergies: Coded Allergies: MORPHINE (Verified Allergy, Unknown, 09/02/18) Assessment/Plan Assessment/Plan Patient seen and examined with LOCK SETTER and the above formulated assessment and plan. Henna Chery NP Jul 01, 2020 10:22 Jose Abarca MD Jul 01, 2020 12:50
[2020-07-01 12:00] VITALS: BP 125/76
[2020-07-01 16:00] VITALS: BP 129/75
--- NOTE | 2020-07-01 18:53 | NUR ---
NURSE HAND-OFF: Important Events on Shift:[pain management, IV fluids and ATB] Patient Status: [stable] Diet: [regular] Pending Orders: [] Pending Results/Labs:[] Pending MD notification:[] Latest Vital Signs: Temperature 99.3 , Pulse 81 , B/P 129 /75 , Respiratory Rate 18 , O2 SAT 100 , Room Air, O2 Flow Rate . Vital Sign Comment: [] Latest Grubbs Fall Score: 35 Fall Risk: Medium Risk Safety Measures: Call light Within Reach, Bed Alarm Zone 2, Side Rails Side Rails x2, Bed position Low and Locked. Fall Precautions: Patient Fall Education Addendum: 07/01/20 at 1927 by Marily Dooley RN Report given to TITUS Jett.
--- NOTE | 2020-07-01 19:30 | NUR ---
NURSE NOTES: Received report from lizeth gomez. patient is on bed, awake and verbally responsive. on nasal cannula at 2 lpm. no sob. uses urinal. noted with left shoulder running NS @ 75 ml/hr. denies any pain or discomfort. reiterated to call and ask for assistance. call light and light button within easy reach. bed alarm on. bed locked and in lowest position. will continue plan of care.
[2020-07-01 20:00] VITALS: BP 129/78
[2020-07-02] VITALS: BP 120/80
[2020-07-02 04:00] VITALS: BP 110/63
--- NOTE | 2020-07-02 06:18 | NUR ---
NURSE HAND-OFF: Important Events on Shift: pain mngt Patient Status: stable Diet: regular Pending Orders: Pending Results/Labs:pending am labs Pending MD notification: Latest Vital Signs: Temperature 98.4 , Pulse 78 , B/P 110 /63 , Respiratory Rate 20 , O2 SAT 95 , Room Air, O2 Flow Rate . Vital Sign Comment: Latest Grubbs Fall Score: 35 Fall Risk: Medium Risk Safety Measures: Call light Within Reach, Bed Alarm Zone 2, Side Rails Side Rails x2, Bed position Low and Locked. Fall Precautions: Patient Fall Education
--- NOTE | 2020-07-02 07:14 | Hematology/Onc Progress Note ---
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 - Patient presented for sickle cell pain/crisis last eval in 2018, is on hydroxyurea, and folic acid --> hgb electrophoresis showed SS homozygous back in 2018 --> pain management as per pain team --> retic is 1.9 --> incentive maksim --> hydroxyurea continuem, and folic acid started --> MLK jr f/u as outpatient --> hgb 7.8-->9-->10.3->9.2 --> baseline hgb outside of crisis approx 9-10 range though he himself does not recall --> ferritin is 1834--> indicating iron overload, likely will need future chelation rx --> is on dialudid, has been started # Anemia of sickle cell disease --> trend as needed --> hgb goal >7 --> some hemolysis is noted --> 06/16 blood tx on hold due to elevated temp # Hyperbili- likely related to sickle cell disease --> trend as needed, should improve # Leukocytosis possible uti # Dehydration -- administer fluids # Dvt ppx ambulation/hep sq The timing of this note does not necessarily reflect the time of the patient was seen. Greatly appreciate consultation. Subjective HEENT: Denies: no symptoms, eye pain, blurred vision, tearing, double vision, ear pain, ear discharge, nose pain, nose congestion, throat pain, throat swelling, mouth pain, mouth swelling, other Cardiovascular: Denies: no symptoms, chest pain, edema, irregular heart rate, lightheadedness, palpitations, syncope, other Respiratory: Denies: no symptoms, cough, shortness of breath, SOB with excerti on, SOB at rest, sputum, wheezing, other Gastrointestinal/Abdominal: Denies: no symptoms, abdomen distended, abdominal pain, black stools, tarry stools, blood in stool, constipated, diarrhea, difficulty swallowing, nausea, poor appetite, poor fluid intake, rectal bleeding, vomiting, other Genitourinary: Denies: no symptoms, burning, discharge, frequency, flank pain, hematuria, incontinence, pain, urgency, other Neurologic/Psychiatric: Denies: no symptoms, anxiety, depressed, emotional problems, headache, numbness, paresthesia, pre-existing deficit, seizure, tingling, tremors, weakness, other Endocrine: Denies: no symptoms, excessive sweating, flushing, intolerance to cold, intolerance to heat, increased hunger, increased thirst, increased urine, unexplained weight gain, unexplained weight loss, other Hematologic/Lymphatic: Denies: no symptoms, anemia, easy bleeding, easy bruising, adenopathy, other Allergies: Coded Allergies: MORPHINE (Verified Allergy, Unknown, 09/02/18) Subjective 07/01: labs reviewed hgb is stale. 07/02 less pain today, on dilaudid is on nc, no bleeding, on hydrea Objective Objective Current Medications Medications (Trade) Dose Ordered Sig/Christina Route PRN Reason Start Time Stop Time Status Last Admin Dose Admin Acetaminophen (Tylenol) 650 mg Q6H PRN ORAL For Headache 06/29/20 04:45 07/29/20 04:44 07/01/20 21:32 Acetaminophen/ Hydrocodone Bitart ([place] ) 1 tab Q4H PRN ORAL Moderate Breakthru Pain (5-7) 06/29/20 09:30 07/06/20 09:29 Diphenhydramine HCl (Benadryl) 25 mg Q6H PRN IVP Itching 06/29/20 04:45 07/29/20 04:44 Folic Acid (Folate) 1 mg DAILY ORAL 06/29/20 09:00 07/29/20 08:59 07/01/20 08:06 Gabapentin (Neurontin) 300 mg THREE TIMES A DAY ORAL 06/29/20 10:00 07/29/20 09:59 07/01/20 18:23 Heparin Sodium (Porcine) (Heparin 5000 units/ml) 5,000 units EVERY 12 HOURS SUBQ 06/29/20 14:15 08/13/20 14:14 07/01/20 21:31 Hydromorphone HCl (Dilaudid) 2 mg Q3H PRN IVP Severe Pain (Pain Scale 7-10) 06/29/20 09:00 07/06/20 08:59 07/02/20 06:49 Hydroxyurea (Hydrea) 500 mg DAILY ORAL 06/29/20 09:00 07/04/20 08:59 07/01/20 08:06 Methocarbamol (Robaxin) 500 mg Q8H PRN ORAL muscle spasm 06/29/20 09:30 07/29/20 09:29 Naloxone HCl (Narcan) 0.2 mg Q2M PRN IVP RR<8min 06/29/20 09:30 09/27/20 09:29 Ondansetron HCl (Zofran) 4 mg Q4H PRN IVP Nausea & Vomiting 06/29/20 04:45 07/29/20 04:44 Sodium Chloride 1,000 ml @ 75 mls/hr [id number] IV 06/29/20 04:45 07/29/20 04:44 07/01/20 22:15 Last 24 Hour Vital Signs Date Time Temp Pulse Resp B/P (MAP) Pulse Ox O2 Delivery O2 Flow Rate FiO2 07/02/20 04:18 98.4 07/02/20 04:00 98.1 78 20 110/63 (79) 95 07/02/20 01:15 98.4 07/02/20 00:00 99.3 91 20 120/80 (93) 95 07/01/20 22:02 100.2 07/01/20 22:02 98.4 07/01/20 21:00 Room Air 07/01/20 20:00 100.2 104 18 129/78 (95) 96 07/01/20 18:54 99.3 07/01/20 16:00 99.3 07/01/20 16:00 99.3 81 18 129/75 (93) 100 07/01/20 12:52 98.4 07/01/20 12:00 98.4 82 18 125/76 (92) 100 07/01/20 09:55 98.8 07/01/20 09:00 Room Air 07/01/20 08:00 98.8 88 20 133/82 (99) 95 07/01/20 04:00 98.6 90 20 118/71 (87) 92 07/01/20 00:56 98.2 07/01/20 00:00 100.2 103 18 110/90 (97) 98 06/30/20 21:00 Room Air 06/30/20 20:00 98.4 89 18 119/76 (90) 100 06/30/20 18:00 99.5 81 20 139/75 (96) 100 06/30/20 16:00 100.0 81 20 139/75 (96) 100 06/30/20 12:00 99.0 94 20 115/80 (92) 98 06/30/20 09:00 Room Air 06/30/20 08:00 99.5 90 20 111/76 (88) 98 Intake and Output 07/01/20 07/02/20 19:00 07:00 Intake Total 1240 ml 1500 ml Output Total 1000 ml 1900 ml Balance 240 ml -400 ml Intake Oral 620 ml 1500 ml Other 620 ml Output Urine Total 1000 ml 1900 ml # Voids 5 Labs Test 06/29/20 17:15 06/30/20 05:14 06/30/20 08:50 07/01/20 06:35 White Blood Count 13.0 K/UL (4.8-10.8) 11.2 K/UL (4.8-10.8) Red Blood Count 2.96 M/UL (4.70-6.10) 2.68 M/UL (4.70-6.10) Hemoglobin 10.3 G/DL (14.2-18.0) 9.2 G/DL (14.2-18.0) Hematocrit 28.4 % (42.0-52.0) 25.6 % (42.0-52.0) Mean Corpuscular Volume 96 FL (80-99) 95 FL (80-99) Mean Corpuscular Hemoglobin 34.8 PG (27.0-31.0) 34.2 PG (27.0-31.0) Mean Corpuscular Hemoglobin Concent 36.3 G/DL (32.0-36.0) 35.8 G/DL (32.0-36.0) Red Cell Distribution Width 22.5 % (11.6-14.8) 20.6 % (11.6-14.8) Platelet Count 276 K/UL (150-450) 266 K/UL (150-450) Mean Platelet Volume 5.9 FL (6.5-10.1) 5.9 FL (6.5-10.1) Neutrophils (%) (Auto) 66.3 % (45.0-75.0) 73.2 % (45.0-75.0) Lymphocytes (%) (Auto) 22.1 % (20.0-45.0) 13.0 % (20.0-45.0) Monocytes (%) (Auto) 7.7 % (1.0-10.0) 10.6 % (1.0-10.0) Eosinophils (%) (Auto) 0.0 % (0.0-3.0) 0.1 % (0.0-3.0) Basophils (%) (Auto) 3.9 % (0.0-2.0) 3.1 % (0.0-2.0) Reticulocyte Count 6.2 % (0.5-2.0) Lactate Dehydrogenase 967 U/L (81-234) 1065 U/L (81-234) Test 07/02/20 06:35 Height (Feet): 5 Height (Inches): 9.00 Weight (Pounds): 129 Objective Physical Exam VS reviewed, normal Gen: normal inspection, well appearing, no apparent distress ENT: normal ENT inspection, hearing grossly normal, normal voice Pulm: normal inspection, lungs clear, normal breath sounds, no respiratory distress, no retraction, no wheezing CV: regular rate, rhythm, no edema GI: normal inspection, normal bowel sounds : no CVA tenderness MSK: normal inspection, back normal Neuro: normal inspection, alert, oriented x3, responsive Zackery Perez MD Jul 02, 2020 07:14
--- NOTE | 2020-07-02 07:15 | NUR ---
NURSE NOTES: Received patient in bed, patient awake alert, oriented x4, no sign of distress, denies pain at this time,IVF patent and infusing well on fall and aspiration precaution, call light and light button within easy reach. bed alarm on. bed locked and in lowest position. will continue plan of care lizeth jennings
[2020-07-02 07:34] LABS: ANION GAP 4 mmol/L (5-15); BLOOD UREA NITROGEN 11 mg/dL (7-18); CALCIUM 8.8 MG/DL (8.5-10.1); CARBON DIOXIDE 30 MMOL/L (21-32); CHLORIDE 103 MMOL/L (98-107); CREATININE 0.6 MG/DL (0.55-1.30); POTASSIUM 4.3 MMOL/L (3.5-5.1); SODIUM 137 MMOL/L (136-145)
[2020-07-02 07:37] LABS: BASOPHILS % (AUTO) 2.9 % (0.0-2.0); EOSINOPHILS % (AUTO) 0.3 % (0.0-3.0); HEMATOCRIT 22.8 % (42.0-52.0); LYMPHOCYTES % (AUTO) 18.2 % (20.0-45.0); MEAN CORPUSCULAR VOLUME 95 FL (80-99); MONOCYTES % (AUTO) 9.9 % (1.0-10.0); NEUTROPHILS % (AUTO) 68.7 % (45.0-75.0); PLATELET COUNT 262 K/UL (150-450); RED BLOOD COUNT 2.39 M/UL (4.70-6.10); RED CELL DISTRIBUTION WIDTH 19.6 % (11.6-14.8); WHITE BLOOD COUNT 8.4 K/UL (4.8-10.8)
[2020-07-02 08:00] VITALS: BP 112/64
[2020-07-02] MEDS: Hydroxyurea 500mg cap ORAL SCH (08:15)
[2020-07-02] MEDS: Heparin 5000 units/ml inj SUBQ SCH ×2 (08:17→19:40)
--- NOTE | 2020-07-02 10:01 | Pulmonology Progress Note ---
Henna Chery QUOTER 07/02/20 1001: Subjective Allergies: Coded Allergies: MORPHINE (Verified Allergy, Unknown, 09/02/18) Subjective leukocytosis resolved afebrile pain generalized, persists Hgb down to 8 no CP, no SOB Objective Last 24 Hour Vital Signs Date Time Temp Pulse Resp B/P (MAP) Pulse Ox O2 Delivery O2 Flow Rate FiO2 07/02/20 08:15 Room Air 07/02/20 08:00 98.5 91 18 112/64 (80) 96 07/02/20 07:19 98.4 07/02/20 04:18 98.4 07/02/20 04:00 98.1 78 20 110/63 (79) 95 07/02/20 01:15 98.4 07/02/20 00:00 99.3 91 20 120/80 (93) 95 07/01/20 22:02 100.2 07/01/20 22:02 98.4 07/01/20 21:00 Room Air 07/01/20 20:00 100.2 104 18 129/78 (95) 96 07/01/20 18:54 99.3 07/01/20 16:00 99.3 07/01/20 16:00 99.3 81 18 129/75 (93) 100 07/01/20 12:52 98.4 07/01/20 12:00 98.4 82 18 125/76 (92) 100 Intake and Output 07/01/20 07/02/20 19:00 07:00 Intake Total 1240 ml 1575 ml Output Total 1000 ml 1900 ml Balance 240 ml -325 ml Intake Oral 620 ml 1500 ml IV Total 75 ml Other 620 ml Output Urine Total 1000 ml 1900 ml # Voids 5 General Appearance: no acute distress HEENT: normocephalic, atraumatic, anicteric, mucous membranes moist Respiratory: lungs clear, no respiratory distress, no accessory muscle use Cardiovascular: normal rate Abdomen: soft, non tender Extremities: no edema, pedal pulses normal Neurologic: no motor/sensory deficits, alert Musculoskeletal: normal muscle bulk Laboratory Tests 07/02/20 06:35: White Blood Count 8.4, Red Blood Count 2.39L, Hemoglobin 8.0L, Hematocrit 22.8L, Mean Corpuscular Volume 95, Mean Corpuscular Hemoglobin 33.4H, Mean Corpuscular Hemoglobin Concent 35.1, Red Cell Distribution Width 19.6H, Platelet Count 262, Mean Platelet Volume 6.1L, Neutrophils (%) (Auto) 68.7, Lymphocytes (%) (Auto) 18.2L, Monocytes (%) (Auto) 9.9, Eosinophils (%) (Auto) 0.3, Basophils (%) (Auto) 2.9H, Sodium Level 137, Potassium Level 4.3, Chloride Level 103, Carbon Dioxide Level 30, Anion Gap 4L, Blood Urea Nitrogen 11, Creatinine 0.6, Estimat Glomerular Filtration Rate > 60, Glucose Level 106, Calcium Level 8.8 Current Medications Medications (Trade) Dose Ordered Sig/Christina Route PRN Reason Start Time Stop Time Status Last Admin Dose Admin Acetaminophen (Tylenol) 650 mg Q6H PRN ORAL For Headache 06/29/20 04:45 07/29/20 04:44 07/01/20 21:32 Acetaminophen/ Hydrocodone Bitart ([place] 10) 1 tab Q4H PRN ORAL Moderate Breakthru Pain (5-7) 06/29/20 09:30 07/06/20 09:29 Diphenhydramine HCl (Benadryl) 25 mg Q6H PRN IVP Itching 06/29/20 04:45 07/29/20 04:44 Folic Acid (Folate) 1 mg DAILY ORAL 06/29/20 09:00 07/29/20 08:59 07/02/20 08:15 Gabapentin (Neurontin) 300 mg THREE TIMES A DAY ORAL 06/29/20 10:00 07/29/20 09:59 07/02/20 08:15 Heparin Sodium (Porcine) (Heparin 5000 units/ml) 5,000 units EVERY 12 HOURS SUBQ 06/29/20 14:15 08/13/20 14:14 07/02/20 08:17 Hydromorphone HCl (Dilaudid) 2 mg Q3H PRN IVP Severe Pain (Pain Scale 7-10) 06/29/20 09:00 07/06/20 08:59 07/02/20 09:57 Hydroxyurea (Hydrea) 500 mg DAILY ORAL 06/29/20 09:00 07/04/20 08:59 07/02/20 08:15 Methocarbamol (Robaxin) 500 mg Q8H PRN ORAL muscle spasm 06/29/20 09:30 07/29/20 09:29 Naloxone HCl (Narcan) 0.2 mg Q2M PRN IVP RR<8min 06/29/20 09:30 09/27/20 09:29 Ondansetron HCl (Zofran) 4 mg Q4H PRN IVP Nausea & Vomiting 06/29/20 04:45 07/29/20 04:44 Sodium Chloride 1,000 ml @ 75 mls/hr [id number] IV 06/29/20 04:45 07/29/20 04:44 07/01/20 22:15 Assessment/Plan Assessment/Plan ASSESSMENT sickle cell crisis anemia of sickle cell disease leukocytosis dehydration possible UTI -ruled out PLAN OF CARE MS floor generous IVF hydration O2 prn titrate to keep sat > 92% pain control per pain specialist recs trend LDH -967 continue folic acid and Hydrea heme eval appreciated per heme patient has a homozygous trait ppx: heparin SC dc ceftriaxone , UA w/out evidence of UTI monitor HH with goal to keep Hgb > 7, possible dc in am case discussed and evaluated by supervising physician Jose Abarca MD 07/02/202042: Subjective Allergies: Coded Allergies: MORPHINE (Verified Allergy, Unknown, 09/02/18) Assessment/Plan Assessment/Plan Patient seen and examined with QUOTER and the above formulated assessment and plan. Henna Chery NP Jul 02, 2020 10:01 Jose Abarca MD Jul 02, 2020 20:43
[2020-07-02 11:52] VITALS: BP 115/68
[2020-07-02 16:04] VITALS: BP 131/79
--- NOTE | 2020-07-02 18:28 | NUR ---
NURSE HAND-OFF: Important Events on Shift:[Srill c/o pain prn dilaudid given with relief] Patient Status: [stable] Diet: [regular] Pending Orders: [none] Pending Results/Labs:[none] Pending MD notification:[none] Latest Vital Signs: Temperature 97.6 , Pulse 91 , B/P 131 /79 , Respiratory Rate 17 , O2 SAT 98 , Room Air, O2 Flow Rate . Vital Sign Comment: [stable] Latest Grubbs Fall Score: 35 Fall Risk: Medium Risk Safety Measures: Call light Within Reach, Bed Alarm Zone 2, Side Rails Side Rails x2, Bed position Low and Locked. Fall Precautions: Patient Fall Education Report given to [[facility]]. Addendum: 07/02/20 at 1917 by NANETTE KULKARNI RN RN NURSE HAND-OFF: Important Events on Shift:[Srill c/o pain prn dilaudid given with relief] Patient Status: [stable] Diet: [regular] Pending Orders: [none] Pending Results/Labs:[none] Pending MD notification:[none] Latest Vital Signs: Temperature 97.6 , Pulse 91 , B/P 131 /79 , Respiratory Rate 17 , O2 SAT 98 , Room Air, O2 Flow Rate . Vital Sign Comment: [stable] Latest Grubbs Fall Score: 35 Fall Risk: Medium Risk Safety Measures: Call light Within Reach, Bed Alarm Zone 2, Side Rails Side Rails x2, Bed position Low and Locked. Fall Precautions: Patient Fall Education Report given to [Ms Shyam QURESHI [facility]] TITUS GREENBERG
[2020-07-02 20:00] VITALS: BP 130/94
--- NOTE | 2020-07-02 22:43 | CDS Physician Query ---
Clarification is required for compliance, coding accuracy, and to reflect severity of illness for this patient Dear Jose Atkinson MD Date: 07/02/20 CDI/CDS Name: Roque Collazo CLINICAL DOCUMENTATION STATES: 44 y/o male w/ hx sickle cell anemia presents with pain he feels typical of acute crisis. pain in multiple areas. ran out of meds a week ago . Also noted with possible UTI in ED and started on antibiotics. "Leukocytosis possible uti " documented in Hematology PN by Zackery Perez MD 07/02 ASSESSMENT sickle cell crisis anemia of sickle cell disease leukocytosis dehydration possible UTI -ruled out [ PN Jose Abarca MD>07/02/202042] CLINICAL FINDINGS SHOW: Vitals (06/29): T99.7.4F, Pulse 95, RR22, Labs(06/29): Hemat WBC 12.4, Chem: Glucose 107, Urine: Ur. Bacteria "None", Ur.Leuk Est 1+ Medications: Ketorolac Tromethamine IV (), Acetaminophen 650 PO, Ceftriaxone IV Please clarify if you mean: [] SIRS (Systemic Inflammatory Response Syndrome) [] SIRS w/ Organ Dysfunction [] Sepsis [] Sepsis w/ Organ Dysfunction [] Septic Shock [x] Not Applicable [] Other Present on Admission: [] Yes [x] No [] Clinically Undetermined Physician signature Date Please also document in your Progress Notes and/or Discharge Summary and indicate if the condition was present on admission. BRIDGETD
[2020-07-03] VITALS (7 sets, daily range): BP systolic 107–123; BP diastolic 61–71
--- NOTE | 2020-07-03 06:18 | Cardiology Report ---
APPROVED REPORT EKG Measurement Heart [id number] <Conclusion> Normal sinus rhythm Moderate voltage criteria for LVH, may be normal variant Incomplete RBBB Abnormal ECG
--- NOTE | 2020-07-03 07:03 | Hematology/Onc Progress Note ---
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 - Patient presented for sickle cell pain/crisis last eval in 2018, is on hydroxyurea, and folic acid --> hgb electrophoresis showed SS homozygous back in 2018 --> pain management as per pain team --> retic is 1.9 --> incentive maksim --> hydroxyurea continuem, and folic acid started --> MLK jr f/u as outpatient --> hgb 7.8-->9-->10.3->9.2 --> baseline hgb outside of crisis approx 9-10 range though he himself does not recall --> ferritin is 1834--> indicating iron overload, likely will need future chelation rx --> is on dialudid, has been started # Anemia of sickle cell disease --> trend as needed --> hgb goal >7 --> some hemolysis is noted --> 06/16 blood tx on hold due to elevated temp # Hyperbili- likely related to sickle cell disease --> trend as needed, should improve # Leukocytosis possible uti # Dehydration -- administer fluids # Dvt ppx ambulation/hep sq The timing of this note does not necessarily reflect the time of the patient was seen. Greatly appreciate consultation. Subjective Constitutional: Denies: no symptoms, chills, fever, malaise, weakness, other HEENT: Denies: no symptoms, eye pain, blurred vision, tearing, double vision, ear pain, ear discharge, nose pain, nose congestion, throat pain, throat swelling, mouth pain, mouth swelling, other Cardiovascular: Denies: no symptoms, chest pain, edema, irregular heart rate, lightheadedness, palpitations, syncope, other Respiratory: Denies: no symptoms, cough, shortness of breath, SOB with excertion, SOB at rest, sputum, wheezing, other Gastrointestinal/Abdominal: Denies: no symptoms, abdomen distended, abdominal pain, black stools, tarry stools, blood in stool, constipated, diarrhea, difficulty swallowing, nausea, poor appetite, poor fluid intake, rectal bleeding, vomiting, other Genitourinary: Denies: no symptoms, burning, discharge, frequency, flank pain, hematuria, incontinence, pain, urgency, other Endocrine: Denies: no symptoms, excessive sweating, flushing, intolerance to cold, intolerance to heat, increased hunger, increased thirst, increased urine, unexplained weight gain, unexplained weight loss, other Allergies: Coded Allergies: MORPHINE (Verified Allergy, Unknown, 09/02/18) Subjective 07/01: labs reviewed hgb is stale. 07/02 less pain today, on dilaudid is on nc, no bleeding, on hydrea 07/03 hgb is 8, on hydrea, no bleeding, norco/dilaudid, sleeping comfortably Objective Objective Current Medications Medications (Trade) Dose Ordered Sig/Christina Route PRN Reason Start Time Stop Time Status Last Admin Dose Admin Acetaminophen (Tylenol) 650 mg Q6H PRN ORAL For Headache 06/29/20 04:45 07/29/20 04:44 07/01/20 21:32 Acetaminophen/ Hydrocodone Bitart ([place] 10) 1 tab Q4H PRN ORAL Moderate Breakthru Pain (5-7) 06/29/20 09:30 07/06/20 09:29 Diphenhydramine HCl (Benadryl) 25 mg Q6H PRN IVP Itching 06/29/20 04:45 07/29/20 04:44 Folic Acid (Folate) 1 mg DAILY ORAL 06/29/20 09:00 07/29/20 08:59 07/02/20 08:15 Gabapentin (Neurontin) 300 mg THREE TIMES A DAY ORAL 06/29/20 10:00 07/29/20 09:59 07/02/20 17:06 Heparin Sodium (Porcine) (Heparin 5000 units/ml) 5,000 units EVERY 12 HOURS SUBQ 06/29/20 14:15 08/13/20 14:14 07/02/20 19:40 Hydromorphone HCl (Dilaudid) 2 mg Q3H PRN IVP Severe Pain (Pain Scale 7-10) 06/29/20 09:00 07/06/20 08:59 07/03/20 04:59 Hydroxyurea (Hydrea) 500 mg DAILY ORAL 06/29/20 09:00 07/04/20 08:59 07/02/20 08:15 Methocarbamol (Robaxin) 500 mg Q8H PRN ORAL muscle spasm 06/29/20 09:30 07/29/20 09:29 Naloxone HCl (Narcan) 0.2 mg Q2M PRN IVP RR<8min 06/29/20 09:30 09/27/20 09:29 Ondansetron HCl (Zofran) 4 mg Q4H PRN IVP Nausea & Vomiting 06/29/20 04:45 07/29/20 04:44 Sodium Chloride 1,000 ml @ 75 mls/hr [id number] IV 06/29/20 04:45 07/29/20 04:44 07/03/20 02:00 Last 24 Hour Vital Signs Date Time Temp Pulse Resp B/P (MAP) Pulse Ox O2 Delivery O2 Flow Rate FiO2 07/03/20 05:38 98.1 07/03/20 04:00 98.1 85 17 114/69 (84) 99 07/03/20 02:35 98.9 07/03/20 00:00 98.9 97 15 112/71 (85) 96 07/02/20 23:26 97.6 07/02/20 20:55 Room Air 07/02/20 20:12 97.6 07/02/20 20:00 97.7 73 19 130/94 (106) 98 07/02/20 16:04 97.6 91 17 131/79 (96) 98 07/02/20 11:52 97.7 95 19 115/68 (84) 96 07/02/20 08:15 Room Air 07/02/20 08:00 98.5 91 18 112/64 (80) 96 07/02/20 07:19 98.4 07/02/20 04:18 98.4 07/02/20 04:00 98.1 78 20 110/63 (79) 95 07/02/20 01:15 98.4 07/02/20 00:00 99.3 91 20 120/80 (93) 95 07/01/20 22:02 100.2 07/01/20 22:02 98.4 07/01/20 21:00 Room Air 07/01/20 20:00 100.2 104 18 129/78 (95) 96 07/01/20 18:54 99.3 07/01/20 16:00 99.3 07/01/20 16:00 99.3 81 18 129/75 (93) 100 07/01/20 12:52 98.4 07/01/20 12:00 98.4 82 18 125/76 (92) 100 07/01/20 09:55 98.8 07/01/20 09:00 Room Air 07/01/20 08:00 98.8 88 20 133/82 (99) 95 Intake and Output 07/02/20 07/03/20 19:00 07:00 Intake Total 2525 ml 1875 ml Output Total 2800 ml 2500 ml Balance -275 ml -625 ml Intake Oral 1800 ml 1000 ml IV Total 725 ml 875 ml Output Urine Total 2800 ml 2500 ml # Voids 5 6 Labs Test 06/30/20 08:50 07/01/20 06:35 07/02/20 06:35 07/03/20 05:45 Lactate Dehydrogenase 967 U/L (81-234) 1065 U/L (81-234) White Blood Count 11.2 K/UL (4.8-10.8) 8.4 K/UL (4.8-10.8) Red Blood Count 2.68 M/UL (4.70-6.10) 2.39 M/UL (4.70-6.10) Hemoglobin 9.2 G/DL (14.2-18.0) 8.0 G/DL (14.2-18.0) Hematocrit 25.6 % (42.0-52.0) 22.8 % (42.0-52.0) Mean Corpuscular Volume 95 FL (80-99) 95 FL (80-99) Mean Corpuscular Hemoglobin 34.2 PG (27.0-31.0) 33.4 PG (27.0-31.0) Mean Corpuscular Hemoglobin Concent 35.8 G/DL (32.0-36.0) 35.1 G/DL (32.0-36.0) Red Cell Distribution Width 20.6 % (11.6-14.8) 19.6 % (11.6-14.8) Platelet Count 266 K/UL (150-450) 262 K/UL (150-450) Mean Platelet Volume 5.9 FL (6.5-10.1) 6.1 FL (6.5-10.1) Neutrophils (%) (Auto) 73.2 % (45.0-75.0) 68.7 % (45.0-75.0) Lymphocytes (%) (Auto) 13.0 % (20.0-45.0) 18.2 % (20.0-45.0) Monocytes (%) (Auto) 10.6 % (1.0-10.0) 9.9 % (1.0-10.0) Eosinophils (%) (Auto) 0.1 % (0.0-3.0) 0.3 % (0.0-3.0) Basophils (%) (Auto) 3.1 % (0.0-2.0) 2.9 % (0.0-2.0) Sodium Level 137 MMOL/L (136-145) Potassium Level 4.3 MMOL/L (3.5-5.1) Chloride Level 103 MMOL/L (98-107) Carbon Dioxide Level 30 MMOL/L (21-32) Anion Gap 4 mmol/L (5-15) Blood Urea Nitrogen 11 mg/dL (7-18) Creatinine 0.6 MG/DL (0.55-1.30) Estimat Glomerular Filtration Rate > 60 mL/min (>60) Glucose Level 106 MG/DL (74-106) Calcium Level 8.8 MG/DL (8.5-10.1) Height (Feet): 5 Height (Inches): 9.00 Weight (Pounds): 129 Objective Physical Exam VS reviewed, normal Gen: normal inspection, well appearing, no apparent distress ENT: normal ENT inspection, hearing grossly normal, normal voice Pulm: normal inspection, lungs clear, normal breath sounds, no respiratory di stress, no retraction, no wheezing CV: regular rate, rhythm, no edema GI: normal inspection, normal bowel sounds : no CVA tenderness MSK: normal inspection, back normal Neuro: normal inspection, alert, oriented x3, responsive Zackery Perez MD Jul 03, 2020 07:03
[2020-07-03 07:04] LABS: HEMATOCRIT 22.4 % (42.0-52.0); HEMOGLOBIN 7.7 G/DL (14.2-18.0); MEAN CORPUSCULAR VOLUME 97 FL (80-99); PLATELET COUNT 278 K/UL (150-450); RED BLOOD COUNT 2.32 M/UL (4.70-6.10); WHITE BLOOD COUNT 10.2 K/UL (4.8-10.8)
[2020-07-03 07:08] LABS: ANION GAP 3 mmol/L (5-15); BLOOD UREA NITROGEN 7 mg/dL (7-18); CALCIUM 8.6 MG/DL (8.5-10.1); CARBON DIOXIDE 30 MMOL/L (21-32); CHLORIDE 102 MMOL/L (98-107); CREATININE 0.6 MG/DL (0.55-1.30); POTASSIUM 4.2 MMOL/L (3.5-5.1); SODIUM 135 MMOL/L (136-145)
--- NOTE | 2020-07-03 07:10 | NUR ---
HAND-OFF: Report given to TITUS Stokes.
--- NOTE | 2020-07-03 07:39 | NUR ---
NURSE NOTES: Report received from Becca QURESHI. Patient seen on rounds, asleep but easily rousable, not in distress, nurse reports patient received Dilaudid IV 2mg for pain at 5am with relief of symptoms. PIV on right upper arm running NS @ 75ml/hr. Patient is continent and able to use bedside urinal. AM labs drawn. Bed low and locked, siderails up x2, call light placed within reach and instructed to call nurse for assistance. Will continue to monitor.
[2020-07-03] MEDS: Hydroxyurea 500mg cap ORAL SCH (08:02)
[2020-07-03] MEDS: Heparin 5000 units/ml inj SUBQ SCH ×2 (08:04→19:56)
--- NOTE | 2020-07-03 10:37 | Pulmonology Progress Note ---
Sonny Cheryet TRANSFER PUMPER 07/03/20 1037: Subjective Allergies: Coded Allergies: MORPHINE (Verified Allergy, Unknown, 09/02/18) Subjective leukocytosis resolved afebrile pain generalized, persists Hgb down to 7.7 no CP, no SOB still lots of body pain, specifically back pain LDH trending up Objective Last 24 Hour Vital Signs Date Time Temp Pulse Resp B/P (MAP) Pulse Ox O2 Delivery O2 Flow Rate FiO2 07/03/20 09:00 Room Air 07/03/20 08:00 98.8 79 20 107/67 (80) 96 07/03/20 05:38 98.1 07/03/20 04:00 98.1 85 17 114/69 (84) 99 07/03/20 02:35 98.9 07/03/20 00:00 98.9 97 15 112/71 (85) 96 07/02/20 23:26 97.6 07/02/20 20:55 Room Air 07/02/20 20:12 97.6 07/02/20 20:00 97.7 73 19 130/94 (106) 98 07/02/20 16:04 97.6 91 17 131/79 (96) 98 07/02/20 11:52 97.7 95 19 115/68 (84) 96 Intake and Output 07/02/20 07/03/20 19:00 07:00 Intake Total 2525 ml 1875 ml Output Total 2800 ml 2500 ml Balance -275 ml -625 ml Intake Oral 1800 ml 1000 ml IV Total 725 ml 875 ml Output Urine Total 2800 ml 2500 ml # Voids 5 6 General Appearance: no acute distress HEENT: normocephalic, atraumatic, anicteric, mucous membranes moist Respiratory: lungs clear, no respiratory distress, no accessory muscle use Cardiovascular: normal rate Abdomen: soft, non tender Extremities: no edema, pedal pulses normal Neurologic: no motor/sensory deficits, alert Musculoskeletal: normal muscle bulk Laboratory Tests 07/03/20 05:45: White Blood Count 10.2, Red Blood Count 2.32L, Hemoglobin 7.7L, Hematocrit 22.4L , Mean Corpuscular Volume 97, Mean Corpuscular Hemoglobin 33.0H, Mean Corpuscular Hemoglobin Concent 34.2, Red Cell Distribution Width 19.0H, Platelet Count 278, Mean Platelet Volume 5.5L, Neutrophils (%) (Auto) , Lymphocytes (%) (Auto) , Monocytes (%) (Auto) , Eosinophils (%) (Auto) , Basophils (%) (Auto) , Differential Total Cells Counted 100, Neutrophils % (Manual) 69, Lymphocytes % (Manual) 27, Monocytes % (Manual) 4, Eosinophils % (Manual) 0, Basophils % (Manual) 0, Band Neutrophils 0, Nucleated Red Blood Cells 18, Other Cell Type See comment, Platelet Estimate Adequate, Platelet Morphology Normal, Polychromasia 2+, Anisocytosis 2+, Target Cells 2+, Sodium Level 135L, Potassium Level 4.2, Chloride Level 102, Carbon Dioxide Level 30, Anion Gap 3L, Blood Urea Nitrogen 7, Creatinine 0.6, Estimat Glomerular Filtration Rate > 60, Glucose Level 94, Calcium Level 8.6 Current Medications Medications (Trade) Dose Ordered Sig/Christina Route PRN Reason Start Time Stop Time Status Last Admin Dose Admin Acetaminophen (Tylenol) 650 mg Q6H PRN ORAL For Headache 06/29/20 04:45 07/29/20 04:44 07/01/20 21:32 Acetaminophen/ Hydrocodone Bitart ([place] 10) 1 tab Q4H PRN ORAL Moderate Breakthru Pain (5-7) 06/29/20 09:30 07/06/20 09:29 Diphenhydramine HCl (Benadryl) 25 mg Q6H PRN IVP Itching 06/29/20 04:45 07/29/20 04:44 Folic Acid (Folate) 1 mg DAILY ORAL 06/29/20 09:00 07/29/20 08:59 07/03/20 08:01 Gabapentin (Neurontin) 300 mg THREE TIMES A DAY ORAL 06/29/20 10:00 07/29/20 09:59 07/03/20 08:02 Heparin Sodium (Porcine) (Heparin 5000 units/ml) 5,000 units EVERY 12 HOURS SUBQ 06/29/20 14:15 08/13/20 14:14 07/03/20 08:04 Hydromorphone HCl (Dilaudid) 2 mg Q3H PRN IVP Severe Pain (Pain Scale 7-10) 06/29/20 09:00 07/06/20 08:59 07/03/20 08:02 Hydroxyurea (Hydrea) 500 mg DAILY ORAL 06/29/20 09:00 07/04/20 08:59 07/03/20 08:02 Methocarbamol (Robaxin) 500 mg Q8H PRN ORAL muscle spasm 06/29/20 09:30 07/29/20 09:29 Naloxone HCl (Narcan) 0.2 mg Q2M PRN IVP RR<8min 06/29/20 09:30 09/27/20 09:29 Ondansetron HCl (Zofran) 4 mg Q4H PRN IVP Nausea & Vomiting 06/29/20 04:45 07/29/20 04:44 Sodium Chloride 1,000 ml @ 75 mls/hr [id number] IV 06/29/20 04:45 07/29/20 04:44 07/03/20 02:00 Assessment/Plan Assessment/Plan ASSESSMENT sickle cell crisis anemia of sickle cell disease leukocytosis dehydration possible UTI -ruled out PLAN OF CARE MS floor generous IVF hydration O2 prn titrate to keep sat > 92% pain control per pain specialist recs trend LDH [phone] continue folic acid and Hydrea heme eval appreciated 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 Henna Chery NP Jul 03, 2020 10:37 Jose Abarca MD Jul 03, 2020 11:15
--- NOTE | 2020-07-03 10:50 | NUR ---
NURSE NOTES: Henna Chery aware of today's Hgb results 7.7.
--- NOTE | 2020-07-03 12:34 | General Progress Note ---
Subjective Date patient seen: Jul 03, 2020 Time patient seen: 12:20 - pm Allergies: Coded Allergies: MORPHINE (Verified Allergy, Unknown, 09/02/18) Subjective REVIEW OF SYSTEMS: Denies rash, fever, chills, sweating, dizziness, drowsiness, blurred vision, sore throat or change in weight. No shortness of breath or chest pain. No nausea, vomiting, diarrhea, blood in the stool or urine. No dysuria. HISTORY OF PRESENT ILLNESS: The patient is a 44-year-old male, who is being seen on the medical surgical floor of [facility]. Patient is in bed and showing no signs of pain or distress. Pain has been at a moderate level tolerated on the Dilaudid using 8 doses in the last 24hrs. No new complaints at this time. Objective Last 24 Hour Vital Signs Date Time Temp Pulse Resp B/P (MAP) Pulse Ox O2 Delivery O2 Flow Rate FiO2 07/03/20 09:00 Room Air 07/03/20 08:00 98.8 79 20 107/67 (80) 96 07/03/20 05:38 98.1 07/03/20 04:00 98.1 85 17 114/69 (84) 99 07/03/20 02:35 98.9 07/03/20 00:00 98.9 97 15 112/71 (85) 96 07/02/20 23:26 97.6 07/02/20 20:55 Room Air 07/02/20 20:12 97.6 07/02/20 20:00 97.7 73 19 130/94 (106) 98 07/02/20 16:04 97.6 91 17 131/79 (96) 98 Intake and Output 07/02/20 07/03/20 19:00 07:00 Intake Total 2525 ml 1875 ml Output Total 2800 ml 2500 ml Balance -275 ml -625 ml Intake Oral 1800 ml 1000 ml IV Total 725 ml 875 ml Output Urine Total 2800 ml 2500 ml # Voids 5 6 Laboratory Tests 07/03/20 05:45: White Blood Count 10.2, Red Blood Count 2.32L, Hemoglobin 7.7L, Hematocrit 22.4L , Mean Corpuscular Volume 97, Mean Corpuscular Hemoglobin 33.0H, Mean Corpuscular Hemoglobin Concent 34.2, Red Cell Distribution Width 19.0H, Platelet Count 278, Mean Platelet Volume 5.5L, Neutrophils (%) (Auto) , Lymphocytes (%) (Auto) , Monocytes (%) (Auto) , Eosinophils (%) (Auto) , Basophils (%) (Auto) , Differential Total Cells Counted 100, Neutrophils % (Manual) 69, Lymphocytes % (Manual) 27, Monocytes % (Manual) 4, Eosinophils % (Manual) 0, Basophils % (Manual) 0, Band Neutrophils 0, Nucleated Red Blood Cells 18, Other Cell Type See comment, Platelet Estimate Adequate, Platelet Morphology Normal, Polychromasia 2+, Anisocytosis 2+, Target Cells 2+, Sodium Level 135L, Potassium Level 4.2, Chloride Level 102, Carbon Dioxide Level 30, Anion Gap 3L, Blood Urea Nitrogen 7, Creatinine 0.6, Estimat Glomerular Filtration Rate > 60, Glucose Level 94, Calcium Level 8.6 Height (Feet): 5 Height (Inches): 9.00 Weight (Pounds): 129 Objective PHYSICAL EXAMINATION: GENERAL: Alert, awake, and oriented. LUNGS: Decreased breath sounds bilaterally. HEART: S1 and S2, regular. ABDOMEN: Soft, nontender. EXTREMITIES: No cyanosis. No clubbing. No edema. NEUROLOGICAL: No changes. Assessment/Plan Assessment/Plan: (1) Sickle cell disease (2) Sickle cell crisis (3) Intractable pain Patient to be continued on Dilaudid and [place]. D/w Dr. Riojas and he concurred. Nathanael Sheridan Jul 03, 2020 12:34
--- NOTE | 2020-07-03 13:00 | NUR ---
CHARGE NURSE NOTE: H@H .04/12.4. Georgia HARRINGTON and notified- no new orders given.
--- NOTE | 2020-07-03 16:34 | NUR ---
CASE MANAGEMENT:REVIEW SI;SICKLE CELL CRISIS. 98.9 85 20 114/63 95% ON RA H/H 7.7/22.4 NA 135 IS;HEPARIN SUBQ Q12 GABAPENTIN PO TID DILAUDID IV Q3 PRN HYDREA PO QD IVF NS @ 75 ML/HR MED SURG STATUS DCP;FROM HOME
--- NOTE | 2020-07-03 19:27 | NUR ---
NURSE HAND-OFF: Important Events on Shift: No adverse events noted Patient Status: Stable Diet: Regular Pending Orders: None Pending Results/Labs: None Pending MD notification: None Latest Vital Signs: Temperature 99.1 , Pulse 100 , B/P 123 /71 , Respiratory Rate 20 , O2 SAT 97 , Room Air, O2 Flow Rate . Vital Sign Comment: Latest Grubbs Fall Score: 35 Fall Risk: Medium Risk Safety Measures: Call light Within Reach, Bed Alarm Zone 2, Side Rails Side Rails x2, Bed position Low and Locked. Fall Precautions: Patient Fall Education Report given to Becca QURESHI.
--- NOTE | 2020-07-03 20:00 | NUR ---
NURSE NOTES: Received patient awake, alert, verbal, complained of generalized body pain, subsequently given pain medication as ordered.
[2020-07-04 04:00] VITALS: BP 111/66
[2020-07-04 06:33] LABS: BASOPHILS % (AUTO) 3.8 % (0.0-2.0); EOSINOPHILS % (AUTO) 0.6 % (0.0-3.0); HEMATOCRIT 23.5 % (42.0-52.0); HEMOGLOBIN 8.4 G/DL (14.2-18.0); LYMPHOCYTES % (AUTO) 29.1 % (20.0-45.0); MEAN CORPUSCULAR VOLUME 93 FL (80-99); MONOCYTES % (AUTO) 14.6 % (1.0-10.0); NEUTROPHILS % (AUTO) 51.9 % (45.0-75.0); PLATELET COUNT 314 K/UL (150-450); RED BLOOD COUNT 2.52 M/UL (4.70-6.10); RED CELL DISTRIBUTION WIDTH 19.2 % (11.6-14.8); WHITE BLOOD COUNT 8.2 K/UL (4.8-10.8)
--- NOTE | 2020-07-04 06:56 | Hematology/Onc Progress Note ---
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 - Patient presented for sickle cell pain/crisis last eval in 2018, is on hydroxyurea, and folic acid --> hgb electrophoresis showed SS homozygous back in 2018 --> pain management as per pain team --> retic is 1.9 --> incentive maksim --> hydroxyurea continuem, and folic acid started --> MLK jr f/u as outpatient --> hgb 7.8-->9-->10.3->9.2 --> baseline hgb outside of crisis approx 9-10 range though he himself does not recall --> ferritin is 1834--> indicating iron overload, likely will need future chelation rx --> is on dialudid, has been started # Anemia of sickle cell disease --> trend as needed --> hgb goal >7 --> some hemolysis is noted --> 06/16 blood tx on hold due to elevated temp # Hyperbili- likely related to sickle cell disease --> trend as needed, should improve # Leukocytosis possible uti # Dehydration -- administer fluids # Dvt ppx ambulation/hep sq The timing of this note does not necessarily reflect the time of the patient was seen. Greatly appreciate consultation. Subjective Constitutional: Denies: no symptoms, chills, fever, malaise, weakness, other HEENT: Denies: no symptoms, eye pain, blurred vision, tearing, double vision, ear pain, ear discharge, nose pain, nose congestion, throat pain, throat swelling, mouth pain, mouth swelling, other Gastrointestinal/Abdominal: Denies: no symptoms, abdomen distended, abdominal pain, black stools, tarry stools, blood in stool, constipated, diarrhea, difficulty swallowing, nausea, poor appetite, poor fluid intake, rectal bleeding, vomiting, other Genitourinary: Denies: no symptoms, burning, discharge, frequency, flank pain, hematuria, incontinence, pain, urgency, other Neurologic/Psychiatric: Denies: no symptoms, anxiety, depressed, emotional problems, headache, numbness, paresthesia, pre-existing deficit, seizure, tingling, tremors, weakness, other Endocrine: Denies: no symptoms, excessive sweating, flushing, intolerance to cold, intolerance to heat, increased hunger, increased thirst, increased urine, unexplained weight gain, unexplained weight loss, other Allergies: Coded Allergies: MORPHINE (Verified Allergy, Unknown, 09/02/18) Subjective 07/01: labs reviewed hgb is stale. 07/02 less pain today, on dilaudid is on nc, no bleeding, on hydrea 07/03 hgb is 8, on hydrea, no bleeding, norco/dilaudid, sleeping comfortably 07/04 awake, alert, hgb 8.4, less pain this am, no bleeding Objective Objective Current Medications Medications (Trade) Dose Ordered Sig/Christina Route PRN Reason Start Time Stop Time Status Last Admin Dose Admin Acetaminophen (Tylenol) 650 mg Q6H PRN ORAL For Headache 06/29/20 04:45 07/29/20 04:44 07/01/20 21:32 Acetaminophen/ Hydrocodone Bitart ([place] ) 1 tab Q4H PRN ORAL Moderate Breakthru Pain (5-7) 06/29/20 09:30 07/06/20 09:29 Diphenhydramine HCl (Benadryl) 25 mg Q6H PRN IVP Itching 06/29/20 04:45 07/29/20 04:44 Folic Acid (Folate) 1 mg DAILY ORAL 06/29/20 09:00 07/29/20 08:59 07/03/20 08:01 Gabapentin (Neurontin) 300 mg THREE TIMES A DAY ORAL 06/29/20 10:00 07/29/20 09:59 07/03/20 17:04 Heparin Sodium (Porcine) (Heparin 5000 units/ml) 5,000 units EVERY 12 HOURS SUBQ 06/29/20 14:15 08/13/20 14:14 07/03/20 19:56 Hydromorphone HCl (Dilaudid) 2 mg Q3H PRN IVP Severe Pain (Pain Scale 7-10) 06/29/20 09:00 07/06/20 08:59 07/04/20 04:56 Hydroxyurea (Hydrea) 500 mg DAILY ORAL 06/29/20 09:00 07/04/20 08:59 07/03/20 08:02 Methocarbamol (Robaxin) 500 mg Q8H PRN ORAL muscle spasm 06/29/20 09:30 07/29/20 09:29 Naloxone HCl (Narcan) 0.2 mg Q2M PRN IVP RR<8min 06/29/20 09:30 09/27/20 09:29 Ondansetron HCl (Zofran) 4 mg Q4H PRN IVP Nausea & Vomiting 06/29/20 04:45 07/29/20 04:44 Sodium Chloride 1,000 ml @ 75 mls/hr [id number] IV 06/29/20 04:45 07/29/20 04:44 07/03/20 22:57 Last 24 Hour Vital Signs Date Time Temp Pulse Resp B/P (MAP) Pulse Ox O2 Delivery O2 Flow Rate FiO2 07/04/20 05:26 99.6 07/04/20 04:00 98.7 69 18 111/66 (81) 97 07/04/20 02:32 99.6 07/03/20 23:34 99.6 88 18 112/71 (85) 96 07/03/20 23:32 99.3 07/03/20 20:39 99.3 89 18 111/61 (78) 96 07/03/20 20:25 Room Air 07/03/20 20:24 99.1 07/03/20 16:00 99.1 100 20 123/71 (88) 97 07/03/20 12:00 98.8 75 20 109/64 (79) 95 07/03/20 09:00 Room Air 07/03/20 08:00 98.8 79 20 107/67 (80) 96 07/03/20 05:38 98.1 07/03/20 04:00 98.1 85 17 114/69 (84) 99 07/03/20 02:35 98.9 07/03/20 00:00 98.9 97 15 112/71 (85) 96 07/02/20 23:26 97.6 07/02/20 20:55 Room Air 07/02/20 20:12 97.6 07/02/20 20:00 97.7 73 19 130/94 (106) 98 07/02/20 16:04 97.6 91 17 131/79 (96) 98 07/02/20 11:52 97.7 95 19 115/68 (84) 96 07/02/20 08:15 Room Air 07/02/20 08:00 98.5 91 18 112/64 (80) 96 07/02/20 07:19 98.4 Intake and Output 07/03/20 07/04/20 19:00 07:00 Intake Total 915 ml 1305 ml Output Total 1900 ml 1400 ml Balance -985 ml -95 ml Intake Oral 840 ml 480 ml IV Total 75 ml 825 ml Output Urine Total 1900 ml 1400 ml # Voids 3 Labs Test 07/02/20 06:35 07/03/20 05:45 07/04/20 05:48 White Blood Count 8.4 K/UL (4.8-10.8) 10.2 K/UL (4.8-10.8) 8.2 K/UL (4.8-10.8) Red Blood Count 2.39 M/UL (4.70-6.10) 2.32 M/UL (4.70-6.10) 2.52 M/UL (4.70-6.10) Hemoglobin 8.0 G/DL (14.2-18.0) 7.7 G/DL (14.2-18.0) 8.4 G/DL (14.2-18.0) Hematocrit 22.8 % (42.0-52.0) 22.4 % (42.0-52.0) 23.5 % (42.0-52.0) Mean Corpuscular Volume 95 FL (80-99) 97 FL (80-99) 93 FL (80-99) Mean Corpuscular Hemoglobin 33.4 PG (27.0-31.0) 33.0 PG (27.0-31.0) 33.1 PG (27.0-31.0) Mean Corpuscular Hemoglobin Concent 35.1 G/DL (32.0-36.0) 34.2 G/DL (32.0-36.0) 35.6 G/DL (32.0-36.0) Red Cell Distribution Width 19.6 % (11.6-14.8) 19.0 % (11.6-14.8) 19.2 % (11.6-14.8) Platelet Count 262 K/UL (150-450) 278 K/UL (150-450) 314 K/UL (150-450) Mean Platelet Volume 6.1 FL (6.5-10.1) 5.5 FL (6.5-10.1) 6.0 FL (6.5-10.1) Neutrophils (%) (Auto) 68.7 % (45.0-75.0) % (45.0-75.0) 51.9 % (45.0-75.0) Lymphocytes (%) (Auto) 18.2 % (20.0-45.0) % (20.0-45.0) 29.1 % (20.0-45.0) Monocytes (%) (Auto) 9.9 % (1.0-10.0) % (1.0-10.0) 14.6 % (1.0-10.0) Eosinophils (%) (Auto) 0.3 % (0.0-3.0) % (0.0-3.0) 0.6 % (0.0-3.0) Basophils (%) (Auto) 2.9 % (0.0-2.0) % (0.0-2.0) 3.8 % (0.0-2.0) Sodium Level 137 MMOL/L (136-145) 135 MMOL/L (136-145) Potassium Level 4.3 MMOL/L (3.5-5.1) 4.2 MMOL/L (3.5-5.1) Chloride Level 103 MMOL/L (98-107) 102 MMOL/L (98-107) Carbon Dioxide Level 30 MMOL/L (21-32) 30 MMOL/L (21-32) Anion Gap 4 mmol/L (5-15) 3 mmol/L (5-15) Blood Urea Nitrogen 11 mg/dL (7-18) 7 mg/dL (7-18) Creatinine 0.6 MG/DL (0.55-1.30) 0.6 MG/DL (0.55-1.30) Estimat Glomerular Filtration Rate > 60 mL/min (>60) > 60 mL/min (>60) Glucose Level 106 MG/DL (74-106) 94 MG/DL (74-106) Calcium Level 8.8 MG/DL (8.5-10.1) 8.6 MG/DL (8.5-10.1) Differential Total Cells Counted 100 Neutrophils % (Manual) 69 % (45-75) Lymphocytes % (Manual) 27 % (20-45) Monocytes % (Manual) 4 % (1-10) Eosinophils % (Manual) 0 % (0-3) Basophils % (Manual) 0 % (0-2) Band Neutrophils 0 % (0-8) Nucleated Red Blood Cells 18 /100 WBC Other Cell Type See comment Platelet Estimate Adequate Platelet Morphology Normal Polychromasia 2+ Anisocytosis 2+ Target Cells 2+ Lactate Dehydrogenase 695 U/L (81-234) Height (Feet): 5 Height (Inches): 9.00 Weight (Pounds): 129 Objective Physical Exam VS reviewed, normal Gen: normal inspection, well appearing, no apparent distress ENT: normal ENT inspection, hearing grossly normal, normal voice Pulm: normal inspection, lungs clear, normal breath sounds, no respiratory distress, no retraction, no wheezing CV: regular rate, rhythm, no edema GI: normal inspection, normal bowel sounds : no CVA tenderness MSK: normal inspection, back normal Neuro: normal inspection, alert, oriented x3, responsive Zackery Perez MD Jul 04, 2020 06:55
--- NOTE | 2020-07-04 07:16 | NUR ---
HAND-OFF: Report given to Shahram Ewing RN.
[2020-07-04 08:00] VITALS: BP 120/65
[2020-07-04] MEDS: Heparin 5000 units/ml inj SUBQ SCH (08:16)
--- NOTE | 2020-07-04 08:42 | General Progress Note ---
Subjective Date patient seen: Jul 04, 2020 Time patient seen: 07:30 - am Allergies: Coded Allergies: MORPHINE (Verified Allergy, Unknown, 09/02/18) Subjective REVIEW OF SYSTEMS: Denies rash, fever, chills, sweating, dizziness, drowsiness, blurred vision, sore throat or change in weight. No shortness of breath or chest pain. No nausea, vomiting, diarrhea, blood in the stool or urine. No dysuria. HISTORY OF PRESENT ILLNESS: The patient is a 44-year-old male, who is being seen on the medical surgical floor of [facility]. Patient resting in bed and using the Dilaudid as needed. Has no new complaints at this time. D/w him about reducing the Dilaudid to 1mg and he seems to understand. Objective Last 24 Hour Vital Signs Date Time Temp Pulse Resp B/P (MAP) Pulse Ox O2 Delivery O2 Flow Rate FiO2 07/04/20 05:26 99.6 07/04/20 04:00 98.7 69 18 111/66 (81) 97 07/04/20 02:32 99.6 07/03/20 23:34 99.6 88 18 112/71 (85) 96 07/03/20 23:32 99.3 07/03/20 20:39 99.3 89 18 111/61 (78) 96 07/03/20 20:25 Room Air 07/03/20 20:24 99.1 07/03/20 16:00 99.1 100 20 123/71 (88) 97 07/03/20 12:00 98.8 75 20 109/64 (79) 95 07/03/20 09:00 Room Air Intake and Output 07/03/20 07/04/20 19:00 07:00 Intake Total 915 ml 1380 ml Output Total 1900 ml 1400 ml Balance -985 ml -20 ml Intake Oral 840 ml 480 ml IV Total 75 ml 900 ml Output Urine Total 1900 ml 1400 ml # Voids 3 Laboratory Tests 07/04/20 05:48: White Blood Count 8.2, Red Blood Count 2.52L, Hemoglobin 8.4L, Hematocrit 23.5L, Mean Corpuscular Volume 93, Mean Corpuscular Hemoglobin 33.1H, Mean Corpuscular Hemoglobin Concent 35.6, Red Cell Distribution Width 19.2H, Platelet Count 314, Mean Platelet Volume 6.0L, Neutrophils (%) (Auto) 51.9, Lymphocytes (%) (Auto) 29.1, Monocytes (%) (Auto) 14.6H, Eosinophils (%) (Auto) 0.6, Basophils (%) (Auto) 3.8H, Lactate Dehydrogenase 695H Height (Feet): 5 Height (Inches): 9.00 Weight (Pounds): 129 Objective PHYSICAL EXAMINATION: GENERAL: Alert, awake, and oriented. LUNGS: Decreased breath sounds bilaterally. HEART: S1 and S2, regular. ABDOMEN: Soft, nontender. EXTREMITIES: No cyanosis. No clubbing. No edema. NEUROLOGICAL: No changes. Assessment/Plan Assessment/Plan: (1) Sickle cell disease (2) Sickle cell crisis (3) Intractable pain Patient to be continued on Dilaudid reduced to 1mg IV and [place]. D/w Dr. Riojas and he concurred. Nathanael Sheridan Jul 04, 2020 08:42
--- NOTE | 2020-07-04 08:55 | NUR ---
RD ASSESSMENT & RECOMMENDATIONS SEE CARE ACTIVITY FOR COMPLETE ASSESSMENT DAILY ESTIMATED NEEDS: Needs based on Undeweight, wasting 58.6kg 30-35 kcals/kg 7010-2860 total kcals 1-1.5 g protein/kg 59-88 g total protein 25-35ml/kcal mL/kg 9594-1938 total fluid mLs NUTRITION DIAGNOSIS: Increased kcal and pro needs r/t underweight status as evidenced by pt is 81% of [place] Body Weight, w/ BL LE severe wasting. CURRENT DIET: Regular PO DIET RECOMMENDATIONS: Regular diet ADDITIONAL RECOMMENDATIONS: 1) Ensure TID w/ meals added to tray (350 kcal/20g pro each) 2) Snacks in b/w meals added 3) Obtain standing weights as able 4) MVI x 1
--- NOTE | 2020-07-04 10:06 | Pulmonology Progress Note ---
Henna Chery GRAPHICS INTERN 07/04/20 1006: Subjective Allergies: Coded Allergies: MORPHINE (Verified Allergy, Unknown, 09/02/18) Subjective leukocytosis resolved afebrile pain generalized, persists, but controleld with analgesics Hgb up to 8.4 no CP, no SOB LDH trending down -695 Objective Last 24 Hour Vital Signs Date Time Temp Pulse Resp B/P (MAP) Pulse Ox O2 Delivery O2 Flow Rate FiO2 07/04/20 08:00 98.2 79 18 120/65 (83) 97 07/04/20 05:26 99.6 07/04/20 04:00 98.7 69 18 111/66 (81) 97 07/04/20 02:32 99.6 07/03/20 23:34 99.6 88 18 112/71 (85) 96 07/03/20 23:32 99.3 07/03/20 20:39 99.3 89 18 111/61 (78) 96 07/03/20 20:25 Room Air 07/03/20 20:24 99.1 07/03/20 16:00 99.1 100 20 123/71 (88) 97 07/03/20 12:00 98.8 75 20 109/64 (79) 95 Intake and Output 07/03/20 07/04/20 19:00 07:00 Intake Total 915 ml 1380 ml Output Total 1900 ml 1400 ml Balance -985 ml -20 ml Intake Oral 840 ml 480 ml IV Total 75 ml 900 ml Output Urine Total 1900 ml 1400 ml # Voids 3 General Appearance: no acute distress HEENT: normocephalic, atraumatic, anicteric, mucous membranes moist Respiratory: lungs clear, no respiratory distress, no accessory muscle use Cardiovascular: normal rate Abdomen: soft, non tender Extremities: no edema, pedal pulses normal Neurologic: no motor/sensory deficits, alert Musculoskeletal: normal muscle bulk Laboratory Tests 07/04/20 05:48: White Blood Count 8.2, Red Blood Count 2.52L, Hemoglobin 8.4L, Hematocrit 23.5L, Mean Corpuscular Volume 93, Mean Corpuscular Hemoglobin 33.1H, Mean Corpuscular Hemoglobin Concent 35.6, Red Cell Distribution Width 19.2H, Platelet Count 314, Mean Platelet Volume 6.0L, Neutrophils (%) (Auto) 51.9, Lymphocytes (%) (Auto) 29.1, Monocytes (%) (Auto) 14.6H, Eosinophils (%) (Auto) 0.6, Basophils (%) (Auto) 3.8H, Lactate Dehydrogenase 695H Current Medications Medications (Trade) Dose Ordered Sig/Christina Route PRN Reason Start Time Stop Time Status Last Admin Dose Admin Acetaminophen (Tylenol) 650 mg Q6H PRN ORAL For Headache 06/29/20 04:45 07/29/20 04:44 07/01/20 21:32 Acetaminophen/ Hydrocodone Bitart ([place] ) 1 tab Q4H PRN ORAL Moderate Breakthru Pain (5-7) 06/29/20 09:30 07/06/20 09:29 Diphenhydramine HCl (Benadryl) 25 mg Q6H PRN IVP Itching 06/29/20 04:45 07/29/20 04:44 Folic Acid (Folate) 1 mg DAILY ORAL 06/29/20 09:00 07/29/20 08:59 07/04/20 08:06 Gabapentin (Neurontin) 300 mg THREE TIMES A DAY ORAL 06/29/20 10:00 07/29/20 09:59 07/04/20 08:06 Heparin Sodium (Porcine) (Heparin 5000 units/ml) 5,000 units EVERY 12 HOURS SUBQ 06/29/20 14:15 08/13/20 14:14 07/04/20 08:16 Hydromorphone HCl (Dilaudid) 1 mg Q3H PRN IVP Severe Pain (Pain Scale 7-10) 07/04/20 08:45 07/11/20 08:44 Methocarbamol (Robaxin) 500 mg Q8H PRN ORAL muscle spasm 06/29/20 09:30 07/29/20 09:29 Naloxone HCl (Narcan) 0.2 mg Q2M PRN IVP RR<8min 06/29/20 09:30 09/27/20 09:29 Ondansetron HCl (Zofran) 4 mg Q4H PRN IVP Nausea & Vomiting 06/29/20 04:45 07/29/20 04:44 Sodium Chloride 1,000 ml @ 75 mls/hr [id number] IV 06/29/20 04:45 07/29/20 04:44 07/03/20 22:57 Assessment/Plan Assessment/Plan ASSESSMENT sickle cell crisis anemia of sickle cell disease leukocytosis dehydration possible UTI -ruled out PLAN OF CARE MS floor generous IVF hydration O2 prn titrate to keep sat > 92% pain control per pain specialist recs trend LDH -[phone] continue folic acid and Hydrea heme eval appreciated 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 Henna Chery NP Jul 04, 2020 10:06 Jose Abarca MD Jul 05, 2020 20:50
[2020-07-04] MEDS ORDERED: NORCO 10-325 T1 EACH ORAL (10:20)
[2020-07-04] MEDS ORDERED: NARCAN4 MG NS (10:23)
--- NOTE | 2020-07-04 11:24 | NUR ---
NURSE NOTES: CRN NOTIFIED RN ABOUT DISCHARGE ORDER HOME TODAY BY LUCIE CRAWFORD NP. PT EDUCATED ON DISCHARGE AND PT AGREES. PT WAS EDUCATED ON DISCHARGE PACKET AND DISCHARGE MEDICATIONS. PT VERBALIZED UNDERSTANDING. RN OBTAINED TAXI VOUCHER FROM [facility] IN NURSING ADMINISTRATION. RN REVIEWED PT'S BELONGINGS AND PT STATES ALL BELONGINGS ARE ACCOUNTED. IV ACCESS DISCONTINUED. AWAITING FOR TAXI TO ARRIVE.
--- NOTE | 2020-07-04 11:28 | NUR ---
NURSE NOTES: PT WAS DISCHARGED IN STABLE CONDITION VIA TAXI.
--- NOTE | 2020-07-06 10:35 | Discharge Summary ---
Discharge Summary Discharge Summary _ DATE OF ADMISSION: 06/29/2020 DATE OF DISCHARGE: 07/04/2020 DISCHARGED BY: Dr. Abarca REASON FOR ADMISSION: 44 years old male with past medical history of sickle cell disease with homozygous trait , presented with generalized pain ,which felt typical of acute crisis. Pain reported in multiply areas. Patient ran out of medication about a week ago. Rapid COVID-19 was negative. Laboratory work-up revealed leukocytosis WBC 12.4, hemoglobin 9.9 , hematocrit 26.8. Stable electrolytes and renal parameters. Urinalysis revealed +1 protein , +1 leukocyte esterase. Chest x-ray revealed no acute cardiopulmonary pathology. In emergency department patient started on the IV hydration , received analgesic, empiric antibiotic for possible UTI ,and admitted for further manage ment. CONSULTANTS: [employer]/oncologist Dr. Perez pain specialist Dr. Riojas HOSPITAL COURSE: Patient admitted to medical surgical floor. Patient provided with generous hydration. Pain management was addressed as per pain specialist recommendation. Supplemental oxygen provided and titrated to keep pulse oximetry above 92%. Prior to discharge pulse oximetry stable on room air. LDH was trending : initially increased and then started to trend down. Patient was continued on Hydrea and folic acid. DVT prophylaxis provided. Ceftriaxone was discontinued since no evidence of urinary tract infection. Leukocytosis resolved, likely reactive due to sickle cell crisis. No fevers. Hemoglobin and hematocrit were closely monitored with goal to keep hemoglobin above 7. Prior to discharge hemoglobin 8.4, hematocrit 33.5. Patient clinically stabilized and was ready for discharge home. Prescription for analgesic provided by pain specialist. Patient to follow-up with his own [employer] in 1 week. FINAL DIAGNOSES: Sickle cell crisis Anemia of sickle cell disease Sickle cell disease Leukocytosis- resolved Dehydration DISCHARGE MEDICATIONS: See Medication Reconciliation list. DISCHARGE INSTRUCTIONS: Patient was discharged home. Follow-up with [employer] in 1 week. Henna Chery NP Jul 06, 2020 10:35
== END 2020-07-04 11:27 | disposition home or self-care (01) | DRG 662 ==
LOC: EDBD 23:16 → EDUNIT# 23:16 → EMR 23:32 → 4E 06-29 02:04 → EDBEDREQ 06-29 03:18
DX: D57.00 Hb-SS disease with crisis, unspecified (principal); E86.0 Dehydration; Z88.6 Allergy status to analgesic agent
CPT/HCPCS: 36415; 71045; 80048; 80053; 81003; 82248; 83020; 83615; 85007; 85025; 85044; 93005; 96361; 96365; 96375; 96376; 99285; U0002